=== PATIENT | male | born 1955 | race Caucasian/White ===

== ENCOUNTER 2021-12-12 07:37 | Outpatient (CLI) | payer MEDICAID, SELFPAY ==
--- NOTE | 2021-12-12 08:00 | CRLHL7_ITS ---
For Patients: As a result of the Century Cures Act, medical imaging exams and procedure reports are released immediately into your electronic medical record. You may view this report before your referring provider. If you have questions, please contact your health care provider. Indication: COUGH. FOLLOW UP DIAPHRAGM INFECTION Technique: Noncontrast CT chest Please note that all CT scans at this facility use dose modulation, iterative reconstruction, and/or weight-based dosing when appropriate to reduce radiation dose to as low as reasonably achievable. Comparison: 03/17/2019 CT. 11/18/2021 chest x-ray Findings: Stable 9 millimeter pleural-based nodule anterior right lung. Smaller nodules are similar within the medial right upper lobe and superior segment right lower lobe. Volume loss left lung base including round atelectasis and subsegmental atelectasis in the lingula and left lower lobe. No pleural effusion. Vascular calcifications. Mild chronic prominence of the mediastinal and hilar lymph nodes, unchanged. No fracture. Postop changes of aortic valve repair. Stable benign hypodensity within the left hepatic lobe. Impression: Linear subsegmental and round atelectasis left lung base. Mild prominence of the mediastinal and hilar lymph nodes, unchanged. No suspicious pulmonary nodule. Please note that all CT scans at this facility use dose modulation, iterative reconstruction, and/or weight-based dosing when appropriate to reduce radiation dose to as low as reasonably achievable. Dictated by Manny Melchor MD @ 12/12/2021 9:44:19 AM (Electronically Signed)
== END 2021-12-12 07:38 | disposition home or self-care (01) ==
LOC: CT 07:38
PROVIDERS: PCP Family Medicine; Visit Provider Family Medicine
DX: R05.3 Chronic cough (principal); J98.11 Atelectasis
CPT/HCPCS: 71250

== ENCOUNTER 2022-03-04 10:53 | Outpatient (CLI) | payer MEDICAID, SELFPAY ==
[2022-03-04 21:43] LABS: Chloride* 100 mmol/L (96-114); Sodium* 134 mmol/L (135-149)
[2022-03-04 21:44] LABS: Potassium* 4.9 mmol/L (3.6-5.1)
[2022-03-04 21:46] LABS: Creatinine* 0.8 mg/dL (0.5-1.5); Estimated Glomerular Filt Rate 97 ml/min
[2022-03-04 21:47] LABS: Blood Urea Nitrogen* 17 mg/dL (7-30); Calcium* 9.4 mg/dL (8.4-10.6); Carbon Dioxide* 26 mmol/L (20-32); Glucose* 211 mg/dL (60-115)
[2022-03-04 23:17] LABS: SARS PCR* Negative SARS-CoV-2 (Negative)
== END 2022-03-04 10:54 | disposition home or self-care (01) ==
PROVIDERS: PCP Family Medicine; Visit Provider Family Medicine
DX: Z01.818 Encounter for other preprocedural examination (principal); Z20.822 Contact with and (suspected) exposure to COVID-19
CPT/HCPCS: 80048; 87635

== ENCOUNTER 2022-03-06 09:42 | Outpatient (CLI) | payer MEDICAID, SELFPAY | END 2022-03-06 09:43 | disposition home or self-care (01) | LOC: RAD 09:43 | PROVIDERS: PCP Family Medicine; Visit Provider Internal Medicine Cardiovascular Disease | DX: I35.0 Nonrheumatic aortic (valve) stenosis (principal); I34.0 Nonrheumatic mitral (valve) insufficiency | CPT/HCPCS: 93306 ==

== ENCOUNTER 2022-03-09 07:02 | Outpatient (CLI) | payer MEDICAID, SELFPAY ==
--- OUTSIDE RECORDS SUMMARY | 2022-03-09 07:05 | XMS_ITS | Encounter Summary ---
:1955 Author Organization [facility] Address [address] [place] [address] Care Team Providers Name Role Phone Mj Schaeffer MD Primary Care Provider Reason for Visit Reason Comments UPDATE Encounter Details Date Type Department Care Team Description 11/25/2021 Telephone [facility] [address] [facility] UPDATE Endocrinology [address] [place] [address] [place], [place] [address] [phone] Social History Tobacco Use Types Packs/Day Years Used Date Smoking Tobacco: Every Day Smokeless Tobacco: Never Sex Assigned at Date Recorded Not on file documented as of this encounter Nursing Notes Elizabeth Ferreira RN - 11/25/2021 4:01 PM CDT Received message from [employer] Rep[employer]er, stating: The [employer] rep met with David and his yesterday and got him started on his Dexcom G6. They weregiven incorrect information from [employer] that the Omnipod 5 controller would also be a shoe repairer apprentice for the Dexcom. They are using the shoe repairer apprentice as David does not have a phone. I discussed that the Dexcom shoe repairer apprentice can not be used with the Omnipod 5. During our conversation they also mentioned that with the Omnipod 5 they just need to fill it with insulin and put it on and the system will do everything for them. I am thinking they misunderstood what was mentioned at their last clinic appointment. I explained how the Omnipod 5 works and that they would still need to bolus for carbs but that the automated system would be working in between meals to get the glucose to the set target. They were overwhelmed byall the information and Lashawn (David???s ) said they are going to continue to use his DASH and the Dexcom G6 for now and discuss further with you at his next appointment in December. They also have my contact information. I just wanted to give you a heads up on this one as it appears there were a lot of miscommunications. Patient has appt with you scheduled for 01/14. FYI documented in this encounter Plan of Treatment Upcoming Encounters Date Type Specialty Care Team Description 05/12/2022 Appointment Endocrinology Jeanne Shay [facility] [address] [facility] [place] [address] documented as of this encounter Visit Diagnoses Not on filedocumented in this encounter Care Teams Bessemer Bottom Maker Relationship Specialty Start Date End Date Mj Schaeffer MD PCP - General Family Practice 07/22/21 [facility] [address] [place] [address] documented as of this encounter
--- OUTSIDE RECORDS SUMMARY | 2022-03-09 07:05 | XMS_ITS | Encounter Summary ---
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 Social History Tobacco Use Types Packs/Day Years Used Date Smoking Tobacco: Every Day Smokeless Tobacco: Never Sex Assigned at Date Recorded Not on file documented as of this encounter Plan of Treatment Upcoming Encounters Date Type Specialty Care Team Description 05/12/2022 Appointment Endocrinology Jeanne Shay MBBS [address] [facility] [address] [address] documented as of this encounter Procedures Procedure Name Priority Date/Time Associated Diagnosis Comme nts ALBUMIN/CREAT Routine 01/14/2022 9:55 AM Uncontrolled type 1 R esults for this RATIO CDT diabetes mellitus with proce dure are in hyperglycemia (H RC) the results Essential hypert ension section. 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 documented in this encounter Results (ABNORMAL) Albumin/Creatinine Ratio,Random Urine (01/14/2022 9:55 AM CDT) P athologist Signature Albumin/Creati 31 (H) <30 mg/g 01/14/2022 [facility] nine Ratio, 11:30 AM CDT LABORATORY Urine, Random Albumin, 29.6 mg/L 01/14/2022 [facility] Urine, Random 11:30 AM CDT LABORATORY Creatinine, 97 >20 mg/dL 01/14/2022 [facility] Urine, Random mg/dL 11:30 AM CDT LABORATORY Specimen Anatomical Collection Method Collection Time Receive d Time (Source) Location / / Volume Laterality Urine Non-blood 01/14/2022 9:55 AM 9:55 Collection / CDT AM CDT Unknown Jeanne [facility]_1 Performing Organization Address City/State/ZIP Code Phon e Number [facility] [address] [place] [address] (ABNORMAL) Lipid Panel and Direct LDL (if needed) (01/14/2022 9:36 AM CDT) Patholo gist Method Time Signature Cholesterol 104 0 - 199 01/14/2022 [facility] mg/dL 11:15 AM CDT LABORATORY Triglyceride 102 <=149 01/14/2022 [facility] mg/dL 11:15 AM CDT LABORATORY HDL Cholesterol 38 (L) >=40 mg/dL 01/14/2022 [facility] 11:15 AM CDT LABORATORY LDL, Calculated 46 <130 mg/dL 01/14/2022 [facility] 11:15 AM CDT LABORATORY Non HDL Chol, 66 <=159 01/14/2022 [facility] Calculated mg/dL 11:15 AM CDT LABORATORY Cholesterol/HDL 2.7 01/14/2022 [facility] Ratio 11:15 AM CDT LABORATORY Hours Fasting 2 01/14/2022 [facility] 11:15 AM CDT LAB[facility]ORY Specimen Anatomical Collection Method / Collection Time Recei romario Time (Source) Location / Volume Laterality Blood Venipuncture / 01/14/2022 9:36 01/14/2022 9:36 Unknown AM CDT AM CDT Jeanne Shay MARNIE [facility]_1 Performing Organization Address City/State/ZIP Code Phon e Number [facility] [address] [place] [address] TSH (01/14/2022 9:36 AM CDT) P athologist Signature TSH, Sensitive 1.36 0.30 - 01/14/2022 [facility] 4.50 4:11 PM CDT LABORATORY uIU/mL Specimen Anatomical Collection Method / Collection Time Recei romario Time (Source) Location / Volume Laterality Blood Venipuncture / 01/14/2022 9:36 01/14/2022 9:36 Unknown AM CDT AM CDT Jeanne Cisse Jaspal [facility]1 Performing Organization Address City/State/ZIP Code Phon e Number [facility] [address] [place] [address] (ABNORMAL) BMP (01/14/2022 9:36 AM CDT) Analysis Performed At Patho logist Time Signature Sodium 137 136 - 145 01/14/2022 [facility] mmol/L 11:15 AM CDT LABORATORY Potassium 5.0 3.5 - 5.1 01/14/2022 [facility] mmol/L 11:15 AM CDT LABORATORY Chloride 104 98 - 109 01/14/2022 [facility] mmol/L 11:15 AM CDT LABORATORY CO2 25 20 - 29 01/14/2022 [facility] mmol/L 11:15 AM CDT LABORATORY Anion Gap 8 7 - 16 01/14/2022 [facility] mmol/L 11:15 AM CDT LABORATORY Calcium 9.3 8.4 - 10.4 01/14/2022 [facility] mg/dL 11:15 AM CDT LABORATORY BUN 14 7 - 26 01/14/2022 [facility] mg/dL 11:15 AM CDT LABORATORY Creatinine 0.80 0.73 - 01/14/2022 [facility] 1.18 mg/dL 11:15 AM CDT LABORATORY GFR, Estimated >60 >60 01/14/2022 [facility] mL/min/1.7 11:15 AM CDT LABORATORY 3m2 Glucose 240 (H) 70 - 100 01/14/2022 [facility] mg/dL 11:15 AM CDT LABORATORY Comment: The given reference range is fo r the fasting state. Non-fasting reference range for glucose is 70 - 180 mg/dL. Hours Fasting 2 01/14/2022 11:[address] [facility] Specimen Anatomical Collection Method / Collection Time Recei romario Time (Source) Location / Volume Laterality Blood Venipuncture / 01/14/2022 9:36 01/14/2022 9:36 Unknown AM CDT AM CDT Jeanne Shay [facility]_1 Performing Organization Address City/State/ZIP Code Phon e Number [facility] [address] [place] [address] documented in this encounter Visit Diagnoses Diagnosis Uncontrolled type 1 diabetes mellitus wi th hyperglycemia (HRC) Essential hypertension (HRC) Unspecified essential hypertension Dyslipidemia (high LDL; low HDL) (HRC) Other and unspecified hyperlipidemia Coronary artery disease involving tanner ry bypass graft of andreafski heart without angina pectoris (HRC) documented in this encounter Care Teams Targeting Acquisition Officer Relationship Specialty Start Date End Date Mj Schaeffer MD PCP - General Family Practice 07/22/21 [facility] [address] [place] [address] documented as of this encounter
--- OUTSIDE RECORDS SUMMARY | 2022-03-09 07:05 | XMS_ITS | Encounter Summary ---
:1955 Author Organization [employer] Address [address] [address] Care Team Providers Name Role Phone Mj Schaeffer MD Primary Care Provider Reason for Visit Reason Onset Date Comments Refill 10/23/2021 gabapentin (NEURONTI N) 300 MG capsule Encounter Details Date Type Department Care Team Description 10/23/2021 Refill [place] Jeanne Shay, Refill ( gabapentin Endocrinology MBBS (NEURONTIN) [address] capsule) [place] [address] [facility] [phone] [place], [place] [id number] Social History Tobacco Use Types Packs/Day Years Used Date Smoking Tobacco: Every Day Smokeless Tobacco: Never Sex Assigned at Date Recorded Not on file documented as of this encounter Nursing Notes Interface, Out Surescripts Prov Query - 10/23/2021 9:20 AM CDT gabapentin (NEURONTIN) 300 MG capsule Neurology: Anticonvulsants - Gabapentin -> The requested medication was previously set to Historical. -> Unable to determine if sig has changed, review required. -> Medication cannot be delegated. Last qualifying visit: 10/21/2021 (in [facility]) Next scheduled visit: 01/14/2022 (in [facility]) Last ordered by UNKNOWN, PHYSICIAN: 10/23/2020 (365 days ago as Historical on 12/11/2020 by THOMAS KIMBALL), Sig: take 1 capsule by mouth every morning and 2 every evening (changed) [employer] Embedded Refills, Reference: [id number], 10/23/2021 9:20:06 AM CDT, [place]: [facility] 1 ([id number]) documented in this encounter Plan of Treatment Upcoming Encounters Date Type Specialty Care Team Description 05/12/2022 Appointment Endocrinology Jeanne Shay, MARNIE[facility] [address] [facility] [address] [address] documented as of this encounter Visit Diagnoses Not on filedocumented in this encounter Care Teams Vessel Traffic Officer Relationship Specialty Start Date End Date Mj Schaeffer MD PCP - General Family Practice 07/22/21 [facility] [address] [place] [address] documented as of this encounter
--- OUTSIDE RECORDS SUMMARY | 2022-03-09 07:05 | XMS_ITS | Clinical Summary ---
:1955 Author Organization [facility] [place] [address] Care Team Providers Name Role Phone Jhoan Schaeffer MD Primary Care Provider Allergies No known active allergies Medications Medication Sig Dispensed Refills Start Date End Date Status gabapentin Take 100 mg by mouth 0 Active (NEURONTIN) 100 mg once daily. capsule nitroglycerin Place 0.4 mg under 0 08/19/2017 Active (NITROSTAT) 0.4 mg the tongue every 5 sublingual tablet minutes if needed for Chest Pain. aspirin chewable 81 Take 81 mg by mouth 0 Active mg chewable tablet once daily with a meal. acetaminophen Take 1-2 tablets by 0 09/20/2017 Active (TYLENOL) 325 mg mouth every 4 hours tabletIndications: if needed. Max S/P AVR (aortic acetaminophen dose: valve replacement), 4000mg in 24 hrs. S/P CABG x 3 insulin aspart U-100 Inject 5 units with 15 mL 0 8 Active (NOVOLOG) 100 meals. Follow unit/mL solution for sliding scale. Blood injectionIndications glucose less than : Type 1 diabetes 150, no insulin; mellitus with 151-199 give 2 complication (HC) units; 200-249=4 units; 250-299=6 units; 300-349=8 units; greater than 350=10 units insulin detemir Inject 25 Units 15 mL 0 09/21/2017 Active U-100 (LEVEMIR) 100 subcutaneous once unit/mL (3 mL) daily in the penIndications: Type evening. 1 diabetes mellitus with complication (HC) metFORMIN Take 2 tablets by 0 09/20/2017 A ctive (GLUCOPHAGE) 500 mg mouth once daily tabletIndications: with a meal. Hold Type 1 diabetes until speaking to Dr carrasco with [facility]- we will complication (HC) not resume this until she review your sugars cefdinir (OMNICEF) TK 2 CS PO D 0 12/05/2018 Active 300 mg capsule metoprolol tartrate Take 50 mg by mouth 11 11/29/2018 Active (LOPRESSOR) 50 mg 2 times daily. 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 Hameed S/P CABG x 3 09/15/2017 Overview: Coronary bypass x3 with left internal ma mmary artery to LAD, saphenous vein sequential graft to obtuse marginal and posterior descending branch of right--09/15/17 Dr. Hameed CAD in wiyot artery 09/14/2017 TIA (transient ischemic attack) 09/08/2017 Overview: In 2004, presented with slurred speech a nd weakness of right arm and severe fatigue. Chest pain 09/02/2017 Hypertension 09/02/2017 Hyperlipidemia 09/02/2017 Smoker 09/02/2017 PAD (peripheral artery disease) 09/02/2017 Diabetes type I 09/02/2017 Aortic stenosis 09/02/2017 Encounters Date Type Specialty Care Team Description 03/06/2022 Orders Only 2 scans: (2-Ord ) ECHO COMPLETE WO CONTRAST (ONBAS [id number]) 01/12/2022 Telephone Aakash Mcneil MD Referral 01/09/2022 Office Visit Aakash Mcneil MD 01/09/2022 Orders Only Aakash Mcneil MD <No scans attached> from Last 3 Months Immunizations Name Administration Dates Next Due Influenza, IIV4 02/24/2017, 04/01/2016 Family History Medical History Relation Name Comments Heart Disease Father [place] at age 65, di ed at age 79 Leukemia Mother Relation Name Status Comments Father Mother Social History Tobacco Use Types Packs/Day Years Used Date Current Every Day Smoker 1 50 Smokeless Tobacco: Never Used Alcohol Use Standard Drinks/Week Comments Yes 2 (1 standard drink = 0.6 oz pure alcoho l) social Alcohol Habits Answer Date Recorded How often do you have a drink containing alcohol? Not asked How many drinks containing alcohol do you have on a typical Not asked day when you are drinking? How often do you have six or more drinks on one occasion? No t asked Comment: social 09/08/2017 Sex Assigned at Date Recorded Not on file Obstetrics History Last Filed Vital Signs Vital Sign Reading Time Taken Comments Blood Pressure 120/74 12/14/2018 2:39 PM CDT Pulse 81 12/14/2018 2:39 PM CDT Temperature 36.7 ??C (98 ??F) 09/20/2017 12:52 PM CDT Respiratory Rate 18 09/20/2017 12:52 PM CDT Oxygen Saturation 99% 12/14/2018 2:39 PM On 3L of O2 CDT Inhaled Oxygen Concentration - - Weight 77.4 kg (170 lb 11.2 12/14/2018 2:39 PM oz) CDT Height 172.7 cm (5' 8) 09/15/2017 6:21 AM CDT Body Mass Index 25.95 09/15/2017 6:21 AM CDT Plan of Treatment Upcoming Encounters Date Type Specialty Care Team Description 03/09/2022 Office Visit Faisal Gutierrez MD [address] [id number] (Wo rk) Health Maintenance Due Date Last Done Comments Pneumococcal series for age 65+ (1 1960 - PCV) Tdap 1965 Depression screening for age 12+ 1966 BMI (ht and wt on same day) for 1972 age 18+ Hepatitis C screening for age 0611/11/1972 18-79 Tetanus booster 1974 Colonoscopy through age 75 11/12/1999 Zoster (shingles) series for age 0611/11/2004 50+ (1 of 2) COVID-19 vaccine series (5 - 11/14/2021 09/19/2021, 021, Booster for Moderna series) 08/31/2020, Addition al history exists Influenza for age 65+ 02/05/2022 02/24/2017, 04/01/2016 Lipids for age 45-75 09/02/2022 09/02/2017 Medical Devices Implanted Type Area Sliver Lap Machine Tender Device Shelf Model / Identifier Expiration Serial / Date Lot Valorie Hh [id number] N/A: Carey 06/09/2021 [id number] / Implanted: Qty: 1 on 09/15/2017 by Gurpreet Butler MD at [facility] Aortic Lif[employer]iences [id number] / Explanted: at [facility] (Quantity not on file) Valve Devon Procedures Procedure Name Priority Date/Time Associated Diagnosis Comme nts ECHO COMPLETE WO Routine 03/06/2022 10:51 Nonrheumatic aortic Results for this CONTRAST AM CDT (valve) stenosis procedure a re in the results section. from Last 3 Months Results ECHO COMPLETE WO CONTRAST (03/06/2022 10:51 AM CDT) P athologist Signature AORTIC VALVE 14 mmHg MEAN PG EJECTION 64 % FRACTION LVEDD 3.2 cm EJECTION 70 - 75% FRACTION Anatomical Region Laterality Modality HEART Ultrasound Specimen (Source) Anatomical Collection Method Collection Time Re ceived Time Location / / Volume Laterality 03/06/2022 10:11 AM CDT Narrative 03/06/2022 11:08 AM CDT ECHOCARDIOGRAM JUNIOR Cecilia PETTY ?Accessio n#: ?? [id number] : ?1955 66 years Study Date: ?? 03/06/2022 10:11:45 AM Gender: M ? BP: ? 129/80 mmHg Height: 170.00 cm ? BSA: ?1.91 m? ?? Weight: 79.00 kg ?Tech: ? MJS ?[place] bain MD: AAKASH MCNEIL [facility] Reading Location: MOBILE OP Procedure: 2D, Color Doppler and Spectra l Doppler. Indication for study: 23 MM MAGNA EASE B IOPROSTHESIS AVR Cardiac Rhythm: Normal sinus.Study quali ty: Fair. Final Impressions: 1. Normal LV size, mildly increased wal l thickness, normal global systolic function with an estimated EF of 70 - 75%. 2. Right ventricular cavity size is nor mal, global systolic RV function is normal. 3. The aortic valve is functioning 23 m m Magna Ease, no stenosis and no regurgitation. The aortic valve peak velocity is 2.7 m/s, the peak gradient is 28 mmHg, and the mean gradient is 14 mmHg. The aor tic valve area is 1.71 cm? ?? with a dimensionless index of 0.53. The stroke volume index is 52.1 ml/m? ??. 4. The mitral valve is sclerotic, trace mitral regurgitation. Chamber Sizes and Function Normal left ventricular size, mildly inc reased wall thickness, normal global systolic function with an estimated EF of 70 - 75%. Left atrial size is normal. Right ventricular cavity size is normal, glob al systolic RV function is normal. The r ight atrium is normal. Right atrial volume index is 13 ml/m? ??. Right atrial area is 10 cm? ??. The pulmonary artery is of normal size and origin. The sinus of V alsalva is normal sized. The ascending a maira is normal sized. Valves, RV Pressures and Diastolic Funct ion The aortic valve is functioning 23 mm Ma gna Ease, no stenosis and no regurgitation. The mitral valve is sclerotic, trace mitral regurgitation. Indeterminate pattern of LV diastolic filling. The tricuspi d valve is normal in structure. Tricuspi d regurgitation is trace regurgitation. The pulmonic valve is normal. No pulmonary regurgitation. TTE images do not appear adequate for transcather intervention with patient supine. Masses, Effusion, Shunts There is no pericardial effusion. The in ferior vena cava is normal sized, respiratory size variation greater than 50%. No left to right shunting was detected by limited color flow Doppler interrogation of the interatrial septum. MEASUREMENTS AND CALCULATIONS 2-D Measurements and LV Function: LVID (d) 3.2 cm LVOT diameter 2.0 cm IVS (d) ??1.3 cm HR ?61 bpm LVPW (d) 1.4 cm LA Vol index ??25 ml/m2 Ao Sinus 2.7 cm RA Vol index ??13 ml/m2 Asc Ao ?? 3.4 cm RA area ? 10 cm? ?? LA ? 4.0 cm RV Max 4C (d) 3.4 cm Diastology: Mitral ?Tissue Doppler E Peak 1.2 m/s ??e', Septum ? 0.08 m /s A Peak 0.7 m/s ??e', Lateral ?0.12 m /s E/A ?1.7 ?E/e' Average ?? 11. 39 DT ? 144 msec Aortic Valve: Vmax ? 2.7 m/s ??HARSHAD (V) ?? 1.56 cm? ?? VTI ?0.58 m ?? HARSHAD (I) ?? 1.71 cm? ?? LVOT V max 1.3 m/s ??Max PG ?28 mmHg LVOT VTI ?? 0.31 m ?? Mean PG ?? 14 mmHg SV ? 99 ml ?Dim Index 0.53 SV index ?? 52 ml/m? ?? CO ?6.1 l/min ?CI ?3.2 l/min/m? ?? Mitral Valve: MVA ?5.3 cm? ?? MV P 1/2 42 msec Tricuspid Valve and estimated PA pressur es: TAPSE 2.1 cm . [facility] CC: [facility]. ??Final ?? Procedure Note Justin Reynoso MD - 03/06/2022Format ting of this note might be different from the original. ECHOCARDIOGRAM JUNIOR FIGUEROA : 1955 66 years Study Date: 2021 10:11:45 AM Gender: M BP: 129/80 mmHg Height: 170.00 cm BSA: 1.91 m? ?? Weight: 79.00 kg Tech: BOBBI Referring MD: AAKASH MCNEIL Site: [facility] Reading Location: MOBILE OP Procedure: 2D, Color Doppler and Spectra l Doppler. Indication for study: 23 MM MAGNA EASE B IOPROSTHESIS AVR Cardiac Rhythm: Normal sinus.Study quali ty: Fair. Final Impressions: 1. Normal LV size, mildly increased wal l thickness, normal global systolic function with an estimated EF of 70 - 75%. 2. Right ventricular cavity size is nor mal, global systolic RV function is normal. 3. The aortic valve is functioning 23 m m Magna Ease, no stenosis and no regurgitation. The aortic valve peak velocity is 2.7 m/s, the peak gradient is 28 mmHg, and the mean gradient is 14 mmHg. The aortic valve area is 1.71 cm? ?? with a dimensionless index of 0.53. The stroke volume index is 52.1 ml/m? ??. 4. The mitral valve is sclerotic, trace mitral regurgitation. Chamber Sizes and Function Normal left ventricular size, mildly inc reased wall thickness, normal global systolic function with an estimated EF of 70 - 75%. Left atrial size is normal. Right ventricular cavity size is normal, global systolic RV function is normal. The right atrium is normal. Right atrial volume index is 13 ml/m? ??. Right atrial area is 10 cm? ??. The pulmonary artery is of normal size and origin. The sinus of Valsalva is normal sized. The ascending aorta is normal sized. Valves, RV Pressures and Diastolic Funct ion The aortic valve is functioning 23 mm Ma gna Ease, no stenosis and no regurgitation. The mitral valve is sclerotic, trace mitral regurgitation. Indeterminate pattern of LV diastolic filling. The tricuspid valve is normal in structure. Tricuspid regurgita tion is trace regurgitation. The pulmonic valve is normal. No pulmonary regurgitation. TTE images do not appear adequate for transcather intervention with patient supine. Masses, Effusion, Shunts There is no pericardial effusion. The in ferior vena cava is normal sized, respiratory size variation greater than 50%. No left to right shunting was detected by limited color flow Doppler interrogation of the interatrial septum. MEASUREMENTS AND CALCULATIONS 2-D Measurements and LV Function: LVID (d) 3.2 cm LVOT diameter 2.0 cm IVS (d) 1.3 cm HR 61 bpm LVPW (d) 1.4 cm LA Vol index 25 ml/m2 Ao Sinus 2.7 cm RA Vol index 13 ml/m2 Asc Ao 3.4 cm RA area 10 cm? ?? LA 4.0 cm RV Max 4C (d) 3.4 cm Diastology: Mitral Tissue Doppler E Peak 1.2 m/s e', Septum 0.08 m/s A Peak 0.7 m/s e', Lateral 0.12 m/s E/A 1.7 E/e' Average 11.39 DT 144 msec Aortic Valve: Vmax 2.7 m/s HARSHAD (V) 1.56 cm? ?? VTI 0.58 m HARSHAD (I) 1.71 cm? ?? LVOT V max 1.3 m/s Max PG 28 mmHg LVOT VTI 0.31 m Mean PG 14 mmHg SV 99 ml Dim Index 0.53 SV index 52 ml/m? ?? CO 6.1 l/min CI 3.2 l/min/m? ?? Mitral Valve: MVA 5.3 cm? ?? MV P 1/2 42 msec Tricuspid Valve and estimated PA pressur es: TAPSE 2.1 cm . [facility]. CC: [facility]. Final Aakash Mcneil MD ECHO ORD from Last 3 Months Insurance Payer Benefit Plan / Subscriber ID Effective Dates Phone Addre ss Type Group [facility] [id number] 2021-Present [address] [place] [address] [id number] (Home) [address] [phone] (Work) Advance Directives Latest Code Status on File Code Status Date Activated Date Inactivated Comments Full Code 09/15/2017 5:58 AM 09/20/2017 3:57 PM Full Code 09/02/2017 8:23 AM 09/02/2017 5:50 PM Care Teams Switchman Relationship Specialty Start Date End Date Jhoan Schaeffer MD PCP - General Family Practice 08/19/17
--- OUTSIDE RECORDS SUMMARY | 2022-03-09 07:05 | XMS_ITS | Encounter Summary ---
:1955 Author Organization [email or web address] Address [address], [place] [address] Care Team Providers Name Role Phone Mj Schaeffer MD Primary Care Provider Reason for Referral Medication Prior Authorization - Authorized Specialty Diagnoses / Procedures Referred By Contact Refer red To Contact Diagnoses Uncontrolled type 1 diabetes mellitus with hyperglycemia (HRC) Jeanne Shay MBBS [address] [place], [place] [address] Referral ID Status Reason Start Date Expiration Date Visits V isits Requested Authorized [id number] Authorized 09/23/2021 10/23/2022 1 1 Reason for Visit Reason Comments Diabetes Encounter Details Date Type Department Care Team Description 10/21/2021 Office Visit Jeanne Aguilar d type 1 diabetes mellitus with hyperglycemia (HRC) (Primary Dx); MERE Velasco Essential hypertension; [address] Dyslipidemia (high LDL; low HDL); [place] [address] [address]VD Coronary artery disease involving tanner ry bypass graft of creek heart without angina pectoris [phone] [place] [address] Social History Tobacco Use Types Packs/Day Years Used Date Smoking Tobacco: Every Day Smokeless Tobacco: Never Sex Assigned at Date Recorded Not on file documented as of this encounter Last Filed Vital Signs Vital Sign Reading Time Taken Comments Blood Pressure 132/67 10/21/2021 10:04 AM CDT Pulse 67 10/21/2021 10:04 AM CDT Temperature - - Respiratory Rate - - Oxygen Saturation - - Inhaled Oxygen Concentration - - Weight 79.6 kg (175 lb 8 oz) 10/21/2021 10:04 AM CDT Height 170.2 cm (5' 7) 10/21/2021 10:04 AM CDT Body Mass Index 27.49 10/21/2021 10:04 AM CDT documented in this encounter Progress Notes Jeanne Shay MBBS - 10/21/2021 10:00 AM CDT [facility] Department of Endocrinology, Diabetes and Metabolism Clinic Note Name: David Figueroa Cc: Follow up for T1DM. He came with his who is my patient as well. HPI: David Figueroa is a 65 y.o. male #1 T1DM: Diagnosed in 2014, had positive antibodies per his report. This is complicated by neuropathy and CAD. He is currently using Omnipod with Nemesio CGM. Pump settings are: basal midnight 2.05, 3 am 1.45, 2 PM 1.8, 9 PM 2.05 (total40.85 units), bolus midnight 1 per10 (except from 11:30-2PM he does 1 per 15). SF 40, target 100 during the day and 110 overnight, insulin time 4 hrs. He is back on metformin XR 2 gm daily. He uses CGM with Nemesio, CGM data for 2 weeks were reviewed, average glucose was 240, GMI 9.1. 44% >250, 22%181-250, 34% in range (70-180), 0%<70 and 0%<54. Glucose tracing indicates a trend of hyperglycemia post meals and hypoglycemia around noon. A1C today was 9.9 He has peripheral neuropathy symptoms, controlled with gabapentin 300 mg in the AM and 600 mg at night. Eye exam from this year was reported with no retinopathy. He had CABG in 2018, he takes atorvastatin 80 mg daily, lisinopril 2.5 mg daily, and metoprolol 50 mg BID. He has RUDI not using CPAP. Physical Examination: Vitals: BP 132/67 (BP Location: Left Arm, BP Cuff Size: Large) Pulse 67 Ht 5' 7 (1.702 m) Wt 175 lb 8 oz (79.6 kg) BMI 27.49 kg/m?? General: The patient is alert and oriented, no acute distress. Labs/imaging: Reviewed and summarized in the HPI. Assessment and Plan: David Figueroa is a 65 y.o. male: #1 T1DM: uncontrolled, complicated by neuropathy and CAD. A1C 9.9%. Counseled him about the importance of DM control. Counseled him about diet and exercise. Continue metformin XR, 2 gm daily. Change max bolus to 30, and change basal from 8AM-2PM to 1.25. Change Dash to Omipod With dexcom. counseled him about medicine use and side effects. Continue CGM use. RTC 3 months. #2 HTN: controlled. #3 Dyslipidemia on a statin. #4 CAD s/p CABG. #5 RUDI advised him on using CPAP. [facility] [employer] Technical Director Jaime Holley - 10/21/2021 10:00 AM CDT Images from the original note were not included. documented in this encounter Plan of Treatment Upcoming Encounters Date Type Specialty Care Team Description 05/12/2022 Appointment Endocrinology Jeanne Shay MBBS [address] [facility] [address] [id number] documented as of this encounter Procedures Procedure Name Priority Date/Time Associated Diagnosis Comme nts POCT GLYCOSYLATED Routine 10/21/2021 10:16 Uncontrolled type 1 Results for this HEMOGLOBIN (HGB A1C) AM CDT diabetes mellitus pr ocedure are in with hyperglycemia the resul ts (HRC) section. documented in this encounter Results (ABNORMAL) POCT glycosylated hemoglobin (Hb A1C) (10/21/2021 10:16 AM CDT) P athologist Signature Hemoglobin A1C 9.9 (A) 5.6 % POCT Cartridge Lot# [id number] POCT Specimen (Source) Anatomical Collection Method Collection Time Re ceived Time Location / / Volume Laterality Blood 10/21/2021 10:16 AM CDT Jeanne SEVERINO ET POINT OF CARE TEST ENTER/ EDIT ORDERABLES Performing Organization Address City/State/ZIP Code Phon e Number POCT documented in this encounter Visit Diagnoses Diagnosis Uncontrolled type 1 diabetes mellitus wi th hyperglycemia (HRC) - Primary Essential hypertension (HRC) Unspecified essential hypertension Dyslipidemia (high LDL; low HDL) (HRC) Other and unspecified hyperlipidemia Coronary artery disease involving tanner ry bypass graft of creek heart without angina pectoris (HRC) documented in this encounter Care Teams French Lecturer Relationship Specialty Start Date End Date Mj Schaeffer MD PCP - General Family Practice 07/22/21 [facility] [address] [place] [address] documented as of this encounter
--- OUTSIDE RECORDS SUMMARY | 2022-03-09 07:05 | XMS_ITS | Clinical Summary ---
:1955 Author Organization [facility] Address [address] [place] [address] Care Team Providers Name Role Phone Mj Schaeffer MD Primary Care Provider Source Comments You are receiving this document as you are listed as the primary care provider,follow-up provider, or the patient has been referred to you for consultation.This is in compliance with the Medicare and Medicaid EHR Incentive Program,which states Providers who transition their patient to another setting of careor provider of care or refers their patient to another provider of care shouldprovide summarycare record for each transition of care or referral. [facility] Allergies No known active allergies Medications Medication Sig Dispensed Refills Start Date End Date Status atorvastatin TAKE ONE TABLET 0 10/28/2020 Active (LIPITOR) 80 MG BY MOUTH AT tablet BEDTIME (DUE FOR FASTING LABS) lisinopril (ZESTRIL) Take 2.5 mg by 0 10/16/2020 Active 2.5 MG tablet mouth daily. metoprolol tartrate Take 50 mg by 0 12/06/2020 Active (LOPRESSOR) 50 MG mouth two times tablet a day. aspirin EC 81 MG Take 81 mg by 0 Active enteric coated tablet mouth daily. nitroglycerin Place 0.4 mg 0 Act ananya (NITROSTAT) 0.4 MG under tongue sublingual tablet every 5 minutes as needed for Chest Pain. If no relief after 5 min call 911;continue 1 tab every 5 min max 3 tab metFORMIN XR Take 4 Tablets 360 Tablet 3 07/22/2021 07/22/2022 Active (GLUCOPHAGE XR) 500 (2,000 mg) by MG 24 hour release mouth every tablet evening with a meal. Insulin Disposable Use 1 pod every 6 Each 11 08/05/2021 Active Pump (OMNIPOD DASH 5 1-2 days. 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 Continuous Blood Gluc Change every 14 6 Each 3 09/19/2021 Active Sensor (FREESTYLE days CRISTOBAL 2 SENSOR) MISCIndications: Essential hypertension (HRC) Insulin Disposable Use as directed 1 Kit 0 10/21/2021 Active Pump (OMNIPOD 5 G6 INTRO, GEN 5,) KITIndications: Uncontrolled type 1 diabetes mellitus with hyperglycemia (HRC) Insulin Disposable Use 1 pod every 15 Each 3 10/21/2021 Active Pump (OMNIPOD 5 G6 2-3 days POD, GEN 5,) MISCIndications: Uncontrolled type 1 diabetes mellitus with hyperglycemia (HRC) gabapentin Use 1 cap in 270 Capsule 3 10/28/2021 Act ananya (NEURONTIN) 300 MG the AM and 2 in capsule the PM. 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 12/11/2020 Essential hypertension 12/11/2020 Dyslipidemia (high LDL; low HDL) 12/11/2020 Coronary artery disease involving coronary bypass angela t of [place] heart 12/11/2020 without angina pectoris Encounters Date Type Specialty Care Team Description 01/14/2022 Lab Visit Laboratory Uncontrolled ty pe 1 diabetes mellitus with hyperglycemia (HRC); Essential hyper tension; Dyslipidemia (h igh LDL; low HDL); Coronary artery disease involving coronary bypass graft of [place] heart without angina pectoris 01/14/2022 Office Visit Endocrinology Jeanne Shay, Uncontr olled type 1 diabetes mellitus with hyperglycemia (HRC) (Primary Dx); MBBS Essential hyper tension; Dyslipidemia (h igh LDL; low HDL); Coronary artery disease involving coronary bypass graft of [place] heart without angina pectoris 01/14/2022 Telephone Endocrinology Jeanne Shay, LAB RES ULTS MBBS from Last 3 Months Social History Tobacco Use Types Packs/Day Years Used Date Smoking Tobacco: Every Day Smokeless Tobacco: Never Sex Assigned at Date Recorded Not on file Last Filed Vital Signs Vital Sign Reading Time Taken Comments Blood Pressure 122/66 01/14/2022 9:06 AM CDT Pulse 63 01/14/2022 9:06 AM CDT Temperature - - Respiratory Rate - - Oxygen Saturation - - Inhaled Oxygen Concentration - - Weight 78.5 kg (173 lb 1.6 oz) 01/14/2022 9:06 AM CDT Height 170.2 cm (5' 7) 01/14/2022 9:06 AM CDT Body Mass Index 27.11 01/14/2022 9:06 AM CDT Plan of Treatment Upcoming Encounters Date Type Specialty Care Team Description 05/12/2022 Appointment Endocrinology Jeanne Shay MBBS [address] [place] [address] Health Maintenance Due Date Last Done Comments Colon Cancer Screening Plan 1955 Due Diabetes: Eye Exam 1955 Diabetes: Foot Exam 1955 Hep C Screening (Preventive 1955 Services) PSA Screening Discussion 1955 COVID-19 Vaccine (#1) 05/13/1956 Adult Preventive Visit 1972 HepB (1) 1973 Abdominal Aortic Aneurysm 11/12/2019 (AAA) Screening Pneumococcal 65+ Yrs (2 - 11/29/2020 11/30/2019 PCV) Diabetes: HGBA1C 01/21/2022 10/21/2021, 07/22/2021, 04/01/2021 Influenza (#1) 2022 03/26/2021, 04/03/2020, 05/05/2019, Additional history exists Diabetes: Creatinine 01/14/2023 01/14/2022, 12/11/2020 Diabetes: Urine 01/14/2023 01/14/2022 Microalbumin Diabetes: Lipid Panel 01/14/2027 01/14/2022, 12/11/2020 DTaP/Tdap/Td (2 - Tdap) 10/24/2030 10/24/2020, 07/22/2013 Zoster/Shingles Completed 06/26/2020, 04/03/2020 HepA Aged Out No longer eligib le based on patient 's age to complete this topic Hib Aged Out No longer eligib le based on patient 's age to complete this topic IPV (Polio) Aged Out No longer eligib le based on patient 's age to complete this topic MCV4 Aged Out No longer eligib julita based on patient 's age to complete this topic Procedures Procedure Name Priority Date/Time Associated Diagnosis Comme nts ALBUMIN/CREAT RATIO Routine 01/14/2022 9:55 AM Uncontrolled ty pe 1 Results for this CDT diabetes mellitus with proce dure are in hyperglycemia (H RC) the results Essential hypert ension section. Dyslipidemia (high LDL; low HDL) Coronary artery disease involving coronary bypass graft of [place] heart without angina pectoris LIPID PANEL AND Routine 01/14/2022 9:36 AM Uncontrolled type 1 Results for this DIRECT LDL(IF CDT diabetes mellitus with proc edure are in NEEDED) hyperglycemia (H RC) the results Essential hypert ension section. Dyslipidemia (high LDL; low HDL) Coronary artery disease involving coronary bypass graft of [place] heart without angina pectoris TSH, SENSITIVE Routine 01/14/2022 9:36 AM Uncontrolled type 1 Results for this CDT diabetes mellitus with proce dure are in hyperglycemia (H RC) the results Essential hypert ension section. Dyslipidemia (high LDL; low HDL) Coronary artery disease involving coronary bypass graft of [place] heart without angina pectoris BASIC METABOLIC Routine 01/14/2022 9:36 AM Uncontrolled type 1 Results for this PANEL CDT diabetes mellitus with proce dure are in hyperglycemia (H RC) the results Essential hypert ension section. Dyslipidemia (high LDL; low HDL) Coronary artery disease involving coronary bypass graft of [place] heart without angina pectoris HEMOGLOBIN A1C Routine 01/14/2022 8:53 AM Uncontrolled type 1 Results for this RAPID (LAB REFLEX CDT diabetes mellitus with procedure are in ORDER) hyperglycemia (HRC) the resu lts section. from Last 3 Months Results (ABNORMAL) Albumin/Creatinine Ratio,Random Urine (01/14/2022 9:55 AM CDT) P athologist Signature Albumin/Creati 31 (H) <30 mg/g 01/14/2022 [place] nine Ratio, 11:30 AM CDT LABORATORY Urine, Random Albumin, 29.6 mg/L 01/14/2022 [place] Urine, Random 11:30 AM CDT LABORATORY Creatinine, 97 >20 mg/dL 01/14/2022 [place] Urine, Random mg/dL 11:30 AM CDT LABORATORY Specimen Anatomical Collection Method Collection Time Receive d Time (Source) Location / / Volume Laterality Urine Non-blood 01/14/2022 9:55 AM 9:55 Collection / CDT AM CDT Unknown Jeanne Shay MARNIE LAB_1 Performing Organization Address City/[facility]/ZIP Code [facility] [address] [place], [place] [phone] (ABNORMAL) Lipid Panel and Direct LDL (if needed) (01/14/2022 9:36 AM CDT) Patholo gist Method Time Signature Cholesterol 104 0 - 199 01/14/2022 [place] mg/dL 11:15 AM CDT LABORATORY Triglyceride 102 <=149 01/14/2022 [place] mg/dL 11:15 AM CDT LABORATORY HDL Cholesterol 38 (L) >=40 mg/dL 01/14/2022 [place] 11:15 AM CDT LABORATORY LDL, Calculated 46 <130 mg/dL 01/14/2022 [place] 11:15 AM CDT LABORATORY Non HDL Chol, 66 <=159 01/14/2022 [place] Calculated mg/dL 11:15 AM CDT LABORATORY Cholesterol/HDL 2.7 01/14/2022 [place] Ratio 11:15 AM CDT LABORATORY Hours Fasting 2 01/14/2022 [place] 11:15 AM CDT LABORATORY Specimen Anatomical Collection Method / Collection Time Recei romario Time (Source) Location / Volume Laterality Blood Venipuncture / 01/14/2022 9:36 01/14/2022 9:36 Unknown AM CDT AM CDT Jeanne Shay MARNIE LAB_1 Performing Organization Address City/State/ZIP Code [facility] Number [facility] [address] [place], [place] [phone] TSH (01/14/2022 9:36 AM CDT) P athologist Signature TSH, Sensitive 1.36 0.30 - 01/14/2022 [facility] 4.50 4:11 PM CDT LABORATORY uIU/mL Specimen Anatomical Collection Method / Collection Time Recei romario Time (Source) Location / Volume Laterality Blood Venipuncture / 01/14/2022 9:36 01/14/2022 9:36 Unknown AM CDT AM CDT Jeanne Shay [facility] LAB_1 Performing Organization Address City/State/ZIP Code Phon e Number [facility] [address] [place] [address] (ABNORMAL) BMP (01/14/2022 9:36 AM CDT) Analysis Performed At Patho logist Time Signature Sodium 137 136 - 145 01/14/2022 [place] mmol/L 11:15 AM CDT LABORATORY Potassium 5.0 3.5 - 5.1 01/14/2022 [place] mmol/L 11:15 AM CDT LABORATORY Chloride 104 98 - 109 01/14/2022 [place] mmol/L 11:15 AM CDT LABORATORY CO2 25 20 - 29 01/14/2022 [place] mmol/L 11:15 AM CDT LABORATORY Anion Gap 8 7 - 16 01/14/2022 [place] [place] mmol/L 11:15 AM CDT LABORATORY Calcium 9.3 8.4 - 10.4 01/14/2022 [place] mg/dL 11:15 AM CDT LABORATORY BUN 14 7 - 26 01/14/2022 [place] mg/dL 11:15 AM CDT LABORATORY Creatinine 0.80 0.73 - 01/14/2022 [place] 1.18 mg/dL 11:15 AM CDT LABORATORY GFR, Estimated >60 >60 01/14/2022 [place] [place] mL/min/1.7 11:15 AM CDT LABORATORY 3m2 Glucose 240 (H) 70 - 100 01/14/2022 [place] mg/dL 11:15 AM CDT LABORATORY Comment: The given reference range is fo r the fasting state. Non-fasting reference range for glucose is 70 - 180 mg/dL. Hours Fasting 2 01/14/2022 11:15 AM CDT [facility] Specimen Anatomical Collection Method / Collection Time Recei romario Time (Source) Location / Volume Laterality Blood Venipuncture / 01/14/2022 9:36 01/14/2022 9:36 Unknown AM CDT AM CDT Jeanne Christensenalberto DYE LAB_1 Performing Organization Address City/State/ZIP Code Phon e Number [facility] [address] [place] [phone] (ABNORMAL) HEMOGLOBIN A1C RAPID (LAB REFLEX ORDER) (01/14/2022 8:53 AM CDT) Patholo gist Method Time Signature Hemoglobin A1C 8.2 (H) <=5.6 % 01/14/2022 [place] [place] 9:07 AM CDT LABORATORY Performing Endo A BU 01/14/2022 [place] Location 9:07 AM CDT LABORATORY Specimen Anatomical Collection Method Collection Time Receive d Time (Source) Location / / Volume Laterality Blood 01/14/2022 8:53 AM 8:53 CDT AM CDT Narrative [facility] - 01/14/2022 9:07 AM CDT For patients not previously diagnosed with diabetes: 5.7-6.4%: Increased risk for diabetes 6.5% and greater: Diagnostic for diabete s For patients diagnosed with diabetes: <8.0%: Goal of therapy for ages 18-75 Clinicians may recommend a higher or low er goal for specific individuals. Jeanne SEVERINO LAB_1 Performing Organization Address City/State/ZIP Code Phon e Number [facility] [address] [place] [phone] from Last 3 Months Insurance Payer Benefit Plan / Subscriber ID Effective Dates Phone Addre ss Type Group [facility] [id number] 2021-Present [phone] CLAI MS Medicaid [address] [place] [address] Clerk Relationship Specialty Start Date End Date Mj Schaeffer MD PCP - General Family Practice 07/22/21 [facility] [address] [place] [address]
--- OUTSIDE RECORDS SUMMARY | 2022-03-09 07:05 | XMS_ITS | Encounter Summary ---
:1955 Author [email or web address] Address [address] [place] [address] Care Team Providers Name Role Phone Mj Schaeffer MD Primary Care Provider Reason for Visit Reason Comments LAB RESULTS Encounter Details Date Type Department Care Team Description 01/14/2022 Telephone [facility] [address] MBBS LAB RESULTS Endocrinology [address] [place] [address] [place], [place] [id number] [phone] Social History Tobacco Use Types Packs/Day Years Used Date Smoking Tobacco: Every Day Smokeless Tobacco: Never Sex Assigned at Date Recorded Not on file documented as of this encounter Nursing Notes Acacia Purcell RN - 01/15/2022 2:58 PM CDT Called pt; gave him the results and recommendations below. Mary Camacho RN - 01/14/2022 4:41 PM CDT Left VM for patient to return call. Please relay information below. Mary Camacho RN - 01/14/2022 4:41 PM CDT ----- Message from MERE Ruelas sent at 01/14/2022 4:38 PM CDT ----- All labs are stable, we will continue to monitor that yearly. documented in this encounter Plan of Treatment Upcoming Encounters Date Type Specialty Care Team Description 05/12/2022 Appointment Endocrinology Jeanne Shay, MARNIEBS [address] [facility] [place] [address] [address] documented as of this encounter Visit Diagnoses Not on filedocumented in this encounter Care Teams Retail Office Manager Relationship Specialty Start Date End Date Mj Schaeffer MD PCP - General Family Practice 07/22/21 [facility] [address] [place] [address] documented as of this encounter
--- OUTSIDE RECORDS SUMMARY | 2022-03-09 07:05 | XMS_ITS | Encounter Summary ---
:1955 Author Organization [facility] Address [address] [place] [address] Care Team Providers Name Role Phone Mj Schaeffer MD Primary Care Provider Encounter Details Date Type Department Care Team Description 09/04/2021 Notes/Orders [facility] [address] An Castanon RN , Endocrinology [facility] [address] [place] [address] Social History Tobacco Use Types Packs/Day Years Used Date Smoking Tobacco: Every Day Smokeless Tobacco: Never Sex Assigned at Date Recorded Not on file documented as of this encounter Progress Notes An Castanon RN, [facility] - 09/04/2021 5:40 PM CDT Accessed patient's chart in attempt to establish connection from patient's [employer] account to transfer continuous glucose monitoring data directly into [facility]. Was unable to send request to connect at this time as patient does not have an Email address on file. documented in this encounter Plan of Treatment Upcoming Encounters Date Type Specialty Care Team Description 05/12/2022 Appointment Endocrinology Jeanne Shay MBBS [address] [facility] [address] [address] documented as of this encounter Visit Diagnoses Not on filedocumented in this encounter Care Teams Assessment Counselor Relationship Specialty Start Date End Date Mj Schaeffer MD PCP - General Family Practice 07/22/21 [facility] [address] [place] [address] documented as of this encounter
--- OUTSIDE RECORDS SUMMARY | 2022-03-09 07:06 | XMS_ITS | Encounter Summary ---
:1955 Author [facility] Address [address], [place] [address] Care Team Providers Name Role Phone Unavailable Primary Care Provider Unavailable Reason for Visit Reason Comments Diabetes Encounter Details Date Type Department Care Team Description 04/01/2021 Office Visit Jeanne Aguilar type I diabetes mellitus with neuropathy (HRC) (Primary Dx); Endocrinology MERE Cisse Essential hypertension; [address] [employer] [address] [facility] Dyslipidemia (high LDL; low HDL); [place] [address] BLVD Coronary artery disease involving tanner ry bypass graft of [place] heart without angina pectoris [phone] [place], [place] [address] Social History Tobacco Use Types Packs/Day Years Used Date Smoking Tobacco: Every Day Smokeless Tobacco: Never Sex Assigned at Date Recorded Not on file documented as of this encounter Last Filed Vital Signs Vital Sign Reading Time Taken Comments Blood Pressure 113/61 04/01/2021 1:45 PM CDT Pulse 78 04/01/2021 1:45 PM CDT Temperature - - Respiratory Rate - - Oxygen Saturation - - Inhaled Oxygen Concentration - - Weight 81.7 kg (180 lb 1.6 oz) 04/01/2021 1:45 PM CDT Height 170.2 cm (5' 7) 04/01/2021 1:45 PM CDT Body Mass Index 28.21 04/01/2021 1:45 PM CDT documented in this encounter Progress Notes Jaime Holley - 04/01/2021 2:15 PM CDT Images from the original note were not included. Jeanne Shay MBBS - 04/01/2021 2:[address] [facility] Department of Endocrinology, Diabetes and Metabolism Clinic [...] Nemesio CGM. Pump settings are: basal midnight 1.95, 3 am 1.4, 2 PM 1.8, 9 PM 1.95 (total 39.7 units), bolus midnight 1 per10. SF 40, target 100 during the day and 110 overnight, insulin time 4 hrs. He is having issues with his sensor reader, a new reader will be provided today. A1C today was 8.6. he has hyperglycemia post lunch due to not bolusing in fear of hypoglycemia. He continues to take metfromin 1500 mg daily, he wishes to stop that. He has peripheral neuropathy symptoms, controlled with gabapentin 300 mg in the AM and 600 mg at night. Eye exam from this year was reported with no retinopathy. He had CABG in 2018, he takes atorvastatin 80 mg daily, lisinopril 2.5 mg daily, and metoprolol 50 mg BID. He has RUDI not using CPAP, he feels tired all the time. Physical Examination: Vitals: BP 113/61 (BP Location: Right Arm, BP Cuff Size: Large) Pulse 78 Ht 5' 7 (1.702 m) Wt180 lb 1.6 oz (81.7 kg) BMI 28.21 kg/m?? General: The patient is alert and oriented, no acute distress. Labs/imaging: Reviewed and summarized in the HPI. Assessment and Plan: David Figueroa is a 65 y.o. male: #1 T1DM: Better controlled, complicated by neuropathy and CAD. A1C 8.6. Counseled him about the importance of DM control. Counseled him about diet and exercise. Stop metformin for 4 weeks and report response. Activate temp basal to use 50% when at work. Change bolus for lunch to 1 per 15, To reduce hypoglycemia. Continue CGM use. RTC 3 months. When he comes [place] from the [place]. #2 HTN: controlled. #3 Dyslipidemia on a statin. #4 CAD s/p CABG. #5 RUDI advised him on using CPAP. MERE Ruelas Hot Box Operator documented in this encounter Plan of Treatment Upcoming Encounters Date Type Specialty Care Team Description 05/12/2022 Appointment Endocrinology Jeanne Shay MBBS [address] [facility] [place] [address] documented as of this encounter Procedures Procedure Name Priority Date/Time Associated Diagnosis Comme nts POCT GLYCOSYLATED Routine 04/01/2021 2:41 PM Uncontrolled type I Results for this HEMOGLOBIN (HGB A1C) CDT diabetes mellitus pr ocedure are in with neuropathy the results (HRC) section. documented in this encounter Results (ABNORMAL) POCT glycosylated hemoglobin (Hb A1C) (04/01/2021 2:41 PM CDT) P athologist Signature Hemoglobin A1C 8.6 (A) 5.6 % POCT Cartridge Lot# [id number] POCT Specimen (Source) Anatomical Collection Method Collection Time Re ceived Time Location / / Volume Laterality Blood 04/01/2021 2:41 PM CDT Jeanne SEVERINO ET POINT OF CARE TEST ENTER/ EDIT ORDERABLES Performing Organization Address City/State/ZIP Code Phon e Number POCT documented in this encounter Visit Diagnoses Diagnosis Uncontrolled type I diabetes mellitus wi th neuropathy - Primary Type I (juvenile type) diabetes mellitus with neurological manifestations, uncontrolled Essential hypertension (HRC) Unspecified essential hypertension Dyslipidemia (high LDL; low HDL) (HRC) Other and unspecified hyperlipidemia Coronary artery disease involving tanner ry bypass graft of [place] heart without angina pectoris (HRC) documented in this encounter
--- OUTSIDE RECORDS SUMMARY | 2022-03-09 07:06 | XMS_ITS | Encounter Summary ---
:1955 Author Organization [facility] Address [address] [place] [address] Care Team Providers Name Role Phone Unavailable Primary Care Provider Unavailable Reason for Visit Reason Onset Date Comments Patient Request 09/25/2013 CT at [facility] Imaging Encounter Details Date Type Department Care Team Description 09/25/2013 Telephone [facility] Aristides Rendon atient Request (CT Clinic Amalia Neo Vogel MD at Sub Imaging) [id number] [place] [phone] [address] [phone] [place], [place] [address] (Wo rk) Social History Tobacco Use Types Packs/Day Years Used Date Current Every Day Smoker 1 40 Smokeless Tobacco: Never Used Alcohol Use Standard Drinks/Week Comments Yes 0 (1 standard drink = 0.6 oz pure alcoho l) occ/ Alcohol Habits Answer Date Recorded How often do you have a drink containing alcohol? Not asked How many drinks containing alcohol do you have on a typical Not asked day when you are drinking? How often do you have six or more drinks on one occasion? No t asked Comment: occ/ 09/25/2013 Sex Assigned at Date Recorded Not on file documented as of this encounter Miscellaneous Notes Telephone Encounter - Mary Meyers - 09/25/2013 2:01 PM CDT I faxed the orders and informed son. (Mary in referrals) Telephone Encounter - Enedina Reyes RN - 09/25/2013 11:24 AM CDT Mary-can you help them with this. Thanks, Enedina Reyes, RN Telephone Encounter - Aristides Rendon MD - 09/25/2013 11:19 AM CDT OK, Please take care of this for the patient Aristides Rendon MD [facility] Telephone Encounter - Ramlia Condon RN - 09/25/2013 10:54 AM CDT Son calls back, pt not available but calls on pt behalf, has no travel insurance, wants CT scan order faxed to [facility] imaging in , fax [phone], informs less expensive at this facility, inform son above when faxed to he can schedule appointment, routed to Ramila Condon RN, BSN Message handled by Nurse Triage. documented in this encounter Plan of Treatment Not on filedocumented as of this encounter Visit Diagnoses Not on filedocumented in this encounter
--- OUTSIDE RECORDS SUMMARY | 2022-03-09 07:06 | XMS_ITS | Encounter Summary ---
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); Endocrinology M, MBBS Essential hypertension; [address] [facility] Dyslipidemia (high LDL; low HDL); [place] [address] BLVD Coronary artery disease involving tanner ry bypass graft of [place] heart without angina pectoris [phone] [place] [address] Social History Tobacco Use Types Packs/Day Years Used Date Smoking Tobacco: Every Day Smokeless Tobacco: Never Sex Assigned at Date Recorded Not on file documented as of this encounter Last Filed Vital Signs Vital Sign Reading Time Taken Comments Blood Pressure 119/59 07/22/2021 9:20 AM NEUROBIOLOGIST Pulse 60 07/22/2021 9:20 AM NEUROBIOLOGIST Temperature - - Respiratory Rate - - Oxygen Saturation - - Inhaled Oxygen Concentration - - Weight 81.6 kg (180 lb) 07/22/2021 9:20 AM NEUROBIOLOGIST Height 170.2 cm (5' 7) 07/22/2021 9:20 AM NEUROBIOLOGIST Body Mass Index 28.19 07/22/2021 9:20 AM NEUROBIOLOGIST documented in this encounter Progress Notes Jaime Holley - 07/22/2021 9:30 AM CST Images from the original note were not included. OBIOLOGIST Jeanne Shay MBBS - 07/22/2021 9:30 AM CST [facility] Department of Endocrinology, Diabetes and Metabolism [...] 110 overnight, insulin time 4 hrs. He stopped the metformin but did not follow up with me to let me know his numbers were higher. He uses CGM with [employer], CGM data for 2 weeks were reviewed, average glucose was 238, GMI 9. 40% >250, 24%181-250, 35% in range (70-180), 1 %<70 and 0%<54. Glucose tracing indicates a trend of hyperglycemia overnight and during the day. A1C today was 11. He has peripheral neuropathy symptoms, controlled with gabapentin 300 mg in the AM and 600 mg at night. Eye exam from this year was reported with no retinopathy. He had CABG in 2018, he takes atorvastatin 80 mg daily, lisinopril 2.5 mg daily, and metoprolol 50 mg BID. He has RUDI not using CPAP. Physical Examination: Vitals: BP 119/59 (BP Location: Left Arm, BP Cuff Size: Large) Pulse 60 Ht 5' 7 (1.702 m) Wt 180 lb (81.6 kg) BMI 28.19 kg/m?? General: The patient is alert and oriented, no acute distress. Labs/imaging: Reviewed and summarized in the HPI. Assessment and Plan: David Figueroa is a 65 y.o. male: #1 T1DM: uncontrolled, complicated by neuropathy and CAD. A1C 11%. Counseled him about the importance of DM control. Counseled him about diet and exercise. Restart metformin XR, using 500 mg 1 tab daily and titrate that back to 2000 mg at dinner time in 4 weeks. counseled him about medicine use and side effects. Continue CGM use. RTC 3 months. We will look into Omnipod 5 next visit (it will be released soon). #2 HTN: controlled. #3 Dyslipidemia on a statin. #4 CAD s/p CABG. #5 RUDI advised him on using CPAP. MERE Ruelas Pharmacy Technology Instructor OBIOLOGIST documented in this encounter Plan of Treatment Upcoming Encounters Date Type Specialty Care Team Description 05/12/2022 Appointment Endocrinology Jeanne Shay MBBS [address] [facility] [place] N [address] documented as of this encounter Procedures Procedure Name Priority Date/Time Associated Diagnosis Comme nts POCT GLYCOSYLATED Routine 07/22/2021 10:41 Uncontrolled type I Results for this HEMOGLOBIN (HGB A1C) AM NEUROBIOLOGIST diabetes mellitus pr ocedure are in with neuropathy the results (HRC) section. documented in this encounter Results (ABNORMAL) POCT glycosylated hemoglobin (Hb A1C) (07/22/2021 10:41 AM NEUROBIOLOGIST) Analysis Performed At Patho logist Time Signature Hemoglobin A1C 11.0 (A) 5.6 % POCT Cartridge Lot# [id number] POCT Specimen (Source) Anatomical Collection Method Collection Time Re ceived Time Location / / Volume Laterality Blood 07/22/2021 10:41 AM NEUROBIOLOGIST Jeanne SEVERINO ET POINT OF CARE TEST [...] disease involving tanner ry bypass graft of [place] heart without angina pectoris (HRC) documented in this encounter Care Teams Photographic Double Relationship Specialty Start Date End Date Mj Schaeffer MD PCP - General Family Practice 07/22/21 [facility] [address] [place] [address] documented as of this encounter
--- OUTSIDE RECORDS SUMMARY | 2022-03-09 07:06 | XMS_ITS | Encounter Summary ---
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); MERE Velasco Essential hypertension; [address] Dyslipidemia (high LDL; low HDL); [place] [address] BLVD Coronary artery disease involving tanner ry bypass graft of [place] heart without angina pectoris [phone] [place], [place] [address] Social History Tobacco Use Types Packs/Day Years Used Date Smoking Tobacco: Every Day Smokeless Tobacco: Never Sex Assigned at Date Recorded Not on file documented as of this encounter Last Filed Vital Signs Vital Sign Reading Time Taken Comments Blood Pressure 106/51 12/24/2020 1:31 PM CDT Pulse 74 12/24/2020 1:31 PM CDT Temperature - - Respiratory Rate - - Oxygen Saturation - - Inhaled Oxygen Concentration - - Weight 79.4 kg (175 lb) 12/24/2020 1:31 PM CDT Height 170.2 cm (5' 7) 12/24/2020 1:31 PM CDT Body Mass Index 27.41 12/24/2020 1:31 PM CDT documented in this encounter Progress Notes Jeanne Shay MBBS - 12/24/2020 1:30 PM CDT [facility] B[facility] Department of Endocrinology, Diabetes and Metabolism [...] [employer] CGM. Pump settings are: basal midnight 1.8, 8 AM 1.4 noon 1.6 and 2 PM 1.8 (total 41.2 units), bolus midnight 1 per 8.5 and 3 PM 1 per 7.5. SF 40, target 100 during the day and 110 overnight, insulin time 4hrs. CGM data for 2 weeks were reviewed, average glucose was 183, GMI 7.7. 18% >250, 30%181-250, 51% in range (70-180), 1%<70 and 0%<54. Glucose tracing indicates a trend of hyperglycemia overnight. He takes metformin 1 gm BID. He has peripheral neuropathy symptoms, controlled with [...] all the time. Physical Examination: Vitals: BP 106/51 (BP Location: Right Arm, BP Cuff Size: Regular) Pulse 74 Ht 5' 7 (1.702 m) Wt 175 lb (79.4 kg) BMI 27.41 kg/m?? General: The patient is alert and oriented, no acute distress. Labs/imaging: Reviewed and summarized in the HPI. Assessment and Plan: David Figueroa is a 65 y.o. male: #1 T1DM: Better controlled, complicated by neuropathy and CAD. Counseled him about the importance of DM control. Counseled him about diet and exercise. Change basal from 9 PM-3 AM to 1.95. and from noon-2 to 1.4. Reduce carbs to <60 gm per meal. Activate temp basal to use 50% when at work. Continue CGM use. RTC 3 months. #2 HTN: controlled. #3 Dyslipidemia on a statin. #4 CAD s/p CABG. #5 RUDI advised him on using CPAP. MERE Ruelas Agent Contract Clerk Acacia Purcell, RN - 12/24/2020 1:30 PM CDT Images from the original note were not included. documented in this encounter Plan of Treatment Upcoming Encounters Date Type Specialty Care Team Description 05/12/2022 Appointment Endocrinology Jeanne Shay MBBS [address] [facility] [address] [address] documented as of this encounter Visit Diagnoses Diagnosis Uncontrolled type I diabetes mellitus wi th neuropathy - Primary Type I (juvenile type) diabetes mellitus with neurological manifestations, uncontrolled Essential hypertension (HRC) Unspecified essential hypertension Dyslipidemia (high LDL; low HDL) (HRC) Other and unspecified hyperlipidemia Coronary artery disease involving tanner ry bypass graft of [place] heart without angina pectoris (HRC) documented in this encounter
--- OUTSIDE RECORDS SUMMARY | 2022-03-09 07:06 | XMS_ITS | Encounter Summary ---
:1955 Author Organization [employer] [facility] Address [address], [place] [address] Care Team Providers Name Role Phone Mj Schaeffer MD Primary Care Provider Reason for Visit Reason Onset Date Comments Refill 08/13/2021 insulin aspart (ZAHNE LOG) 100 UNIT/ML injection (vial) Encounter Details Date Type Department Care Team Description 08/13/2021 Refill [facility] [address] Jeanne Shay, Re fill (insulin aspart Endocrinology MBBS (NOVOLOG) 100 UNIT/ML [address] inj ection (vial)) [place] [address] [phone] Social History Tobacco Use Types Packs/Day Years Used Date Smoking Tobacco: Every Day Smokeless Tobacco: Never Sex Assigned at Date Recorded Not on file documented as of this encounter Nursing Notes Haley Dickey - 08/26/2021 11:29 AM CDT REQUEST FAXED TO [facility] AT [phone] Jami Broussard RN - 08/14/2021 3:31 PM CST Further assistance needed to complete refill request Reason: Medication listed on active med list as historical. New signed order needed. Next Steps: Review pended order for accuracy. Sign. Close encounter. TDD estimated based on recent omnipod reports, reflecting TDD of roughly 76 units- added extra for priming, etc. LV: 07/22/21 FV: 10/21/21 Requested Prescriptions Pending Prescriptions Disp Refills ??? insulin aspart (NOVOLOG) 100 UNIT/ML injection (vial) 90 mL 3 Sig: Use 80-90 units daily via insulin pump EN DOOR MAKER Interface, Out Surescripts Prov Query - 08/13/2021 1:23 PM CST insulin aspart (NOVOLOG) 100 UNIT/ML injection (vial) Endocrinology: Diabetes - Insulins -> The requested medication was previously set to Historical. -> Unable to determine if sig has changed, review required. -> HBA1C is abnormal (11 % is greater than 8.0 %) -> Refill x 3 months (until due for a(n) HBA1C check) Last qualifying visit: 08/05/2021 (in [facility]) Next scheduled visit: 10/21/2021 (in [facility]) Last ordered by UNKNOWN, PHYSICIAN: 11/07/2020 (279 days ago as Historical on 12/11/2020 by THOMAS KIMBALL), Sig: inject up to 150 units daily via insulin pump (changed) HBA1C: 11 % on 07/22/2021 Powered by [employer] by [employer], Reference: [id number], 08/13/2021 1:23:32 PM Delroy PEREZ:CUONG PN NURSING TEAM 1 ([id number]) Yumiko Briseno - 08/13/2021 1:22 PM CST Pharmacy states patient says 1 vial lasts about 3 days due to lost insulin in Omnipods. Please send new Rx reflecting current directions. EN DOOR MAKER documented in this encounter Plan of Treatment Upcoming Encounters Date Type Specialty Care Team Description 05/12/2022 Appointment Endocrinology Jeanne Shay, MARNIEBS [address] [facility] [place] N [address] documented as of this encounter Visit Diagnoses Diagnosis Uncontrolled type I diabetes mellitus wi th neuropathy - Primary Type I (juvenile type) diabetes mellitus with neurological manifestations, uncontrolled documented in this encounter Care Teams Whistle Punk Relationship Specialty Start Date End Date Mj Schaeffer MD PCP - General Family Practice 07/22/21 [facility] [address] [place] [address] documented as of this encounter
--- OUTSIDE RECORDS SUMMARY | 2022-03-09 07:06 | XMS_ITS | Encounter Summary ---
:1955 Author Organization [place] Address [address] [place] [address] Care Team Providers Name Role Phone Mj Schaeffer MD Primary Care Provider Reason for Visit Diagnostic Imaging Ultrasound (Routine) - Closed Specialty Diagnoses / Procedures Referred By Contact Refer red To Contact Central Scheduling Diagnoses Pneumonia Lucia Acosta MD [facility] Cntrl Procedures US Chest Pleural Effusion Imaging US Thoracentesis [facility] Sched [address] [place] [address] Drive [address] [address] [place] [address] Phone: Referral ID Status Reason Start Date Expiration Date Visits Requ ested Visits Authorized [id number] Closed 12/15/2018 12/15/2019 1 1 Encounter Details Date Type Department Care Team Description 12/19/2018 Hospital Encounter [facility] Lucia kothari MD Pneumonia Imaging [facility] [address] [address] (Wo rk) Social History Tobacco Use Types [...] on one occasion? No t asked Comment: occ09/25/2013 Sex Assigned at Date Recorded Not on file documented as of this encounter Progress Notes Marii Walker RN - 12/19/2018 10:03 AM CDT Patient here for right thoracentesis per Dr. Acosta's order, there is no fluid per ultrasound. Patient discharged to home ambulatory with spouse in stable condition, office notified that procedure was not done. documented in this encounter Plan of Treatment Not on filedocumented as of this encounter Procedures Procedure Name Priority Date/Time Associated Diagnosis Comme nts US CHEST/PLEURAL Routine 12/19/2018 10:02 AM Pneumonia Resu lts for this EFFUSION IMAGING CDT procedure a re in the results section. documented in this encounter Results US Chest Pleural Effusion Imaging (12/19/2018 10:02 AM CDT) Anatomical Region Laterality Modality Chest Ultrasound Specimen (Source) Anatomical Location Collection Method / Collectio n Time Received Time / Laterality Volume Impressions 12/19/2018 4:52 PM CDT IMPRESSION: No right or left pleural effusion. Thoracentesis was not performed. HARSHIL ORDOÑEZ DO Narrative 12/19/2018 4:52 PM CDT ULTRASOUND CHEST/PLEURAL EFFUSION IMAGING ?? 12/19/2018 10:02 AM HISTORY: Pneumonia. COMPARISON: None. FINDINGS: Limited ultrasound of the righ t and left chest was performed. Images show no pleural effusi on. Procedure Note Harshil Ordoñez DO - 2018 ULTRASOUND CHEST/PLEURAL EFFUSION IMAGIN G 12/19/2018 10:02 AM HISTORY: Pneumonia. COMPARISON: None. FINDINGS: Limited ultrasound of the righ t and left chest was performed. Images show no pleural effusi on. IMPRESSION: No right or left pleural eff usion. Thoracentesis was not performed. HARSHIL ORDOÑEZ DO Lucia Acosta MD IMG US ORDERABLES documented in this encounter Visit Diagnoses Diagnosis Pneumonia Pneumonia, organism unspecified documented in this encounter Care Teams Fitter'S Assistant Relationship Specialty Start Date End Date Mj Schaeffer MD PCP - General Family Practice 12/16/18 [facility] [address] [place] [address] documented as of this encounter
--- OUTSIDE RECORDS SUMMARY | 2022-03-09 07:06 | XMS_ITS | Encounter Summary ---
:1955 Author Organization [facility] Address [address] [place] [address] Care Team Providers Name Role Phone Unavailable Primary Care Provider Unavailable Reason for Visit Reason Comments LAB RESULTS Encounter Details Date Type Department Care Team Description 12/12/2020 Telephone [facility] [address] [place] Shay MBBS LAB RESULTS Endocrinology [address] [place] [address] [place], [place] [address] [phone] Social History Tobacco Use Types Packs/Day Years Used Date Smoking Tobacco: Every Day Smokeless Tobacco: Never Sex Assigned at Date Recorded Not on file documented as of this encounter Nursing Notes Opal Costa, NORM - 12/12/2020 5:01 PM CDT Pt and spouse calling in for message below. They verbalize understanding and have no further questions. Dinora Marquez RN - 12/12/2020 10:42 AM CDT Left voicemail for Pt. To call back for message below. Dinora Marquez, NORM - 12/12/2020 10:42 AM CDT ----- Message from MERE Ruelas sent at 12/12/2020 10:24 AM CDT ----- Kidney function, urine test and thyroid labs are normal. documented in this encounter Plan of Treatment Upcoming Encounters Date Type Specialty Care Team Description 05/12/2022 Appointment Endocrinology Jeanne Shay MBBS [address] [facility] Tanna MEDINA N [address] documented as of this encounter Visit Diagnoses Not on filedocumented in this encounter
--- OUTSIDE RECORDS SUMMARY | 2022-03-09 07:06 | XMS_ITS | Encounter Summary ---
:1955 Author Organization [place] Address [address] [place] [address] Care Team Providers Name Role Phone Unavailable Primary Care Provider Unavailable Reason for Visit Reason Comments Neck Problem lump on neck Encounter Details Date Type Department Care Team Description 09/25/2013 Office Visit [facility] Aristides Concepcion [facility] [place] Neo Vogel MD (Primary Dx) [address] [facility] [address] [address] [phone] [place], [place] [address] (Wo rk) Social History Tobacco Use Types Packs/Day Years Used Date Current Every Day Smoker 1 40 Smokeless Tobacco: Never Used Tobacco Cessation: Ready to Quit: No Alcohol Use Standard Drinks/Week Comments Yes 0 [...] Sign Reading Time Taken Comments Blood Pressure 126/78 09/25/2013 7:45 AM CDT Pulse 78 09/25/2013 7:45 AM CDT Temperature 36.5 ??C (97.7 ??F) 09/25/2013 7:45 AM CDT Respiratory Rate 16 09/25/2013 7:45 AM CDT Oxygen Saturation - - Inhaled Oxygen Concentration - - Weight 75.5 kg (166 lb 6.4 oz) 09/25/2013 7:45 AM CDT Height 168.9 cm (5' 6.5) 09/25/2013 7:45 AM CDT Body Mass Index 26.46 09/25/2013 7:45 AM CDT documented in this encounter Progress Notes Aristides Rendon MD - 09/25/2013 7:38 AM CDT SUBJECTIVE: David Sharp is a 57 year old male who presents to clinic today for the following health issues: Lump on left side of neck ?? Duration: x1 month ?? Description (location/character/radiation): left side of neck ?? Intensity: mild ?? Accompanying signs and symptoms: grew double in size ?? History (similar episodes/previous evaluation): None ?? Precipitating or alleviating factors: None ?? Therapies tried and outcome: None Problem list and histories reviewed & adjusted, as indicated. Additional history: as documented No current outpatient prescriptions on file. BP Readings from Last 3 Encounters: 09/25/13 126/78 Wt Readings from Last 3 Encounters: 09/25/13 166 lb 6.4 oz (75.479 kg) History Social History ??? Marital Status: Spouse Name: N/A Number of Children: N/A ??? Years of Education: N/A Occupational History ??? Not on file. Social History Main Topics ??? Smoking status: Current Every Day Smoker -- 1.00 packs/day for 40 years ??? Smokeless tobacco: Never Used ??? Alcohol Use: Yes Comment: occ/ ??? Drug Use: No ??? Sexually Active: Yes -- Female partner(s) Other Topics Concern ??? Not on file Social History Narrative ROS: Constitutional, HEENT, cardiovascular, pulmonary, gi and gu systems are negative, except as otherwise noted. OBJECTIVE: BP 126/78 Pulse 78 Temp(Src) 97.7 ??F (36.5 ??C) (Oral) Resp 16 Ht 5' 6.5 (1.689 m) Wt 166 lb 6.4 oz (75.479 kg) BMI 26.46 kg/m2 Body mass index is 26.46 kg/(m^2). GENERAL APPEARANCE: healthy, alert, no distress and cooperative HENT: ear canals and TM's normal and nose and mouth without ulcers or lesions NECK: no adenopathy, no asymmetry, masses, or scars, thyroid normal to palpation and mass 2-3 cm indurated tender along left jaw angle RESP: lungs clear to auscultation - no rales, rhonchi or wheezes CV: regular rates and rhythm, normal S1 S2, no S3 or S4 and no murmur, click or rub ASSESSMENT/PLAN: (784.2) Mass of neck (primary encounter diagnosis) Comment: possible cyst versus adenopathy versus tumor Plan: CT Soft Tissue Neck w Contrast, CBC with platelets, Basic metabolic panel, ESR: Erythrocyte sedimentation rate Advised to quit smoking Aristides Rendon MD, MD [facility] documented in this encounter Nursing Notes Tessa Gates CMA - 09/25/2013 7:48 AM CDT Chief Complaint Patient presents with ??? Neck Problem lump on neck Initial BP 126/78 Pulse 78 Temp(Src) 97.7 ??F (36.5 ??C) (Oral) Resp 16 Ht 5' 6.5 (1.689 m) Wt 166 lb 6.4 oz (75.479 kg) BMI 26.46 kg/m2 Estimated body mass index is 26.46 kg/(m^2) as calculated from the following: Height as of this encounter: 5' 6.5 (1.689 m). Weight as of this encounter: 166 lb 6.4 oz (75.479 kg).. BP completed using cuff size large - RAAbilio Gates, Chiropractor Sole Practitioner documented in this encounter Plan of Treatment Not on filedocumented as of this encounter Procedures Procedure Name Priority Date/Time Associated Comments Diagnosis ERYTHROCYTE Routine 09/25/2013 8:04 AM Mass of neck Results f or this SEDIMENTATION RATE CDT procedure are in AUTO the results section. BASIC METABOLIC PANEL Routine 09/25/2013 8:04 AM Mass of neck Results for this CDT procedure are i n the results section. CBC WITH PLATELETS Routine 09/25/2013 8:04 AM Mass of neck Res ults for this CDT procedure are i n the results section. documented in this encounter Results ESR: Erythrocyte sedimentation rate (09/25/2013 8:04 AM CDT) athologist Signature Sed Rate 8 0 - 20 mm/h [facility] Specimen Anatomical Collection Method Collection Time Receive d Time (Source) Location / / Volume Laterality Blood specimen 09/25/2013 8:04 AM 014 8:05 (specimen) CDT AM CDT Aristides Rendon MD LAB - BLOOD ORDERA BLES Performing Organization Address City/State/ZIP Code Phon e Number [facility] [address] [place], [place] [phone] (ABNORMAL) Basic metabolic panel (09/25/2013 8:04 AM CDT) athologist Signature Sodium 141 133 - 144 [facility] mmol/L [facility] Potassium 4.6 3.4 - 5.3 [facility] mmol/L [facility] Chloride 102 94 - 109 [facility] mmol/L [facility] Carbon Dioxide 26 20 - 32 [facility] mmol/L [facility] Anion Gap 13 6 - 17 [facility] mmol/L [facility] Glucose 127 (H) 60 - 99 [facility] mg/dL [facility] Urea Nitrogen 16 7 - 30 [facility] mg/dL [facility] Creatinine 0.77 0.66 - [facility] 1.25 mg/dL [facility] GFR Estimate >90 >60 [facility] mL/min/1.7 [facility] m2 GFR Estimate If >90 >60 [facility] Black mL/min/1.7 [facility] m2 Calcium 9.1 8.5 - 10.4 [facility] mg/dL [facility] Specimen Anatomical Collection Method Collection Time Receive d Time (Source) Location / / Volume Laterality Blood specimen 09/25/2013 8:04 AM 014 8:05 (specimen) CDT AM CDT Aristides Rendon MD LAB - BLOOD ORDERA BLES Performing Organization Address City/[facility]/ZIP Code Phon e Number [facility] [address] [place] [address] CBC with platelets (09/25/2013 8:04 AM CDT) P athologist Signature WBC 9.0 4.0 - 11.0 [place] 10e9/L [facility] RBC Count 4.80 4.4 - 5.9 [place] 10e12/L [facility] Hemoglobin 15.4 13.3 - [place] 17.7 g/dL [facility] Hematocrit 45.0 40.0 - [place] 53.0 % [facility] MCV 94 78 - 100 [place] fl [facility] MCH 32.1 26.5 - [place] 33.0 pg [facility] MCHC 34.2 31.5 - [place] 36.5 g/dL [facility] RDW 13.6 10.0 - [place] 15.0 % [facility] Platelet Count 266 150 - 450 [place] 10e9/L [facility] Specimen Anatomical Collection Method Collection Time Receive d Time (Source) Location / / Volume Laterality Blood specimen 09/25/2013 8:04 AM 014 8:05 (specimen) CDT AM CDT Aristides Rendon MD LAB - BLOOD ORDERA BLES Performing Organization Address City/[facility]/ZIP Code Phon e Number [facility] [address] [place] [address] documented in this encounter Visit Diagnoses Diagnosis Mass of neck - Primary Swelling, mass, or lump in head and neck documented in this encounter
--- OUTSIDE RECORDS SUMMARY | 2022-03-09 07:06 | XMS_ITS | Encounter Summary ---
:1955 Author Organization [facility] Address [address], [place] [address] Care Team Providers Name Role Phone Unavailable Primary Care Provider Unavailable Encounter Details Date Type Department Care Team Description 12/11/2020 Lab Visit [facility] Labor[facility] richard Uncontrolled type I diabetes [address] [facility] [place] [address] ([facility]) [phone] Social History Tobacco Use Types Packs/Day Years Used Date Smoking Tobacco: Every Day Smokeless Tobacco: Never Sex Assigned at Date Recorded Not on file documented as of this encounter Progress Notes Jeanne Shay MBBS - 12/11/2020 4:20 PM CDT Kidney function, urine test and thyroid labs are normal. documented in this encounter Plan of Treatment Upcoming Encounters Date Type Specialty Care Team Description 05/12/2022 Appointment Endocrinology Jeanne Shay MBBS [address] [facility] [address] [address] documented as of this encounter Procedures Procedure Name Priority Date/Time Associated Diagnosis Comme nts LIPID PANEL AND Routine 12/11/2020 4:40 PM Uncontrolled type I Results for this DIRECT LDL(IF CDT diabetes mellitus procedure are in NEEDED) with neuropathy (HRC) the re sults section. TSH, SENSITIVE Routine 12/11/2020 4:40 PM Uncontrolled type I Results for this CDT diabetes mellitus procedure are in with neuropathy (HRC) the re sults section. BASIC METABOLIC Routine 12/11/2020 4:40 PM Uncontrolled type I Results for this PANEL CDT diabetes mellitus procedure are in with neuropathy (HRC) the re sults section. documented in this encounter Results Lipid Panel - LDLD If Trig High (12/11/2020 4:40 PM CDT) Analysis Performed At Patho logist Time Signature Cholesterol 101 0 - 199 12/11/2020 [facility] mg/dL 5:05 PM CDT LABORATORY Triglyceride 107 <=149 12/11/2020 [facility] mg/dL 5:05 PM CDT LABORATORY HDL Cholesterol 40 >=40 mg/dL 12/11/2020 [facility] 5:05 PM CDT LABORATORY LDL, Calculated 40 <130 mg/dL 12/11/2020 [facility] 5:05 PM CDT LAB[facility]ATORY Non HDL Chol, 61 <=159 12/11/2020 [facility] Calculated mg/dL 5:05 PM CDT LABORATORY Cholesterol/HDL 2.5 12/11/2020 [facility] Ratio 5:05 PM CDT LABORATORY Hours Fasting 4 12/11/2020 [facility] 5:05 PM CDT [facility]ORY Specimen Anatomical Collection Method / Collection Time Recei romario Time (Source) Location / Volume Laterality Blood Venipuncture / 12/11/2020 4:40 12/11/2020 4:40 Unknown PM CDT PM CDT [facility] Tanna Jaspal [facility]_1 Performing Organization Address City/State/ZIP Code Phon e Number [facility] [address] [place], [place] [address] TSH (12/11/2020 4:40 PM CDT) P athologist Signature TSH, Sensitive 1.95 0.30 - 12/11/2020 [facility] 4.50 10:21 PM CDT LABORATORY uIU/mL Specimen Anatomical Collection Method / Collection Time Recei romario Time (Source) Location / Volume Laterality Blood Venipuncture / 12/11/2020 4:40 12/11/2020 4:40 Unknown PM CDT PM CDT [facility]erv[place] Tanna Jaspal [facility]_1 Performing Organization Address City/State/ZIP Code Phon e Number [facility] [address] [place] [address] (ABNORMAL) BMP - Basic Metabolic Panel (12/11/2020 4:40 PM CDT) P athologist Signature Sodium 141 136 - 145 12/11/2020 [facility] mmol/L 5:05 PM CDT LABORATORY Potassium 3.9 3.5 - 5.1 12/11/2020 [facility] mmol/L 5:05 PM CDT LABORATORY Chloride 106 98 - 109 12/11/2020 [facility] mmol/L 5:05 PM CDT LABORATORY CO2 25 20 - 29 12/11/2020 [facility] mmol/L 5:05 PM CDT LABORATORY Anion Gap 10 7 - 16 12/11/2020 [facility] mmol/L 5:05 PM CDT LABORATORY Calcium 9.6 8.4 - 10.4 12/11/2020 [facility] mg/dL 5:05 PM CDT LABORATORY BUN 17 7 - 26 12/11/2020 [facility] mg/dL 5:05 PM CDT LABORATORY Creatinine 0.80 0.73 - 12/11/2020 [facility] 1.18 mg/dL 5:05 PM CDT LABORATORY GFR, Estimated >60 >60 12/11/2020 [facility] mL/min/1.7 5:05 PM CDT LABORATORY 3m2 Glucose 60 (L) 70 - 100 12/11/2020 [facility] mg/dL 5:05 PM CDT LABORATORY Comment: The given reference range is fo r the fasting state. Non-fasting reference range for glucose is 70 - 180 mg/dL. 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
--- OUTSIDE RECORDS SUMMARY | 2022-03-09 07:06 | XMS_ITS | Encounter Summary ---
:1955 Author Organization [facility] Address [address] [place] [address]. [place] [address] Care Team Providers Name Role Phone Mj Schaeffer MD Primary Care Provider Encounter Details Date Type Department Care Team Description 12/19/2018 Travel Social History Tobacco Use Types Packs/Day Years [...] as of this encounter Plan of Treatment Not on filedocumented as of this encounter Visit Diagnoses Not on filedocumented in this encounter Care Teams Analytical Scientist Relationship Specialty Start Date End Date Mj Schaeffer MD PCP - General Family Practice 12/16/18 [facility] [address] [place] [address] documented as of this encounter
--- OUTSIDE RECORDS SUMMARY | 2022-03-09 07:06 | XMS_ITS | Encounter Summary ---
:1955 Author [facility] Address [address], [place] [address] Care Team Providers Name Role Phone Unavailable Primary Care Provider Unavailable Reason for Visit Reason Comments Diabetes Encounter Details Date Type Department Care Team Description 12/11/2020 Office Visit Jeanne Aguilar type I diabetes mellitus with neuropathy (HRC) (Primary Dx); Endocrinology [facility] Cisse Essential hypertension; [address] [employer] [address] [employer] Dyslipidemia (high LDL; low HDL); [place] [address] [address] Coronary artery disease involving tanner ry bypass graft of [place] heart without angina pectoris [phone] [place], [place] [id number] Social History Tobacco Use Types Packs/Day Years Used Date Smoking Tobacco: Every Day Smokeless Tobacco: Never Sex Assigned at Date Recorded Not on file documented as of this encounter Last Filed Vital Signs Vital Sign Reading Time Taken Comments Blood Pressure 108/56 12/11/2020 3:36 PM CDT Pulse 73 12/11/2020 3:36 PM CDT Temperature - - Respiratory Rate - - Oxygen Saturation - - Inhaled Oxygen Concentration - - Weight 80.3 kg (177 lb 1.6 oz) 12/11/2020 3:36 PM CDT Height 170.2 cm (5' 7) 12/11/2020 3:36 PM CDT Body Mass Index 27.74 12/11/2020 3:36 PM CDT documented in this encounter Progress Notes Jaime Holley - 12/11/2020 3:30 PM CDT Images from the original note were not included. Jeanne Sahy MBBS - 12/11/2020 3:30 PM CDT [facility] Department of Endocrinology, Diabetes and Metabolism Clinic Note Name: David Figueroa Cc: Establish care for T1DM. He used to see Dr Cortés in [place]. He came with his who is my [...] 2 weeks were reviewed, average glucose was 205, SD 41, GMI 8.2. 31% >250, 27%181-250, 40% in range (70-180), 2 %<70 and 0%<54. Glucose tracing indicates a trend of hyperglycemia post meals, and hypoglycemia when he takes insulin with meals, he eats 140 gm of carbs with every meal. He takes metformin 1 gm BID. He works in [employer] and feels that he is getting low the moment he starts working and he needs to keep eating to prevent it from dropping. A1C in 11/2020 was 9.2. He has peripheral neuropathy symptoms, controlled with gabapentin 300 mg in the AM and 600 mg at night. Eye exam from this year was reported with no retinopathy. He had CABG in 2018, he takes atorvastatin 80 mg daily, lisinopril 2.5 mg daily, and metoprolol 50 mg BID. Physical Examination: Vitals: BP 108/56 (BP Location: Left Arm, BP Cuff Size: Large) Pulse 73 Ht 5' 7 (1.702 m) Wt 177 lb 1.6 oz (80.3 kg) BMI 27.74 kg/m?? General: The patient is alert and oriented, no acute distress. Labs/imaging: Reviewed and summarized in the HPI. Assessment and Plan: David Figueroa is a 65 y.o. male: #1 T1DM: Uncontrolled, complicated by neuropathy and CAD, A1C 9.2. Counseled him about the importance of DM control. Counseled him about diet and exercise. Change bolus to 1 per 10 for all meals. Reduce carbs to <60 gm per meal. Activate temp basal to use 50% when at work. Continue CGM use. RTC in 2 weeks, we can consider stopping metformin then. #2 HTN: controlled. #3 Dyslipidemia on a statin. #4 CAD s/p CABG. [facility] [employer] documented in this encounter Plan of Treatment Upcoming Encounters Date Type Specialty Care Team Description 05/12/2022 Appointment Endocrinology Jeanne Shay MBBS [address] [facility] [address] [address] documented as of this encounter Results Lipid Panel - LDLD If Trig High (12/11/2020 4:40 PM CDT) [facility] Signature Cholesterol 101 0 - 199 12/11/2020 [facility] mg/dL 5:05 PM CDT LABORATORY Triglyceride 107 <=149 12/11/2020 [facility] mg/dL 5:05 PM CDT LABORATORY HDL Cholesterol 40 >=40 mg/dL 12/11/2020 [facility] 5:05 PM CDT LABORATORY LDL, Calculated 40 <130 mg/dL 12/11/2020 [facility] 5:05 PM CDT LABORATORY Non HDL Chol, 61 <=159 12/11/2020 [facility] Calculated mg/dL 5:05 PM CDT LABORATORY Cholesterol/HDL 2.5 12/11/2020 [facility] Ratio 5:05 PM CDT LABORATORY Hours Fasting 4 12/11/2020 [facility] 5:05 PM CDT LAB[facility]ATORY Specimen Anatomical Collection Method / Collection Time Recei romario Time (Source) Location / Volume Laterality Blood Venipuncture / 12/11/2020 4:40 12/11/2020 4:40 Unknown PM CDT PM CDT Jeanne Shay [facility] Performing Organization Address City/State/ZIP Code Phon e Number [facility] [address] [place] [address] TSH (12/11/2020 4:40 PM CDT) athologist Signature TSH, Sensitive 1.95 0.30 - 12/11/2020 [facility] 4.50 10:21 PM CDT LABORATORY uIU/mL Specimen Anatomical Collection Method / Collection Time Recei romario Time (Source) Location / Volume Laterality Blood Venipuncture / 12/11/2020 4:40 12/11/2020 4:40 Unknown PM CDT PM CDT Jeanne Shay [facility] Performing Organization Address City/[facility]/ZIP Code Phon e Number [facility] [address] [place] [address] (ABNORMAL) BMP - Basic Metabolic Panel (12/11/2020 4:40 PM CDT) athologist Signature Sodium 141 136 - 145 12/11/2020 [facility] mmol/L 5:05 PM CDT LABORATORY Potassium 3.9 3.5 - 5.1 12/11/2020 [facility] mmol/L 5:05 PM CDT LABORATORY Chloride 106 98 - 109 12/11/2020 [facility] mmol/L 5:05 PM CDT LABORATORY CO2 25 20 - 29 12/11/2020 [facility] mmol/L 5:05 PM CDT LABORATORY Anion Gap 10 7 - 16 12/11/2020 [facility] mmol/L 5:05 PM CDT LABORATORY Calcium 9.6 8.4 - 10.4 12/11/2020 [facility] mg/dL 5:05 PM CDT LABORATORY BUN 17 7 - 26 12/11/2020 [facility] mg/dL 5:05 PM CDT LABORATORY Creatinine 0.80 0.73 - 12/11/2020 [facility] 1.18 mg/dL 5:05 PM CDT LABORATORY GFR, Estimated >60 >60 12/11/2020 [facility] mL/min/1.7 5:05 PM CDT LABORATORY 3m2 Glucose 60 (L) 70 - 100 12/11/2020 [facility] mg/dL 5:05 PM CDT LABORATORY Comment: The given reference range is fo r the fasting state. Non-fasting reference range for glucose is 70 - 180 mg/dL. 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
--- OUTSIDE RECORDS SUMMARY | 2022-03-09 07:06 | XMS_ITS | Encounter Summary ---
:1955 Author Organization [email or web address] Address [address] [place] [address] Care Team Providers Name Role Phone Mj Schaeffer MD Primary Care Provider Reason for Visit Reason Comments Other Encounter Details Date Type Department Care Team Description 08/04/2021 Telephone [facility] [address] Shay MBBS Other Endocrinology [address] [place] [address] [place], [place] [id number] [phone] Social History Tobacco Use Types Packs/Day Years Used Date Smoking Tobacco: Every Day Smokeless Tobacco: Never Sex Assigned at Date Recorded Not on file documented as of this encounter Nursing Notes Jeanne Shay MBBS - 08/04/2021 5:06 PM CST I got him scheduled for tomorrow at 4:30, talked to the patient and scheduled him. ER BEARING INSPECTOR Mallory Mcdowell, RN - 08/04/2021 3:59 PM CST Patients calls stating she needs an urgent appt with Dr. Shay or [facility] to assist patient insetting up his Omnipod settings as his current reader has broke. They did reach out to the Omnipod rep and they were not able to help patient. 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
--- NOTE | 2022-03-09 10:26 | W.ANESCHARGE ---
Anesthesia Charges Start Date/Time Anesthesia Start Date: 03/09/22 Anesthesia Start Time: 08:04 Stop Date/Time Anesthesia Stop Date: 03/09/22 Anesthesia Stop Time: 09:03 Summary Emergency: No
--- NOTE | 2022-03-09 10:44 | W.ANESCHARGE ---
Anesthesia Charges Start Date/Time Anesthesia Start Date: 03/09/22 Anesthesia Start Time: 08:04 Stop Date/Time Anesthesia Stop Date: 03/09/22 Anesthesia Stop Time: 09:03 Summary Emergency: No
== END 2022-03-09 07:03 | disposition home or self-care (01) ==
LOC: OP CLINIC 07:03
PROVIDERS: PCP Family Medicine; Visit Provider Surgery
DX: Z12.11 Encounter for screening for malignant neoplasm of colon (principal); K63.5 Polyp of colon; K62.1 Rectal polyp; Z86.010 Personal history of colon polyps
CPT/HCPCS: 00811; 45385; 88305

== ENCOUNTER 2022-09-14 10:19 | Outpatient (CLI) | payer MEDICAID, SELFPAY ==
--- NOTE | 2022-09-14 10:45 | CRLHL7_ITS ---
For Patients: As a result of the Century Cures Act, medical imaging exams and procedure reports are released immediately into your electronic medical record. You may view this report before your referring provider. If you have questions, please contact your health care provider. Indication: MASS OF RIGHT NECK Technique: Grayscale and color Doppler ultrasound of the right side of the neck performed. Comparison: None Findings: Sonogram of the right neck in the area of concern demonstrates an incidental benign lymph node within the right parotid gland measuring 7 x 4 x 5 millimeters. No suspicious findings or abnormal vascularity. Impression: Normal intra parotid lymph node. Dictated by Manny Melchor MD @ 09/14/2022 11:25:59 AM (Electronically Signed)
== END 2022-09-14 10:20 | disposition home or self-care (01) ==
LOC: US 10:21
PROVIDERS: PCP Family Medicine; Visit Provider Family Medicine
DX: R22.1 Localized swelling, mass and lump, neck (principal)
CPT/HCPCS: 76536

== ENCOUNTER 2022-10-04 22:02 | Emergency (ER) | payer MEDICAID, SELFPAY ==
[2022-10-04 22:13] VITALS: BP 159/78; PULSE 80; RESP 18; TEMP 35.9; O2SAT 97; BMI 28.7
--- NOTE | 2022-10-04 23:01 | ED.GENADULT ---
HPI - General Adult General Chief complaint: Diabetic Related Problem Stated complaint: High blood sugar over 400 Time Seen by Provider: 10/04/22 22:42 History of Present Illness HPI narrative: Patient reports feeling ill for a few days. Has had abdominal pain/ firmness. He has had high readings on his meter over the past two days and tonight, last he checked it on imbedded meter it read high'. Uses insulin pump to deliver insulin. Endorses numbness in feet and hands, frequent peeing that is sometimes painful, nausea and no appetite. 66-year-old man presenting to the emergency department with elevated blood sugars and abdominal discomfort. He has noted some firmness as well. Does not feel he is constipated. Actually had a looser stool he thinks this morning. No fever. Lack of appetite yesterday denies constipation. Yesterday dysuria and frequency. Sense of bloating in his abdomen. Does have diabetes and continuous monitoring. The concerning readings prompting him to go to ER. Does have underlying diabetic neuropathy. Treated as type 1 diabetic after diagnosis he says at the age of 59. No cough or cold symptoms. No noted rash. 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 History of osteoarthritis. Yesterday changed out insulin delivery palm/cartridge. Placed at left upper arm. Related Data Home Medications Medication Instructions Recorded Confirmed aspirin 81 mg tablet,delayed 81 mg PO QDAY 12/03/21 10/05/22 release gabapentin 100 mg capsule 100 mg PO TID 12/03/21 10/05/22 insulin aspart U-100 100 unit/mL 76 unit subcut QDAY 12/03/21 10/05/22 (3 mL) subcutaneous pen (Novolog FlexPen U-100 Insulin aspart) ipratropium bromide 42 mcg (0.06 2 spray intranasal TID 12/03/21 10/05/22 %) nasal spray metformin 500 mg tablet 1,000 mg PO BIDWMEAL 12/03/21 10/05/22 nitroglycerin 0.4 mg sublingual 0.4 mg sublingual Q5M PRN 12/03/21 10/05/22 tablet tamsulosin 0.4 mg capsule 0.4 mg PO QDAY 12/03/21 10/05/22 Previous Rx's Medication Instructions Recorded hydrocodone 5 mg-acetaminophen 325 See Rx Instructions PO Q6H PRN 01/05/22 mg tablet pain #42 tabs montelukast 10 mg tablet 10 mg PO QPM #90 tabs 02/25/22 metoprolol tartrate 50 mg tablet 50 mg PO BID #180 tabs 03/18/22 lisinopril 2.5 mg tablet 2.5 mg PO QDAY #90 tabs 08/28/22 insulin aspart U-100 100 unit/mL 10 unit (0.1 mL) subcut TID #3 mL 10/05/22 (3 mL) subcutaneous pen Allergies Allergy/AdvReac Type Severity Reaction Status Date / Time No Known Allergies Allergy Unknown Verified 10/05/22 14:47 Review of Systems Status of ROS: Reports: 6 or more systems reviewed and unremarkable except as noted in History and below [facility] Medical History Chronic pain ?G89.29 - Other chronic pain (ICD-10) Diabetes ?E11.9 - Type 2 diabetes mellitus without complications (ICD-10) Mass of right side of neck ?R22.1 - Localized swelling, mass and lump, neck (ICD-10) Surgical History Status post aortic valve replacement with tissue ?Z95.3 - Presence of xenogenic heart valve (ICD-10) Status post coronary artery bypass graft ?Z95.1 - Presence of aortocoronary bypass graft (ICD-10) Status post neck dissection ?Z98.890 - Other specified postprocedural states (ICD-10) Status post peripheral artery angioplasty ?Z98.62 - Peripheral vascular angioplasty status (ICD-10) Social History Smoking Status: Current every day smoker Do you use any of these nicotine containing products: None Second hand tobacco smoke exposure: No Exam Narrative: Exam Narrative: Pleasant. Energetic. NAD. Cranial nerves 2-12 intact. Breathing easily. Lungs are clear. Heart with regular rate and rhythm with large 2/6 systolic murmur noted to be chronic. Is see history of aortic stenosis. Abdomen is overweight soft and not particular tender. Generalized mildly uncomfortable. Bowel sounds are present. Extremities are without edema. No specific joint swelling or erythema appreciated. No rash. Const: Vital Signs, click to edit/add: Vital Signs - 24 hr 10/04/22 22:13 10/04/22 23:24 10/04/22 23:30 Temperature 96.6 F L Pulse Rate 77 76 Pulse Rate [Pulse Oximeter] 80 Respiratory Rate 18 Blood Pressure Blood Pressure [Le ft Upper Arm] 159/78 H Pulse Oximetry 97 97 96 Oxygen Delivery Me thod Room Air 10/04/22 23:32 10/04/22 23:45 10/05/22 00:00 Temperature Pulse Rate 77 77 80 Pulse Rate [Pulse Oximeter] Respiratory Rate Blood Pressure 133/73 Blood Pressure [Le ft Upper Arm] Pulse Oximetry 96 96 96 Oxygen Delivery Me thod 10/05/22 00:02 10/05/22 00:02 10/05/22 00:02 Temperature Pulse Rate 79 79 79 Pulse Rate [Pulse Oximeter] Respiratory Rate Blood Pressure 134/72 134/72 134/72 Blood Pressure [Le ft Upper Arm] Pulse Oximetry 96 96 96 Oxygen Delivery Me thod 10/05/22 00:02 10/05/22 00:15 10/05/22 00:30 Temperature Pulse Rate 79 78 80 Pulse Rate [Pulse Oximeter] Respiratory Rate Blood Pressure 134/72 Blood Pressure [Le ft Upper Arm] Pulse Oximetry 96 96 96 Oxygen Delivery Me thod 10/05/22 00:32 10/05/22 00:45 Temperature Pulse Rate 78 79 Pulse Rate [Pulse Oximeter] Respiratory Rate Blood Pressure 146/73 H Blood Pressure [Le ft Upper Arm] Pulse Oximetry 96 96 Oxygen Delivery Me thod Documenting provider has reviewed patient's vital signs: yes Course Vital Signs Vital signs: Initial Vital Signs Temperature 96.6 F L 10/04/22 22:13 Temperature Source Temporal Artery Scan 10/04/22 22:13 Pulse Rate 80 10/04/22 22:13 Respiratory Rate 18 10/04/22 22:13 Blood Pressure 159/78 H 10/04/22 22:13 Blood Pressure Mean 105 10/04/22 22:13 Pulse Oximetry 97 10/04/22 22:13 Oxygen Delivery Method Room Air 10/04/22 22:13 Vital Signs Temperature 96.6 F L 10/04/22 22:13 Pulse Rate 80 10/04/22 22:13 Respiratory Rate 18 10/04/22 22:13 Blood Pressure 159/78 H 10/04/22 22:13 Pulse Oximetry 97 10/04/22 22:13 Oxygen Delivery Method Room Air 10/04/22 22:13 Temperature 96.6 F L 10/04/22 22:13 Pulse Rate 79 10/05/22 00:45 Respiratory Rate 18 10/04/22 22:13 Blood Pressure 146/73 H 10/05/22 00:32 Pulse Oximetry 96 10/05/22 00:45 Oxygen Delivery Method Room Air 10/04/22 22:13 Medical Decision Making MDM Narrative Medical decision making narrative: To elevated blood sugars of un clear etiology at this point. Will check labs looking for other concerning signs symptoms. Evaluate urine. Abdominal x-ray as well. Does not appear to be obstructed actually would suspect constipation still. Might just be glucosuria contributing to frequency and some dysuria. No respiratory symptoms. Elevated blood sugars. Four hundred fifty-five measured and basic metabolic panel. White count is not elevated but CRP mildly so at 2. Urinalysis without evidence of infection but does have glucosuria. 1+ ketones. Abdominal x-ray reviewed by me shows diffuse colonic stool. I would say excessive. I think might be the source of his abdominal discomfort as well. Given 10 units of insulin recheck to little over 30 minutes later. Minimal change in blood sugar. I think he does have careful monitoring. I wonder if his newly placed delivery system is not actually functional. He would prefer to leave noting is availability of close follow-up with Endocrine. I think changing out his pump/cartridge entirely being sure needles functioning would be a good idea. Close monitoring I think can be safely managed outpatient. See patient discharge plan. Lab Data Lab results reviewed: Yes I reviewed the patient's lab results Labs: Lab Results 10/04/22 10/04/22 Range/Units 23:05 23:20 WBC 10.14 (4.50-11.00) K/uL RBC 4.58 (4.30-5.90) m/uL Hgb 13.4 L (13.5-17.5) gm/dL Hct 41.0 (37.0-53.0) % MCV 90 (80-100) fL MCH 29 (26-34) pg MCHC 33 (32-36) gm/dL RDW Coeff of Jose 13.6 (11.5-15.5) % Plt Count 303 (140-440) K/uL Neut % (Auto) 68.4 (42.0-72.0) % Lymph % (Auto) 20.4 (20-44) % Blount % (Auto) 8.3 (0.0-11.0) % Eos % (Auto) 2.4 (0.0-7.0) % Baso % (Auto) 0.3 (0.0-3.0) % Neut # (Auto) 6.94 (1.7-7.0) K/uL Lymph # (Auto) 2.07 (0.90-2.90) K/uL Blount # (Auto) 0.80 (0.00-0.90) K/UL Eos # (Auto) 0.24 (0.00-0.50) K/uL Baso # (Auto) 0.03 (0.00-0.30) K/uL Sodium 131 L (135-149) mmol/L Potassium 5.3 H (3.6-5.1) mmol/L Chloride 98 (96-114) mmol/L Carbon Dioxide 24 (20-32) mmol/L BUN 21 (7-30) mg/dL Creatinine 1.0 (0.5-1.5) mg/dL Estimated Creat Clear 67.02 Estimated GFR 82 ml/min Glucose 455 H* (60-115) mg/dL Calcium 8.9 (8.4-10.6) mg/dL Total Bilirubin 0.7 (0.1-1.5) mg/dL Direct Bilirubin 0.3 (0.0-0.5) mg/dL AST 24 (12-35) U/L ALT 28 (4-50) U/L Alkaline Phosphatase 148 (40-150) U/L C-Reactive Protein 2.0 H (0.5-1.0) mg/dL Total Protein 8.2 (6.0-8.3) g/dL Albumin 4.5 (3.3-5.0) g/dL Urine Color Yellow (Yellow) Urine Appearance Clear (Clear) Urine pH 6.5 (5.0-8.5) Ur Specific Tucker 1.015 (1.000-1.030) Urine Protein Negative (Negative) Urine Glucose (UA) 2+ A (Negative) Urine Ketones 1+ A (Negative) Urine Blood Trace-intact A (Negative) Urine Nitrite Negative (Negative) Urine Bilirubin Negative (Negative) Urine Urobilinogen 0.2 (0.2-1.0) Ur Leukocyte Esterase Negative (Negative) Urine RBC 2-5 A (0-2) Urine WBC 0-2 (0-5) Ur Squamous Epith Cells Few (None-Few) Urine Bacteria None (None) Discharge Plan Discharge Clinical Impression: Hyperglycemia, Constipation Patient Disposition: Home, Self-Care Condition: Improved Additional Instructions: It sounds like you are able to get close follow-up related to your diabetes. Try to be seen on Wednesday or Wednesday. I am wondering if your delivery system is malfunctioning as there does not appear to be a clear reason for your blood sugars to be high. However we may not have seen full evolution of an infectious process Change out the reservoir when you get home. Monitor blood sugars closely. Stay well hydrated with water. For constipation, if you are having hard stool, consider placement of an enema and repeating in an hour if no good result. Otherwise bowel cleanout can be accomplished by drinking a bottle of magnesium citrate and repeating next day if no good result. You might also take at least twice daily dosings of MiraLax equivalent and adjusting to stool consistency over the next 2 weeks. Prescriptions: No Action gabapentin 100 mg capsule 100 mg PO TID ipratropium bromide 42 mcg (0.06 %) spray,non-aerosol 2 spray intranasal TID Rx Instructions: administer into each nostril nitroglycerin 0.4 mg tablet, sublingual 0.4 mg sublingual Q5M PRN Rx Instructions: do not exceed 3 doses per episode tamsulosin 0.4 mg capsule 0.4 mg PO QDAY aspirin 81 mg tablet,delayed release (DR/EC) 81 mg PO QDAY insulin aspart U-100 [Novolog FlexPen U-100 Insulin] 100 unit/mL (3 mL) insulin pen 76 unit subcut QDAY metformin 500 mg tablet 1,000 mg PO BIDWMEAL hydrocodone-acetaminophen 5-325 mg tablet See Rx Instructions PO Q6H PRN (Reason: pain) Qty: 42 0RF Rx Instructions: 1-2 tabs orally every 6 hours PRN; montelukast 10 mg tablet 10 mg PO QPM Qty: 90 3RF insulin aspart U-100 100 unit/mL (3 mL) insulin pen 10 unit subcut TID Qty: 3 1RF metoprolol tartrate 50 mg tablet 50 mg PO BID Qty: 180 3RF lisinopril 2.5 mg tablet 2.5 mg PO QDAY Qty: 90 0RF Follow Up/Referrals: Jhoan Schaeffer MD [Primary Care Provider] - Stand Alone Forms: [employer] Info Instructions
--- NOTE | 2022-10-04 23:02 | CRLHL7_ITS ---
For Patients: As a result of the Century Cures Act, medical imaging exams and procedure reports are released immediately into your electronic medical record. You may view this report before your referring provider. If you have questions, please contact your health care provider. Indication: Abdominal bloating, right lower quadrant pain Technique: Single frontal view abdomen Comparison: None Findings/Impression: : Large amount of stool throughout the colon. No evidence for free air or pneumatosis. No acute osseous abnormality. Dictated by Carolina Reyes MD @ 10/05/2022 12:23:08 AM (Electronically Signed)
[2022-10-04] MEDS: 0.9 % SODIUM CHLORIDE 1000 ml 1,000 ML IV (23:23)
[2022-10-04 23:24] VITALS: PULSE 77; O2SAT 97
[2022-10-04 23:27] LABS: Appearance Urine Clear (Clear); Bilirubin Urine Negative (Negative); Blood Urine Trace-intact (Negative); Color Urine Yellow (Yellow); Glucose Urine 2+ (Negative); Ketones Urine 1+ (Negative); Leukocyte Esterase Urine Negative (Negative); Nitrite Urine Negative (Negative); Protein Urine Negative (Negative); Specific Gravity Urine 1.015 (1.000-1.030); Urobilinogen Urine 0.2 (0.2-1.0); pH Urine 6.5 (5.0-8.5)
[2022-10-04 23:30] VITALS: PULSE 76; O2SAT 96
[2022-10-04 23:30] LABS: Basophils Absolute Auto 0.03 K/uL (0.00-0.30); Basophils Percent Auto 0.3 % (0.0-3.0); Eosinophils Absolute Auto 0.24 K/uL (0.00-0.50); Eosinophils Percent Auto 2.4 % (0.0-7.0); Hemoglobin* 13.4 gm/dL (13.5-17.5); Immature Granulocytes Abs Auto 0.02 K/uL (0.00-0.30); Immature Granulocytes Pct Auto 0.2 %; Lymphocytes Absolute Auto 2.07 K/uL (0.90-2.90); Lymphocytes Percent Auto 20.4 % (20-44); Mean Corpuscular HGB Conc 33 gm/dL (32-36); Mean Corpuscular Hemoglobin 29 pg (26-34); Mean Corpuscular Volume 90 fL (80-100); Monocytes Percent Auto 8.3 % (0.0-11.0); Neutrophils Absolute Auto 6.94 K/uL (1.7-7.0); Neutrophils Percent Auto 68.4 % (42.0-72.0); Platelet Count* 303 K/uL (140-440); RDW Coefficient of Variation % 13.6 % (11.5-15.5); Red Blood Count 4.58 m/uL (4.30-5.90); White Blood Count* 10.14 K/uL (4.50-11.00)
[2022-10-04 23:31] LABS: Slide Review Reflex No
[2022-10-04 23:32] VITALS: BP 133/73; PULSE 77; O2SAT 96
[2022-10-04 23:40] LABS: Albumin* 4.5 g/dL (3.3-5.0); Chloride* 98 mmol/L (96-114); Sodium* 131 mmol/L (135-149)
[2022-10-04 23:43] LABS: Bilirubin Direct* 0.3 mg/dL (0.0-0.5); Bilirubin Total* 0.7 mg/dL (0.1-1.5); Carbon Dioxide* 24 mmol/L (20-32); Est. Creatinine Clearance* 67.02; Estimated Glomerular Filt Rate 82 ml/min
[2022-10-04 23:44] LABS: Alanine Aminotransferase* 28 U/L (4-50); Alkaline Phosphatase* 148 U/L (40-150); Aspartate Amino Transferase* 24 U/L (12-35); Blood Urea Nitrogen* 21 mg/dL (7-30); Calcium* 8.9 mg/dL (8.4-10.6); Potassium* 5.3 mmol/L (3.6-5.1); Total Protein* 8.2 g/dL (6.0-8.3)
[2022-10-04 23:45] VITALS: PULSE 77; O2SAT 96
[2022-10-04 23:55] LABS: Glucose* 455 mg/dL (60-115)
[2022-10-05] VITALS: PULSE 80; O2SAT 96
[2022-10-05 00:02] VITALS: BP 134/72; PULSE 79; O2SAT 96
[2022-10-05 00:15] VITALS: PULSE 78; O2SAT 96
[2022-10-05 00:19] LABS: Squamous Epithelial Cell Urine Few (None-Few); WBC Urine 0-2 (0-5)
[2022-10-05 00:30] VITALS: PULSE 80; O2SAT 96
[2022-10-05 00:32] VITALS: BP 146/73; PULSE 78; O2SAT 96
[2022-10-05 00:45] VITALS: PULSE 79; O2SAT 96
== END 2022-10-05 01:39 | disposition home or self-care (01) ==
PROVIDERS: Emergency Provider Family Medicine; PCP Family Medicine
DX: E11.65 Type 2 diabetes mellitus with hyperglycemia (principal); K59.00 Constipation, unspecified
CPT/HCPCS: 36415; 74018; 80048; 80076; 81001; 82962; 85025; 86140; 99284; J7030

== ENCOUNTER 2023-01-06 14:42 | Outpatient (CLI) | payer MEDICAID, SELFPAY | END 2023-01-06 14:43 | disposition home or self-care (01) | LOC: RAD 14:43 | PROVIDERS: PCP Family Medicine; Visit Provider Internal Medicine Cardiovascular Disease | DX: I25.10 Atherosclerotic heart disease of native coronary artery without angina pectoris (principal); I34.0 Nonrheumatic mitral (valve) insufficiency | CPT/HCPCS: 93306 ==

== ENCOUNTER 2023-04-13 10:43 | Outpatient (CLI) | payer MEDICAID, SELFPAY | END 2023-04-13 10:44 | disposition home or self-care (01) | PROVIDERS: PCP Family Medicine; Visit Provider Internal Medicine | DX: Z00.00 Encounter for general adult medical examination without abnormal findings (principal); I10 Essential (primary) hypertension; E78.5 Hyperlipidemia, unspecified | CPT/HCPCS: 80053; 80061 ==

== ENCOUNTER 2023-04-21 07:52 | Outpatient (CLI) | payer MEDICAID, SELFPAY ==
--- NOTE | 2023-04-21 08:00 | CRLHL7_ITS ---
For Patients: As a result of the Century Cures Act, medical imaging exams and procedure reports are released immediately into your electronic medical record. You may view this report before your referring provider. If you have questions, please contact your health care provider. INDICATION: Lung cancer screening. History of smoking. High risk patient with greater than 20 pack-year smoking history. TECHNIQUE: Low-dose lung cancer screening non-contrast CT chest. Dose reduction techniques were used. COMPARISON: 12/12/2021 FINDINGS: NODULES: Stable 9 millimeters subpleural nodule anterior right lung. Smaller subpleural nodules also present on the right, unchanged. No new nodule. LUNGS AND PLEURA: Chronic linear subsegmental scarring in the lingula and left lower lobe with chronic rounded atelectasis. MEDIASTINUM: Stable sub centimeter mediastinal lymph nodes. Postop changes of aortic valve replacement. Atherosclerotic changes. CORONARY ARTERY CALCIFICATION: Postop changes CABG. LIMITED UPPER ABDOMEN: Atherosclerotic changes. Incidental calcification within the periportal region, unchanged. MUSCULOSKELETAL: Stable bone island in the right humeral head. IMPRESSION: Negative for lung cancer screening purposes. LUNG-RADS CATEGORY: 2: Benign. RADIOLOGIST RECOMMENDATION: Continue annual screening with low-dose CT chest in 12 months. Please note that all CT scans at this facility use dose modulation, iterative reconstruction, and/or weight-based dosing when appropriate to reduce radiation dose to as low as reasonably achievable. Dictated by Manny Melchor MD @ 04/21/2023 10:11:52 AM (Electronically Signed)
== END 2023-04-21 07:53 | disposition home or self-care (01) ==
PROVIDERS: PCP Internal Medicine; Visit Provider Internal Medicine
DX: Z12.2 Encounter for screening for malignant neoplasm of respiratory organs (principal); Z87.891 Personal history of nicotine dependence
CPT/HCPCS: 71271

== ENCOUNTER 2023-05-28 14:12 | Outpatient (CLI) | payer MEDICAID, SELFPAY ==
--- NOTE | 2023-05-28 14:30 | MR_ITS ---
[address] [address] Phone:?[phone] Fax:?[phone] Referring Physician Information: Juan C Archer M.D. [address] [facility] [address] Phone:?[phone] Fax:?[phone] Patient:Vega Figueroa D.O.B:?1955 Sex:?Male Phone:?[phone] [facility] MRN:?[id number] Exam Date:?05/28/2023 EXAM: MRI of the LEFT SHOULDER, without contrast CLINICAL INFORMATION: Male, 67 years old, with left shoulder pain. INDICATION: Evaluate for rotator cuff tear. PRIOR SURGERY: None reported. PLAIN FILMS: None available. COMPARISONS: No prior MRIs available. TECHNICAL INFORMATION: Using a 1.5T MR scanner and a localizing surface coil: coronal obliques: PD, T2, STIR sagittal obliques: PD, T2 axials: PD, T2 SEDATION: None CONTRAST: None FINDINGS: Bones: Proximal humerus: No fracture or marrow edema/pathology. No humeral Hill-Sachs or reverse Hill-Sachs lesion/impaction or contusion. Glenoid: No fracture or marrow edema/pathology. No osseous Bankart lesion. Rotator cuff and muscles/tendons: Supraspinatus: Mild-moderate supraspinatus tendinopathy without tendon tear or muscle atrophy. Infraspinatus: Mild-moderate infraspinatus tendinopathy, without tendon tear or muscle atrophy. Teres minor: No tendinopathy, tear or atrophy. Subscapularis: Mild tendinopathy of the superior distal subscapularis, without tendon tear or muscle atrophy. Deltoid: No strain or atrophy. Coracoacromial arch: Acromion morphology: The acromion has type II morphology. No discrete subacromial osseous spur or os acromiale. Acromiohumeral space: The acromiohumeral space measures 5.8 mm at its narrowest point (osseous distance). Coracohumeral space: The coracohumeral space is within normal limits. Acromioclavicular joint: Joint: Mild AC joint arthropathy, without significant inferior osteophytosis or evidence of supraspinatus impingement. Ligaments: Coracoclavicular ligaments are intact. Bursae: Subacromial-subdeltoid: Mild subacromial-subdeltoid bursal thickening/edema. Subcoracoid: No convincing subcoracoid bursal thickening/bursitis. Biceps tendon: The long head of the biceps tendon is present within the bicipital groove. Mild tendinopathy of the intra-articular biceps long head tendon, without split/tear. Glenohumeral joint: Effusion/cyst: Moderate glenohumeral joint effusion. Articular cartilage: Humeral head: Moderate-marked thinning of the humeral head articular cartilage, with mild-moderate inferomedial marginal osteophytosis and mild reactive osseous changes. Glenoid: Moderate-marked thinning of the glenoid articular cartilage, with mild/moderate posterior and mild anterior marginal osteophytosis (axial T2 series 3 image 47). Loose bodies: No discrete intra-articular body within the joint. Labrum:?Circumferential degeneration and fraying of the labrum, which is of doubtful clinical significance. Inferior glenohumeral ligament/axillary pouch:?Intact. The axillary pouch is normal in thickness and signal. No evidence of adhesive capsulitis or capsular injury. IMPRESSION: 1. Moderate-advanced osteoarthritis of the glenohumeral joint with a moderate joint effusion. 2. Mild-moderate supraspinatus & infraspinatus and mild subscapularis tendinopathy. No rotator cuff tendon tear. 3. Mild tendinopathy of the intra-articular biceps long head tendon, without split/tear. 4. Mild narrowing of the acromiohumeral space with mild subacromial-subdeltoid bursal inflammation. While there is mild AC joint arthropathy, there is no evidence of impingement at the AC joint. 5. Circumferential degeneration and fraying of the labrum, which is of doubtful clinical significance. BC Electronically signed on 05/29/2023 8:41:00 AM by Albino Swift M.D.
--- NOTE | 2023-05-28 15:15 | MR_ITS ---
[address] [address] Phone:?[phone] Fax:?[phone] Referring Physician Information: Juan C Archer M.D. [address] [facility] [address] Phone:?[phone] Fax:?[phone] Patient:Vega Figueroa D.O.B:?1955 Sex:?Male Phone:?[phone] [facility] MRN:?[id number] Exam Date:?05/28/2023 EXAM: MR LUMBAR SPINE WITHOUT CONTRAST 1.5T CLINICAL INFORMATION: Lumbar radiculopathy. TECHNICAL INFORMATION: T1, T2 and STIR sagittal sections through the lumbar spine with T1 and T2 FSE stacked axial sections and T2 FSE angled axial sections through L5-S1. COMPARISON IMAGES: No comparisons. INTERPRETATION:?Segmentation and Alignment: Lordotic alignment of five lumbar- type vertebrae. Sacrum and Sacroiliac joints:?Upper sacrum and sacroiliac joints unremarkable with a rudimentary nonmobile S1-2 disc. L5-S1: Advanced disc degeneration. Moderate bilateral foraminal stenosis with mild facet hypertrophy and no neural impingement. L4-5: Moderate disc degeneration with mild facet hypertrophy and mild foraminal stenosis on the left. L3-4: Mild disc degeneration with normal facet joints and no stenosis or impingement. L2-3: Moderate disc degeneration with a 4-5 mm broad-based right far lateral disc protrusion/osteophyte encroaching on the right L2 nerve root lateral to the foramen seen best on axial image 17 and sagittal images 4 & 5. Facet joints normal. L1-2: Advanced disc degeneration with dorsal bulging/retrolisthesis, normal facet joints and no stenosis or impingement. T12-L1: Moderate disc degeneration with a 4 mm broad-based right posterolateral disc protrusion, normal facet joints and no stenosis or impingement. T11-12: Mild disc degeneration with normal facet joints and no stenosis or impingement. Conus: Normal signal intensity within the conus medullaris. No intradural mass or arachnoidal adhesions. Osseous structures: Signal intensity within the vertebral marrow spaces is unremarkable with a moderate-sized benign intraosseous hemangioma on the right at L1, a small intraosseous hemangioma on the right at L3 and fatty replacement of marrow on the right at L5-S1. No fracture or avulsion. No osteolytic or destructive bone lesion. Paraspinous soft tissues:?No paraspinous soft tissue mass or fluid collection. CONCLUSION: 1. Diffuse lumbar disc degeneration. 2. Moderate bilateral foraminal stenosis at L5-S1. 3. 4-5 mm broad-based right far lateral disc protrusion/osteophyte at L2-3 encroaching on the right L2 nerve lateral to the foramen. 4. 4 mm broad-based right posterolateral disc protrusion at T12-L1 without neural impingement. 5. Comparison with 07/24/2021 shows no significant change. Electronically signed on 05/30/2023 8:02:00 AM by Gurpreet Larios M.D.
== END 2023-05-28 14:13 | disposition home or self-care (01) ==
LOC: MRI 14:13
PROVIDERS: PCP Internal Medicine; Visit Provider Orthopaedic Surgery Sports Medicine
DX: M54.16 Radiculopathy, lumbar region (principal); M51.36 Other intervertebral disc degeneration, lumbar region; M48.07 Spinal stenosis, lumbosacral region; M51.26 Other intervertebral disc displacement, lumbar region; M51.25 Other intervertebral disc displacement, thoracolumbar region; M25.512 Pain in left shoulder; M19.012 Primary osteoarthritis, left shoulder; M25.412 Effusion, left shoulder
CPT/HCPCS: 72148; 73221

== ENCOUNTER 2023-11-23 16:14 | Outpatient (CLI) | payer MEDICAID, SELFPAY ==
--- OUTSIDE RECORDS SUMMARY | 2023-11-23 16:20 | XMS_ITS | Clinical Summary ---
Author Organization [employer] [facility] Address [place], [place] [address] Care Team Providers Care Air Hole Driller Name Role Phone Jhoan Schaeffer MD Primary Care Provider [phone] Allergies No known active allergies Medications Medication Sig Dispensed Refills Start Date End Date Status gabapentin (NEURONTIN) 100 mg capsule Take 100 mg by mouth once daily. Active nitroglycerin (NITROSTAT) 0.[address] 0.4 mg under the tongue every 5 minutes if needed for Chest Pain. 08/19/2017 Active aspirin chewable 81 mg chewable tablet Take 81 mg by mouth once daily with a meal. Active acetaminophen (TYLENOL) 325 mg tabletIndications:S/ P AVR (aortic valve replacement),S/P CABG x 3 Take 1-2 tablets by mouth every 4 hours if needed. Max acetaminophen dose: 4000mg in 24 hrs. 0 09/20/2017 Active insulin aspart U-100 (NOVOLOG) 100 unit/mL solution for injectionIndications :Type 1 diabetes mellitus with complication (HC) Inject 5 units with meals. Follow sliding scale. Blood glucose less than 150, no insulin; 151-199 give 2 units; 200-249=4 units; 250-299=6 units; 300-349=8 units; greater than 350=10 units 15 mL 09/20/2017 Active insulin detemir U-100 (LEVEMIR) 100 unit/mL (3 mL) penIndications:Type 1 diabetes mellitus with complication (HC) Inject 25 Units subcutaneous once daily in the evening. 15 mL 09/21/2017 Active metFORMIN (GLUCOPHAGE) 500 mg tabletIndications:Ty pe 1 diabetes mellitus with complication (HC) Take 2 tablets by mouth once daily with a meal. Hold until speaking to Dr Cortés- we will not resume this until she review your sugars 0 09/20/2017 Active cefdinir (OMNICEF) 300 mg capsule TK 2 CS PO D 0 12/05/2018 Active metoprolol tartrate (LOPRESSOR) 50 mg tablet Take 50 mg by mouth 2 times daily. 11 11/29/2018 Active V-GO 40 yovana U UTD 3 11/29/2018 Active atorvastatin (LIPITOR) 80 mg tablet TK 1 T PO HS 11 11/29/2018 Active Active Problems Problem Noted Date Diagnosed Date RUDI (obstructive sleep apnea) 12/27/2020 Type 1 diabetes mellitus with unspecified compli cations 12/22/2019 Coronary artery disease of b ypass graft of [place] heart with stable angina pectoris 12/22/2019 Snoring 11/18/2018 Hx of CABG 09/15/2017 S/P AVR (aortic valve replacement) 09/15/2017 Overview: Aortic valve replacement with 23 mm Carey Magna Ease pericardial valve--09/15/17 Dr. Hameed S/P CABG x 3 09/15/2017 Overview: Coronary bypass x3 with left internal mammary artery to LAD, saphenous vein sequential graft to obtuse marginal and posterior descending branch of right--09/15/17 Dr. Hameed CAD in [place] artery 09/14/2017 TIA (transient ischemic attack) 09/08/2017 Overview: In 2004, presented with slurred speech and weakness of right arm and severe fatigue. Chest pain 09/02/2017 Hypertension 09/02/2017 Hyperlipidemia 09/02/2017 Smoker 09/02/2017 PAD (peripheral artery disease) 09/02/2017 Diabetes type I 09/02/2017 Aortic stenosis 09/02/2017 Immunizations Name Administration Dates Next Due Influenza, IIV4 02/24/2017,04/01/2016 Family History Medical History Relation Name Comments Heart Disease Father [place] at age 65, at age 79 Leukemia Mother Relation Name Status Comments Father Mother Social History Tobacco Use Types Packs/Day Years Used Date Smoking Tobacco: Every Day Cigarettes 1 50 Smokeless Tobacco: Never Alcohol Use Standard Drinks/Week Comments Yes 2 (1 standard drink = 0.6 oz pur e alcohol) social Social Connections Answer Date Recorded Frequency of Communication with Friends and Fami ly Not on file 06/07/2021 Financial Resource Strain Answer Date R ecorded Difficulty of Paying Living Expenses Not on file 06/07/2021 Difficulty of Paying Living Expenses Not on file 06/07/2021 Sex and Gender Information Value Date Recorded Sex Assigned at Not on file Gender Identity Not on file Sexual Orientation Not on file Obstetrics History Last Filed Vital Signs Vital Sign Reading Time Taken Comments Blood Pressure 120/74 12/14/2018 2:39 PM CDT Pulse 81 12/14/2018 2:39 PM CDT Temperature 36.7 ??C (98 ??F) 09/20/2017 12: 52 PM CDT Respiratory Rate 18 09/20/2017 12:5 2 PM CDT Oxygen Saturation 99% 12/14/2018 2:3 9 PM CDT On 3L of O2 Inhaled Oxygen Concentration - - Weight 77.4 kg (170 lb 11.2 oz) 12/14/2018 2:39 PM CDT Height 172.7 cm (5' 8) 09/15/2017 6:21 AM CDT Body Mass Index 25.95 09/15/2017 6:21 AM CDT Plan of Treatment Health Maintenance Due Date Last Done Comments Pneumococcal series for age 65+ (1 of 2 - PCV) 1960 Tdap 1965 Depression screening for age 12+ 1966 BMI (ht and wt on same day) for age 18+ 1972 Hepatitis C screening for ag e 18-79 1972 Tetanus booster 1974 Colonoscopy through age 75 11/12/1999 Zoster (shingles) series for age 50+ (1 of 2) 2004 Lipids for age 45-75 09/02/2022 09/02/2017 COVID-19 vaccine series ( season) 2023 03/06/2022, 09/19/2021, 04/11/2021, Additional history exists Influenza for age 65+ 02/06/2024 02/24/2017, 016 Medical Devices Implanted Type Area Wire Basket Maker Device Identifier Shelf Expiration Date Model / Serial / Lot Anw Hh [id number] Implanted:Qty: 1 on 09/15/2017 by Gurpreet Hameed MD at [facility] Explanted:at [facility] (Quantity not on file) N/A: Aortic Valve [employer] [place] 06/09/2021 [id number] M# / [id number] / Procedures Procedure Name Priority Date/Time Associated Diagnosis Comments LIPID PANEL Add On 09/02/2017 8:41 AM CDT from Last 3 Months or Most Recently Relevant to Health Maintenance Results * Lipid Panel (09/02/2017 8:41 AM CDT) CHOLESTEROL,TOTAL 155 100 - 199 mg/dL 09/02/2017 9:23 AM CDT [facility] TRIGLYCERIDES 82 <150 mg/dL 09/02/2017 9:23 AM CDT [facility] sharing[employer]it [facility] HDL CHOLESTEROL 49 >40 mg/dL 8 9:23 AM CDT [facility] sharing[facility]it [facility] NON-HDL CHOLESTEROL 106 <145 mg/dl 09/02/2017 9:23 AM CDT [facility] sharing[facility]it [facility] CHOL/HDL RATIO 3.16 <4.50 09/02/2017 9:23 AM CDT [facility] sharing[employer]it [facility] LDL CHOLESTEROL 90 <=130 mg/dL 09/02/2017 9:23 AM CDT [facility] sharing[employer]it [facility] PROVIDER ORDERED STATUS RANDOM 09/02/2017 9:23 AM CDT [facility] sharing[facility]it [facility] Blood BLOOD SPECIMEN / Unknown Venipuncture / Unknown 09/02/2017 8:41 AM CDT 09/02/2017 8:49 AM CDT Tessa Del Rosario MAIL LIST LIBRARIAN CHEMISTRY [facility] [address] [place] [address], [place] from Last 3 Months or Most Recently Relevant to Health Maintenance Advance Directives * Full Code (Latest Code Status on File) Date Activated Date Inactivated Comments 09/15/2017 5:58 AM 09/20/2017 3:57 PM * Full Code Date Activated Date Inactivated Comments 09/02/2017 8:23 AM 09/02/2017 5:50 PM Care Teams Air Hole Driller Relationship Specialty Start Date End Date Jhoan Schaeffer MD PCP - General Family Practice 08/19/17
--- OUTSIDE RECORDS SUMMARY | 2023-11-23 16:20 | XMS_ITS | Clinical Summary ---
Author Organization [employer] Address [address] [address] Care Team Providers Care C Iron Worker Name Role Phone Mj Schaeffer MD Primary Care Provider [phone] Source Comments You are receiving this document as you are listed as the primary care provider,follow-up provider, or the patient has been referred to you for consultation.This is in compliance with the Medicare and[facility] EHR Incentive Program,which states Providers who transition their patient to another setting of careor provider of care or refers their patient to another provider of care shouldprovide summary care record for each transition of care or referral. [facility] Allergies No known active allergies Medications Medication Sig Dispensed Refills Start Date End Date Status atorvastatin (LIPITOR) 80 MG tablet TAKE ONE TABLET BY MOUTH AT BEDTIME (DUE FOR FASTING LABS) 1 Active lisinopril (ZESTRIL) 2.5 MG tablet Take 1 Tablet (2.5 mg) by mouth daily. 1 Active metoprolol tartrate (LOPRESSOR) 50 MG tablet Take 1 Tablet (50 mg) by mouth two times a day. 1 Active aspirin EC 81 MG enteric coated tablet Take 1 Tablet (81 mg) by mouth daily. Active nitroglycerin (NITROSTAT) 0.[address] 1 Tablet (0.4 mg) under tongue every 5 minutes as needed for Chest Pain. If no relief after 5 min call 911;continue 1 tab every 5 min max 3 tab Active Insulin Disposable Pump (OMNIPOD 5 G6 INTRO, GEN 5,) KITIndications:Un controlled type 1 diabetes mellitus with hyperglycemia (HRC) Use as directed 1 Kit 2 Active Additional Information Patient not taking.Reported on 04/15/2022 Insulin Disposable Pump (OMNIPOD 5 G6 POD, GEN 5,) MISCIndications:U ncontrolled type 1 diabetes mellitus with hyperglycemia (HRC) Use 1 pod every 2-3 days 15 Each 3 2 Active Additional Information Patient not taking.Reported on 04/15/2022 metFORMIN XR (GLUCOPHAGE XR) 500 MG 24 hour release tablet Take 4 Tablets (2,000 mg) by mouth every evening with a meal. 360 Tablet 3 3 024 Active Cranberry 50 MG CHEW Active Glucagon (GVOKE HYPOPEN 2-PACK) 1 MG/0.2ML SOAJ Inject 0.2 mL (1 mg) subcutaneously as needed (hypoglycemia). 2 Each 4 3 Active Continuous Blood Gluc Sensor (DEXCOM G6 SENSOR)Indication s:Uncontrolled type 1 diabetes mellitus with hyperglycemia (HRC) Use once every 10 days 3 Each 11 3 Active Continuous Blood Gluc Transmit (DEXCOM G6 TRANSMITTER)Indic ations:Uncontroll ed type 1 diabetes mellitus with hyperglycemia (HRC) Change once every 90 days 1 Each 3 3 Active Continuous Blood Gluc Automobile Rental Agent (DEXCOM G6 RETAIL COMMISS[employer] SALES ASSOCIATE)Indicati ons:Uncontrolled type 1 diabetes mellitus with hyperglycemia (HRC) Use once 1 Each 3 Active insulin aspart (NOVOLOG) 100 UNIT/ML injection (vial) Inject 80-90 Units subcutaneously daily. 90 mL 3 4 Active gabapentin (NEURONTIN) 300 MG capsule Use 1 cap in the AM and 2 in the PM. 270 Capsule 3 4 Active Insulin Disposable Pump (OMNIPOD DASH PODS, GEN 4,) MISCIndications:U ncontrolled type 1 diabetes mellitus with hyperglycemia (HRC) USE 1 POD EVERY 1-2 DAYS. 30 Each 3 4 Active Continuous Blood Gluc Automobile Rental Agent (FREESTYLE CRISTOBAL 2 READER) DEVIIndications:U ncontrolled type 1 diabetes mellitus with hyperglycemia (HRC) Use as directed. 1 Each 2 024 Discontinued Continuous Blood Gluc Sensor (FREESTYLE CRISTOBAL 2 SENSOR)Indication s:Essential hypertension (HRC),Uncontrolle d type 1 diabetes mellitus with hyperglycemia (HRC),Dyslipidemi a (high LDL; low HDL) (HRC),Coronary artery disease involving coronary bypass graft of [place] heart without angina pectoris (HRC) Change every 14 days 6 Each 3 3 024 Discontinued Continuous Blood Gluc Sensor (FREESTYLE CRISTOBAL 2 SENSOR)Indication s:Essential hypertension (HRC) Change every 14 days 6 Each 3 3 024 Discontinued Insulin Disposable Pump (OMNIPOD DASH PODS, GEN 4,) MISCIndications:U ncontrolled type 1 diabetes mellitus with hyperglycemia (HRC) Use 1 pod every 1-2 days. 30 Each 2 4 024 Discontinued Active Problems Problem Noted Date Diagnosed Date Uncontrolled type 1 diabetes mellitus with hyper glycemia 09/15/2022 Uncontrolled type I diabetes mellitus with neuro ashley 12/11/2020 Essential hypertension 12/11/2020 Dyslipidemia (high LDL; low HDL) 12/11/2020 Coronary artery disease invo lving coronary bypass graft of [place] heart without angina pectoris 12/11/2020 Encounters Date Type Department Care Team Description 2023 Refill [place] [address] [place] [address]. [place] [address] Jeanne Shay MBBS Refill (Insulin Disposable Pump (OMNIPOD DASH PODS, GEN 4,) MISC [Pharmacy Med Name: OMNIPOD DASH PODS (GEN 4) MISCELLANEOUS]) 10/26/2023 3:45 PM CDT Office Visit [facility] [address] [place] [address] Jeanne Shay MBBS Uncontrolled type 1 diabetes mellitus with hyperglycemia (HRC) (Primary Dx); Essential hypertension (HRC); Dyslipidemia (high LDL; low HDL) (HRC); Coronary artery disease involving coronary bypass graft of [place] heart without angina pectoris (HRC) from Last 3 Months Social History Tobacco Use Types Packs/Day Years Used Date Smoking Tobacco: Every Day Smokeless Tobacco: Never Sex and Gender Information Value Date Recorded Sex Assigned at Not on file Gender Identity Not on file Sexual Orientation Not on file Last Filed Vital Signs Vital Sign Reading Time Taken Comments Blood Pressure 104/48 10/26/2023 3:57 PM CDT Pulse 76 10/26/2023 3:57 PM CDT Temperature - - Respiratory Rate - - Oxygen Saturation - - Inhaled Oxygen Concentration - - Weight 77.9 kg (171 lb 11.2 oz) 10/26/2023 3:57 PM CDT Height 170.2 cm (5' 7) 10/26/2023 3:57 PM CDT Body Mass Index 26.89 10/26/2023 3:57 PM CDT Plan of Treatment Upcoming Encounters Date Type Department Care Team (Late st Contact Info) Description 02/22/2024 3:45 PM CDT Appointment [facility] [address] [place] [address] Jeanne Shay MBBS [address] [place] [address] Health Maintenance Due Date Last Done Comments Colon Cancer Screening Plan Due 1954 Diabetes: Eye Exam 1954 Diabetes: Foot Exam 1955 Hep C Screening (Preventive Services) 1955 Adult Preventive Visit 1972 Abdominal Aortic Aneurysm (AAA) Screening 11/12/2019 COVID-19 Vaccine ( season) 2023 03/06/2022, 09/19/2021, 04/11/2021, Additional history exists Diabetes: Creatinine 09/16/2023 09/15/2022, 01/14/2022, 12/11/2020 Diabetes: Urine Microalbumin 09/16/2023 09/15/2022, 01/14/2022 Diabetes: HGBA1C 01/26/2024 10/26/2023, , 03/17/2023, Additional history exists Diabetes: Lipid Panel 09/16/2027 09/15/2022 , 01/14/2022, 12/11/2020 DTaP/Tdap/Td (2 - Tdap) 10/24/2030 10/24/2020, 07/22 Zoster/Shingles Completed 06/26/2020, 04/03/2020 Cholesterol Discontinued 09/15/2022, 08, 12/11/2020 Influenza Completed 04/13/2023, 09/3 , 03/26/2021, Additional history exists Pneumococcal 65+ Yrs Completed 04/13/2023, 11/30/19 HepA Aged Out No longer eligi ble based on patient's age to complete this topic HepB Aged Out No longer eligi ble based on patient's age to complete this topic Hib Aged Out No longer eligi ble based on patient's age to complete this topic IPV (Polio) Aged Out No longer eligi ble based on patient's age to complete this topic MCV4 Aged Out No longer eligi ble based on patient's age to complete this topic Procedures Procedure Name Priority Date/Time Associated Diagnosis Comments HGB A1C Routine 10/26/2023 3:47 PM CDT Uncontrolled type 1 diabetes mellitus with hyperglycemia (HRC) ALBUMIN/CREAT RATIO Routine 09/15/2022 11:08 AM CDT Essential hypertension (HRC) Uncontrolled type 1 diabetes mellitus with hyperglycemia (HRC) Dyslipidemia (high LDL; low HDL) (HRC) Coronary artery disease involving coronary bypass graft of [place] heart without angina pectoris (HRC) BASIC METABOLIC PANEL Routine 09/15/2022 10:52 AM CDT Essential hypertension (HRC) Uncontrolled type 1 diabetes mellitus with hyperglycemia (HRC) Dyslipidemia (high LDL; low HDL) (HRC) Coronary artery disease involving coronary bypass graft of [place] heart without angina pectoris (HRC) LIPID PANEL & DIRECT LDL (IF NEEDED) Routine 09/15/2022 10:52 AM CDT Essential hypertension (HRC) Uncontrolled type 1 diabetes mellitus with hyperglycemia (HRC) Dyslipidemia (high LDL; low HDL) (HRC) Coronary artery disease involving coronary bypass graft of [place] heart without angina pectoris (HRC) from Last 3 Months or Most Recently Relevant to Health Maintenance Results * (ABNORMAL) HgbA1c - Collect in Clinic (10/26/2023 3:47 PM CDT) Hemoglobin A1C (Rapid) 8.9(H) <=5.6 % 10/26/2023 3:58 PM CDT [facility] Performing Location Endo [facility] 10/26/2023 3:58 PM CDT [facility] Estimated Average Glucose (Calc) 209 < 117 mg/dL 10/26/2023 3:58 PM CDT [facility] Comment:Estimated average gl ucose (eAG) converts A1c into glucose units (mg/dL) and estimates average glucose over the past approximately 3 months. The eAG reference interval (<117 mg/dL) corresponds to an A1c of <5.7%. Blood Capillary / Unknown 10/26/2023 3:47 PM CDT 10/26/2023 3:48 PM CDT Narrative [facility] - 10/26/2023 3:58 PM CDT For patients not previously diagnosed with diabetes: 5.7-6.4%: Increased risk for diabetes 6.5% and greater: Diagnostic for diabetes For patients diagnosed with diabetes: <8.0%: Goal of therapy for ages 18-75 Clinicians may recommend a higher or lower goal for specific individuals. The test method used for this Hemoglobin A1c result can experience interference from elevated hemoglobin and other hemoglobin variants. In patients with results that do not correlate clinically, contact the lab for further direction. Jeanne [facility] [address] [place] [address] * (ABNORMAL) Albumin/Creatinine Ratio,Random Urine (09/15/2022 11:08 AM CDT) Albumin/Creati nine Ratio, Urine, Random 30(H) <30 mg/g 09/15/2022 2:00 PM CDT [facility] Albumin, Urine, Random 24.6 mg/L 09/15/2022 2:00 PM CDT [facility] Creatinine, Urine, Random 82 >20 mg/dL mg/dL 09/15/2022 2:00 PM T [facility] Urine Non-blood Collection / Unknown 09/15/2022 11:08 AM CDT 09/15/2022 11:08 AM CDT Jeanne Shay [facility] Performing Organization Address [facility]/ZIP Co de Phone Number [facility] [address] [place] [address], [facility] [phone] * Lipid Panel and Direct LDL (if needed) (09/15/2022 10:52 AM CDT) Cholesterol 195 0 - 199 mg/dL 09/15/2022 12:06 PM [facility] Triglyceride 141 <=149 mg/dL 09/15/2022 12:06 PM [facility] HDL Cholesterol 46 >=40 mg/dL 09/15/2022 12:06 PM [facility] LDL, Calculated 121 <130 mg/dL 09/15/2022 12:06 PM [facility] Non HDL Chol, Calculated 149 <=159 mg/dL 09/15/2022 12:06 PM [facility] Cholesterol/HDL Ratio 4.2 09/15/2022 12:06 PM [facility] Hours Fasting Unknown 09/15/2022 12:06 PM [facility] Blood Venipuncture / Unknown 09/15/2022 10:52 AM CDT 09/15/2022 10:52 AM CDT Jeanne Shay [facility] Performing Organization Address [facility]/ZIP Co de Phone Number [facility] [address] [place] [address], [facility] [phone] * (ABNORMAL) BMP (09/15/2022 10:52 AM CDT) Sodium 138 136 - 145 mmol/L 09/15/2022 12:06 PM [facility] Potassium 4.7 3.5 - 5.1 mmol/L 09/15/2022 12:06 PM [facility] Chloride 105 98 - 109 mmol/L 09/15/2022 12:06 PM [facility] CO2 23 20 - 29 mmol/L 09/15/2022 12:06 PM [facility] Anion Gap 10 7 - 16 mmol/L 09/15/2022 12:06 PM [facility] Calcium 9.3 8.4 - 10.4 mg/dL 09/15/2022 12:06 PM [facility] BUN 17 7 - 26 mg/dL 09/15/2022 12:06 PM [facility] Creatinine 0.80 0.73 - 1.18 mg/dL 09/15/2022 12:06 PM [facility] Glucose 171(H) 70 - 100 mg/dL 09/15/2022 12:06 PM [facility] Comment:The given reference range is for the fasting state. Non-fasting reference range for glucose is 70 - 180 mg/dL. Hours Fasting Unknown 09/15/2022 12:06 PM [facility] GFR, Estimated >60 >60 mL/min/1.7 3m2 09/15/2022 12:06 PM [facility] Blood Venipuncture / Unknown 09/15/2022 10:52 AM CDT 09/15/2022 10:52 AM T Jeanne Shay [facility] [address] [place] [address], [facility] [phone] from Last 3 Months or Most Recently Relevant to Health Maintenance Care Teams C Iron Worker Relationship Specialty Start Date End Date Mj Schaeffer MD [facility] [address] [place] [address] PCP - General Family Practice 07/22/21
--- OUTSIDE RECORDS SUMMARY | 2023-11-23 16:20 | XMS_ITS | Clinical Summary ---
Author Organization [facility] Address [address] [place] [address] Care Team Providers Care Die Hardener Name Role Phone Mj Schaeffer MD Primary Care Provider Allergies Active Allergy Reactions Criticality Noted Date Comments Aspirin 09/25/2013 Medications No known medications Social History Tobacco Use Types Packs/Day Years Used Date Smoking Tobacco: Every Day Cigarettes 1 40 Smokeless Tobacco: Never Tobacco Cessation:Ready to Q uit: No Alcohol Use Standard Drinks/Week Comments Yes 0 (1 standard drink = 0.6 oz pur e alcohol) occ/ Adolescent Education Answer Date Record ed Getting School Help Needed Not on file 02/26 Sex and Gender Information Value Date Recorded Sex Assigned at Not on file Gender Identity Not on file Sexual Orientation Not on file Last Filed Vital Signs Vital Sign Reading Time Taken Comments Blood Pressure 126/78 09/25/2013 7:45 AM CDT Pulse 78 09/25/2013 7:45 AM CDT Temperature 36.5 ??C (97.7 ??F) 09/25/2013 7:45 AM CD T Respiratory Rate 16 09/25/2013 7:45 AM CDT Oxygen Saturation - - Inhaled Oxygen Concentration - - Weight 75.5 kg (166 lb 6.4 oz) 09/25/2013 7:45 A M CDT Height 168.9 cm (5' 6.5) 09/25/2013 7:45 AM CDT Body Mass Index 26.46 09/25/2013 7:45 AM CDT Plan of Treatment Health Maintenance Due Date Last Done Comments ADVANCE CARE PLANNING 1954 ANNUAL REVIEW OF HM ORDERS 1954 CT COLONOGRAPHY 1954 FIT 1954 FLEX SIG 1954 sDNA (Cologuard) 1954 Pneumococcal Vaccine: 65+ Years (1 of 2 - PCV) 1960 COLONOSCOPY 1964 COLORECTAL CANCER SCREENING 1964 HEPATITIS C SCREENING 1972 DTAP/TDAP/TD IMMUNIZATION (1 - Tdap) 11/12/1979 LIPID 1994 LUNG CANCER SCREENING 2004 ZOSTER IMMUNIZATION (1 of 2) 2004 RSV VACCINE ( & 60+ ) (1 - 1-dose 60+ series) 2014 GLUCOSE 09/25/2016 09/25/2013 FALL RISK ASSESSMENT 11/12/2019 MEDICARE ANNUAL WELLNESS VISIT 11/12/2019 COVID-19 Vaccine (1 - 2022-2 4 season) 2023 PHQ-2 (once per calendar year) 2023 INFLUENZA VACCINE (Season Ended) 2024 04/12/2018, 02/24/2017, 04/01/2016 HPV IMMUNIZATION Aged Out No longer e ligible based on patient's age to complete this topic IPV IMMUNIZATION Aged Out No longer e ligible based on patient's age to complete this topic MENINGITIS IMMUNIZATION Aged Out No l onger eligible based on patient's age to complete this topic RSV MONOCLONAL ANTIBODY Aged Out No l onger eligible based on patient's age to complete this topic Procedures Procedure Name Priority Date/Time Associated Diagnosis Comments BASIC METABOLIC PANEL Routine 09/25/2013 8:04 AM CDT Mass of neck from Last 3 Months or Most Recently Relevant to Health Maintenance Results * (ABNORMAL) Basic metabolic panel (09/25/2013 8:04 AM CDT) Sodium 141 133 - 144 mmol/L [facility] Potassium 4.6 3.4 - 5.3 mmol/L [facility] Chloride 102 94 - 109 mmol/L [facility] Carbon Dioxide 26 20 - 32 mmol/L [facility] Anion Gap 13 6 - 17 mmol/L [facility] Glucose 127(H) 60 - 99 mg/dL [facility] Urea Nitrogen 16 7 - 30 mg/dL [facility] Creatinine 0.77 0.66 - 1.25 mg/dL [facility] GFR Estimate >90 >60 mL/min/1.7 m2 [facility] GFR Estimate If Black >90 >60 mL/min/1.7 m2 [facility] Calcium 9.1 8.5 - 10.4 mg/dL [facility] Blood specimen (specimen) 09/25/2013 8:04 AM CDT 09/25/2013 8:05 AM CDT Aristides Rendon MD LAB - BLOOD ORDERABLES [facility] [address] [place] [address] from Last 3 Months or Most Recently Relevant to Health Maintenance Care Teams Die Hardener Relationship Specialty Start Date End Date Mj Schaeffer MD PCP - General Family Practice 12/16/18
--- OUTSIDE RECORDS SUMMARY | 2023-11-23 16:20 | XMS_ITS | Continuity of Care Document ---
Author Organization [facility] Address [address] [place] [address] Phone Care Team Providers Care Treating Plant Supervisor Name Role Phone Preeti Benito MD Unavailable Unavailable Allergies, Adverse Reactions, Alerts Substance Reaction Status Criticality No Known Allergies Active No Inform ation Medications Medication Instructions Dosage Effective Dates (start - stop) Status Comments METOPROLOL SUCCINATE (unknown strength) Not Available - Active ASPIRIN (unknown strength) Not Available - Active LISINOPRIL (unknown strength) Not Available - Active GABAPENTIN (unknown strength) Not Available - Active METFORMIN HCL (unknown strength) Not Available - Active Procedures Procedure Date Office/Outpatient Visit,[facility] [place] Advance Directives Directive Yes / No Effective Date File Name No Information Encounters Encounter Description Practice Location Reason(s) For Visit Diagnoses Date Provider Providers Copied on Encounter Office/Outpat ient Visit,[facility] Emily/EMEKA C, [address], [place], [place], [address], [place] tel:[phone] [facility] Spinal stenosis, lumbar region with neurogenic claudication Thong Smith [facility], [address], [place], [place], [id number] , [place]. tel:[phone] Referring Provider: Mj Brooks, [facility] [address] , [place], [address]. tel:[phone] Family History Family Member Type Diagnosis Age At Onset Father Problem (finding) Cardiovascular disease Mother Problem (finding) Cancer, unknown type Payers Payer name Insurance type Covered alliance party ID Dixie ayala(s) Zach Diaz 2021 CI [id number] Social History Type Description Quantity Date Captured Comments Alcohol Use Details No Caffeine Use Details Unknown Tobacco Use Status Smoking Status Current every day smoker Smoking Tobacco Use Details Cigarette: No Details Available Cigarette: No Details Available Non-Smoking Tobacco Use Details : No Details Available : No Details Available Sex Male Vital Signs Date / Time: Height Weight BMI Pulse Rate Blood Pressure Temperature Respiratory Rate Body Surface Area Head Circumference Head Circ. Percentile Wt./Devendra. Percentile BMI percentile Pulse Ox Inhaled Ox 1:59 PM 67.00 in 78.925 kg (174.00 lbs) 27.2 5 kg/m eter (2) Chief Complaint And Reason For Visit No Information Reason For Referral Reason For Referral No Information History Of Present Illness Encounter Date Complaint History Of Prese nt Illness No Information Functional Status Date Functional Assessmen t No Information Instructions Date Instruction Additional Infor mation No Information Assessments Type Assessment Date No Information Patient Care Teams Name Effective Dates (start - stop) Status Members No Information
--- OUTSIDE RECORDS SUMMARY | 2023-11-23 16:20 | XMS_ITS | Encounter Summary ---
Author Organization [facility] Address [address] [place] [address] Care Team Providers Care Brush Trimming Machine Setter Name Role Phone Mj Schaeffer MD Primary Care Provider [phone] Reason for Visit * Reason Comments Diabetes Encounter Details Date Type Department Care Team (Late st Contact Info) Description 10/26/2023 3:45 PM CDT Office Visit [facility] [address] [place] [address] Jeanne Shay MBBS [address] [place], [place] [phone] Uncontrolled type 1 diabetes mellitus with hyperglycemia (HRC) (Primary Dx); Essential hypertension (HRC); Dyslipidemia (high LDL; low HDL) (HRC); 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 He came with his who is my patient as well. HPI: David Figueroa is a 67 y.o. male #1 T1DM: Diagnosed in 2014, had positive antibodies per his report. This is complicated by neuropathy and CAD. He is currently using Omnipod with Nemesio CGM. Pump settings are: basal midnight 1.8, 3 am 1.1, 8AM 1, 2 PM 1.6, 9 PM 1.8 , bolus midnight 1 per 13, 11:30 15, and 10 after 2 pm. SF 40, target 100 during the day and 110 overnight, insulin time 4 hrs. He is using metformin XR 2 gm daily. He uses CGM with dexcom, CGM data for 2 weeks were reviewed, average glucose was 179, GMI 7.6. 12% >250, 35%181-250, 51% in range (70-180), 1%<70 and 1%<54. He has hyperglycemia post dinner. Hypoglycemia around 3 AM. A1C 8.9. He has peripheral neuropathy symptoms, controlled with gabapentin 300 mg in the AM and 600 mg at night. Eye exam from this year was reported with no retinopathy. Creatinine from 09/2022 was 0.8, had mild microabuminuria, He had CABG in 2018, he takes atorvastatin 80 mg daily, lisinopril 2.5 mg daily, and metoprolol 50 mg BID. He has RUDI not using CPAP. Physical Examination: Vitals: BP 104/48 (BP Location: Left Arm, BP Cuff Size: Large) Pulse 76 Ht 5' 7 (1.702 m) Wt171 lb 11.2 oz (77.9 kg) BMI 26.89 kg/m?? General: The patient is alert and oriented, no acute distress. Labs/imaging: Reviewed and summarized in the HPI. Assessment and Plan: David Figueroa is a 67 y.o. male: #1 T1DM: fairly controlled, complicated by neuropathy and CAD. Repeat A1C today. Counseled him about the importance of DM control. Counseled him about diet and exercise. Continue metformin XR, 2 gm daily. Change basal to 1.7 from midnight to 3 AM, change bolus for dinner 1 per 9. Use 1/2 bolus for breakfast when planning to be active. Use temp basal when active. Continue CGM use. Use dexcom if possible. Use glucagon if not able to help himself. RTC 3 months. #2 HTN: controlled. #3 Dyslipidemia on a statin. #4 CAD s/p CABG. #5 RUDI advised him on using CPAP. MERE Ruelas Sterilizer Operator * Jaime Holley - 10/26/2023 3:45 PM CDT Images from the original note were not included. documented in this encounter Plan of Treatment Upcoming Encounters Date Type Department Care Team (Late st Contact Info) Description 02/22/2024 3:45 PM CDT Appointment [facility] [address] [place] [address] Jeanne Shay MBBS [address] [place] [address] Scheduled Orders Name Type Priority Associated Diagnoses Orde r Schedule Basic Metabolic Panel Lab Routine Uncontrolled type 1 diabetes mellitus with hyperglycemia (HRC) Expected: 12/26/2023, Expires: 01/24/2024 Lipid Panel and Direct LDL(If Needed) Lab Routine Uncontrolled type 1 diabetes mellitus with hyperglycemia (HRC) Expected: 12/26/2023, Expires: 01/24/2024 TSH Lab Routine Uncontrolled type 1 diabetes mellitus with hyperglycemia (HRC) Expected: 12/26/2023, Expires: 01/24/2024 Albumin/Creatinine Ratio,Random Urine Lab Routine Uncontrolled type 1 diabetes mellitus with hyperglycemia (HRC) Expected: 12/26/2023, Expires: 01/24/2024 Hgb A1C Lab Routine Uncontrolled type 1 diabetes mellitus with hyperglycemia (HRC) Expected: 12/26/2023, Expires: 01/24/2024 documented as of this encounter Procedures Procedure Name Priority Date/Time Associated Diagnosis Comments HGB A1C Routine 10/26/2023 3:47 PM CDT Uncontrolled type 1 diabetes mellitus with hyperglycemia (HRC) documented in this encounter Results * (ABNORMAL) HgbA1c - Collect in Clinic (10/26/2023 3:47 PM CDT) Hemoglobin A1C (Rapid) 8.9(H) <=5.6 % 10/26/2023 3:58 PM CDT [facility] Performing Location Endo [facility] 10/26/2023 3:58 PM CDT [facility] Estimated Average Glucose (Calc) 209 < 117 mg/dL 10/26/2023 3:58 PM CDT [facility] Comment:Estimated average gl ucose (eAG) converts A1c into glucose units (mg/dL) and estimates average glucose over the past approximately 3 months. The eAG reference interval (<117 mg/dL) corresponds to an A1c of <5.7%. Blood Capillary / Unknown 10/26/2023 3:47 PM CDT 10/26/2023 3:48 PM CDT Narrative [facility] - 10/26/2023 3:58 PM CDT For [...] lab for further direction. Jeanne SEVERINO LAB_1 [facility] [address] [place] [address], [facility] documented in this encounter Visit Diagnoses Diagnosis Uncontrolled type 1 diabetes mellitus with hyperglycemia (HRC)- Primary Essential hypertension (HRC) Unspecified essential hypertension Dyslipidemia (high LDL; low HDL) (HRC) Other and unspecified hyperlipidemia Coronary artery disease involving coronary bypass graft of rincon heart without angina pectoris (HRC) documented in this encounter Care Teams Brush Trimming Machine Setter Relationship Specialty Start Date End Date Mj Schaeffer MD [facility] [address] [place] [address] PCP - General Family Practice 07/22/21 documented as of this encounter
--- OUTSIDE RECORDS SUMMARY | 2023-11-23 16:20 | XMS_ITS ---
Author Organization Unknown Patient Care team information Name Category Status Period Participants - - Proposed period not known -
--- OUTSIDE RECORDS SUMMARY | 2023-11-23 16:20 | XMS_ITS | Encounter Summary ---
Author Organization [facility] Address [address], [place] [address] Care Team Providers Care Parts Product Analyst Name Role Phone Mj Schaeffer MD Primary Care Provider [phone] Reason for Visit * Reason Comments Refill Insulin Disposable P ump (OMNIPOD DASH PODS, GEN 4,) MISC [Pharmacy Med Name: OMNIPOD DASH PODS (GEN 4) MISCELLANEOUS] Encounter Details Date Type Department Care Team (Late st Contact Info) Description 2023 Refill [facility] [address] [facility] [place], [place] [address] Joe Shay MBBS [address] [place], [place] [address] Refill (Insulin Disposable Pump (OMNIPOD DASH PODS, GEN 4,) MISC [Pharmacy Med Name: OMNIPOD DASH PODS (GEN 4) MISCELLANEOUS]) Social History Tobacco Use Types Packs/Day Years Used Date Smoking Tobacco: Every Day Smokeless Tobacco: Never Sex and Gender Information Value Date Recorded Sex Assigned at Not on file Gender Identity Not on file Sexual Orientation Not on file documented as of this encounter Nursing Notes * Anthony Robison RN - 2023 3:17 PM CDT Renewed medication per medication refill standing order. Requested Prescriptions Signed Prescriptions Disp Refills Insulin Disposable Pump (OMNIPOD DASH PODS, GEN 4,) MISC 30 Each 3 Sig: USE 1 POD EVERY 1-2 DAYS. Authorizing Provider: JOE SHAY Ordering User: ANTHONY ROBISON * Gisel Nair - 2023 2:19 PM CDT Insulin Disposable Pump (OMNIPOD DASH PODS, GEN 4,) MISC [Pharmacy Med Name: OMNIPOD DASH PODS (GEN4) MISCELLANEOUS] Diabetes Supplies -> Unable to determine if patient is due for a renewal, please review. -> Provider co-signature is required for DME on patients 65+ years old. -> Age is abnormal (69 is greater than 64.0) -> Refill x 12 months (until due for an office visit) Last qualifying visit: 10/26/2023 (in ENDOCRINOLOGY) Next scheduled visit: 02/22/2024 (in ENDOCRINOLOGY) Last ordered by JOE SHAY M: 06/10/2023 (154 days ago) QTY: 30, Refills: 2, Sig: use 1 pod every 1-2 days. (unchanged) Age: 68 [employer] Embedded Refills, Reference: [id number], 2023 2:19:22 PM CDT, Pool: CUONG PNREFILL ([id number]) documented in this encounter Plan of Treatment Upcoming Encounters Date Type Department Care Team (Late st Contact Info) Description 02/22/2024 3:45 PM CDT Appointment [facility] [address] [place] [address] Joe Shay MBBS [address] [place] [address] documented as of this encounter Visit Diagnoses Diagnosis Uncontrolled type 1 diabetes mellitus with hyperglycemia (HRC) documented in this encounter Care Teams Parts Product Analyst Relationship Specialty Start Date End Date Mj Schaeffer MD [facility] [address] [place] [address] PCP - General Family Practice 07/22/21 documented as of this encounter
--- OUTSIDE RECORDS SUMMARY | 2023-11-23 16:20 | XMS_ITS | Referral Summary ---
Author Organization [facility] Address [address] [place] [address] Care Team Providers Care Patient Care Name Role Phone Mj Schaeffer MD Primary Care Provider [phone] Allergies Active Allergy Reactions Criticality Noted Date [...] 09/25/2013 7:45 AM CDT Plan of Treatment Not on file Procedures Procedure Name Priority Date/Time Associated Diagnosis Comments BASIC METABOLIC PANEL Routine 09/25/2013 8:04 AM CDT Mass of neck from Last 3 Months or Most Recently Relevant to Health Maintenance Results * (ABNORMAL) Basic metabolic panel (09/25/2013 8:04 AM CDT) Sodium 141 133 - 144 mmol/L [facility] Potassium 4.6 3.4 - 5.3 mmol/L [facility] Chloride 102 94 - 109 mmol/L [facility] Carbon Dioxide 26 20 - 32 mmol/L [facility] Anion Gap 13 6 - 17 mmol/L [facility] Glucose 127(H) 60 - 99 mg/dL [facility] Urea Nitrogen 16 7 - 30 mg/dL [facility] Creatinine 0.77 0.66 - 1.25 mg/dL [facility] GFR Estimate >90 >60 mL/min/1.7 m2 [facility] GFR Estimate If Black >90 >60 mL/min/1.7 m2 [facility] Calcium 9.1 8.5 - 10.4 mg/dL [facility] Blood specimen (specimen) 09/25/2013 8:04 AM CDT 09/25/2013 8:05 AM CDT Aristides Rendon MD LAB - BLOOD ORDERABLES [facility] [address] [place], [place] [id number] from Last 3 Months or Most Recently Relevant to Health Maintenance Care Teams Patient Care Relationship Specialty Start Date End Date Mj Schaeffer MD PCP - General Family Practice 12/16/18
== END 2023-11-23 16:15 | disposition home or self-care (01) ==
PROVIDERS: PCP Internal Medicine; Visit Provider Internal Medicine
DX: E78.5 Hyperlipidemia, unspecified (principal); I10 Essential (primary) hypertension; R68.81 Early satiety; Z12.5 Encounter for screening for malignant neoplasm of prostate; Z13.29 Encounter for screening for other suspected endocrine disorder
CPT/HCPCS: 80053; 80061; 82607; 83690; 84165; 84443; 86334; G0103

== ENCOUNTER 2023-11-26 08:19 | Outpatient (CLI) | payer MEDICAID, SELFPAY ==
--- OUTSIDE RECORDS SUMMARY | 2023-11-26 08:21 | XMS_ITS | Encounter Summary ---
Author [facility] Address [address] [address] Care Team Providers Care Mud Trucker Name Role Phone Mj Schaeffer MD Primary Care Provider [phone] Reason for Visit * Reason Comments Refill Insulin Disposable P ump (OMNIPOD DASH PODS, GEN 4,) MISC [Pharmacy Med Name: OMNIPOD DASH PODS (GEN 4) MISCELLANEOUS] Encounter Details Date Type Department Care Team (Late st Contact Info) Description 2023 Refill [facility] [address] Endocr[address] [facility] [place], [place] [phone] Joe Shay MBBS [address] [place], [place] [address] Refill (Insulin Disposable Pump (OMNIPOD DASH PODS, [...] Age: 68 [employer] Emb[employer] Refills, Reference: [id number], 2023 2:19:22 PM CDT, Pool: CUONG PNREFILL ([id number]) documented in this encounter Plan of Treatment Upcoming Encounters Date Type Department Care Team (Late st Contact Info) Description 02/22/2024 3:45 PM CDT Appointment [facility] [address] [place] [address] Joe Shay MBBS [address] [place] [address] documented as of this encounter Visit Diagnoses Diagnosis Uncontrolled type 1 diabetes mellitus with hyperglycemia (HRC) documented in this encounter Care Teams Mud Trucker Relationship Specialty Start Date End Date Mj Schaeffer MD [facility] [address] [place] [address] PCP - General Family Practice 07/22/21 documented as of this encounter
--- OUTSIDE RECORDS SUMMARY | 2023-11-26 08:21 | XMS_ITS | Continuity of Care Document ---
Author Organization [facility] Address [address] [place] [address] Phone Care Team Providers Care Conveyor Technician Name Role Phone Preeti Benito MD Unavailable Unavailable Allergies, Adverse Reactions, Alerts Substance Reaction Status Criticality No Known Allergies Active No Inform ation Medications Medication Instructions Dosage Effective Dates (start - stop) Status Comments METFORMIN HCL (unknown strength) Not Available - Active GABAPENTIN (unknown strength) Not Available - Active LISINOPRIL (unknown strength) Not Available - Active ASPIRIN (unknown strength) Not Available - Active METOPROLOL SUCCINATE (unknown strength) Not Available - Active Procedures Procedure Date Office/Outpatient Visit,[facility] [place] Advance Directives Directive Yes / No Effective Date File Name No Information Encounters Encounter Description Practice Location Reason(s) For Visit Diagnoses Date Provider Providers Copied on Encounter Office/Outpat ient Visit,[place], [facility] Emily/EMEKA C, [address], [place], [place], [address], [place] tel:[phone] [facility] - [facility] Spinal stenosis, lumbar region with neurogenic claudication 4 Thong Smith [facility], [address], [place], [place], [id number] , [place]. tel:[phone] Referring Provider: Mj Brooks, [facility] [address] [place] [address], [address]. tel:[phone] Family History Family Member Type Diagnosis Age At Onset Father Problem (finding) Cardiovascular disease Mother Problem (finding) Cancer, unknown type Payers Payer name Insurance type Covered alliance party ID Dixie ayala(s) Zach Diaz 2021 CI [id number] Social History Type Description Quantity Date Captured [...]
--- OUTSIDE RECORDS SUMMARY | 2023-11-26 08:21 | XMS_ITS | Clinical Summary ---
Author Organization [employer] [facility] [employer] [facility] Address [place], [place] [address] Care Team Providers Care Peer Tutor Name Role Phone Jhoan Schaeffer MD Primary Care Provider [phone] Allergies No known active allergies Medications Medication [...] artery disease of b ypass graft of [place] heart with stable angina pectoris 12/22/2019 Snoring [...] branch of right--09/15/17 Dr. Hameed CAD in [place] artery 09/14/2017 TIA (transient ischemic attack) 09/08/2017 Overview: In 2004, presented with slurred speech and weakness of right arm and severe fatigue. Chest pain 09/02/2017 Hypertension 09/02/2017 Hyperlipidemia 09/02/2017 Smoker 09/02/2017 PAD (peripheral artery disease) 09/02/2017 Diabetes type I 09/02/2017 Aortic stenosis 09/02/2017 Immunizations Name Administration Dates Next Due Influenza, IIV4 02/24/2017,04/01/2016 Family History Medical History Relation Name Comments Heart Disease Father [place] at age 65, at age 79 Leukemia [...] 02/24/2017, 016 Medical Devices Implanted Type Area Quill Winder Device Identifier Shelf Expiration Date Model / Serial / Lot Anw Hh [id number] Implanted:Qty: 1 on 09/15/2017 by Gurpreet Hameed MD at [facility] Explanted:at [facility] (Quantity not on file) N/A: Aortic Valve [employer] [place] 06/09/2021 [id number]# / [id number] / Procedures Procedure Name Priority Date/Time Associated Diagnosis Comments LIPID PANEL Add On 09/02/2017 8:41 AM CDT from Last 3 Months or Most Recently Relevant to Health Maintenance Results * Lipid Panel (09/02/2017 8:41 AM CDT) CHOLESTEROL,TOTAL 155 100 - 199 mg/dL 09/02/2017 9:23 AM CDT [facility] TRAL LABORATORY TRIGLYCERIDES 82 <150 mg/dL 09/02/2017 9:23 AM CDT [facility] TRAL LABORATORY HDL CHOLESTEROL 49 >40 mg/dL 8 9:23 AM CDT [facility] TRAL LABORATORY NON-HDL CHOLESTEROL 106 <145 mg/dl 09/02/2017 9:23 AM CDT [facility] TRAL LABORATORY CHOL/HDL RATIO 3.16 <4.50 09/02/2017 9:23 AM CDT [facility] TRAL LABORATORY LDL CHOLESTEROL 90 <=130 mg/dL 09/02/2017 9:23 AM CDT [facility] TRAL LABORATORY PROVIDER ORDERED STATUS RANDOM 09/02/2017 9:23 AM CDT [facility] TRAL LABORATORY Blood BLOOD SPECIMEN / Unknown Venipuncture / Unknown 09/02/2017 8:41 AM CDT 09/02/2017 8:49 AM CDT Tessa Del Rosario BURN TABLE OPERATOR CHEMISTRY [facility] [address] [place] [address], [place] from Last 3 Months or Most Recently Relevant to Health Maintenance Advance Directives * Full Code (Latest Code Status on File) Date Activated Date Inactivated Comments 09/15/2017 5:58 AM 09/20/2017 3:57 PM * Full Code Date Activated Date Inactivated Comments 09/02/2017 8:23 AM 09/02/2017 5:50 PM Care Teams Peer Tutor Relationship Specialty Start Date End Date Jhoan Schaeffer MD PCP - General Family Practice 08/19/17
--- OUTSIDE RECORDS SUMMARY | 2023-11-26 08:21 | XMS_ITS | Clinical Summary ---
Author Organization [employer] Address [address], [place] [address] Care Team Providers Care Digital Photo Printer Name Role Phone Mj Schaeffer MD Primary Care Provider [phone] Source Comments You are receiving this document as you are listed as the primary care provider,follow-up provider, or the patient has been referred to you for consultation.This is in compliance with the Medicare and[facility] EHR Incentive Program,which states Providers who transition their patient to another setting of careor provider of care or refers their patient to another provider of care shouldprovide summary care record for each transition of care or referral. [employer] Allergies No known active allergies Medications Medication [...] Each 3 3 Active Continuous Blood Gluc Research Test Engine Evaluator (DEXCOM G6 CASTER INVESTMENT CASTING)Indicati ons:Uncontrolled type 1 diabetes mellitus with hyperglycemia [...] 1-2 DAYS. 30 Each 3 4 Active Insulin Disposable Pump (OMNIPOD [...] disease invo lving 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 pectoris 12/11/2020 Encounters Date Type Department Care Team Description 2023 Refill [place] [address] [place] [address]. [place] [address] Jeanne Shay MBBS Refill (Insulin Disposable Pump (OMNIPOD DASH PODS, GEN 4,) MISC [Pharmacy Med Name: OMNIPOD DASH PODS (GEN 4) MISCELLANEOUS]) 10/26/2023 3:45 PM CDT Office Visit [facility] [address] [place] [phone] Jeanne Shay MBBS Uncontrolled type 1 diabetes mellitus with hyperglycemia (HRC) (Primary Dx); Essential hypertension (HRC); Dyslipidemia (high LDL; low HDL) (HRC); Coronary artery disease involving 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 pectoris (HRC) from Last [...] Info) Description 02/22/2024 3:45 PM CDT Appointment [facility] [address] [place] [address] Jeanne Shay MBBS [address] [place] [address] Health Maintenance Due Date Last Done Comments [...] Zoster/Shingles Completed 06/26/2020, 04/03/2020 Cholesterol Discontinued 09/15/2022, 01/05, 12/11/2020 Influenza Completed 04/13/2023, 02/07, 03/26/2021, Additional history exists Pneumococcal 65+ Yrs [...] artery disease involving 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 pectoris (HRC) BASIC METABOLIC PANEL Routine 09/15/2022 10:52 AM CDT Essential hypertension (HRC) Uncontrolled type 1 diabetes mellitus with hyperglycemia (HRC) Dyslipidemia (high LDL; low HDL) (HRC) Coronary artery disease involving 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 pectoris (HRC) LIPID PANEL & DIRECT LDL (IF NEEDED) Routine 09/15/2022 10:52 AM CDT Essential hypertension (HRC) Uncontrolled type 1 diabetes mellitus with hyperglycemia (HRC) Dyslipidemia (high LDL; low HDL) (HRC) Coronary artery disease involving 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 The eAG reference interval (<117 mg/dL) corresponds to an A1c of <5.7%. Blood Capillary / Unknown 10/26/2023 3:47 PM CDT 10/26/2023 3:48 PM CDT [facility]ATORY - 10/26/2023 3:58 PM CDT For [...] contact the lab for further direction. Jeanne Shay [facility]_1 Performing Organization Address [facility] de Phone Number [facility] [address] [place] [phone] * (ABNORMAL) Albumin/Creatinine Ratio,Random Urine (09/15/2022 11:08 AM CDT) Albumin/Creati nine Ratio, Urine, Random 30(H) <30 mg/g 09/15/2022 2:00 PM [facility] Albumin, Urine, Random 24.6 mg/L 09/15/2022 2:00 PM [facility] Creatinine, Urine, Random 82 >20 mg/dL mg/dL 09/15/2022 2:00 PM [facility] Urine Non-blood Collection / Unknown 09/15/2022 11:08 AM CDT 09/15/2022 11:08 AM CDT Jeanne Shay [facility] LAB_1 Performing Organization Address [facility] de Phone Number [facility] [address] [place] [phone] [phone] * Lipid Panel and Direct LDL (if needed) (09/15/2022 10:52 AM CDT) Cholesterol 195 0 - 199 mg/dL 09/15/2022 12:06 PM [facility] Triglyceride 141 <=149 mg/dL 09/15/2022 12:06 PM [facility] HDL Cholesterol 46 >=40 mg/dL 09/15/2022 12:06 PM [facility] LDL, Calculated 121 <130 mg/dL 09/15/2022 12:06 PM [facility] Non HDL Chol, Calculated 149 <=159 mg/dL 09/15/2022 12:06 PM [facility] Cholesterol/HDL Ratio 4.2 09/15/2022 12:06 PM [facility] Hours Fasting Unknown 09/15/2022 12:06 PM [facility] Blood Venipuncture / Unknown 09/15/2022 10:52 AM CDT 09/15/2022 10:52 AM CDT Jeanne Cisse Jaspal [facility]_1 [facility] [address] [place] [address], [facility] [phone] * (ABNORMAL) BMP (09/15/2022 10:52 AM CDT) Sodium 138 136 - 145 mmol/L 09/15/2022 12:06 PM [facility] Potassium 4.7 3.5 - 5.1 mmol/L 09/15/2022 12:06 PM [facility] Chloride 105 98 - 109 mmol/L 09/15/2022 12:06 PM [facility] CO2 23 20 - 29 mmol/L 09/15/2022 12:06 PM [facility] Anion Gap 10 7 - 16 mmol/L 09/15/2022 12:06 PM [facility] Calcium 9.3 8.4 - 10.4 mg/dL 09/15/2022 12:06 PM [facility] BUN 17 7 - 26 mg/dL 09/15/2022 12:06 PM [facility] Creatinine 0.80 0.73 - 1.18 mg/dL 09/15/2022 12:06 PM [facility] Glucose 171(H) 70 - 100 mg/dL 09/15/2022 12:06 PM [facility] Comment:The given reference range is for the fasting state. Non-fasting reference range for glucose is 70 - 180 mg/dL. Hours Fasting Unknown 09/15/2022 12:06 PM [facility] GFR, Estimated >60 >60 mL/min/1.7 3m2 09/15/2022 12:06 PM CDT [facility] Blood Venipuncture / Unknown 09/15/2022 10:52 AM CDT 09/15/2022 10:52 AM CDT Jeanne Cisse Jaspal [facility] [address] [place] [address], [facility] [phone] from Last 3 Months or Most Recently Relevant to Health Maintenance Care Teams Digital Photo Printer Relationship Specialty Start Date End Date Mj Schaeffer MD [facility] [address] [place] [address] PCP - General Family Practice 07/22/21
--- OUTSIDE RECORDS SUMMARY | 2023-11-26 08:22 | XMS_ITS | Clinical Summary ---
Author Organization [facility] Address [address] [place] [address] Care Team Providers Care Field Marketing Associate Name Role Phone Mj Schaeffer MD Primary Care Provider [phone] Allergies Active Allergy Reactions Criticality Noted Date [...] CDT) Sodium 141 133 - 144 mmol/L [facility] Potassium 4.6 3.4 - 5.3 mmol/L [facility] Chloride 102 94 - 109 mmol/L [facility] Carbon Dioxide 26 20 - 32 mmol/L [facility] Anion Gap 13 6 - 17 mmol/L [facility] Glucose 127(H) 60 - 99 mg/dL [facility] Urea Nitrogen 16 7 - 30 mg/dL [facility] Creatinine 0.77 0.66 - 1.25 mg/dL [facility] GFR Estimate >90 >60 mL/min/1.7 m2 [facility] GFR Estimate If Black >90 >60 mL/min/1.7 m2 [facility] Calcium 9.1 8.5 - 10.4 mg/dL [facility] Blood specimen (specimen) 09/25/2013 8:04 AM CDT 09/25/2013 8:05 AM CDT Aristides Rendon MD LAB - BLOOD ORDERABLES [facility] [address] [place] [address] from Last 3 Months or Most Recently Relevant to Health Maintenance Care Teams Field Marketing Associate Relationship Specialty Start Date End Date Mj Schaeffer MD PCP - General Family Practice 12/16/18
--- OUTSIDE RECORDS SUMMARY | 2023-11-26 08:22 | XMS_ITS | Referral Summary ---
Author Organization [facility] Address [address] [place] [address] Care Team Providers Care Profile Saw Operator Name Role Phone Mj Schaeffer MD Primary Care Provider [phone] Allergies Active Allergy Reactions Criticality Noted Date [...] CDT) Sodium 141 133 - 144 mmol/L [facility] Potassium 4.6 3.4 - 5.3 mmol/L [facility] Chloride 102 94 - 109 mmol/L [facility] Carbon Dioxide 26 20 - 32 mmol/L [facility] Anion Gap 13 6 - 17 mmol/L [facility] Glucose 127(H) 60 - 99 mg/dL [facility] Urea Nitrogen 16 7 - 30 mg/dL [facility] Creatinine 0.77 0.66 - 1.25 mg/dL [facility] GFR Estimate >90 >60 mL/min/1.7 m2 [facility] GFR Estimate If Black >90 >60 mL/min/1.7 m2 [facility] Calcium 9.1 8.5 - 10.4 mg/dL [facility] Blood specimen (specimen) 09/25/2013 8:04 AM CDT 09/25/2013 8:05 AM CDT Aristides Rendon MD LAB - BLOOD ORDERABLES [facility] [address] [place], [place] [id number] from Last 3 Months or Most Recently Relevant to Health Maintenance Care Teams Profile Saw Operator Relationship Specialty Start Date End Date Mj Schaeffer MD PCP - General Family Practice 12/16/18
--- OUTSIDE RECORDS SUMMARY | 2023-11-26 08:22 | XMS_ITS | Encounter Summary ---
Author Organization [facility] Address [address] [place] [address] Care Team Providers Care Ocean Freight Agent Name Role Phone Mj Schaeffer MD Primary Care Provider [phone] Reason for Visit * Reason Comments Diabetes Encounter Details Date Type Department Care Team (Late st Contact Info) Description 10/26/2023 3:45 PM CDT Office Visit [facility] [address] [place] [address] Jeanne Shay MBBS [address] [place], [place] [address] Uncontrolled type 1 diabetes mellitus with hyperglycemia (HRC) (Primary Dx); Essential hypertension (HRC); Dyslipidemia (high LDL; low HDL) (HRC); Coronary artery disease involving 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 MERE Ruelas Scenic Artist * Jaime Holley - 10/26/2023 3:45 PM CDT Images from the original note were not included. documented in this encounter Plan of Treatment Upcoming Encounters Date Type Department Care Team (Late st Contact Info) Description 02/22/2024 3:45 PM CDT Appointment [facility] [address] [place] [address] Jeanne Shay MBBS [address] [place] [address] Scheduled Orders Name Type Priority Associated Diagnoses [...] 8.9(H) <=5.6 % 10/26/2023 3:58 PM CDT [facility] Performing Location Endo A [facility] 10/26/2023 3:58 PM CDT [facility] Estimated Average Glucose (Calc) 209 < 117 mg/dL 10/26/2023 3:58 PM CDT [facility] Comment:Estimated average gl ucose (eAG) converts A1c into glucose units (mg/dL) and estimates average glucose over the past approximately 3 months. The eAG reference interval (<117 mg/dL) corresponds to an A1c of <5.7%. Blood Capillary / Unknown 10/26/2023 3:47 PM CDT 10/26/2023 3:48 PM CDT Narrative [facility] - 10/26/2023 3:58 PM CDT For [...] lab for further direction. Jeanne SEVER[facility]_1 [facility] [address] [place] [address], 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
--- NOTE | 2023-11-26 09:00 | CRLHL7_ITS ---
For Patients: As a result of the Century Cures Act, medical imaging exams and procedure reports are released immediately into your electronic medical record. You may view this report before your referring provider. If you have questions, please contact your health care provider. Indication: EARLY SATIETY Technique: CT Abdomen/Pelvis W/ ISOVUE 370 Please note that all CT scans at this facility use dose modulation, iterative reconstruction, and/or weight-based dosing when appropriate to reduce radiation dose to as low as reasonably achievable. Comparison: 12/06/2018 Findings: Peripheral airspace densities left lung base. Mild scarring in the right lung base. Trace left pleural effusion noted with thickening of the pleura. Benign cyst within the left hepatic lobe. Focal fat deposition is present adjacent to the falciform ligament. Hepatic steatosis. Spleen is not enlarged. Similar appearance of the adrenal glands. The kidneys are within normal limits. Gallbladder incompletely distended. The pancreas is normal. No hiatal hernia. Atherosclerotic changes. Prostate calcifications are present. Stool is present throughout the colon. No bowel obstruction or free air. No free fluid. No adenopathy. Bladder normal. Stable benign sclerosis adjacent to the left sacroiliac joint. No fracture. Degenerative disc disease lumbar spine. Incidental calcified lymph node in the upper retroperitoneum. Impression: No bowel obstruction or inflammation. No pancreatic mass. Hepatic steatosis. Please note that all CT scans at this facility use dose modulation, iterative reconstruction, and/or weight-based dosing when appropriate to reduce radiation dose to as low as reasonably achievable. Dictated by Manny Melchor MD @ 11/26/2023 1:00:16 PM (Electronically Signed)
== END 2023-11-26 08:20 | disposition home or self-care (01) ==
LOC: CT 08:20
PROVIDERS: PCP Internal Medicine; Visit Provider Internal Medicine
DX: R68.81 Early satiety (principal); K76.0 Fatty (change of) liver, not elsewhere classified
CPT/HCPCS: 74177; Q9967

== ENCOUNTER 2024-01-20 07:48 | Outpatient (CLI) | payer MEDICAID, SELFPAY ==
--- OUTSIDE RECORDS SUMMARY | 2024-01-20 07:51 | XMS_ITS | Clinical Summary ---
Author Organization [facility] [employer] [facility] Address [address], [place] [address] Care Team Providers Care Hatch Boss Name Role Phone Mj Schaeffer MD Primary Care Provider [phone] Source Comments You are receiving this document as you are listed as the primary care provider,follow-up provider, or the patient has been referred to you for consultation.This is in compliance with the Medicare and[facility] EHR Incentive Program,which states Providers who transition their patient to another setting of careor provider of care or refers their patient to another provider of care shouldprovide summary care record for each transition of care or referral. [employer] Allergies No known active allergies Medications Medication Sig Dispensed Refills Start Date End Date Status atorvastatin (LIPITOR) 80 MG tablet TAKE ONE TABLET BY MOUTH AT BEDTIME (DUE FOR FASTING LABS) 10/28/2020 Active lisinopril (ZESTRIL) 2.5 MG tablet Take 1 Tablet (2.5 mg) by mouth daily. 10/16/2020 Active metoprolol tartrate (LOPRESSOR) 50 MG tablet Take 1 Tablet (50 mg) by mouth two times a day. 12/06/2020 Active aspirin EC 81 MG enteric coated [...] Pump (OMNIPOD 5 G6 INTRO, GEN 5,) KITIndications:Unc ontrolled type 1 diabetes mellitus with hyperglycemia (HRC) Use as directed 1 Kit 10/21/2021 Active Additional Information Patient not taking.Reported on 04/15/2022 Insulin Disposable Pump (OMNIPOD 5 G6 POD, GEN 5,) MISCIndications:Un controlled type 1 diabetes mellitus with hyperglycemia (HRC) Use 1 pod every 2-3 days 15 Each 3 10/21/2021 Active Additional Information Patient not taking.Reported on 04/15/2022 metFORMIN XR (GLUCOPHAGE XR) 500 MG 24 hour release tablet Take 4 Tablets (2,000 mg) by mouth every evening with a meal. 360 Tablet 3 03/17/2023 4 Active Cranberry 50 MG CHEW Active Glucagon (GVOKE HYPOPEN 2-PACK) 1 MG/0.2ML SOAJ Inject 0.2 mL (1 mg) subcutaneously as needed (hypoglycemia). 2 Each 4 03/17/2023 Active Continuous Blood Gluc Sensor (DEXCOM G6 SENSOR)Indications :Uncontrolled type 1 diabetes mellitus with hyperglycemia (HRC) Use once every 10 days 3 Each 11 03/17/2023 Active Continuous Blood Gluc Transmit (DEXCOM G6 TRANSMITTER)Indica tions:Uncontrolled type 1 diabetes mellitus with hyperglycemia (HRC) Change once every 90 days 1 Each 3 03/17/2023 Active Continuous Blood Gluc Application Packaging Consultant (DEXCOM G6 POLICE INSPECTOR)Indicatio ns:Uncontrolled type 1 diabetes mellitus with hyperglycemia (HRC) Use once 1 Each 03/17/2023 Active insulin aspart (NOVOLOG) 100 UNIT/ML injection (vial) Inject 80-90 Units subcutaneously daily. 90 mL 3 10/26/2023 Active gabapentin (NEURONTIN) 300 MG capsule Use 1 cap in the AM and 2 in the PM. 270 Capsule 3 10/26/2023 Active Insulin Disposable Pump (OMNIPOD DASH PODS, GEN 4,) MISCIndications:Un controlled type 1 diabetes mellitus with hyperglycemia (HRC) USE 1 POD EVERY 1-2 DAYS. 30 Each 3 2023 Active Active Problems Problem Noted Date Diagnosed Date Uncontrolled type 1 diabetes mellitus with hyper glycemia 09/15/2022 Uncontrolled type I diabetes mellitus with neuro ashley 12/11/2020 Essential hypertension 12/11/2020 Dyslipidemia (high LDL; low HDL) 12/11/2020 Coronary artery disease invo lving coronary bypass graft of [place] heart without angina pectoris 12/11/2020 Encounters Date Type Department Care Team Description 2023 Refill [facility] [address] Endocrinology [address] 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[place] heart without angina pectoris (HRC) from Last [...] Team (Late st Contact Info) Description 02/22/2024 8:00 AM CDT Appointment [facility] [address] [place] [address] Jeanne Shay MBBS [address] [place] [address] Health Maintenance Due Date Last Done Comments [...] 01/26/2024 10/26/2023, , 03/17/2023, Additional history exists Influenza (#1) 2024 04/13/2023, 02/07, 03/26/2021, Additional history exists Diabetes: Lipid Panel 09/16/2027 09/15/2022 , 01/14/2022, 12/11/2020 DTaP/Tdap/Td (2 - Tdap) 10/24/2030 10/24/2020, 07/22 Zoster/Shingles Completed 06/26/2020, 04/03/2020 Cholesterol Discontinued 09/15/2022, 01/05, 12/11/2020 Pneumococcal 65+ Yrs Completed 04/13/2023, 11/30/19 HepA [...] artery disease involving coronary bypass graft of [place] heart without angina pectoris (HRC) BASIC METABOLIC PANEL Routine 09/15/2022 10:52 AM CDT Essential hypertension (HRC) Uncontrolled type 1 diabetes mellitus with hyperglycemia (HRC) Dyslipidemia (high LDL; low HDL) (HRC) Coronary artery disease involving coronary bypass graft of [place] heart without angina pectoris (HRC) LIPID PANEL & DIRECT LDL (IF NEEDED) Routine 09/15/2022 10:52 AM CDT Essential hypertension (HRC) Uncontrolled type 1 diabetes mellitus with hyperglycemia (HRC) Dyslipidemia (high LDL; low HDL) (HRC) Coronary artery disease involving coronary bypass graft of [place] heart without angina pectoris (HRC) from Last 3 Months or Most Recently Relevant to Health Maintenance Results * (ABNORMAL) HgbA1c - Collect in Clinic (10/26/2023 3:47 PM CDT) [facility] Hemoglobin A1C (Rapid) 8.9(H) <=5.6 % 10/26/2023 3:58 PM [facility] Performing Location Endo A BU 10/26/2023 3:58 PM [facility] Estimated Average Glucose (Calc) 209 < 117 mg/dL 10/26/2023 3:58 PM [facility] Comment:Estimated average gl ucose (eAG) converts A1c into glucose units (mg/dL) and estimates average glucose over the past approximately 3 months. The eAG reference interval (<117 mg/dL) corresponds to an A1c of <5.7%. Blood Capillary / Unknown 10/26/2023 3:47 PM CDT 10/26/2023 3:48 PM [facility] - 10/26/2023 3:58 PM CDT For [...] contact the lab for further direction. Jeanne Guerrarichardalberto [facility] Performing Organization Address [facility] Co de Phone Number [facility] [address] [place] [address] * (ABNORMAL) Albumin/Creatinine Ratio,Random Urine (09/15/2022 11:08 AM CDT) Pathologist [facility] Albumin/Creati nine Ratio, Urine, Random 30(H) <30 mg/g 09/15/2022 2:00 PM [facility] Albumin, Urine, Random 24.6 mg/L 09/15/2022 2:00 PM [facility] Creatinine, Urine, Random 82 >20 mg/dL mg/dL 09/15/2022 2:00 PM [facility] Urine Non-blood Collection / Unknown 09/15/2022 11:08 AM CDT 09/15/2022 11:08 AM CDT Jeanne Christensenjaycekofi [facility] Performing Organization Address [facility] de Phone Number [facility] [address] [place] [address], [facility] [phone] * Lipid Panel and Direct LDL (if needed) (09/15/2022 10:52 AM CDT) Pathologist [facility] Cholesterol 195 0 - 199 mg/dL 09/15/2022 12:06 PM [facility] Triglyceride 141 <=149 mg/dL 09/15/2022 12:06 PM [facility] HDL Cholesterol 46 >=40 mg/dL 09/15/2022 12:06 PM [facility] LDL, Calculated 121 <130 mg/dL 09/15/2022 12:06 PM [facility] Non HDL Chol, Calculated 149 <=159 mg/dL 09/15/2022 12:06 PM [facility] Cholesterol/HDL Ratio 4.2 09/15/2022 12:06 PM [facility] Hours Fasting Unknown 09/15/2022 12:06 PM [facility] Blood Venipuncture / Unknown 09/15/2022 10:52 AM CDT 09/15/2022 10:52 AM CDT Jeanne Shay [facility] [address] [place] [address], [facility] [phone] * (ABNORMAL) BMP (09/15/2022 10:52 AM CDT) Sodium 138 136 - 145 mmol/L 09/15/2022 12:06 PM [facility] Potassium 4.7 3.5 - 5.1 mmol/L 09/15/2022 12:06 PM [facility] Chloride 105 98 - 109 mmol/L 09/15/2022 12:06 PM [facility] CO2 23 20 - 29 mmol/L 09/15/2022 12:06 PM [facility] Anion Gap 10 7 - 16 mmol/L 09/15/2022 12:06 PM [facility] Calcium 9.3 8.4 - 10.4 mg/dL 09/15/2022 12:06 PM [facility] BUN 17 7 - 26 mg/dL 09/15/2022 12:06 PM [facility] Creatinine 0.80 0.73 - 1.18 mg/dL 09/15/2022 12:06 PM [facility] Glucose 171(H) 70 - 100 mg/dL 09/15/2022 12:06 PM [facility] Comment:The given reference range is for the fasting state. Non-fasting reference range for glucose is 70 - 180 mg/dL. Hours Fasting Unknown 09/15/2022 12:06 PM [facility] GFR, Estimated >60 >60 mL/min/1.7 3m2 09/15/2022 12:06 PM [facility] Blood Venipuncture / Unknown 09/15/2022 10:52 AM CDT 09/15/2022 10:52 AM CDT Jeanne SEVERINO [facility]1 [facility] [address] [place] [address], [facility] [phone] from Last 3 Months or Most Recently Relevant to Health Maintenance Care Teams Hatch Boss Relationship Specialty Start Date End Date Mj Schaeffer MD [facility] [address] [place] [address] PCP - General Family Practice 07/22/21
--- OUTSIDE RECORDS SUMMARY | 2024-01-20 07:51 | XMS_ITS | Encounter Summary ---
Author Organization [facility] Address [address] [place] [address] Care Team Providers Care Application Lead Name Role Phone Mj Schaeffer MD Primary Care Provider [phone] Reason for Visit * Reason Comments Diabetes Encounter Details Date Type Department Care Team (Late st Contact Info) Description 10/26/2023 3:45 PM CDT Office Visit [facility] [address] [place] [address] Jeanne Shay MBBS [address] [place], [place] [address] Uncontrolled type 1 diabetes mellitus with hyperglycemia (HRC) (Primary Dx); Essential hypertension (HRC); Dyslipidemia (high LDL; low HDL) (HRC); 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 [facility] [employer] * Jaime Holley - 10/26/2023 3:45 PM CDT Images from the original note were not included. documented in this encounter Plan of Treatment Upcoming Encounters Date Type Department Care Team (Late st Contact Info) Description 02/22/2024 8:00 AM CDT Appointment [facility] [address] [place] [address] Jeanne Shay MBBS [address] [place] [address] Scheduled Orders Name Type Priority Associated Diagnoses [...] 8.9(H) <=5.6 % 10/26/2023 3:58 PM CDT [facility] Performing Location Endo A BU 10/26/2023 3:58 PM CDT [facility] Estimated Average Glucose (Calc) 209 < 117 mg/dL 10/26/2023 3:58 PM CDT [facility] Comment:Estimated average gl ucose (eAG) converts A1c into glucose units (mg/dL) and estimates average glucose over the past approximately 3 months. The eAG reference interval (<117 mg/dL) corresponds to an A1c of <5.7%. Blood Capillary / Unknown 10/26/2023 3:47 PM CDT 10/26/2023 3:48 PM CDT Narrative [facility] - 10/26/2023 3:58 PM CDT For [...] lab for further direction. 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
--- OUTSIDE RECORDS SUMMARY | 2024-01-20 07:51 | XMS_ITS | Clinical Summary ---
Author Organization [facility] Address [address] [place] [address] Care Team Providers Care Tire Design Engineer Name Role Phone Mj Schaeffer MD Primary Care Provider [phone] Allergies Active Allergy Reactions Criticality Noted Date [...] CDT Plan of Treatment Not on file Care Teams Tire Design Engineer Relationship Specialty Start Date End Date Mj Schaeffer MD PCP - General Family Practice 12/16/18
--- OUTSIDE RECORDS SUMMARY | 2024-01-20 07:51 | XMS_ITS | Continuity of Care Document ---
Author Organization [facility] Address [address] [place] [address] Phone Care Team Providers Care Air Crew Officer Name Role Phone Preeti Benito MD Unavailable [...] Available - Active Procedures Procedure Date Office/Outpatient Visit,[facility] 2023 Advance Directives Directive Yes / No Effective Date File Name No Information Encounters Encounter Description Practice Location Reason(s) For Visit Diagnoses Date Provider Providers Copied on Encounter Office/Outpat ient Visit,[place], [facility], [address], [place], [place], [id number], [place] tel:[phone] [facility] Spinal stenosis, lumbar region with neurogenic claudication 4 [facility], [address], [place], [place], [id number] , [place]. tel:[phone] Referring Provider: Mj Brooks, [facility] [address] [place] [address], [address]. tel:[phone] Family History Family Member Type Diagnosis Age At Onset Father Problem (finding) Cardiovascular disease Mother Problem (finding) Cancer, unknown type Payers Payer name Insurance type Covered democrat ID Dixie ayala(s) Zach Diaz 2021 CI [id number] Social History Type Description Quantity Date Captured [...]
--- OUTSIDE RECORDS SUMMARY | 2024-01-20 07:51 | XMS_ITS | Encounter Summary ---
Author Organization [facility] Address [address], [place] [address] Care Team Providers Care Hydraulic Operator Name Role Phone Mj Schaeffer MD Primary Care Provider [phone] Reason for Visit * Reason Comments Refill Insulin Disposable P ump (OMNIPOD DASH PODS, GEN 4,) MISC [Pharmacy Med Name: OMNIPOD DASH PODS (GEN 4) MISCELLANEOUS] Encounter Details Date Type Department Care Team (Late st Contact Info) Description 2023 Refill [facility] [address] Endocrinology [address] [facility] [place], [place] [address] Joe Shay MBBS [address] [place], [place] [phone] Refill (Insulin Disposable Pump (OMNIPOD DASH PODS, [...] POD EVERY 1-2 DAYS. Authorizing Provider: JOE SHYA Ordering User: ANTHONY ROBISON * Gisel Nair [...] Age: 68 [employer] Embedded Refills, Reference: [id number], 2023 2:19:22 PM CDT, Pool: CUONG PNREFILL ([id number]) documented in this encounter Plan of Treatment Upcoming Encounters Date Type Department Care Team (Late st Contact Info) Description 02/22/2024 8:00 AM CDT Appointment [facility] [address] [place] [address] Joe Shay MBBS [address] [place] [address] documented as of this encounter Visit Diagnoses Diagnosis Uncontrolled type 1 diabetes mellitus with hyperglycemia (HRC) documented in this encounter Care Teams Hydraulic Operator Relationship Specialty Start Date End Date Mj Schaeffer MD [facility] [address] [place] [address] PCP - General Family Practice 07/22/21 documented as of this encounter
--- OUTSIDE RECORDS SUMMARY | 2024-01-20 07:51 | XMS_ITS | Referral Summary ---
Author Organization [facility] Address [address] [place] [address] Care Team Providers Care Reel Worker Name Role Phone Mj Schaeffer MD Primary Care Provider [phone] Allergies Active Allergy Reactions Criticality Noted Date [...] of Treatment Not on file Care Teams Reel Worker Relationship Specialty Start Date End Date jM Schaeffer MD PCP - General Family Practice 12/16/18
--- OUTSIDE RECORDS SUMMARY | 2024-01-20 07:51 | XMS_ITS | Clinical Summary ---
Author Organization [facility] Address [place], [place] [address] Care Team Providers Care Automotive Engineer Name Role Phone Jhoan Schaeffer MD Primary Care Provider [phone] Allergies No known active allergies Medications Medication [...] artery disease of b ypass graft of [place] heart with stable angina pectoris 12/22/2019 Snoring [...] branch of right--09/15/17 Dr. Hameed CAD in [place] artery 09/14/2017 TIA (transient ischemic attack) 09/08/2017 Overview: In 2004, presented with slurred speech and weakness of right arm and severe fatigue. Chest pain 09/02/2017 Hypertension 09/02/2017 Hyperlipidemia 09/02/2017 Smoker 09/02/2017 PAD (peripheral artery disease) 09/02/2017 Diabetes type I 09/02/2017 Aortic stenosis 09/02/2017 Immunizations Name Administration Dates Next Due Influenza, IIV4 02/24/2017,04/01/2016 Family History Medical History Relation Name Comments Heart Disease Father [place] at age 65, at age 79 Leukemia [...] 02/24/2017, 016 Medical Devices Implanted Type Area Tripoler Device Identifier Shelf Expiration Date Model / Serial / Lot Anw Hh [id number] Implanted:Qty: 1 on 09/15/2017 by Gurpreet Hameed MD at [facility] Explanted:at [facility] (Quantity not on file) N/A: Aortic Valve [employer] 06/09/2021 [id number] M# / [id number] / Procedures Procedure Name Priority Date/Time Associated Diagnosis Comments LIPID PANEL Add On 09/02/2017 8:41 AM CDT from Last 3 Months or Most Recently Relevant to Health Maintenance Results * Lipid Panel (09/02/2017 8:41 AM CDT) CHOLESTEROL,TOTAL 155 100 - 199 mg/dL 09/02/2017 9:23 AM CDT [facility] TRIGLYCERIDES 82 <150 mg/dL 09/02/2017 9:23 AM CDT [facility] [employer] [facility] HDL CHOLESTEROL 49 >40 mg/dL 8 9:23 AM CDT [facility] [employer] [facility] NON-HDL CHOLESTEROL 106 <145 mg/dl 09/02/2017 9:23 AM CDT [facility] [employer] [facility] CHOL/HDL RATIO 3.16 <4.50 09/02/2017 9:23 AM CDT [facility] [employer] [facility] TRAL LAB[facility] LDL CHOLESTEROL 90 <=130 mg/dL 09/02/2017 9:23 AM CDT [facility] [employer] [facility] TRAL LAB[facility]ATORY PROVIDER ORDERED STATUS RANDOM 09/02/2017 9:23 AM CDT [facility] [employer] [facility] Blood BLOOD SPECIMEN / Unknown Venipuncture / Unknown 09/02/2017 8:41 AM CDT 09/02/2017 8:49 AM CDT Tessa Del Rosario ASSOCIATE PROFESSOR OF SOCIOLOGY CHEMISTRY [facility] [address] [place] [address], [place] from Last 3 Months or Most Recently Relevant to Health Maintenance Advance Directives * Full Code (Latest Code Status on File) Date Activated Date Inactivated Comments 09/15/2017 5:58 AM 09/20/2017 3:57 PM * Full Code Date Activated Date Inactivated Comments 09/02/2017 8:23 AM 09/02/2017 5:50 PM Care Teams Automotive Engineer Relationship Specialty Start Date End Date Jhoan Schaeffer MD PCP - General Family Practice 08/19/17
--- NOTE | 2024-01-20 08:15 | CRLHL7_ITS ---
For Patients: As a result of the Century Cures Act, medical imaging exams and procedure reports are released immediately into your electronic medical record. You may view this report before your referring provider. If you have questions, please contact your health care provider. Technique: Single contrast small-bowel follow-through study performed after administration of 1 cup of thin barium. Spot compression images acquired. Fluoroscopy time 27 seconds. Indication: Early satiety Comparison: CT abdomen/pelvis 11/26/2023 Findings: Insulin device noted in the right lower quadrant soft tissues. No gastric outlet obstruction. Normal mucosal fold pattern of the jejunum. Normal position of the ligament of Treitz. No malrotation. Normal mucosal pattern of the ileum. Small-bowel transit time 3 hours 15 minutes. No evidence of acute inflammation. No fistula. Impression: Delayed small bowel transit. No evidence of inflammation or obstruction. Dictated by Manny Melchor MD @ 01/21/2024 10:13:08 AM (Electronically Signed)
== END 2024-01-20 07:49 | disposition home or self-care (01) ==
LOC: RAD 07:49
PROVIDERS: PCP Internal Medicine; Visit Provider Internal Medicine
DX: R68.81 Early satiety (principal)
CPT/HCPCS: 74250

== ENCOUNTER 2024-01-27 08:05 | Outpatient (CLI) | payer MEDICAID, SELFPAY ==
--- OUTSIDE RECORDS SUMMARY | 2024-01-27 08:08 | XMS_ITS | Referral Summary ---
Author Organization [facility] Address [address] [place] [address] Care Team Providers Care Customs Director Name Role Phone Mj Schaeffer MD Primary Care Provider [phone] Allergies Active Allergy Reactions Criticality Noted Date [...] of Treatment Not on file Care Teams Customs Director Relationship Specialty Start Date End Date Mj Schaeffer MD PCP - General Family Practice 12/16/18
--- OUTSIDE RECORDS SUMMARY | 2024-01-27 08:08 | XMS_ITS | Clinical Summary ---
Author Organization [employer] Address [address], [place] [address] Care Team Providers Care Industrial Engineering Technician Name Role Phone Mj Schaeffer MD Primary Care Provider [phone] Source Comments You are receiving this document as you are listed as the primary care provider,follow-up provider, or the patient has been referred to you for consultation.This is in compliance with the Medicare and[facility] EHR Incentive Program,which states Providers who transition their patient to another setting of careor provider of care or refers their patient to another provider of care shouldprovide summary care record for each transition of care or referral. [employer] Allergies No known active allergies Medications Medication [...] Each 3 03/17/2023 Active Continuous Blood Gluc Blasting Worker (DEXCOM G6 DIGITIZER OPERATOR)Indicatio ns:Uncontrolled type 1 diabetes mellitus with hyperglycemia [...] Type Department Care Team Description 2023 Refill [facility] [address] Endocrinology [address] [facility] [place] [address] Jeanne Shay MBBS Refill (Insulin Disposable Pump (OMNIPOD DASH PODS, GEN 4,) MISC [Pharmacy Med Name: OMNIPOD DASH PODS (GEN 4) MISCELLANEOUS]) from Last 3 Months Social History Tobacco [...] Care Team (Late st Contact Info) Description 02/23/2024 10:15 AM CDT Telemedicine [place] [address] Endocr[address]ology [address] [facility] [place] [address] Jeanne Shay MBBS [address] [place] [address] Health Maintenance Due Date Last Done Comments Colon Cancer Screening Plan Due 1954 Diabetes: Eye Exam 1954 Diabetes: Foot Exam 1954 Hep C Screening (Preventive Services) 1954 MTM Covered 1954 Adult Preventive Visit 1972 Abdominal Aortic [...] 8.9(H) <=5.6 % 10/26/2023 3:58 PM CDT [facility] Performing Location Endo A BU 10/26/2023 3:58 PM CDT [facility] Estimated Average Glucose (Calc) 209 < 117 mg/dL 10/26/2023 3:58 PM T [facility] Comment:Estimated average gl ucose (eAG) converts A1c into glucose units (mg/dL) and estimates average glucose over the past approximately 3 months. The eAG reference interval (<117 mg/dL) corresponds to an A1c of <5.7%. Blood Capillary / Unknown 10/26/2023 3:47 PM CDT 10/26/2023 3:48 PM CDT Narrative [facility] - 10/26/2023 3:58 PM CDT For [...] lab for further direction. Jeanne SEVERINO [facility]_1 [facility] [address] [place] [address], [facility] * (ABNORMAL) Albumin/Creatinine Ratio,Random Urine (09/15/2022 11:08 AM CDT) Albumin/Creati nine Ratio, Urine, Random 30(H) <30 mg/g 09/15/2022 2:00 PM T [facility] Albumin, Urine, Random 24.6 mg/L 09/15/2022 2:00 PM [facility] Creatinine, Urine, Random 82 >20 mg/dL mg/dL 09/15/2022 2:00 PM [facility] Urine Non-blood Collection / Unknown 09/15/2022 11:08 AM CDT 09/15/2022 11:08 AM CDT Jeanne DYE [facility]_1 Performing Organization Address [facility] Co de Phone Number [facility] [address] [place] [address], [facility] [phone] * Lipid Panel and Direct LDL (if needed) (09/15/2022 10:52 AM CDT) [facility] Cholesterol 195 0 - 199 mg/dL 09/15/2022 12:06 PM [facility] Triglyceride 141 <=149 mg/dL 09/15/2022 12:06 PM [facility] HDL Cholesterol 46 >=40 mg/dL 09/15/2022 12:06 PM [facility] LDL, Calculated 121 <130 mg/dL 09/15/2022 12:06 PM [facility] Non HDL Chol, Calculated 149 <=159 mg/dL 09/15/2022 12:06 PM [facility] Cholesterol/HDL Ratio 4.2 09/15/2022 12:06 PM [facility] Hours Fasting Unknown 09/15/2022 12:06 PM [facility] Blood Venipuncture / Unknown 09/15/2022 10:52 AM CDT 09/15/2022 10:52 AM CDT Jeanne DYE [facility]_1 Performing Organization Address City/[facility]/ZIP Co de Phone Number [facility] [address] [place] [address], [facility] [phone] * (ABNORMAL) BMP (09/15/2022 10:52 AM CDT) Sodium 138 136 - 145 mmol/L 09/15/2022 12:06 PM [facility] Potassium 4.7 3.5 - 5.1 mmol/L 09/15/2022 12:06 PM [facility] Chloride 105 98 - 109 mmol/L 09/15/2022 12:06 PM [facility] CO2 23 20 - 29 mmol/L 09/15/2022 12:06 PM [facility] Anion Gap 10 7 - 16 mmol/L 09/15/2022 12:06 PM [facility] Calcium 9.3 8.4 - 10.4 mg/dL 09/15/2022 12:06 PM [facility] BUN 17 7 - 26 mg/dL 09/15/2022 12:06 PM [facility] Creatinine 0.80 0.73 - 1.18 mg/dL 09/15/2022 12:06 PM [facility] Glucose 171(H) 70 - 100 mg/dL 09/15/2022 12:06 PM [facility] Comment:The given reference range is for the fasting state. Non-fasting reference range for glucose is 70 - 180 mg/dL. Hours Fasting Unknown 09/15/2022 12:06 PM [facility] GFR, Estimated >60 >60 mL/min/1.7 3m2 09/15/2022 12:06 PM [facility] Blood Venipuncture / Unknown 09/15/2022 10:52 AM CDT 09/15/2022 10:52 AM T Jeanne SEVERINO [facility]_1 [facility] [address] [place] [address], [facility] [phone] from Last 3 Months or Most Recently Relevant to Health Maintenance Care Teams Industrial Engineering Technician Relationship Specialty Start Date End Date Mj Schaeffer MD [facility] [address] [place] [address] PCP - General Family Practice 07/22/21
--- OUTSIDE RECORDS SUMMARY | 2024-01-27 08:08 | XMS_ITS | Encounter Summary ---
Author Organization [facility] Address [address] [place] [address] Care Team Providers Care Supervisor Beater Room Name Role Phone Mj Schaeffer MD Primary Care Provider [phone] Reason for Visit * Reason Comments Diabetes Encounter Details Date Type Department Care Team (Late st Contact Info) Description 10/26/2023 3:45 PM CDT Office Visit [facility] [address] [place] [address] Jeanne Shay MBBS [address] [place], [place] [phone] Uncontrolled type 1 diabetes mellitus with hyperglycemia (HRC) (Primary Dx); Essential hypertension (HRC); Dyslipidemia (high LDL; low HDL) (HRC); Coronary artery disease involving coronary bypass graft of jena heart without angina pectoris (HRC) Social History [...] Shay MBBS - 10/26/2023 3:45 PM CDT [facility] Department of Endocrinology, Diabetes and Metabolism Clinic Note Name: David Figueroa Cc: Follow up for T1DM. He came with his who is my patient as well. HPI: David Figueroa is a 67 y.o. male #1 T1DM: Diagnosed in 2014, had positive antibodies per his report. This is complicated by neuropathy and CAD. He is currently using Omnipod with Nemesoi CGM. Pump settings are: basal midnight 1.8, [...] advised him on using CPAP. MERE Ruelas Electrical Technician * Jaime Holley - 10/26/2023 3:45 PM CDT Images from the original note were not included. documented in this encounter Plan of Treatment Upcoming Encounters Date Type Department Care Team (Late st Contact Info) Description 02/23/2024 10:15 AM CDT Telemedicine [place] [address] [place] [address]. [place] [address] Jeanne Shay MBBS [address] [place] [address] Scheduled Orders Name Type Priority Associated Diagnoses [...] Uncontrolled type 1 diabetes mellitus with hyperglycemia ([facility]) Expected: 12/26/2023, Expires: 01/24/2024 documented as of this encounter Procedures Procedure Name Priority Date/Time Associated Diagnosis Comments HGB A1C Routine 10/26/2023 3:47 PM CDT Uncontrolled type 1 diabetes mellitus with hyperglycemia (HRC) documented in this encounter Results * (ABNORMAL) HgbA1c - Collect in Clinic (10/26/2023 3:47 PM CDT) Hemoglobin A1C (Rapid) 8.9(H) <=5.6 % 10/26/2023 3:58 PM CDT [facility] Performing Location Endo A BU 10/26/2023 3:58 PM CDT [facility] Estimated Average Glucose (Calc) 209 < 117 mg/dL 10/26/2023 3:58 PM CDT [facility] Comment:Estimated average gl ucose (eAG) converts A1c into glucose units (mg/dL) and estimates average glucose over the past approximately 3 months. The eAG reference interval (<117 mg/dL) corresponds to an A1c of <5.7%. Blood Capillary / Unknown 10/26/2023 3:47 PM CDT 10/26/2023 3:48 PM CDT Narrative [facility] - 10/26/2023 3:58 PM CDT For [...] lab for further direction. Jeanne SEVERINO LAB_1 [facility] [address] [place] [address], [facility] documented in this encounter Visit Diagnoses Diagnosis Uncontrolled type 1 diabetes mellitus with hyperglycemia (HRC)- Primary Essential hypertension (HRC) Unspecified essential hypertension Dyslipidemia (high LDL; low HDL) (HRC) Other and unspecified hyperlipidemia Coronary artery disease involving coronary bypass graft of jena heart without angina pectoris (HRC) documented in this encounter Care Teams Supervisor Beater Room Relationship Specialty Start Date End Date Mj Schaeffer MD [facility] [address] [place] [address] PCP - General Family Practice 07/22/21 documented as of this encounter
--- OUTSIDE RECORDS SUMMARY | 2024-01-27 08:08 | XMS_ITS | Clinical Summary ---
Author Organization [employer] Address [address] [place] [address] Care Team Providers Care Annual Giving Manager Name Role Phone Mj Schaeffer MD Primary [...] of Treatment Not on file Care Teams Annual Giving Manager Relationship Specialty Start Date End Date Mj Schaeffer MD PCP - General Family Practice 12/16/18
--- OUTSIDE RECORDS SUMMARY | 2024-01-27 08:08 | XMS_ITS | Encounter Summary ---
Author Organization Replaced by [facility] Address [address], [place] [address] Care Team Providers Care Toy Assembly Supervisor Name Role Phone Mj Schaeffer MD Primary Care Provider [phone] Reason for Visit * Reason Comments Refill Insulin Disposable P ump (OMNIPOD DASH PODS, GEN 4,) MISC [Pharmacy Med Name: OMNIPOD DASH PODS (GEN 4) MISCELLANEOUS] Encounter Details Date Type Department Care Team (Late st Contact Info) Description 2023 Refill [facility] [address] [facility] [place], [place] [phone] Joe Shay MBBS [address] [place], [place] [phone] Refill (Insulin Disposable Pump (OMNIPOD DASH PODS, [...] Age: 68 [employer] Embedded Refills, Reference: [id number], 2023 2:19:22 PM CDT, Pool: CUONG PNREFILL ([id number]) documented in this encounter Plan of Treatment Upcoming Encounters Date Type Department Care Team (Late st Contact Info) Description 02/23/2024 10:15 AM CDT Telemedicine [facility] [address] [facility] [place], [place] [address] Joe Shay MBBS [address] [place] [address] documented as of this encounter Visit Diagnoses Diagnosis Uncontrolled type 1 diabetes mellitus with hyperglycemia (HRC) documented in this encounter Care Teams Toy Assembly Supervisor Relationship Specialty Start Date End Date Mj Schaeffer MD [facility] [address] [place] [address] PCP - General Family Practice 07/22/21 documented as of this encounter
--- OUTSIDE RECORDS SUMMARY | 2024-01-27 08:08 | XMS_ITS | Continuity of Care Document ---
Author Organization [facility] Address [address] [place] [address] Phone Care Team Providers Care Control Operator Name Role Phone Preeti Benito MD Unavailable [...] Available - Active Procedures Procedure Date Office/Outpatient Visit,[facility] 2023 Advance Directives Directive Yes / No Effective Date File Name No Information Encounters Encounter Description Practice Location Reason(s) For Visit Diagnoses Date Provider Providers Copied on Encounter Office/Outpat ient Visit,New, [facility] Emily/EMEKA C, [address], [place], [place], [id number], [place] tel:[phone] [facility] Spinal stenosis, lumbar region with neurogenic claudication 4 Thong Smith [facility], [address], [place], [place], [id number] , [place]. tel:[phone] Referring Provider: Mj Brooks, [facility] [address] [place] [address], [address]. tel:[phone] Family History Family Member Type Diagnosis Age At Onset Father Problem (finding) Cardiovascular disease Mother Problem (finding) Cancer, unknown type Payers Payer name Insurance type Covered libertarian ID Dixie ayala(s) Zach Diaz 2021 CI [id number] Social History Type Description Quantity Date Captured [...]
--- OUTSIDE RECORDS SUMMARY | 2024-01-27 08:08 | XMS_ITS | Clinical Summary ---
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 Hameed CAD in navajo artery 09/14/2017 TIA (transient ischemic attack) 09/08/2017 Overview: In 2004, presented with slurred speech and weakness of right arm and severe fatigue. Chest pain 09/02/2017 Hypertension 09/02/2017 Hyperlipidemia 09/02/2017 Smoker 09/02/2017 PAD (peripheral artery disease) 09/02/2017 Diabetes type I 09/02/2017 Aortic stenosis 09/02/2017 Immunizations Name Administration Dates Next Due Influenza, IIV4 02/24/2017,04/01/2016 Family History Medical History Relation Name Comments Heart Disease Father [place] at age 65, at age 79 Leukemia [...] 02/24/2017, 016 Medical Devices Implanted Type Area Visitor Service Assistant Device Identifier Shelf Expiration Date Model / Serial / Lot Anw Hh [id number] Implanted:Qty: 1 on 09/15/2017 by Gurpreet Hameed MD at [facility] Explanted:at [facility] (Quantity not on file) N/A: Aortic Valve [employer] 06/09/2021 [id number]# / [id number] / Procedures Procedure Name Priority Date/Time Associated Diagnosis Comments LIPID PANEL Add On 09/02/2017 8:41 AM CDT from Last 3 Months or Most Recently Relevant to Health Maintenance Results * Lipid Panel (09/02/2017 8:41 AM CDT) CHOLESTEROL,TOTAL 155 100 - 199 mg/dL 09/02/2017 9:23 AM CDT [facility]AL LABORATORY TRIGLYCERIDES 82 <150 mg/dL 09/02/2017 9:23 AM CDT [facility] [employer] [facility] LAB[facility] HDL CHOLESTEROL 49 >40 mg/dL 8 9:23 AM CDT [facility] [employer] [facility]AL LABORATORY NON-HDL CHOLESTEROL 106 <145 mg/dl 09/02/2017 9:23 AM CDT [facility] [employer] [facility] TRAL LABORATORY CHOL/HDL RATIO 3.16 <4.50 09/02/2017 9:23 AM CDT [facility] [employer] [facility] TRAL LABORATORY LDL CHOLESTEROL 90 <=130 mg/dL 09/02/2017 9:23 AM CDT [facility] [employer] [facility] TRAL LABORATORY PROVIDER ORDERED STATUS RANDOM 09/02/2017 9:23 AM CDT [facility] [employer] [facility] TRAL LABORATORY Blood BLOOD SPECIMEN / Unknown Venipuncture / Unknown 09/02/2017 8:41 AM CDT 09/02/2017 8:49 AM CDT [employer] CHEMISTRY [facility] [address] [place] [address], [place] from Last 3 Months or Most Recently Relevant to Health Maintenance Advance Directives * Full Code (Latest Code Status on File) Date Activated Date Inactivated Comments 09/15/2017 5:58 AM 09/20/2017 3:57 PM * Full Code Date Activated Date Inactivated Comments 09/02/2017 8:23 AM 09/02/2017 5:50 PM Care Teams Stock Preparer Relationship Specialty Start Date End Date Jhoan Schaeffer MD PCP - General Family Practice 08/19/17
--- NOTE | 2024-01-27 08:30 | CRLHL7_ITS ---
For Patients: As a result of the 21st Century Cures Act, medical imaging exams and procedure reports are released immediately into your electronic medical record. You may view this report before your referring provider. If you have questions, please contact your health care provider. INDICATION: Type I diabetes. Early satiety. Evaluate for gastroparesis. TECHNIQUE: 1.01 mCi Tc-99m labeled filtered Sulfur Colloid mixed in with a predetermined solid meal (standard egg meal). Imaging performed up to 240 minutes. FINDINGS: Scintigraphic evidence for delayed gastric emptying. No calculations for retained activity were performed at 0 minutes, 30 minutes, or at 60 minutes. The reason for this is uncertain. This may be a technical issue. 90 minutes: 69 percent of activity remains. 120 minutes: 50 percent of activity remains. 240 minutes: 2 percent of activity remains. IMPRESSION: Scintigraphic evidence for delayed gastric emptying. Dictated by David Hernandez MD @ 01/27/2024 1:23:28 PM (Electronically Signed)
== END 2024-01-27 08:06 | disposition home or self-care (01) ==
PROVIDERS: PCP Internal Medicine; Visit Provider Internal Medicine
DX: R68.81 Early satiety (principal); E10.9 Type 1 diabetes mellitus without complications
CPT/HCPCS: 78264; A9541

== ENCOUNTER 2024-04-14 15:31 | Outpatient (CLI) | payer MEDICAID, SELFPAY ==
--- OUTSIDE RECORDS SUMMARY | 2024-04-20 12:04 | XMS_ITS | Clinical Summary ---
Author Organization [facility] Address [address] [place] [address] Care Team Providers Care Adjunct Philosophy Faculty Name Role Phone Elsewhere, Pcp Primary Care Provider Unavailabl e Source Comments Patient records contain information from all sites at [facility]. For routine questions regarding patient records, call [phone] during business hours, M-F 8:00 AM - 5:00 PM Central Time. Record requests for emergency care only can be directed to [phone] at any time.[facility] Allergies No known active allergies Medications clopidogrel [...] Dr. 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 Obstructive Sleep Apnea Adult Discharge Disposition: Home or Self Care 03/10/2024 10:00 AM CDT Comprehensive Visit [facility] [place], [place] [address] [place] [address] Diego Dykes M.D. Apnea Sleep Obstructive (Primary Dx); Obstructive Sleep Apnea Adult 03/03/2024 3:00 PM CDT Clinical Communication Virtual Review in [place], [place] [address] [place] [address] Pre-visit Intake 02/02/2024 [facility] [address] [place] [address] Marcus Ybarra M.D. Obstructive Sleep Apnea Adult [...] st Contact Info) Description 05/16/2024 7:00 PM BRAKE TESTER Appointment [facility] [place], [place] [address] [place] [phone] Diego Dykes M.D. [address] [place] [phone] Discharge Disposition: Home or Self Care 05/17/2024 9:30 AM BRAKE TESTER Office Visit [facility] [place], [place] [address] [place] [phone] Diego Dykes M.D. [address] [place] [address] Health Maintenance Due Date Last Done Comments [...] this topic Medical Devices Implanted Type Area Surgical Elastic Knitter Device Identifier Shelf Expiration Date Model / Serial / Lot Cardiac Valve Prosthesis-09/05 Implanted:04/0 06/2017 (Quantity not on file) Cardiac Valve Prosthesis Heart Insurance ARE Care Teams Adjunct Philosophy Faculty Relationship Specialty Start Date End Date Elsewhere, Pcp PCP - General Internal Medicine 03/03/24
--- OUTSIDE RECORDS SUMMARY | 2024-04-20 12:04 | XMS_ITS | Referral Summary ---
Author Organization [facility] Address [address] [place] [address] Care Team Providers Care Application Support Administrator Name Role Phone Elsewhere, Pcp Primary Care Provider Unavailabl e Source Comments Patient records contain information from all sites at [facility]. For routine questions regarding patient records, call [phone] during business hours, M-F 8:00 AM - 5:00 PM Central Time. Record requests for emergency care only can be directed to [phone] at any time.[facility] Encounters Date Type Department Care Team Description 03/10/2024 11:29 AM CDT - 03/13/2024 11:59 PM CDT Hospital Encounter [facility] [place], [place] [address] [place] [phone] Diego Dykes M.D. Obstructive Sleep Apnea Adult Discharge Disposition: Home or Self Care 03/10/2024 10:00 AM CDT Comprehensive Visit [facility] [place], [place] [address] [place] [phone] Diego Dykes M.D. Apnea Sleep Obstructive (Primary Dx); Obstructive Sleep Apnea Adult 03/03/2024 3:00 PM CDT Clinical Communication Virtual Review in [place], [place] 200 [place] [address] Pre-visit Intake 02/02/2024 [facility] [address] [place] [address] Marcus Ybarra M.D. Obstructive Sleep Apnea Adult [...] (OMNIPOD 5 G6 INTRO KIT, GEN 5, [place]) See Admin Instructions . 10/21/2021 Active blood-glucose [...] Dr. 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 [address] [place] [phone] Discharge Disposition: Home or Self Care 05/17/2024 9:30 AM DIVISION CHAIR Office Visit [facility] [place], [place] [address] [place] [address] Diego Dykes M.D. [address] [place] [address] Medical Devices Implanted Type Area Wardrobe Assistant Device Identifier Shelf Expiration Date Model / Serial / Lot Cardiac Valve Prosthesis-09/05 Implanted:04/0 06/2017 (Quantity not on file) Cardiac Valve Prosthesis Heart Insurance [employer] Care Teams Application Support Administrator Relationship Specialty Start Date End Date Elsewhere, Pcp PCP - General Internal Medicine 03/03/24
--- OUTSIDE RECORDS SUMMARY | 2024-04-20 12:05 | XMS_ITS | Encounter Summary ---
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) Social History [...] (Late Contact Info) Description 05/09/2024 7:45 AM SECURITY PROFESSIONAL Appointment [facility] [address] [place] [address] Jeanne Shay MBBS [address] [place] [address] documented as of this encounter Procedures Procedure Name Priority Date/Time Associated Diagnosis Comments TISSUE TRANSGLUTAMINASE AB IGA Routine 02/24/2024 7:35 AM CDT Uncontrolled type 1 diabetes mellitus with hyperglycemia (HRC) Essential hypertension (HRC) Dyslipidemia (high LDL; low HDL) (HRC) 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) LIPID PANEL & DIRECT LDL (IF NEEDED) Routine 02/24/2024 7:35 AM CDT Uncontrolled type 1 diabetes mellitus with hyperglycemia (HRC) COMPREHENSIVE METABOLIC PANEL Routine 02/24/2024 7:35 AM CDT Uncontrolled type 1 diabetes mellitus with hyperglycemia (HRC) Essential hypertension (HRC) Dyslipidemia (high LDL; low HDL) (HRC) 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) TSH, SENSITIVE Routine 02/24/2024 7:35 AM CDT Uncontrolled type 1 diabetes mellitus with hyperglycemia (HRC) Essential hypertension (HRC) Dyslipidemia (high LDL; low HDL) (HRC) 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) COMPLETE BLOOD COUNT-NO DIFF Routine 02/24/2024 7:35 AM CDT Uncontrolled type 1 diabetes mellitus with hyperglycemia (HRC) FREE T4 Routine 02/24/2024 7:35 AM CDT Uncontrolled type 1 diabetes mellitus with hyperglycemia (HRC) Essential hypertension (HRC) Dyslipidemia (high LDL; low HDL) (HRC) 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) ALBUMIN/CREAT RATIO Routine 02/24/2024 7 :35 AM CDT Uncontrolled type 1 diabetes mellitus with hyperglycemia (HRC) Essential hypertension (HRC) Dyslipidemia (high LDL; low HDL) (HRC) 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) HGB A1C Routine 02/24/2024 7:35 AM CDT Uncontrolled type 1 diabetes mellitus with hyperglycemia (HRC) Essential hypertension (HRC) Dyslipidemia (high LDL; low HDL) (HRC) 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) documented in this encounter Results * (ABNORMAL) Complete Blood Count-No Diff (02/24/2024 7:35 AM CDT) Pathologist [facility] WBC 10.8(H) 3.5 - 10.5 x10(9)/L 02/24/2024 7:39 AM CDT [facility] RBC 4.52 4.32 - 5.72 x10(12)/L 02/24/2024 7:39 AM T [facility] Hemoglobin 13.6 13.5 - 17.5 g/dL 02/24/2024 7:39 AM T [facility] HCT 42.5 38.8 - 50.0 % 02/24/2024 7:39 AM T [facility] MCV 94.0 80.0 - 100.0 fL 02/24/2024 7:39 AM T [facility] MCH 30.1 27.6 - 33.3 pg 02/24/2024 7:39 AM T [facility] MCHC 32.0 31.5 - 35.2 g/dL 02/24/2024 7:39 AM T [facility] RDW 13.4 11.9 - 15.5 % 02/24/2024 7:39 AM T [facility] Platelets 272 150 - 450 x10(9)/L 02/24/2024 7:39 AM [facility] Blood Venipuncture / Unknown 02/24/2024 7:35 AM CDT 02/24/2024 7:35 AM CDT Jeanne Tanna Jaspal [facility] Performing Organization Address City/State/[facility] Co de Phone Number [facility] [address] [place] [address] * Lipid Panel and Direct LDL (if needed) (02/24/2024 7:35 AM CDT) Pathologist [facility] Cholesterol 134 0 - 199 mg/dL 02/24/2024 4:46 PM T [facility] Triglyceride 126 <=149 mg/dL 02/24/2024 4:46 PM T [facility] HDL Cholesterol 48 >=40 mg/dL 4 4:46 PM [facility] LDL, Calculated 61 <130 mg/dL 4 4:46 PM [facility] Non HDL Chol, Calculated 86 <=159 mg/dL 02/24/2024 4:46 PM [facility] Cholesterol/HDL Ratio 2.8 <=5.0 02/24/2024 4:46 PM [facility] Hours Fasting 0.0 8 - 12 Hours 02/24/2024 4:46 PM [facility] Blood Venipuncture / Unknown 02/24/2024 7:35 AM CDT 02/24/2024 7:35 AM CDT Jeanne Shay [facility] [address] [place] [address] * Tissue Transglutaminase Ab IgA (02/24/2024 7:35 AM CDT) Tissue Transglutaminase Antibody, IgA 0.7 0.0 - 6.9 U/mL 02/25/2024 12:51 PM T [facility] Tissue Transglutaminase Antibody, IgA Interpretation Negative Negative 02/25/2024 12:51 PM [facility] Blood Venipuncture / Unknown 02/24/2024 7:35 AM CDT 02/24/2024 7:35 AM CDT Jeanne Guerrakeila [facility] Performing Organization Address City/[facility]/ZIP Co de Phone Number [facility] [address] * Albumin/Creatinine Ratio,Random Urine (02/24/2024 7:35 AM CDT) Albumin/Creati nine Ratio, Urine, Random 23 <30 mg/g 02/24/2024 12:54 PM T [facility] Albumin, Urine, Random 16.2 mg/L 02/24/2024 12:54 PM [facility] Creatinine, Urine, Random 72 >20 mg/dL mg/dL 02/24/2024 12:54 PM [facility] Urine Non-blood Collection / Unknown 02/24/2024 7:35 AM CDT 02/24/2024 7:35 AM CDT Jeanne Shay [facility] Performing Organization Address [facility]/ZIP Co de Phone Number [facility] [address] [place] [address] * Free T4 (02/24/2024 7:35 AM CDT) T4, Free 1.1 0.7 - 1.5 ng/dL 02/24/2024 12:24 PM CDT [facility] Blood Venipuncture / Unknown 02/24/2024 7:35 AM CDT 02/24/2024 7:35 AM CDT Jeanne Shay [facility] Performing Organization Address [facility] de Phone Number [facility] [address] * TSH (02/24/2024 7:35 AM CDT) Pathologist [facility] TSH, Sensitive 2.13 0.30 - 4.50 uIU/mL 02/24/2024 12:23 PM CDT [facility] Blood Venipuncture / Unknown 02/24/2024 7:35 AM CDT 02/24/2024 7:35 AM CDT Jeanne Shay [facility] Performing Organization Address [facility] de Phone Number [facility] [address] * (ABNORMAL) Comp Metabolic Panel (02/24/2024 7:35 AM CDT) Pathologist [facility] Sodium 140 136 - 145 mmol/L 02/24/2024 4:46 PM CDT [facility] Potassium 5.0 3.5 - 5.1 mmol/L 02/24/2024 4:46 PM CDT [facility] Chloride 107 98 - 109 mmol/L 02/24/2024 4:46 PM [facility] CO2 23 20 - 29 mmol/L 02/24/2024 4:46 PM [facility] Anion Gap 10 6 - 16 mmol/L 02/24/2024 4:46 PM [facility] Calcium 9.7 8.4 - 10.4 mg/dL 02/24/2024 4:46 PM [facility] BUN 16 7 - 26 mg/dL 02/24/2024 4:46 PM [facility] Creatinine 0.69(L) 0.73 - 1.18 mg/dL 02/24/2024 4:46 PM [facility] Alkaline Phosphatase 102 40 - 150 U/L 02/24/2024 4:46 PM [facility] AST (SGOT) 15 10 - 40 U/L 02/24/2024 4:46 PM [facility] ALT (SGPT) 14 <=55 U/L 02/24/2024 4:46 PM [facility] Bilirubin, Total 0.4 0.2 - 1.2 mg/dL 02/24/2024 4:46 PM [facility] Protein, Total 8.0 6.4 - 8.3 g/dL 02/24/2024 4:46 PM [facility] Albumin 4.0 3.5 - 5.0 g/dL 02/24/2024 4:46 PM [facility] Glucose 157(H) 70 - 100 mg/dL 02/24/2024 4:46 PM [facility] Comment:The given reference range is for the fasting state. Non-fasting reference range for glucose is 70 - 180 mg/dL. GFR, Estimated >60 >60 mL/min/1.7 3m2 02/24/2024 4:46 PM [facility] Hours Fasting 0.0 8 - 12 Hours 02/24/2024 4:46 PM [facility] Blood Venipuncture / Unknown 02/24/2024 7:35 AM CDT 02/24/2024 7:35 AM T Jeanne Shay [facility] [address] [place] [address] * (ABNORMAL) Hgb A1C (02/24/2024 7:35 AM CDT) Hemoglobin A1C 8.8(H) <=5.6 % 02/24/2024 1:51 PM CDT [facility] Estimated Average Glucose (Calc) 206 < 117 mg/dL 02/24/2024 1:51 PM CDT [facility] Comment:Estimated average gl ucose (eAG) converts A1c into glucose units (mg/dL) and estimates average glucose over the past approximately 3 months. The eAG reference interval (<117 mg/dL) corresponds to an A1c of <5.7%. Blood Venipuncture / Unknown 02/24/2024 7:35 AM CDT 02/24/2024 7:35 AM CDT Narrative [facility] - 02/24/2024 1:51 PM CDT For patients not previously diagnosed with diabetes: 5.7-6.4%: Increased risk for diabetes 6.5% and greater: Diagnostic for diabetes For patients diagnosed with diabetes: <8.0%: Goal of therapy for ages 18-75 Clinicians may recommend a higher or lower goal for specific individuals. 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
--- OUTSIDE RECORDS SUMMARY | 2024-04-20 12:05 | XMS_ITS | Referral Summary ---
Author Organization [facility] Address [address] [place] [address] Care Team Providers Care Civil Draftsman Name Role Phone Mj Schaeffer MD Primary Care Provider [phone] Allergies Active Allergy Reactions Criticality Noted Date [...] of Treatment Not on file Care Teams Civil Draftsman Relationship Specialty Start Date End Date Mj Schaeffer MD PCP - General Family Practice 12/16/18
--- OUTSIDE RECORDS SUMMARY | 2024-04-20 12:05 | XMS_ITS | Clinical Summary ---
Author Organization [facility] Address [address] [place] [address] Care Team Providers Care Odd Job Worker Name Role Phone Mj Schaeffer MD Primary Care Provider [phone] Allergies Active Allergy Reactions Criticality Noted Date [...] of Treatment Not on file Care Teams Odd Job Worker Relationship Specialty Start Date End Date Mj Schaeffer MD PCP - General Family Practice 12/16/18
--- OUTSIDE RECORDS SUMMARY | 2024-04-20 12:05 | XMS_ITS | Clinical Summary ---
Author Organization [facility] Address [address] [address] Care Team Providers Care Coil Builder Name Role Phone Jhoan Schaeffer MD Primary Care Provider [phone] Allergies No known active allergies Medications Medication [...] artery disease of b ypass graft of [place] heart with stable angina pectoris 12/22/2019 Snoring [...] branch of right--09/15/17 Dr. Hameed CAD in [place] artery 09/14/2017 TIA (transient ischemic attack) 09/08/2017 Overview (09/08/2017): In 2004, presented with slurred speech and weakness of right arm and severe fatigue. Chest pain 09/02/2017 Hypertension 09/02/2017 Hyperlipidemia 09/02/2017 Smoker 09/02/2017 PAD (peripheral artery disease) 09/02/2017 Diabetes type I 09/02/2017 Aortic stenosis 09/02/2017 Immunizations Name Administration Dates Next Due Influenza, IIV4 02/24/2017,04/01/2016 Family History Medical History Relation Name Comments Heart Disease Father [place] at age 65, at age 79 Leukemia [...] 02/24/2017, 016 Medical Devices Implanted Type Area Visiting Nurse Device Identifier Shelf Expiration Date Model / Serial / Lot Anw Hh [id number] Implanted:Qty: 1 on 09/15/2017 by Gurpreet Hameed MD at [employer] Explanted:at [employer] (Quantity not on file) N/A: Aortic Valve [employer] [place] 06/09/2021 [id number]# / [id number] / Procedures Procedure Name Priority Date/Time Associated Diagnosis Comments LIPID PANEL Add On 09/02/2017 8:41 AM CDT from Last 3 Months or Most Recently Relevant to Health Maintenance Results * Lipid Panel (09/02/2017 8:41 AM CDT) CHOLESTEROL,TOTAL 155 100 - 199 mg/dL 09/02/2017 9:23 AM CDT [facility] TRIGLYCERIDES 82 <150 mg/dL 09/02/2017 9:23 AM CDT [facility] HDL CHOLESTEROL 49 >40 mg/dL 8 9:23 AM CDT [facility] NON-HDL CHOLESTEROL 106 <145 mg/dl 09/02/2017 9:23 AM CDT [facility] CHOL/HDL RATIO 3.16 <4.50 09/02/2017 9:23 AM CDT [facility] LDL CHOLESTEROL 90 <=130 mg/dL 09/02/2017 9:23 AM CDT [facility] PROVIDER ORDERED STATUS RANDOM 09/02/2017 9:23 AM CDT [facility] Blood BLOOD SPECIMEN / Unknown Venipuncture / Unknown 09/02/2017 8:41 AM CDT 09/02/2017 8:49 AM CDT Tessa Del Rosario CLUTCH INSPECTOR CHEMISTRY [facility] [address] [place] [address], [place] from Last 3 Months or Most Recently Relevant to Health Maintenance Advance Directives * Full Code (Latest Code Status on File) Date Activated Date Inactivated Comments 09/15/2017 5:58 AM 09/20/2017 3:57 PM * Full Code Date Activated Date Inactivated Comments 09/02/2017 8:23 AM 09/02/2017 5:50 PM Care Teams Coil Builder Relationship Specialty Start Date End Date Jhoan Schaeffer MD PCP - General Family Practice 08/19/17
--- OUTSIDE RECORDS SUMMARY | 2024-04-20 12:05 | XMS_ITS | Encounter Summary ---
Author Organization [facility] Address [address] [address] Care Team Providers Care Cranberry Grower Name Role Phone Mj Schaeffer MD Primary Care Provider Reason for Visit * Reason Comments Refill Continuous Glucose S ensor (DEXCOM G6 SENSOR) [Pharmacy Med Name: DEXCOM G6 SENSOR MISCELLANEOUS] Encounter Details Date Type Department Care Team (Late st Contact Info) Description 04/11/2024 Refill [facility] [address] Endocrinology [address] [facility] [place] [address] Joe Shay, MERE [address] [place], [place] [address] Refill (Continuous Glucose Sensor (DEXCOM G6 SENSOR) [...] User: DINORA JUAREZ Filled per RN protocol. LANCE MODEL * Korey, Gisel Xrwcomm - 04/11/2024 2:21 [...] once every 10 days (unchanged) Age: 68 [facility] Embedded Refills, Reference: [id number], 04/11/2024 2:21:10 PM FREE LANCE MODEL, Pool: CUONG PNREFILL ([id number]) LANCE MODEL documented in this encounter Plan of Treatment Upcoming Encounters Date Type Department Care Team (Late st Contact Info) Description 05/09/2024 7:45 AM FREE LANCE MODEL Appointment [facility] [address] [place] [address] Joe Shay MBBS [address] [place] [address] documented as of this encounter Visit Diagnoses Diagnosis Uncontrolled type 1 diabetes mellitus with hyperglycemia (HRC) documented in this encounter Care Teams Cranberry Grower Relationship Specialty Start Date End Date Mj Schaeffer MD [facility] [address] [place] [address] PCP - General Family Practice 07/22/21 documented as of this encounter
--- OUTSIDE RECORDS SUMMARY | 2024-04-20 12:05 | XMS_ITS | Encounter Summary ---
Author Organization [facility] Address [address] [place] [address] Care Team Providers Care Government Minister Name Role Phone Elsewhere, Pcp Primary Care Provider Unavailabl e Reason for Referral * Specialty Diagnoses / Procedures Referred By Moe mera Referred To Contact Diagnoses Obstructive Sleep Apnea Adult Diego Dykes M.D. [address] [place] [phone] Phone: tel: fax: [facility] Referral ID Status Reason Start Date Expiration Date Visits Re quested Visits Authorized Encounter Details Date Type Department Care Team (Latest Contact Info) Description 03/10/2024 11:29 AM CDT - 03/13/2024 11:59 PM CDT Hospital [facility] [place], [place] [address] [place] [address] Diego Dykes M.D. [address] [place] [phone] Obstructive Sleep Apnea Adult Discharge Disposition: Home [...] (OMNIPOD 5 G6 INTRO KIT, GEN 5, [place]) See Admin Instructions. 10/21/2021 lisinopriL 2.5 mg [...] st Contact Info) Description 05/16/2024 7:00 PM GEOTHERMAL TECHNICIAN Appointment [facility] [place], [place] [address] [place] [address] Diego Dykes M.D. [address] [place] [phone] Discharge Disposition: Home or Self Care 05/17/2024 9:30 AM GEOTHERMAL TECHNICIAN Office Visit [facility] [place], [place] [address] [place] [address] Diego Dykes M.D. [address] [place] [phone] Scheduled Referrals Name Type Priority Associated Diagnoses [...] documented as of this encounter Care Teams Government Minister Relationship Specialty Start Date End Date Elsewhere, Pcp PCP - General Internal Medicine 03/03/24 documented as of this encounter
--- OUTSIDE RECORDS SUMMARY | 2024-04-20 12:05 | XMS_ITS | Encounter Summary ---
Author Organization [facility] Address [address], [place] [address] Care Team Providers Care Sales Representative Malt Liquors Name Role Phone Mj Scheaffer MD Primary Care Provider [phone] Reason for Visit * Reason Comments Follow-up Encounter Details Date Type Department Care Team (Late st Contact Info) Description 02/23/2024 10:15 AM CDT Telemedicine [place] [address] [place] [address]. 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) Social History [...] st Contact Info) Description 05/09/2024 7:45 AM LITHOGRAPHIC PHOTOGRAPHER Appointment [facility] [address] [place] [address] Joe Shay, MARNIE [address] [place] [address] documented as of this encounter Results * (ABNORMAL) Complete Blood Count-No Diff (02/24/2024 7:35 AM CDT) WBC 10.8(H) 3.5 - 10.5 x10(9)/L 02/24/2024 7:39 AM CDT [facility] RBC 4.52 4.32 - 5.72 x10(12)/L 02/24/2024 7:39 AM CDT [facility] Hemoglobin 13.6 13.5 - 17.5 g/dL 02/24/2024 7:39 AM CDT [facility] HCT 42.5 38.8 - 50.0 % 02/24/2024 7:39 AM CDT [facility] MCV 94.0 80.0 - 100.0 fL 02/24/2024 7:39 AM CDT [facility] MCH 30.1 27.6 - 33.3 pg 02/24/2024 7:39 AM CDT [facility] MCHC 32.0 31.5 - 35.2 g/dL 02/24/2024 7:39 AM CDT [facility] RDW 13.4 11.9 - 15.5 % 02/24/2024 7:39 AM CDT [facility] Platelets 272 150 - 450 x10(9)/L 02/24/2024 7:39 AM CDT [facility] Blood Venipuncture / Unknown 02/24/2024 7:35 AM CDT 02/24/2024 7:35 AM CDT [facility]_1 Performing Organization Address [facility]/ZIP Co de Phone Number [facility] [address] [place] [address] * Lipid Panel and Direct LDL (if needed) (02/24/2024 7:35 AM CDT) [facility] Signature Cholesterol 134 0 - 199 [...] CDT Joe SEVERINO [facility]_1 Performing Organization Address City/[facility]/ZIP Co de Phone Number [facility] [address] [place] [address] * Tissue Transglutaminase Ab IgA (02/24/2024 7:35 AM CDT) Pathologist [facility] Tissue Transglutaminase Antibody, IgA 0.7 0.0 - 6.9 U/mL 02/25/2024 12:51 PM CDT [facility] Tissue Transglutaminase Antibody, IgA Interpretation Negative Negative 02/25/2024 12:51 PM CDT [facility] Blood Venipuncture / Unknown 02/24/2024 7:35 AM CDT 02/24/2024 7:35 AM CDT Joe Cisse Jaspal [facility]_1 Performing Organization Address City/[facility]/ZIP Co de Phone Number [facility] [address] * Albumin/Creatinine Ratio,Random Urine (02/24/2024 7:35 AM CDT) [facility] Albumin/Creati nine Ratio, Urine, Random 23 <30 mg/g 02/24/2024 12:54 PM CDT [facility] Albumin, Urine, Random 16.2 mg/L 02/24/2024 12:54 PM CDT [facility] Creatinine, Urine, Random 72 >20 mg/dL mg/dL 02/24/2024 12:54 PM CDT [facility] Urine Non-blood Collection / Unknown 02/24/2024 7:35 AM CDT 02/24/2024 7:35 AM CDT Joe Cisse Jaspal [facility]1 [facility] [address] [place] [address] * Free T4 (02/24/2024 7:35 AM CDT) Pathologist [facility] T4, Free 1.1 0.7 - 1.5 ng/dL 02/24/2024 12:24 PM CDT [facility] Blood Venipuncture / Unknown 02/24/2024 7:35 AM CDT 02/24/2024 7:35 AM CDT Joe Shay [facility] Performing Organization Address [facility] Co de Phone Number [facility] [address] * TSH (02/24/2024 7:35 AM CDT) TSH, Sensitive 2.13 0.30 - 4.50 uIU/mL 02/24/2024 12:23 PM CDT [facility] Blood Venipuncture / Unknown 02/24/2024 7:35 AM CDT 02/24/2024 7:35 AM CDT Joe Shay [facility]1 Performing Organization Address [facility] Phone Number [facility] [address] * (ABNORMAL) Comp Metabolic Panel (02/24/2024 [...] AM CDT Joe Cisse Jaspal [facility] [address] [place] [address] * (ABNORMAL) Hgb A1C (02/24/2024 7:35 AM CDT) Hemoglobin A1C 8.8(H) <=5.6 % 02/24/2024 1:51 PM [facility] Estimated Average Glucose (Calc) 206 < 117 mg/dL 02/24/2024 1:51 PM [facility] Comment:Estimated average gl ucose (eAG) converts A1c into glucose units (mg/dL) and estimates average glucose over the past approximately 3 months. The eAG reference interval (<117 mg/dL) corresponds to an A1c of <5.7%. Blood Venipuncture / Unknown 02/24/2024 7:35 AM CDT 02/24/2024 7:35 AM CDT [facility]ative [facility] - 02/24/2024 1:51 PM CDT For patients not previously diagnosed with diabetes: 5.7-6.4%: Increased risk for diabetes 6.5% and greater: Diagnostic for diabetes For patients diagnosed with diabetes: <8.0%: Goal of therapy for ages 18-75 Clinicians may recommend a higher or lower goal for specific individuals. 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
--- OUTSIDE RECORDS SUMMARY | 2024-04-20 12:05 | XMS_ITS | Encounter Summary ---
Author Organization [facility] Address [address] [place] [address] Care Team Providers Care Supervisor Phosphatic Fertilizer Name Role Phone Elsewhere, Pcp Primary Care Provider Unavailabl e Reason for Visit * Reason Onset Date Comments Pre-visit Intake 03/03/2024 Encounter Details Date Type Department Care Team (Latest Contact Info) Description 03/03/2024 3:00 PM CDT Clinical Communication Virtual Review in [place], [place] 200 [place] [address] Pre-visit Intake Social History Tobacco Use Types [...] st Contact Info) Description 05/16/2024 7:00 PM SENIOR SHAREPOINT DEVELOPER [facility]ointment [facility] [place], [place] [address] [place] [phone] Diego Dykes M.D. [address] [place] [phone] Discharge Disposition: Home or Self Care 05/17/2024 9:30 AM SENIOR SHAREPOINT DEVELOPER Office Visit [facility] [place], [place] [address] [place] [address] Diego Dykes M.D. [address] [place] [address] documented as of this encounter Visit Diagnoses Not on filedocumented in this encounter Additional Health Concerns Assessment Noted Time PHQ-9 Depression Total Score: 1 01/08/20 18 3:28 PM CDT documented as of this encounter Care Teams Supervisor Phosphatic Fertilizer Relationship Specialty Start Date End Date Elsewhere, Pcp PCP - General Internal Medicine 03/03/24 documented as of this encounter
--- OUTSIDE RECORDS SUMMARY | 2024-04-20 12:05 | XMS_ITS | Encounter Summary ---
Author Organization [facility] Address [address] [place] [address] Care Team Providers Care Pattern Finisher Name Role Phone Mj Schaeffer MD Primary Care Provider [phone] Reason for Visit * Reason Comments Diabetes Encounter Details Date Type Department Care Team (Late st Contact Info) Description 02/29/2024 10:45 AM CDT Office Visit [facility] [address] [place] [address] Jeanne Shay MBBS [address] [place], [place] [address] Uncontrolled type 1 diabetes mellitus with hyperglycemia (HRC) (Primary Dx); Essential hypertension (HRC); Dyslipidemia (high LDL; low HDL) (HRC); 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 MERE Ruelas Pricing Strategist * Jaime Holley - 02/29/2024 10:45 AM CDT Images from the original note were not included. documented in this encounter Plan of Treatment Upcoming Encounters Date Type Department Care Team (Late st Contact Info) Description 05/09/2024 7:45 AM WASHERETTE MACHINE OPERATOR Appointment [facility] [address] [place] [address] Jeanne Shay MBBS [facility] [place] [address] documented as of this encounter Visit Diagnoses Diagnosis Uncontrolled type 1 diabetes mellitus with hyperglycemia (HRC)- Primary Essential hypertension (HRC) Unspecified essential hypertension Dyslipidemia (high LDL; low HDL) (HRC) Other and unspecified hyperlipidemia Coronary artery disease involving coronary bypass graft of [place] heart without angina pectoris (HRC) documented in this encounter Care Teams Pattern Finisher Relationship Specialty Start Date End Date Mj Schaeffer MD [facility] [address] [place] [address] PCP - General Family Practice 07/22/21 documented as of this encounter
--- OUTSIDE RECORDS SUMMARY | 2024-04-20 12:05 | XMS_ITS | Encounter Summary ---
Author Organization [facility] Address [address] [place] [address] Care Team Providers Care Model Maker Plaster Name Role Phone Mj Schaeffer MD Primary Care Provider [phone] Reason for Visit * Reason Comments Forms Chart notes - [place] Encounter Details Date Type Department Care Team (Late Contact Info) Description 03/23/[address] [place] [facility]. [place], [place] [phone] Jeanne Shay MBBS [address] [place] [phone] Forms (Chart notes - [facility] ) Social History Tobacco Use Types Packs/Day Years Used Date Smoking Tobacco: Every Day Smokeless Tobacco: Never Sex and Gender Information Value Date Recorded Sex Assigned at Not on file Gender Identity Not on file Sexual Orientation Not on file documented as of this encounter Nursing Notes * Carolina Prasad - 03/23/2024 9:56 AM CDT Faxed chart notes to [facility] [phone] from 02/29/24 appt documented in this encounter Plan of Treatment Upcoming Encounters Date Type Department Care Team (Late Contact Info) Description 05/09/2024 7:45 AM FIBER PRODUCT CUTTING MACHINE OPERATOR Appointment [facility] [address] [place] [phone] Jeanne Shay MBBS [address] [place] [place], [place] [phone] documented as of this encounter Visit Diagnoses Not on filedocumented in this encounter Care Teams Model Maker Plaster Relationship Specialty Start Date End Date Mj Schaeffer MD [facility] [address] [place] [address] PCP - General Family Practice 07/22/21 documented as of this encounter
--- OUTSIDE RECORDS SUMMARY | 2024-04-20 12:05 | XMS_ITS | Encounter Summary ---
Author Organization [facility] Address [address] [place] [address] Care Team Providers Care Fire Extinguisher Sprinkler Inspector Name Role Phone Elsewhere, Pcp Primary Care Provider Unavailabl e Reason for Referral * Outpatient (Routine) - Authorized Specialty Diagnoses / Procedures Referred By Moe mera Referred To Contact Diagnoses Obstructive Sleep Apnea Adult Procedures Polysomnography (PSG): Split Night; Early PAP Initiation, Non-Positional RUDI, Positional RUDI; CPAP, ASV; if sleep apnea criteri met, try CPAP. If CSA not controlled by CPAP-->ASV titration. Digeo Dykes M.D. [address] [place] [address] Phone: tel: fax: [facility] Referral ID Status Reason Start Date Expiration Date V isits Requested Visits Authorized [id number] Authorized 03/10/2024 03/10/2025 1 1 * Specialty Diagnoses / Procedures Referred By Moe mera Referred To Contact Diagnoses Obstructive Sleep Apnea Adult Diego Dykes M.D. [address] [place] [phone] Phone: tel: fax: [facility] Referral ID Status Reason Start Date Expiration Date Visits Re quested Visits Authorized * Outpatient (Routine) - Authorized Specialty Diagnoses / Procedures Referred By Moe mera Referred To Contact Sleep Medicine Diego Dykes M.D. [address] [place] [address] Phone: tel: fax: [facility] Referral ID Status Reason Start Date Expiration Date V isits Requested Visits Authorized [id number] Authorized 03/10/2024 09/09/2025 1 1 Scheduling Instructions Post-study return visit Reason for Visit * Outpatient (Routine) - Closed Specialty Diagnoses / Procedures Referred By Moe t Referred To Contact Sleep Medicine Diagnoses Obstructive Sleep Apnea Adult Marcus Ybarra M.D. [address] [place] [address] Phone: tel: fax: [facility] Referral ID Status Reason Start Date Expiration Date Visits Re quested Visits Authorized [id number] Closed 02/02/2024 08/03/2025 1 1 Encounter Details Date Type Department Care Team (Latest Contact Info) Description 03/10/2024 10:00 AM CDT Comprehensive Visit [facility] in [place], [place] [address] [place] [address] Diego Dykes M.D. [address] [place] [address] Apnea Sleep Obstructive (Primary Dx); Obstructive Sleep [...] treatment options at the recommendation of his fingerprint clerk. 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 Standardized Instruments Byars Score (Scores of less than 10 are [...] st Contact Info) Description 05/16/2024 7:00 PM ELEVATOR INSTALLER Appointment [facility] [place], [place] [address] [place] [address] Diego Dykes M.D. [address] [place] [address] Discharge Disposition: Home or Self Care 05/17/2024 9:30 AM ELEVATOR INSTALLER Office Visit [facility] [place], [place] [address] [place] [address] Diego Dykes M.D. [address] [place] [address] Scheduled Orders Name Type Priority Associated Diagnoses [...] documented as of this encounter Care Teams Fire Extinguisher Sprinkler Inspector Relationship Specialty Start Date End Date Elsewhere, Pcp PCP - General Internal Medicine 03/03/24 documented as of this encounter
--- OUTSIDE RECORDS SUMMARY | 2024-04-20 12:05 | XMS_ITS | Encounter Summary ---
Author Organization [facility] Address [address] [place] [address] Care Team Providers Care Air Tool Operator Name Role Phone Mj Schaeffer MD Primary Care Provider [phone] Reason for Visit * Reason Onset Date Comments Refill 04/18/2024 Encounter Details Date Type Department Care Team (Late st Contact Info) Description 04/18/2024 Refill [facility] [place] [address] Endocrinology [address] [facility]. [place], [place] [phone] Joe Shay, MARNIEBS [address] [place] [address] Refill Social History Tobacco Use Types Packs/Day Years Used Date Smoking Tobacco: Every Day Smokeless Tobacco: Never Sex and Gender Information Value Date Recorded Sex Assigned at Not on file Gender Identity Not on file Sexual Orientation Not on file documented as of this encounter Nursing Notes * Tamara Stahl RN - 04/18/2024 9:49 AM CST Renewed medication per medication refill standing order. Requested Prescriptions Signed Prescriptions Disp Refills acetone urine (KETOSTIX) test strip 50 Each 11 Sig: Use 1 Each to test as needed. Authorizing Provider: JOE SHAY Ordering User: TAMARA STAHL ER MACHINE OPERATOR documented in this encounter Plan of Treatment Upcoming Encounters Date Type Department Care Team (Late Contact Info) Description 05/09/2024 7:45 AM FLOWER MACHINE OPERATOR Appointment [facility] [address] [place] [address] Joe Shay, MERE [address] [place] [address] documented as of this encounter Visit Diagnoses Diagnosis Uncontrolled type 1 diabetes mellitus with hyperglycemia (HRC)- Primary documented in this encounter Care Teams Air Tool Operator Relationship Specialty Start Date End Date Mj Schaeffer MD [facility] [address] [place] [address] PCP - General Family Practice 07/22/21 documented as of this encounter
--- OUTSIDE RECORDS SUMMARY | 2024-04-20 12:05 | XMS_ITS | Encounter Summary ---
Author Organization [facility] Address [address], [place] [address] Care Team Providers Care Fabrication Operator Name Role Phone Mj Schaeffer MD Primary Care Provider [phone] Reason for Visit * Reason Comments Forms Encounter Details Date Type Department Care Team (Late st Contact Info) Description 02/29/2024 Telephone [facility] [address] [facility] [address] [facility] [place] [address] Jeanne Shay MBBS [address] [place] [address] Forms Social History Tobacco Use Types Packs/Day Years Used Date Smoking Tobacco: Every Day Smokeless Tobacco: Never Sex and Gender Information Value Date Recorded Sex Assigned at Not on file Gender Identity Not on file Sexual Orientation Not on file documented as of this encounter Nursing Notes * Carolina Prasad - 03/06/2024 10:02 AM CDT Completed [employer] faxed to #[phone] , hard copy filed in *Jaspal done [...] st Contact Info) Description 05/09/2024 7:45 AM WATER TRUCK DRIVER Appointment [facility] [address] [place] [address] Jeanne Shay MBBS [address] [place] [address] documented as of this encounter Visit Diagnoses Not on filedocumented in this encounter Care Teams Fabrication Operator Relationship Specialty Start Date End Date Mj Schaeffer MD [facility] [address] [place] [address] PCP - General Family Practice 07/22/21 documented as of this encounter
--- OUTSIDE RECORDS SUMMARY | 2024-04-20 12:05 | XMS_ITS | Clinical Summary ---
Author Organization [facility] Address [address] [address] Care Team Providers Care Gasoline Truck Crane Operator Name Role Phone Mj Schaeffer MD Primary Care Provider [phone] Source Comments You are receiving this document as you are listed as the primary care provider,follow-up provider, or the patient has been referred to you for consultation.This is in compliance with the Medicare and[facility] EHR Incentive Program,which states Providers who transition their patient to another setting of careor provider of care or refers their patient to another provider of care shouldprovide summary care record for each transition of care or referral. Decoholic Allergies No known active allergies Medications Medication [...] Each 4 3 Active Continuous Blood Gluc Director Franchise Sales (DEXCOM G6 DIGITAL DEVELOPER)Indicati ons:Uncontrolled type 1 diabetes mellitus with hyperglycemia [...] 10 DAYS 9 Each 3 4 Active acetone urine (KETOSTIX) test stripIndications: Uncontrolled type 1 diabetes mellitus with hyperglycemia (HRC) Use 1 Each to test as needed. 50 Each 11 4 025 Active Continuous Glucose Sensor (DEXCOM [...] disease invo lving coronary bypass graft of venetie heart without angina pectoris 12/11/2020 Encounters Date Type Department Care Team Description 04/18/[address] [place] [address] Jeanne Shay MBBS Refill 04/11/[address] [place] [address] Jeanne Shay MBBS Refill (Continuous Glucose Sensor (DEXCOM G6 SENSOR) [Pharmacy Med Name: DEXCOM G6 SENSOR MISCELLANEOUS]) 04/03/[address] [place] [address] Jeanne Shay MBBS Refill (metFORMIN XR (GLUCOPHAGE XR) 500 MG 24 hour release tablet [Pharmacy Med Name: METFORMIN HYDROCHLORIDE ER 500MG TABLET EXTENDED RELEASE 24 HOUR]) 03/23/[address] 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 [address] Jeanne Shay MBBS Refill (Continuous Glucose Sensor [...] st Contact Info) Description 05/09/2024 7:45 AM DESIGN ENGINEERING INTERN Appointment [facility] [address] [place] [address] Jeanne Shay MBBS [address] [place] [address] Health Maintenance Due Date Last Done Comments [...] on patient's age to complete this topic Infant RSV Aged Out No longer eligi ble [...] artery disease involving coronary bypass graft of venetie heart without angina pectoris (HRC) ALBUMIN/CREAT RATIO Routine 02/24/2024 7 :35 AM CDT Uncontrolled type 1 diabetes mellitus with hyperglycemia (HRC) Essential hypertension (HRC) Dyslipidemia (high LDL; low HDL) (HRC) 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) FREE T4 Routine 02/24/2024 7:35 AM CDT Uncontrolled type 1 diabetes mellitus with hyperglycemia (HRC) Essential hypertension (HRC) Dyslipidemia (high LDL; low HDL) (HRC) 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) TSH, SENSITIVE Routine 02/24/2024 7:35 AM CDT Uncontrolled type 1 diabetes mellitus with hyperglycemia (HRC) Essential hypertension (HRC) Dyslipidemia (high LDL; low HDL) (HRC) 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) COMPREHENSIVE METABOLIC PANEL Routine 02/24/2024 7:35 AM CDT Uncontrolled type 1 diabetes mellitus with hyperglycemia (HRC) Essential hypertension (HRC) Dyslipidemia (high LDL; low HDL) (HRC) 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) HGB A1C Routine 02/24/2024 7:35 AM CDT Uncontrolled type 1 diabetes mellitus with hyperglycemia (HRC) Essential hypertension (HRC) Dyslipidemia (high LDL; low HDL) (HRC) 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) from Last 3 Months Results * Tissue Transglutaminase Ab IgA (02/24/2024 7:35 AM CDT) Tissue Transglutaminase Antibody, IgA 0.7 0.0 - 6.9 U/mL 02/25/2024 12:51 PM CDT [facility] Tissue Transglutaminase Antibody, IgA Interpretation Negative Negative 02/25/2024 12:51 PM T [facility] Blood Venipuncture / Unknown 02/24/2024 7:35 AM CDT 02/24/2024 7:35 AM CDT Jeanne [facility]_1 Performing Organization Address City/State/[facility] Co de Phone Number [facility] [address] * Lipid Panel and Direct LDL (if needed) (02/24/2024 7:35 AM CDT) Cholesterol 134 0 - 199 mg/dL 02/24/2024 4:46 PM T [facility] Triglyceride 126 <=149 mg/dL 02/24/2024 4:46 PM T [facility] HDL Cholesterol 48 >=40 mg/dL 4:46 PM [facility] LDL, Calculated 61 <130 mg/dL 4:46 PM [facility] Non HDL Chol, Calculated 86 <=159 mg/dL 02/24/2024 4:46 PM [facility] Cholesterol/HDL Ratio 2.8 <=5.0 02/24/2024 4:46 PM [facility] Hours Fasting 0.0 8 - 12 Hours 02/24/2024 4:46 PM [facility] Blood Venipuncture / Unknown 02/24/2024 7:35 AM CDT 02/24/2024 7:[address] [facility] [address] [place] [address] * (ABNORMAL) Comp Metabolic Panel (02/24/2024 7:35 AM CDT) Sodium 140 136 - 145 mmol/L 02/24/2024 4:46 PM [facility] Potassium 5.0 3.5 - 5.1 mmol/L 02/24/2024 4:46 PM [facility] Chloride 107 98 - 109 mmol/L 02/24/2024 4:46 PM [facility] CO2 23 20 - 29 mmol/L 02/24/2024 4:46 PM [facility] Anion Gap 10 6 - 16 mmol/L 02/24/2024 4:46 PM [facility] Calcium 9.7 8.4 - 10.4 mg/dL 02/24/2024 4:46 PM [facility] BUN 16 7 - 26 mg/dL 02/24/2024 4:46 PM [facility] Creatinine 0.69(L) 0.73 - 1.18 mg/dL 02/24/2024 4:46 PM [facility] Alkaline Phosphatase 102 40 - 150 U/L 02/24/2024 4:46 PM [facility] AST (SGOT) 15 10 - 40 U/L 02/24/2024 4:46 PM [facility] ALT (SGPT) 14 <=55 U/L 02/24/2024 4:46 PM [facility] Bilirubin, Total 0.4 0.2 - 1.2 mg/dL 02/24/2024 4:46 PM [facility] Protein, Total 8.0 6.4 - 8.3 g/dL 02/24/2024 4:46 PM [facility] Albumin 4.0 3.5 - 5.0 g/dL 02/24/2024 4:46 PM T [facility] Glucose 157(H) 70 - 100 mg/dL 02/24/2024 4:46 PM T [facility] Comment:The given reference range is for the fasting state. Non-fasting reference range for glucose is 70 - 180 mg/dL. GFR, Estimated >60 >60 mL/min/1.7 3m2 02/24/2024 4:46 PM CDT [facility] Hours Fasting 0.0 8 - 12 Hours 02/24/2024 4:46 PM CDT [facility] Blood Venipuncture / Unknown 02/24/2024 7:35 AM CDT 02/24/2024 7:35 AM CDT Jeanne Cisse Jaspal [facility]_1 Performing Organization Address City/[facility]/ZIP Co de Phone Number [facility] [address] [place] [address] * TSH (02/24/2024 7:35 AM CDT) Pathologist [facility] TSH, Sensitive 2.13 0.30 - 4.50 uIU/mL 02/24/2024 12:23 PM CDT [facility] Blood Venipuncture / Unknown 02/24/2024 7:35 AM CDT 02/24/2024 7:35 AM CDT Jeanne Cisse Jaspal [facility]1 [facility] [address] [place], [place] [id number] [place] [address] * (ABNORMAL) Complete Blood Count-No Diff (02/24/2024 7:35 AM CDT) Pathologist [facility] WBC 10.8(H) 3.5 - 10.5 x10(9)/L 02/24/2024 7:39 AM CDT [facility] RBC 4.52 4.32 - 5.72 x10(12)/L 02/24/2024 7:39 AM CDT [facility] Hemoglobin 13.6 13.5 - 17.5 g/dL 02/24/2024 7:39 AM T [facility] HCT 42.5 38.8 - 50.0 % 02/24/2024 7:39 AM T [facility] MCV 94.0 80.0 - 100.0 fL 02/24/2024 7:39 AM T [facility] MCH 30.1 27.6 - 33.3 pg 02/24/2024 7:39 AM T [facility] MCHC 32.0 31.5 - 35.2 g/dL 02/24/2024 7:39 AM T [facility] RDW 13.4 11.9 - 15.5 % 02/24/2024 7:39 AM T [facility] Platelets 272 150 - 450 x10(9)/L 02/24/2024 7:39 AM T [facility] Blood Venipuncture / Unknown 02/24/2024 7:35 AM CDT 02/24/2024 7:35 [address] [facility]1 [facility] [address] [place] [address] * Free T4 (02/24/2024 7:35 AM CDT) T4, Free 1.1 0.7 - 1.5 ng/dL 02/24/2024 12:24 PM CDT [facility] Blood Venipuncture / Unknown 02/24/2024 7:35 AM CDT 02/24/2024 7:[address] [facility]1 [facility] [address] [place], [place] [address] * Albumin/Creatinine Ratio,Random Urine (02/24/2024 7:35 AM CDT) Albumin/Creati nine Ratio, Urine, Random 23 <30 mg/g 02/24/2024 12:54 PM CDT [facility] Albumin, Urine, Random 16.2 mg/L 02/24/2024 12:54 PM CDT [facility] Creatinine, Urine, Random 72 >20 mg/dL mg/dL 02/24/2024 12:54 PM CDT [facility] Urine Non-blood Collection / Unknown 02/24/2024 7:35 AM CDT 02/24/2024 7:35 AM CDT Jeanne [facility]_1 Performing Organization Address [facility]/ZIP Co de Phone Number [facility] [address] [place] [address], [facility] * (ABNORMAL) Hgb A1C (02/24/2024 7:35 AM CDT) Hemoglobin A1C 8.8(H) <=5.6 % 02/24/2024 1:51 PM CDT [facility] Estimated Average Glucose (Calc) 206 < 117 mg/dL 02/24/2024 1:51 PM T [facility] Comment:Estimated average gl ucose (eAG) converts A1c into glucose units (mg/dL) and estimates average glucose over the past approximately 3 months. The eAG reference interval (<117 mg/dL) corresponds to an A1c of <5.7%. Blood Venipuncture / Unknown 02/24/2024 7:35 AM CDT 02/24/2024 7:35 AM CDT Narrative [facility] - 02/24/2024 1:51 PM CDT For patients not previously diagnosed with diabetes: 5.7-6.4%: Increased risk for diabetes 6.5% and greater: Diagnostic for diabetes For patients diagnosed with diabetes: <8.0%: Goal of therapy for ages 18-75 Clinicians may recommend a higher or lower goal for specific individuals. Jeanne [facility]_1 Performing Organization Address City/[facility]/ZIP Co de Phone Number [facility] [address] [address], [facility] from Last 3 Months Care Teams Gasoline Truck Crane Operator Relationship Specialty Start Date End Date Mj Schaeffer MD [facility] [address] [place] [address] PCP - General Family Practice 07/22/21
--- OUTSIDE RECORDS SUMMARY | 2024-04-20 12:05 | XMS_ITS | Encounter Summary ---
[facility] Organization [facility] Address [address], [place] [address] Care Team Providers Care Hydroelectric Machinery Mechanic Name Role Phone Mj Schaeffer MD Primary Care Provider [phone] Reason for Visit * Reason Comments Refill Continuous Glucose S ensor (DEXCOM G6 SENSOR) [Pharmacy Med Name: DEXCOM G6 SENSOR MISCELLANEOUS]; Continuous Glucose Transmitter (DEXCOM G6 TRANSMITTER) [Pharmacy Med Name: DEXCOM G6 TRANSMITTER MISCELLANEOUS] Encounter Details Date Type Department Care Team (Late st Contact Info) Description 02/12/2024 Refill [facility] [address] [place] [address]. [place], [place] [phone] Joe Shay MBBS [address] [place] [address] Refill (Continuous Glucose Sensor (DEXCOM G6 SENSOR) [...] Age: 68 [employer] Embedded Refills, Reference: [id number], 02/12/2024 9:16:53 AM CDT, Pool: CUONG PNREFILL ([id number]) Continuous Glucose Transmitter (DEXCOM G6 TRANSMITTER) [Pharmacy Med Name: DEXCOM G6 TRANSMITTER MISCELLANEOUS] Diabetes Supplies -> Provider co-signature is required for DME on patients 65+ years old. -> Age is abnormal (69 is greater than 64.0) -> Refill x 9 months (until due for an office visit) Last qualifying visit: 10/26/2023 (in ENDOCRINOLOGY) Next scheduled visit: 02/23/2024 (in [facility] ENDOCRINOLOGY) Last ordered by JOE SHAY: 03/17/2023 (332 days ago) QTY: 1, Refills: 3, Sig: change once every 90 days (unchanged) Age: 68 [employer] Embedded Refills, Reference: [id number], 02/12/2024 9:16:53 AM CDT, Pool: CUONG PNREFILL ([id number]) documented in this encounter Plan of Treatment Upcoming Encounters Date Type Department Care Team (Late st Contact Info) Description 05/09/2024 7:45 AM GLUE MAKER BONE Appointment [facility] [address] [place] [address] Joe Shay MBBS [address] [place] [address] documented as of this encounter Visit Diagnoses Diagnosis Uncontrolled type 1 diabetes mellitus with hyperglycemia (HRC) documented in this encounter Care Teams Hydroelectric Machinery Mechanic Relationship Specialty Start Date End Date Mj Schaeffer MD [facility] [address] [place] [address] PCP - General Family Practice 07/22/21 documented as of this encounter
--- OUTSIDE RECORDS SUMMARY | 2024-04-20 12:05 | XMS_ITS | Encounter Summary ---
Author Organization [facility] Address [address] [place] [address] Care Team Providers Care Cooking Appliance Repair Technician Name Role Phone Unavailable Primary Care Provider Unavailabl e Reason for Referral * Outpatient (Routine) - Closed Specialty Diagnoses / Procedures Referred By Moe mera Referred To Contact Sleep Medicine Diagnoses Obstructive Sleep Apnea Adult Marcus Ybarra M.D. [address] [place] [address] Phone: tel: fax: [facility] Referral ID Status Reason Start Date Expiration Date Visits Re quested Visits Authorized [id number] Closed 02/02/2024 08/03/2025 1 1 Encounter Details Date Type Department Care Team (Late st Contact Info) Description 02/02/2024 [facility] [address] [place] [address] Marcus Ybarra M.D. [address] [place] [phone] Obstructive Sleep Apnea Adult (Primary Dx) Social [...] st Contact Info) Description 05/16/2024 7:00 PM PASTORAL ASSISTANT [facility]ointment [facility] [place], [place] [address] [place] [phone] Diego Dykes M.D. [address] [place] [phone] Discharge Disposition: Home or Self Care 05/17/2024 9:30 AM PASTORAL ASSISTANT Office Visit [facility] [place], [place] [address] [place] [phone] Diego Dykes M.D. [address] [place] [phone] Scheduled Referrals Name Type Priority Associated Diagnoses [...]
--- OUTSIDE RECORDS SUMMARY | 2024-04-20 12:05 | XMS_ITS ---
Author Organization [facility] Address [address] [place] [address] Care Team Providers Care Hand Tool Lapper Name Role Phone Unavailable Unavailable Unavailable Surgery Details Not on file Complications Check Surgery Details section. Procedure Estimated Blood Loss Check Surgery Details section. Procedure Findings Check Surgery Details section. Procedure Specimens Taken Check Surgery Details section.
== END 2024-04-14 15:32 | disposition home or self-care (01) ==
LOC: AMB 04-20 12:03
PROVIDERS: PCP Internal Medicine; Visit Provider Family Medicine
DX: T38.3X1A Poisoning by insulin and oral hypoglycemic [antidiabetic] drugs, accidental (unintentional), initial encounter (principal); T85.694A Other mechanical complication of insulin pump, initial encounter
CPT/HCPCS: A0998

== ENCOUNTER 2024-04-14 16:28 | Emergency (ER) | payer MEDICAID, SELFPAY ==
[2024-04-14 16:36] VITALS: BP 123/70; PULSE 77; RESP 18; TEMP 36.7; O2SAT 97; BMI 25.1
--- OUTSIDE RECORDS SUMMARY | 2024-04-14 17:01 | XMS_ITS | Encounter Summary ---
Author Organization [facility] Address [address] [place] [address] Care Team Providers Care Forming Process Line Worker Name Role Phone Elsewhere, Pcp Primary Care Provider Unavailabl e Reason for Referral * Specialty Diagnoses / Procedures Referred By Moe mera Referred To Contact Diagnoses Obstructive Sleep Apnea Adult Diego Dykes M.D. [address] [place] [phone] Phone: tel: fax: [facility] Referral ID Status Reason Start Date Expiration Date Visits Re quested Visits Authorized Encounter Details Date Type Department Care Team (Latest Contact Info) Description 03/10/2024 11:29 AM CDT - 03/13/2024 11:59 PM CDT Hospital [facility] [place], [place] [address] [place] [address] Diego Dykes M.D. [address] [place] [phone] Obstructive Sleep Apnea Adult Discharge Disposition: Home or Self Care Social History Tobacco Use Types Packs/Day Years Used Date Smoking Tobacco: Every Day Cigarettes Smokeless Tobacco: Never PHQ-2 Answer Date Recorded PHQ-2 Score 0 11/13/2018 Nutrition Answer Date Recorded Nutrition: EVOO Fat Source 13 01/01 Nutrition: Servings of Fruits/Vegetables per Day Not on file 01/02/2020 Dental Answer Date Recorded Dental: Regular Dentist Unknown 07/27/19 21 Sex and Gender Information Value Date Recorded Sex Assigned at Not on file Legal Sex Male 10:29 AM CDT Gender Identity Not on file Sexual Orientation Not on file documented as of this encounter Medications at Time of Discharge acetaminophen (TYLENOL) 325 mg tablet Take 650 mg by mouth every 6 (six) hours. aspirin 81 mg chewable tablet Chew 81 mg daily. atorvastatin (LIPITOR) 40 mg tablet Take 40 mg by mouth daily. blood-glucose meter,continuous Use once 03/17/2023 blood-glucose sensor (Dexcom G6 Sensor) device USE ONCE EVERY 10 DAYS 02/14/2024 clopidogrel (PLAVIX) 75 mg tablet Take 75 mg by mouth daily. gabapentin (Neurontin) 300 mg capsule Take 900 mg by mouth daily. 1 in AM and 2 in PM insulin asp prt-insulin aspart (NovoLOG MIX 70/30 FlexPen) 100 unit/mL (70-30) injection Inject under the skin 2 (two) times a day with meals. 30 units in am, 35 units in pm insulin pump cart,auto,BT/cntr (OMNIPOD 5 G6 INTRO KIT, GEN 5, TX) See Admin Instructions. 10/21/2021 lisinopriL 2.5 mg tablet Take 1 tablet by mouth daily. 10/16/2020 metFORMIN (GLUCOPHAGE) 500 mg tablet Take 2,000 mg by mouth daily. metoprolol tartrate (Lopressor) 50 mg tablet Take 50 mg by mouth 2 (two) times a day. nicotine (NICODERM CQ) 21 mg/[address] 1 patch on the skin daily. nitroglycerin (NITROSTAT) 0.[address] 0.4 mg under the tongue every 5 (five) minutes as needed for chest pain. omeprazole (PriLOSEC) 20 mg capsule Take 20 mg by mouth every morning before breakfast. oxyCODONE (OXY-IR) 5 mg immediate release capsule Take by mouth every 4 (four) hours as needed for pain. documented as of this encounter Progress Notes * Myah Donald, RPSGT - 03/10/2024 11:30 AM CDT A mask recommendation requested following Sleep Medicine provider return appointment. Medium (M), ResMed, N30 Medium (M), ResMed, P10 Medium (M), ResMed, N30i documented in this encounter Plan of Treatment Upcoming Encounters Date Type Department Care Team (Late st Contact Info) Description 05/16/2024 7:00 PM [employer] HE[employer] T[employer]ER [facility]ointment [facility] [place], [place] [address] [place] [address] Diego Dykes M.D. [address] [place] [phone] Discharge Disposition: Home or Self Care 05/17/2024 9:30 AM [employer] T[employer]ER Office Visit [facility] [place], [place] [address] [place] [address] Diego Dykes M.D. [address] [place] [phone] Scheduled Referrals Name Type Priority Associated Diagnoses Order Schedule Sleep Medicine - Technnologist education visit (clinic) Outpatient Referral Routine Obstructive Sleep Apnea Adult Once for 1 Occurrences starting 03/10/2024 until 03/10/2024 documented as of this encounter Visit Diagnoses Diagnosis Obstructive Sleep Apnea Adult documented in this encounter Additional Health Concerns Assessment Noted Time PHQ-9 Depression Total Score: 1 01/08/20 18 3:28 PM CDT documented as of this encounter Care Teams Forming Process Line Worker Relationship Specialty Start Date End Date Elsewhere, Pcp PCP - General Internal Medicine 03/03/24 documented as of this encounter
--- OUTSIDE RECORDS SUMMARY | 2024-04-14 17:01 | XMS_ITS ---
Author Organization [facility] Address [address] [place] [address] Care Team Providers Care Field Installer Name Role Phone Unavailable Unavailable Unavailable Surgery Details Not on file Complications Check Surgery Details section. Procedure Estimated Blood Loss Check Surgery Details section. Procedure Findings Check Surgery Details section. Procedure Specimens Taken Check Surgery Details section.
--- OUTSIDE RECORDS SUMMARY | 2024-04-14 17:01 | XMS_ITS | Clinical Summary ---
Author Organization [facility] Address [address] [place] [address] Care Team Providers Care Team Physician Name Role Phone Elsewhere, Pcp Primary Care Provider Unavailabl e Source Comments Patient records contain information from all sites at [facility]. For routine questions regarding patient records, call [phone] during business hours, M-F 8:00 AM - 5:00 PM Central Time. Record requests for emergency care only can be directed to [phone] at any time.[facility] Allergies No known active allergies Medications clopidogrel (PLAVIX) 75 mg tablet Take 75 mg by mouth daily. Active oxyCODONE (OXY-IR) 5 mg immediate release capsule Take by mouth every 4 (four) hours as needed for pain. Active nicotine (NICODERM CQ) 21 mg/[address] 1 patch on the skin daily. Active metoprolol tartrate (Lopressor) 50 mg tablet Take 50 mg by mouth 2 (two) times a day. Active acetaminophen (TYLENOL) 325 mg tablet Take 650 mg by mouth every 6 (six) hours. Active aspirin 81 mg chewable tablet Chew 81 mg daily. Active atorvastatin (LIPITOR) 40 mg tablet Take 40 mg by mouth daily. Active gabapentin (Neurontin) 300 mg capsule Take 900 mg by mouth daily. 1 in AM and 2 in PM Active nitroglycerin (NITROSTAT) 0.[address] 0.4 mg under the tongue every 5 (five) minutes as needed for chest pain. Active omeprazole (PriLOSEC) 20 mg capsule Take 20 mg by mouth every morning before breakfast. Active metFORMIN (GLUCOPHAGE) 500 mg tablet Take 2,000 mg by mouth daily. Active insulin asp prt-insulin aspart (NovoLOG MIX 70/30 FlexPen) 100 unit/mL (70-30) injection Inject under the skin 2 (two) times a day with meals. 30 units in am, 35 units in pm Active lisinopriL 2.5 mg tablet Take 1 tablet by mouth daily. 10/16/2020 Active insulin pump cart,auto,BT/cn tr (OMNIPOD 5 G6 INTRO KIT, GEN 5, [place]) See Admin Instructions . 10/21/2021 Active blood-glucose sensor (Dexcom G6 Sensor) device USE ONCE EVERY 10 DAYS 02/14/2024 Active blood-glucose meter,continuou s Use once 03/17/2023 Active Active Problems Problem Noted Date Diagnosed Date Apnea Sleep Obstructive 12/27/2020 Dyslipidemia NOS 12/11/2020 Atherosclerosis Of Coronary Artery Bypass Graft Without Angina Pectoris 12/22/2019 Prosthesis Heart Valve 09/15/2017 Overview (03/10/2024): Aortic valve replacement with 23 mm Carey Magna Ease pericardial valve--09/15/17 Dr. Hameed Atherosclerotic Heart Diseas e Of [place] Coronary Artery Without Angina Pectoris 09/14/2017 Transient Ischemic Attack 09/08/2017 Overview (03/10/2024): In 2004, presented with slurred speech and weakness of right arm and severe fatigue. Diabetes Mellitus Type 1 Peripheral Neuropathy 0 09/02/2017 Hyperlipidemia 09/02/2017 Hypertension Essential Primary 09/02/2017 Nonrheumatic Aortic Valve Stenosis 09/02/2017 Peripheral Vascular Disease 09/02/2017 Encounters Date Type Department Care Team Description 03/10/2024 11:29 AM CDT - 03/13/2024 11:59 PM CDT [facility] [place], [place] [address] [place] [address] Diego Dykes M.D. Obstructive Sleep Apnea Adult Discharge Disposition: Home or Self Care 03/10/2024 10:00 AM CDT Comprehensive Visit [facility] [place], [place] [address] [place] [address] Diego Dykes M.D. Apnea Sleep Obstructive (Primary Dx); Obstructive Sleep Apnea Adult 03/03/2024 3:00 PM CDT Clinical Communication Virtual Review in [place], [place] [address] [place] [address] Pre-visit Intake 02/02/2024 [facility] [address] [place] [address] Marcus Ybarra M.D. Obstructive Sleep Apnea Adult (Primary Dx) from Last 3 Months Social History Tobacco Use Types Packs/Day Years Used Date Smoking Tobacco: Every Day Cigarettes Smokeless Tobacco: Never Tobacco Cessation:Ready to Q uit: Not Asked; Counseling Given: Not Answered PHQ-2 Answer Date Recorded PHQ-2 Score 0 [...] Sign Reading Time Taken Comments Blood Pressure 108/63 03/10/2024 9:56 AM CDT Pulse 60 03/10/2024 9:56 AM CDT Temperature - - Respiratory Rate - - Oxygen Saturation - - Inhaled Oxygen Concentration - - Weight 75.8 kg (167 lb) 03/10/2024 9:56 AM CDT s hoes on Height 170.5 cm (5' 7.13) 03/10/2024 9:56 AM CD T shoes on Body Mass Index 26.06 03/10/2024 9:56 AM CDT Plan of Treatment Upcoming Encounters Date Type Department Care Team (Late st Contact Info) Description 05/16/2024 7:00 PM USED CAR SALESPERSON [facility]ointment [facility] [place], [place] [address] [place] [phone] Diego Dykes M.D. [address] [place] [phone] Discharge Disposition: Home or Self Care 05/17/2024 9:30 AM USED CAR SALESPERSON [facility] [place], [place] [address] [place] [phone] Diego Dykes M.D. [address] [place] [address] Health Maintenance Due Date Last Done Comments Abdominal Aortic Aneurysm (AAA) Screen 1954 CT Colonography 1954 Cologuard 1954 Colonoscopy 1954 Colorectal Cancer Screening 1954 Creatinine Level (Kidney Function Test) 1954 Diabetic Office Visit with Foot Exam 1954 Dilated Eye Exam 1954 FIT 1954 Hemoglobin A1C 1954 Hepatitis C Screening 1954 Lipid (Cholesterol) Screening 1954 Potassium Level 1954 Sodium Level 1954 Urine Albumin 1954 Hepatitis B Vaccines (1 of 3 - Risk 3-dose series) 2014 RSV vaccine - (32-36 weeks) or 60+ years (1 - Risk 60-74 years 1-dose series) 2014 Depression Screening (Annual PHQ-2) 06/07/2023 Fall Risk Screen (Annual) 06/07/2023 COVID-19 Vaccine (2023- season) 2024 03/06/2022, 09/19/2021, 04/11/2021, Additional history exists Influenza Vaccine (#1) 2024 , 03/06/2022, 03/26/2021, Additional history exists Office Visit for Blood Pressure Check / Re-check 03/10/2025 03/10/2024 DTaP,Tdap,and Td Vaccines (2 - Td or Tdap) 10/24/2030 10/24/2020, 07/22/2013 Zoster Vaccines Completed 06/26/2020, 04/03/2020 Pneumococcal vaccine (65+ years) Completed 04/13/2023, 11/30/2019 IPV Vaccines Aged Out No longer eligi ble based on patient's age to complete this topic Medical Devices Implanted Type Area Orthopedic Radiologic Technologist Device Identifier Shelf Expiration Date Model / Serial / Lot Cardiac Valve Prosthesis-09/05 Implanted:04/0 06/2017 (Quantity not on file) Cardiac Valve Prosthesis Heart Insurance ARE Care Teams Team Physician Relationship Specialty Start Date End Date Elsewhere, Pcp PCP - General Internal Medicine 03/03/24
--- OUTSIDE RECORDS SUMMARY | 2024-04-14 17:01 | XMS_ITS | Clinical Summary ---
Author Organization [employer] [facility] [employer] Address [place], [place] [address] Care Team Providers Care Fisher Trawl Line Name Role Phone Jhoan Schaeffer MD Primary Care Provider [phone] Allergies No known active allergies Medications Medication [...] artery disease of b ypass graft of [place] heart with stable angina pectoris 12/22/2019 Snoring 11/18/2018 Hx of CABG 09/15/2017 S/P AVR (aortic valve replacement) 09/15/2017 Overview (09/15/2017): Aortic valve replacement with 23 mm Carey Magna Ease pericardial valve--09/15/17 Dr. Hameed S/P CABG x 3 09/15/2017 Overview (09/15/2017): Coronary bypass x3 with left internal mammary artery to LAD, saphenous vein sequential graft to obtuse marginal and posterior descending branch of right--09/15/17 Dr. Hameed CAD in [place] artery 09/14/2017 TIA (transient ischemic attack) 09/08/2017 Overview (09/08/2017): In 2004, presented with slurred speech and weakness of right arm and severe fatigue. Chest pain 09/02/2017 Hypertension 09/02/2017 Hyperlipidemia 09/02/2017 Smoker 09/02/2017 PAD (peripheral artery disease) 09/02/2017 Diabetes type I 09/02/2017 Aortic stenosis 09/02/2017 Immunizations Name Administration Dates Next Due Influenza, IIV4 02/24/2017,04/01/2016 Family History Medical History Relation Name Comments Heart Disease Father MS at age 65, at age 79 Leukemia [...] age 45-75 09/02/2022 09/02/2017 COVID-19 vaccine series (2023- season) 2024 03/06/2022, 09/19/2021, 04/11/2021, Additional history exists Influenza for age 65+ 02/06/2024 02/24/2017, 016 Medical Devices Implanted Type Area Weather Anchor Device Identifier Shelf Expiration Date Model / Serial / Lot Anw Hh [id number] Implanted:Qty: 1 on 09/15/2017 by Gurpreet Hameed MD at [facility] Explanted:at [facility] (Quantity not on file) N/A: Aortic Valve Carey [employer] [place] 06/09/2021 [id number]# / [id number] / Procedures Procedure Name Priority Date/Time Associated Diagnosis Comments LIPID PANEL Add On 09/02/2017 8:41 AM CDT from Last 3 Months or Most Recently Relevant to Health Maintenance Results * Lipid Panel (09/02/2017 8:41 AM CDT) CHOLESTEROL,TOTAL 155 100 - 199 mg/dL 09/02/2017 9:23 AM CDT [facility] TRIGLYCERIDES 82 <150 mg/dL 09/02/2017 9:23 AM CDT [facility] HDL CHOLESTEROL 49 >40 mg/dL 8 9:23 AM CDT [facility] NON-HDL CHOLESTEROL 106 <145 mg/dl 09/02/2017 9:23 AM CDT [facility] CHOL/HDL RATIO 3.16 <4.50 09/02/2017 9:23 AM CDT [facility] LDL CHOLESTEROL 90 <=130 mg/dL 09/02/2017 9:23 AM CDT [facility] PROVIDER ORDERED STATUS RANDOM 09/02/2017 9:23 AM CDT [facility] Blood BLOOD SPECIMEN / Unknown Venipuncture / Unknown 09/02/2017 8:41 AM CDT 09/02/2017 8:49 AM CDT Tessa Del Rosario DENTAL PATIENT COORDINATOR CHEMISTRY [facility] [address] [place] [address], [place] from Last 3 Months or Most Recently Relevant to Health Maintenance Advance Directives * Full Code (Latest Code Status on File) Date Activated Date Inactivated Comments 09/15/2017 5:58 AM 09/20/2017 3:57 PM * Full Code Date Activated Date Inactivated Comments 09/02/2017 8:23 AM 09/02/2017 5:50 PM Care Teams Fisher Trawl Line Relationship Specialty Start Date End Date Jhoan Schaeffer MD PCP - General Family Practice 08/19/17
--- OUTSIDE RECORDS SUMMARY | 2024-04-14 17:01 | XMS_ITS | Referral Summary ---
Author Organization [facility] Address [address] [place] [address] Care Team Providers Care Grain Drier Name Role Phone Elsewhere, Pcp Primary Care Provider Unavailabl e Source Comments Patient records contain information from all sites at [facility]. For routine questions regarding patient records, call [phone] during business hours, M-F 8:00 AM - 5:00 PM Central Time. Record requests for emergency care only can be directed to [phone] at any time.[facility] Encounters Date Type Department Care Team Description 03/10/2024 11:29 AM CDT - 03/13/2024 11:59 PM CDT [facility] [place], [place] [address] [place] [address] Diego Dykse M.D. Obstructive Sleep Apnea Adult Discharge Disposition: Home or Self Care 03/10/2024 10:00 AM CDT Comprehensive Visit [facility] [place], [place] [address] [place] [phone] Diego Dykes M.D. Apnea Sleep Obstructive (Primary Dx); Obstructive Sleep Apnea Adult 03/03/2024 3:00 PM CDT Clinical Communication Virtual Review in [place], [place] [address] [place] [address] Pre-visit Intake 02/02/[address] [facility] [address] [place] [address] Marcus Ybarra M.D. Obstructive Sleep Apnea Adult (Primary Dx) from Last 3 Months Allergies No known active allergies Medications clopidogrel [...] (OMNIPOD 5 G6 INTRO KIT, GEN 5, [place]) See Admin Instructions . 10/21/2021 Active blood-glucose [...] Dr. Hameed Atherosclerotic Heart Diseas e Of [place] Coronary Artery Without Angina Pectoris 09/14/2017 Transient Ischemic Attack 09/08/2017 Overview (03/10/2024): In 2004, presented with slurred speech and weakness of right arm and severe fatigue. Diabetes Mellitus Type 1 Peripheral Neuropathy 0 09/02/2017 Hyperlipidemia 09/02/2017 Hypertension Essential Primary 09/02/2017 Nonrheumatic Aortic Valve Stenosis 09/02/2017 Peripheral Vascular Disease 09/02/2017 Social History Tobacco Use Types Packs/Day Years [...] st Contact Info) Description 05/16/2024 7:00 PM FLORAL MANAGER [facility]ointment [facility] [place], [place] [address] [place] [phone] Diego Dykes M.D. [address] [place] [phone] Discharge Disposition: Home or Self Care 05/17/2024 9:30 AM FLORAL MANAGER Office Visit [facility] [place], [place] [address] [place] [address] Diego Dykes M.D. [address] [place] [address] Medical Devices Implanted Type Area Shoe Puller Device Identifier Shelf Expiration Date Model / Serial / Lot Cardiac Valve Prosthesis-09/05 Implanted:04/0 06/2017 (Quantity not on file) Cardiac Valve Prosthesis Heart Insurance [employer] Care Teams Grain Drier Relationship Specialty Start Date End Date Elsewhere, Pcp PCP - General Internal Medicine 03/03/24
--- OUTSIDE RECORDS SUMMARY | 2024-04-14 17:01 | XMS_ITS | Clinical Summary ---
Author Organization [facility] Address [address], [place] [address] Care Team Providers Care Destination Sign Repairer Name Role Phone Mj Schaeffer MD Primary Care Provider [phone] Source Comments You are receiving this document as you are listed as the primary care provider,follow-up provider, or the patient has been referred to you for consultation.This is in compliance with the Medicare and[facility] EHR Incentive [facility],which states Providers who transition their patient to another setting of careor provider of care or refers their patient to another provider of care shouldprovide summary care record for each transition of care or referral. [employer] Allergies No known active allergies Medications Medication [...] Additional Information Patient not taking.Reported on 04/15/2022 Cranberry 50 MG CHEW Active Glucagon (GVOKE HYPOPEN 2-PACK) 1 MG/0.2ML SOAJ Inject 0.2 mL (1 mg) subcutaneously as needed (hypoglycemia). 2 Each 4 3 Active Continuous Blood Gluc Die Stamper (DEXCOM G6 INTERNET PROJECT MANAGER)Indicati ons:Uncontrolled type 1 diabetes mellitus with hyperglycemia [...] DAYS. 30 Each 3 4 Active Continuous Glucose Transmitter (DEXCOM G6 TRANSMITTER)Indic ations:Uncontroll ed type 1 diabetes mellitus with hyperglycemia (HRC) CHANGE ONCE EVERY 90 DAYS 1 Each 3 4 Active metFORMIN XR (GLUCOPHAGE XR) 500 MG 24 hour release tablet Take 4 Tablets (2,000 mg) by mouth every evening with a meal. 360 Tablet 3 4 025 Active Continuous Glucose Sensor (DEXCOM G6 SENSOR)Indication s:Uncontrolled type 1 diabetes mellitus with hyperglycemia (HRC) USE ONCE EVERY 10 DAYS 9 Each 3 4 Active Continuous Glucose Sensor (DEXCOM G6 SENSOR)Indication s:Uncontrolled type 1 diabetes mellitus with hyperglycemia (HRC) USE ONCE EVERY 10 DAYS 9 Each 3 4 024 Discontinued Active Problems Problem Noted Date Diagnosed Date Uncontrolled type 1 diabetes mellitus with hyper glycemia 09/15/2022 Uncontrolled type I diabetes mellitus with neuro ashley 12/11/2020 Essential hypertension 12/11/2020 Dyslipidemia (high LDL; low HDL) 12/11/2020 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 [address] Jeanne Shay MBBS Refill (Continuous Glucose Sensor (DEXCOM G6 SENSOR) [Pharmacy Med Name: DEXCOM G6 SENSOR MISCELLANEOUS]) 04/03/[address] [place] [address] Jeanne Shay MBBS Refill (metFORMIN XR (GLUCOPHAGE XR) 500 MG 24 hour release tablet [Pharmacy Med Name: METFORMIN HYDROCHLORIDE ER 500MG TABLET EXTENDED RELEASE 24 HOUR]) 03/23/[address] [place] [address] Jeanne Shay MBBS Forms (Chart notes - [place] ) 02/29/2024 10:45 AM CDT Office Visit [facility] [address] [place] [phone] Jeanne Shay MBBS Uncontrolled type 1 diabetes mellitus with hyperglycemia (HRC) (Primary Dx); Essential hypertension (HRC); Dyslipidemia (high LDL; low HDL) (HRC); Coronary artery disease involving coronary bypass graft of [place] heart without angina pectoris (HRC) 02/29/[address] [place] [address] Jeanne Shay MBBS Forms 02/24/2024 7:00 AM CDT Lab Visit [facility] [address] [place] [phone] Uncontrolled type 1 diabetes mellitus with hyperglycemia (HRC); Essential hypertension (HRC); Dyslipidemia (high LDL; low HDL) (HRC); Coronary artery disease involving coronary bypass graft of [place] heart without angina pectoris (HRC) 02/23/2024 10:15 AM CDT Telemedicine [place] [address] [address]. [place] [address] Jeanne Shay MBBS Uncontrolled type 1 diabetes mellitus with hyperglycemia (HRC) (Primary Dx); Essential hypertension (HRC); Dyslipidemia (high LDL; low HDL) (HRC); Coronary artery disease involving coronary bypass graft of [place] heart without angina pectoris (HRC) 02/12/2024 Refill [place] [address] [place] [address]. [place] [address] Jeanne Shay MBBS Refill (Continuous Glucose Sensor (DEXCOM G6 SENSOR) [Pharmacy Med Name: DEXCOM G6 SENSOR MISCELLANEOUS]; Continuous Glucose Transmitter (DEXCOM G6 TRANSMITTER) [Pharmacy Med Name: DEXCOM G6 TRANSMITTER MISCELLANEOUS]) from Last 3 Months Social History Tobacco Use Types Packs/Day Years Used Date Smoking Tobacco: Every Day Smokeless Tobacco: Never Sex and Gender Information Value Date Recorded Sex Assigned at Not on file Gender Identity Not on file Sexual Orientation Not on file Last Filed Vital Signs Vital Sign Reading Time Taken Comments Blood Pressure 123/61 02/29/2024 10:56 AM CDT Pulse 63 02/29/2024 10:56 AM CDT Temperature - - Respiratory Rate - - Oxygen Saturation - - Inhaled Oxygen Concentration - - Weight 75.8 kg (167 lb 1.6 oz) 02/29/2024 10:56 AM CDT Height 170.2 cm (5' 7) 02/29/2024 10:56 AM CDT Body Mass Index 26.17 02/29/2024 10:56 AM CDT Plan of Treatment Upcoming Encounters Date Type Department Care Team (Late st Contact Info) Description 05/09/2024 7:45 AM ENOLOGIST Appointment [facility] [address] [place] [phone] Jeanne Shay MBBS [address] [place] [id number] Health Maintenance Due Date Last Done Comments Colon Cancer Screening Plan Due 1955 Hep C Screening (Preventive Services) 1955 Adult Preventive Visit 1972 Abdominal Aortic Aneurysm (AAA) Screening 11/12/2019 COVID-19 Vaccine ( season) 2024 03/06/2022, 09/19/2021, 04/11/2021, Additional history exists Influenza (#1) 2024 04/13/2023, 02/07, 03/26/2021, Additional history exists Diabetes: HGBA1C 08/23/2024 02/24/2024, , 06/22/2023, Additional history exists Diabetes: Creatinine 02/23/2025 02/24/2024, 09/15/2022, 01/14/2022, Additional history exists Diabetes: Urine Microalbumin 02/23/2025 02/24/2024, 09/15/2022, 01/14/2022 Diabetes: Lipid Panel 02/23/2029 02/24/2024 , 09/15/2022, 01/14/2022, Additional history exists RSV (1 - 1-dose 75+ series) 2029 DTaP/Tdap/Td (2 - Tdap) 10/24/2030 10/24/2020, 07/22 Zoster/Shingles Completed 06/26/2020, 04/03/2020 Pneumococcal 65+ Yrs Completed 04/13/2023, 11/30/19 20 Cholesterol Discontinued 02/24/2024, 09/05, 01/14/2022, Additional history exists HepA Aged Out No longer eligi ble based on patient's age to complete this topic HepB Aged Out No longer eligi ble based on patient's age to complete this topic Hib Aged Out No longer eligi ble based on patient's age to complete this topic IPV (Polio) Aged Out No longer eligi ble based on patient's age to complete this topic RSV Aged Out No longer eligi ble based on patient's age to complete this topic MCV4 Aged Out No longer eligi ble based on patient's age to complete this topic Procedures Procedure Name Priority Date/Time Associated Diagnosis Comments COMPLETE BLOOD COUNT-NO DIFF Routine 02/24/2024 7:35 AM CDT Uncontrolled type 1 diabetes mellitus with hyperglycemia (HRC) LIPID PANEL & DIRECT LDL (IF NEEDED) Routine 02/24/2024 7:35 AM CDT Uncontrolled type 1 diabetes mellitus with hyperglycemia (HRC) TISSUE TRANSGLUTAMINASE AB IGA Routine 02/24/2024 7:35 AM CDT Uncontrolled type 1 diabetes mellitus with hyperglycemia (HRC) Essential hypertension (HRC) Dyslipidemia (high LDL; low HDL) (HRC) Coronary artery disease involving coronary bypass graft of [place] heart without angina pectoris (HRC) ALBUMIN/CREAT RATIO Routine 02/24/2024 7 :35 AM CDT Uncontrolled type 1 diabetes mellitus with hyperglycemia (HRC) Essential hypertension (HRC) Dyslipidemia (high LDL; low HDL) (HRC) Coronary artery disease involving coronary bypass graft of [place] heart without angina pectoris (HRC) FREE T4 Routine 02/24/2024 7:35 AM CDT Uncontrolled type 1 diabetes mellitus with hyperglycemia (HRC) Essential hypertension (HRC) Dyslipidemia (high LDL; low HDL) (HRC) Coronary artery disease involving coronary bypass graft of [place] heart without angina pectoris (HRC) TSH, SENSITIVE Routine 02/24/2024 7:35 AM CDT Uncontrolled type 1 diabetes mellitus with hyperglycemia (HRC) Essential hypertension (HRC) Dyslipidemia (high LDL; low HDL) (HRC) Coronary artery disease involving coronary bypass graft of [place] heart without angina pectoris (HRC) COMPREHENSIVE METABOLIC PANEL Routine 02/24/2024 7:35 AM CDT Uncontrolled type 1 diabetes mellitus with hyperglycemia (HRC) Essential hypertension (HRC) Dyslipidemia (high LDL; low HDL) (HRC) Coronary artery disease involving coronary bypass graft of [place] heart without angina pectoris (HRC) HGB A1C Routine 02/24/2024 7:35 AM CDT Uncontrolled type 1 diabetes mellitus with hyperglycemia (HRC) Essential hypertension (HRC) Dyslipidemia (high LDL; low HDL) (HRC) Coronary artery disease involving coronary bypass graft of [place] heart without angina pectoris (HRC) from Last 3 Months Results * Tissue Transglutaminase Ab IgA (02/24/2024 7:35 AM CDT) Tissue Transglutaminase Antibody, IgA 0.7 0.0 - 6.9 U/mL 02/25/2024 12:51 PM CDT [facility] Tissue Transglutaminase Antibody, IgA Interpretation Negative Negative 02/25/2024 12:51 PM CDT [facility] Blood Venipuncture / Unknown 02/24/2024 7:35 AM CDT 02/24/2024 7:35 AM CDT Jeanne DYE LAB_1 Performing Organization Address [facility] Co de Phone Number [facility] [address] * Lipid Panel and Direct LDL (if needed) (02/24/2024 7:35 AM CDT) Cholesterol 134 0 - 199 mg/dL 02/24/2024 4:46 PM [facility] Triglyceride 126 <=149 mg/dL 02/24/2024 4:46 PM [facility] HDL Cholesterol 48 >=40 mg/dL 4:46 PM [facility] LDL, Calculated 61 <130 mg/dL 4:46 PM [facility] Non HDL Chol, Calculated 86 <=159 mg/dL 02/24/2024 4:46 PM [facility] Cholesterol/HDL Ratio 2.8 <=5.0 02/24/2024 4:46 PM [facility] Hours Fasting 0.0 8 - 12 Hours 02/24/2024 4:46 PM [facility] Blood Venipuncture / Unknown 02/24/2024 7:35 AM CDT 02/24/2024 7:35 AM CDT Jeanne DYE LAB_1 Performing Organization Address City/[facility]/ZIP Co de Phone Number [facility] [address] [place] [address], [facility] * (ABNORMAL) Comp Metabolic Panel (02/24/2024 7:35 AM CDT) Sodium 140 136 - 145 mmol/L 02/24/2024 4:46 PM [facility] Potassium 5.0 3.5 - 5.1 mmol/L 02/24/2024 4:46 PM [facility] Chloride 107 98 - 109 mmol/L 02/24/2024 4:46 PM [facility] CO2 23 20 - 29 mmol/L 02/24/2024 4:46 PM [facility] Anion Gap 10 6 - 16 mmol/L 02/24/2024 4:46 PM [facility] Calcium 9.7 8.4 - 10.4 mg/dL 02/24/2024 4:46 PM [facility] BUN 16 7 - 26 mg/dL 02/24/2024 4:46 PM [facility] Creatinine 0.69(L) 0.73 - 1.18 mg/dL 02/24/2024 4:46 PM [facility] Alkaline Phosphatase 102 40 - 150 U/L 02/24/2024 4:46 PM [facility] AST (SGOT) 15 10 - 40 U/L 02/24/2024 4:46 PM [facility] ALT (SGPT) 14 <=55 U/L 02/24/2024 4:46 PM [facility] Bilirubin, Total 0.4 0.2 - 1.2 mg/dL 02/24/2024 4:46 PM [facility] Protein, Total 8.0 6.4 - 8.3 g/dL 02/24/2024 4:46 PM [facility] Albumin 4.0 3.5 - 5.0 g/dL 02/24/2024 4:46 PM [facility] Glucose 157(H) 70 - 100 mg/dL 02/24/2024 4:46 PM [facility] Comment:The given reference range is for the fasting state. Non-fasting reference range for glucose is 70 - 180 mg/dL. GFR, Estimated >60 >60 mL/min/1.7 3m2 02/24/2024 4:46 PM CDT [facility] Hours Fasting 0.0 8 - 12 Hours 02/24/2024 4:46 PM CDT [facility] Blood Venipuncture / Unknown 02/24/2024 7:35 AM CDT 02/24/2024 7:35 AM CDT Jeanne Shay [facility]_1 Performing Organization Address City/[facility]/ZIP Co de Phone Number [facility] [address] [place] [address] * TSH (02/24/2024 7:35 AM CDT) Pathologist [facility] TSH, Sensitive 2.13 0.30 - 4.50 uIU/mL 02/24/2024 12:23 PM CDT [facility] Blood Venipuncture / Unknown 02/24/2024 7:35 AM CDT 02/24/2024 7:35 AM CDT Jeanne Edwardskem [facility]_1 Performing Organization Address [facility]/ZIP Co de Phone Number [facility] [address] [place] [address] * (ABNORMAL) Complete Blood Count-No Diff (02/24/2024 7:35 AM CDT) [facility] WBC 10.8(H) 3.5 - 10.5 x10(9)/L 02/24/2024 7:39 AM CDT [facility] RBC 4.52 4.32 - 5.72 x10(12)/L 02/24/2024 7:39 AM T [facility] Hemoglobin 13.6 13.5 - 17.5 g/dL 02/24/2024 7:39 AM CDT [facility] HCT 42.5 38.8 - 50.0 % 02/24/2024 7:39 AM CDT [facility] MCV 94.0 80.0 - 100.0 fL 02/24/2024 7:39 AM T [facility] MCH 30.1 27.6 - 33.3 pg 02/24/2024 7:39 AM CDT [facility] MCHC 32.0 31.5 - 35.2 g/dL 02/24/2024 7:39 AM CDT [facility] RDW 13.4 11.9 - 15.5 % 02/24/2024 7:39 AM CDT [facility] Platelets 272 150 - 450 x10(9)/L 02/24/2024 7:39 AM CDT [facility] Blood Venipuncture / Unknown 02/24/2024 7:35 AM CDT 02/24/2024 7:35 AM CDT Jeanne Shay [facility]_1 [facility] [address] [place] [address] * Free T4 (02/24/2024 7:35 AM CDT) T4, Free 1.1 0.7 - 1.5 ng/dL 02/24/2024 12:24 PM CDT [facility] Blood Venipuncture / Unknown 02/24/2024 7:35 AM CDT 02/24/2024 7:35 AM CDT Jeanne Shay [facility]_1 [facility] [address] [place], [place] [phone] [place] [address] * Albumin/Creatinine Ratio,Random Urine (02/24/2024 7:35 AM CDT) Albumin/Creati nine Ratio, Urine, Random 23 <30 mg/g 02/24/2024 12:54 PM CDT [facility] Albumin, Urine, Random 16.2 mg/L 02/24/2024 12:54 PM CDT [facility] Creatinine, Urine, Random 72 >20 mg/dL mg/dL 02/24/2024 12:54 PM T [facility] Urine Non-blood Collection / Unknown 02/24/2024 7:35 AM CDT 02/24/2024 7:35 AM CDT Jeanne Guerrakeila [facility]_1 Performing Organization Address City/[facility]/ZIP Co de Phone Number [facility] [address] [place] [address] * (ABNORMAL) Hgb A1C (02/24/2024 7:35 AM CDT) Hemoglobin A1C 8.8(H) <=5.6 % 02/24/2024 1:51 PM CDT [place] [facility] Estimated Average Glucose (Calc) 206 < 117 mg/dL 02/24/2024 1:51 PM CDT [facility] Comment:Estimated average gl ucose (eAG) converts A1c into glucose units (mg/dL) and estimates average glucose over the past approximately 3 months. The eAG reference interval (<117 mg/dL) corresponds to an A1c of <5.7%. Blood Venipuncture / Unknown 02/24/2024 7:35 AM CDT 02/24/2024 7:35 AM CDT Narrative [facility] - 02/24/2024 1:51 PM CDT For patients not previously diagnosed with diabetes: 5.7-6.4%: Increased risk for diabetes 6.5% and greater: Diagnostic for diabetes For patients diagnosed with diabetes: <8.0%: Goal of therapy for ages 18-75 Clinicians may recommend a higher or lower goal for specific individuals. Jeanne Edwardskem [facility]_1 Performing Organization Address City/[facility]/ZIP Co de Phone Number [facility] [address] [address], [facility] from Last 3 Months Care Teams Destination Sign Repairer Relationship Specialty Start Date End Date Mj Schaeffer MD [facility] [address] [place], [place] [id number] PCP - General Family Practice 07/22/21
--- OUTSIDE RECORDS SUMMARY | 2024-04-14 17:01 | XMS_ITS | Encounter Summary ---
Author Organization [facility] Address [address] [place] [address] Care Team Providers Care Showcase Maker Name Role Phone Unavailable Primary Care Provider Unavailabl e Reason for Referral * Outpatient (Routine) - Closed Specialty Diagnoses / Procedures Referred By Moe emra Referred To Contact Sleep Medicine Diagnoses Obstructive Sleep Apnea Adult Marcus Ybarra M.D. [address] [place] [address] Phone: tel: fax: [facility] Referral ID Status Reason Start Date Expiration Date Visits Re quested Visits Authorized [id number] Closed 02/02/2024 08/03/2025 1 1 Encounter Details Date Type Department Care Team (Late st Contact Info) Description 02/02/2024 [facility] [address] [place] [address] Marcus Ybarra M.D. [address] [place] [phone] Obstructive Sleep Apnea Adult (Primary Dx) Social History Tobacco Use Types Packs/Day Years Used Date Smoking Tobacco: Never Assessed PHQ-2 Answer Date Recorded PHQ-2 Score 0 [...] st Contact Info) Description 05/16/2024 7:00 PM GAS DISTRIBUTION AND EMERGENCY CLERK [facility]ointment [facility] [place], [place] [address] [place] [phone] Diego Dykes M.D. [address] [place] [phone] Discharge Disposition: Home or Self Care 05/17/2024 9:30 AM GAS DISTRIBUTION AND EMERGENCY CLERK Office Visit [facility] [place], [place] [address] [place] [phone] Diego Dykes M.D. [address] [place] [phone] Scheduled Referrals Name Type Priority Associated Diagnoses Orde r Schedule Sleep Disorders Referral Outpatient Referral Routine Obstructive Sleep Apnea Adult Expected: 02/02/2024 (Approximate), Expires: 05/04/2025 documented as of this encounter Visit Diagnoses Diagnosis Obstructive Sleep Apnea Adult- Primary documented in this encounter Additional Health Concerns Assessment Noted Time PHQ-9 Depression Total Score: 1 01/08/20 18 3:28 PM CDT documented as of this encounter
--- OUTSIDE RECORDS SUMMARY | 2024-04-14 17:01 | XMS_ITS | Encounter Summary ---
Author Organization [facility] Address [address] [place] [address] Care Team Providers Care Bottom Turning Lathe Tender Name Role Phone Elsewhere, Pcp Primary Care Provider Unavailabl e Reason for Referral * Outpatient (Routine) - Authorized Specialty Diagnoses / Procedures Referred By Moe mera Referred To Contact Diagnoses Obstructive Sleep Apnea Adult Procedures Polysomnography (PSG): Split Night; Early PAP Initiation, Non-Positional RUDI, Positional RUDI; CPAP, ASV; if sleep apnea criteri met, try CPAP. If CSA not controlled by CPAP-->ASV titration. Diego Dykes M.D. [address] [place] [address] Phone: tel: fax: [facility] Referral ID Status Reason Start Date Expiration Date V isits Requested Visits Authorized [id number] Authorized 03/10/2024 03/10/2025 1 1 * Specialty Diagnoses / Procedures Referred By Moe mera Referred To Contact Diagnoses Obstructive Sleep Apnea Adult Diego Dykes M.D. [address] [place] [phone] Phone: tel: fax: [facility] Referral ID Status Reason Start Date Expiration Date Visits Re quested Visits Authorized * Outpatient (Routine) - Authorized Specialty Diagnoses / Procedures Referred By Moe mera Referred To Contact Sleep Medicine Diego Dykes M.D. [address] [place] [address] Phone: tel: fax: [facility] Referral ID Status Reason Start Date Expiration Date V isits Requested Visits Authorized [id number] Authorized 03/10/2024 09/09/2025 1 1 Scheduling Instructions Post-study return visit Reason for Visit * Outpatient (Routine) - Closed Specialty Diagnoses / Procedures Referred By Moe t Referred To Contact Sleep Medicine Diagnoses Obstructive Sleep Apnea Adult Marcus Ybarra M.D. [address] [place] [address] Phone: tel: fax: [facility] Referral ID Status Reason Start Date Expiration Date Visits Re quested Visits Authorized [id number] Closed 02/02/2024 08/03/2025 1 1 Encounter Details Date Type Department Care Team (Latest Contact Info) Description 03/10/2024 10:00 AM CDT Comprehensive Visit [facility] in [place], [place] [address] [place] [address] Diego Dykes M.D. [address] [place] [address] Apnea Sleep Obstructive (Primary Dx); Obstructive Sleep Apnea Adult Social History Tobacco Use Types Packs/Day Years [...] Mass Index 26.06 03/10/2024 9:56 AM CDT documented in this encounter Consult Notes * Kirill Johnson D.O., M.S. - 03/10/2024 10:00 AM CDT SUBJECTIVE REASON FOR CONSULT Sleep apnea REFERRING PROVIDER: Marcus Ybarra M.D. HISTORY OF PRESENT ILLNESS Mr. Figueroa is a 68 y.o. male with past medical history of type 1 DM, CAD s/p CABG, aortic stenosis s/p AVR, HTN, HLD, obesity, chronic tobacco use who present to the Sleep Medicine Center for consultation regarding his severe untreated sleep apnea. The following portions of the patient's history were reviewed and updated as appropriate: allergies, current medications, family history, medical history, social history, surgical history, and problem list. Polysomnography from 2019 showed severe obstructive sleep apnea, with an AHI of 57.7 and patient reports home sleep study the same year showed he stopped breathing over 70 times an hour. Patient reports he was prescribed a CPAP but was unable to tolerate the mask, so stopped using it. He presents to clinic today to discuss treatment options at the recommendation of his ballast regulator operator. The patient usually goes to bed at around 10:30 pm and wakes up at around 6:00 am. It takes about 20 minutes to fall asleep. They report waking up at least 2 times, usually for restroom. Takes about 20-30 min to fall back asleep. Sleep is not restorative. Denies dry mouth or sore throat in morning.Admits to morning headaches. Regarding snoring, partner reports loud snoring and witnessed apnea events. Denies snorting, gasping or chocking at night. Usually sleeps on side. Uses 1 pillows. Denies leg movement. Admits to daytime sleepiness. Naps on weekends. Does feel refreshed after a nap. Never experienced hallucinations or sleep paralysis. Other sleep history is negative for: restless legs symptoms, witnessed periodic limb movements of sleep, dream enactment episodes, cataplexy, hypnagogic-hypnopompic h allucinations, sleep paralysis, sleep walking and sleep talking Current smoker, 61 pack years. Denies alcohol use. Drinks tea throughout the day caffeinated beverages. Does not use OTC or prescribed medications for sleep. Denies family history of sleep disorders. REVIEW OF SYSTEMS Pertinent items are noted in HPI; all other review of systems was negative OBJECTIVE There were no vitals filed for this visit. PHYSICAL EXAMINATION General Appearance: Normal. Ears, Nose, Mouth and Throat: Nose normal. Teeth and gums normal. Oropharynx: Wilson: 4. Normal palate arch. Normal bite. No retrognathia noted. Neck: Neck: Neck circumference: 39 cm . Thyroid normal. Jugular veins normal. Respiratory: Chest expansion and symmetry normal. Respiratory effort normal. Auscultation of lungs normal. Cardiovascular: Auscultation of heart normal. Normal S1 and S2. No murmurs, gallops, or rubs. No pedal edema. Radial pulses normal. Gastrointestinal: Abdomen nontender, nondistended, normal bowel sounds. Lymphatic: No cervical or supraclavicular adenopathy Musculoskeletal: Strength and tone normal. Gait normal. Extremities: No clubbing, cyanosis or edema. Skin: No rash or significant lesions noted. Neurological/psychiatric: Oriented to time, place and person. Mood and affect normal. ASSESSMENT / PLAN is a 68 y.o.male who presents to the Sleep Medicine Center for consultation regarding his obstructive sleep apnea. #1 Severe obstructive Sleep Apnea Adult, AHI 57.7 on PSG from 2019 #2 CPAP intolerance #3 CAD s/p CABG #4 Chronic tobacco use PLAN: - Discussed treatment options with patient. He has not had a sleep study or trialed CPAP in 5 years. He is open to try again and is agreeable for repeat in- lab sleep study with CPAP titration. Will follow up in clinic after study to discuss results and further steps. - If patient continues to be intolerant to CPAP therapy, will plan on referral to ENT for endoscopic evaluation to see if he is a candidate. This patient was staffed with Dr. Dykes who agrees with the above assessment and plan. PATIENT EDUCATION Ready to learn, no apparent learning barriers were identified; learning preferences include listening. Explained diagnosis and treatment plan; patient expressed understanding of the content. * Diego Dykes M.D. - 03/10/2024 10:00 AM CDT CHIEF COMPLAINT / REASON FOR CONSULT Question Obstructive Sleep Apnea Syndrome HISTORY OF PRESENT ILLNESS David Figueroa is a 68 y.o. male referred by Fartun Pichardo*. I interviewed and examined thepatient, and reviewed and discussed the documented findings impressions and plans of Dr. Kirill Johnson DO from his note of earlier today, and I agree except as noted below. Patient has a previously established diagnosis of severe obstructive sleep apnea, but a CPAP titration was not performed and he was given empiric therapy without success. The only mask he is ever tried was an oral nasal mask and his efforts were not sustained. He continues to have many symptoms suggestive of obstructive sleep apnea. Per patient's recall he had a home sleep apnea test that showed that he stopped breathing ???more than 70 times per hour?? . I was able to find a copy of a polysomnogram performed on 12/29/2018 which only showed bilevel positive airway pressure titration in the S mode. At all pressures, there were continued apneas and hypopneas. Unfortunately the copy is poor enough that I am not able to detect whether or not these are central, but it looks like at the very last titration he was switched over daria ST device with minimum EPAP and that things were better. It raises the question whether or not he may have central sleep apnea or treatment emergent central sleep apnea. Past Medical History Past Medical History: Diagnosis Date Abuse Tobacco Smoking Apnea Sleep Obstructive 12/27/2020 Atherosclerosis Of Coronary Artery Bypass Graft Without Angina Pectoris 12/22/2019 Atherosclerotic Heart Disease Of [place] Coronary Artery Without Angina Pectoris 09/14/2017 Diabetes Mellitus Type 1 Peripheral Neuropathy (HCC) 09/02/2017 Dyslipidemia NOS 12/11/2020 Hyperlipidemia 09/02/2017 Hypertension Essential Primary 09/02/2017 Nonrheumatic Aortic Valve Stenosis 09/02/2017 Peripheral Vascular Disease (HCC) 09/02/2017 Prosthesis Heart Valve 09/15/2017 Aortic valve replacement with 23 mm Carey Magna Ease pericardial valve--09/15/17 Dr. Hameed Transient Ischemic Attack 09/08/2017 In 2004, presented with slurred speech and weakness of right arm and severe fatigue. I have reviewed the medications, allergies, family history in the health record. Standardized Instruments [place] Score (Scores of less than 10 are considered within the normal range.) MAZIN Score: Promis 10 No data to display Stop Bang Total Score: 6 REVIEW OF SYSTEMS Reviewed and negative or not contributory except as in HPI VITAL SIGNS Blood Pressure: 108/63 (03/10/2024 9:56 AM) Pulse Rate: 60 (03/10/2024 9:56 AM) BMI (Calculated): 26.1 kg/m?? (03/10/2024 9:56 AM) Height: 170.5 cm (shoes on) (03/10/2024 9:56 AM) Weight: 75.8 kg (shoes on) (03/10/2024 9:56 AM) PHYSICAL EXAMINATION General: No acute distress Assessment/Plan #1 Probably Sleep Apnea Syndrome #2 BMI Estimated body mass index is 26.06 kg/m?? as calculated from the following: Height as of this encounter: 170.5 cm. Weight as of this encounter: 75.8 kg. With his normal ejection fraction and history, obstructive sleep apnea certainly seems most likely.However, the polysomnogram above raises the possibility of either central or possibly treatment emergent central sleep apnea. I think it would be best to put him in the laboratory again, do a split night study with the first portion being diagnostic, and then a CPAP trial, and if central sleep apnea develops, switch to adaptive Servo ventilation if needed. We will see him back and review the results and decide on next steps. He is agreeable to a try. Dr. Johnson and I spent 60 minutes in care of the patient today. This includes time spent before thevisit reviewing the chart, time spent with the patient during the visit, time spent ordering medications, tests, or procedures, and time spent after the visit on documentation. documented in this encounter Plan of Treatment Upcoming Encounters Date Type Department Care Team (Late st Contact Info) Description 05/16/2024 7:00 PM INSIGHT DIRECTOR Appointment [facility] in [place], [place] [address] [place] [address] Diego Dykes M.D. [address] [place] [address] Discharge Disposition: Home or Self Care 05/17/2024 9:30 AM INSIGHT DIRECTOR Office Visit [facility] [place], [place] [address] [place] [address] Diego Dykes M.D. [address] [place] [address] Scheduled Orders Name Type Priority Associated Diagnoses Orde r Schedule Polysomnography (PSG): Split Night; Early PAP Initiation, Non-Positional RUDI, Positional RUDI; CPAP, ASV; if sleep apnea criteri met, try CPAP. If CSA not controlled by CPAP-->ASV titration. Sleep Center Routine Obstructive Sleep Apnea Adult Expected: 03/10/2024, Expires: 06/10/2025 Scheduled Referrals Name Type Priority Associated Diagnoses Order Schedule Sleep Medicine office visit (clinic) Outpatient Referral Routine Expected: 03/10/2024 (Approximate), Expires: 06/10/2025 Sleep Medicine - Technnologist education visit (clinic) Outpatient Referral Routine Obstructive Sleep Apnea Adult Expected: 03/10/2024, Expires: 06/10/2025 documented as of this encounter Visit Diagnoses Diagnosis Apnea Sleep Obstructive- Primary Obstructive Sleep Apnea Adult documented in this encounter Additional Health Concerns Assessment Noted Time PHQ-9 Depression Total Score: 1 01/08/20 18 3:28 PM CDT documented as of this encounter Care Teams Bottom Turning Lathe Tender Relationship Specialty Start Date End Date Elsewhere, Pcp PCP - General Internal Medicine 03/03/24 documented as of this encounter
--- OUTSIDE RECORDS SUMMARY | 2024-04-14 17:01 | XMS_ITS | Continuity of Care Document ---
Author Organization [facility] Address [address] [place] [address] Phone Care Team Providers Care Manager Women Name Role Phone Preeti Benito MD Unavailable [...] Available - Active Procedures Procedure Date Office/Outpatient Visit,[facility] 2023 Advance Directives Directive Yes / No Effective Date File Name No Information Encounters Encounter Description Practice Location Reason(s) For Visit Diagnoses Date Provider Providers Copied on Encounter Office/Outpat ient Visit,New, [facility] Emily/EMEKA C, [address], [place], [place], [id number], [place] tel:[phone] [facility] Spinal stenosis, lumbar region with neurogenic claudication 4 [facility], [address], [place], [place], [id number] , [place]. tel:[phone] Referring Provider: Mj Brooks, [facility] [address] [place] [address], [address]. tel:[phone] Family History Family Member Type Diagnosis Age At Onset Father Problem (finding) Cardiovascular disease Mother Problem (finding) Cancer, unknown type Payers Payer name Insurance type Covered republican ID Dixie ayala(s) Zach Diaz 2021 CI [id number] Social History Type Description Quantity Date Captured [...]
--- OUTSIDE RECORDS SUMMARY | 2024-04-14 17:01 | XMS_ITS | Encounter Summary ---
Author Organization [facility] Address [address] [place] [address] Care Team Providers Care Instructional Assistant Name Role Phone Elsewhere, Pcp Primary Care Provider Unavailabl e Reason for Visit * Reason Onset Date Comments Pre-visit Intake 03/03/2024 Encounter Details Date Type Department Care Team (Latest Contact Info) Description 03/03/2024 3:00 PM CDT Clinical Communication Virtual Review in [place], [place] [address] [place] [address] Pre-visit Intake Social History Tobacco Use Types Packs/Day Years [...] st Contact Info) Description 05/16/2024 7:00 PM LITERACY CONSULTANT Appointment [facility] in [place], [place] [address] [place] [address] Diego Dykes M.D. [address] [place] [phone] Discharge Disposition: Home or Self Care 05/17/2024 9:30 AM LITERACY CONSULTANT Office Visit [facility] in [place], [place] [address] [place] [address] Diego Dykes M.D. [address] [place] [address] documented as of this encounter Visit Diagnoses Not on filedocumented in this encounter Additional Health Concerns Assessment Noted Time PHQ-9 Depression Total Score: 1 01/08/20 18 3:28 PM CDT documented as of this encounter Care Teams Instructional Assistant Relationship Specialty Start Date End Date Elsewhere, Pcp PCP - General Internal Medicine 03/03/24 documented as of this encounter
--- OUTSIDE RECORDS SUMMARY | 2024-04-14 17:02 | XMS_ITS | Encounter Summary ---
Author Organization [facility] Address [address] [place] [address] Care Team Providers Care Finishing Supervisor Name Role Phone Mj Schaeffer MD Primary Care Provider [phone] Reason for Visit * Reason Comments Forms Chart notes - Surveyor Encounter Details Date Type Department Care Team (Late Contact Info) Description 03/23/[address] [place] [facility] [place]. [place], [place] [phone] Jeanne Shay MBBS [address] [employer] [phone] Forms (Chart notes - Surveyor ) Social History Tobacco Use Types Packs/Day Years Used Date Smoking Tobacco: Every Day Smokeless Tobacco: Never Sex and Gender Information Value Date Recorded Sex Assigned at Not on file Gender Identity Not on file Sexual Orientation Not on file documented as of this encounter Nursing Notes * Carolina Prasad - 03/23/2024 9:56 AM CDT Faxed chart notes to Surveyor [phone] from 02/29/24 appt documented in this encounter Plan of Treatment Upcoming Encounters Date Type Department Care Team (Late Contact Info) Description 05/09/2024 7:45 AM TUBING MILL OPERATOR Appointment [facility] [address] [place] [phone] Jeanne Shay MBBS [address] [employer], [place] [phone] documented as of this encounter Visit Diagnoses Not on filedocumented in this encounter Care Teams Finishing Supervisor Relationship Specialty Start Date End Date Mj Schaeffer MD [facility] [address] [place] [address] PCP - General Family Practice 07/22/21 documented as of this encounter
--- OUTSIDE RECORDS SUMMARY | 2024-04-14 17:02 | XMS_ITS | Encounter Summary ---
Author Organization [facility] Address [address], [place] [address] Care Team Providers Care Merchandise Coordinator Name Role Phone Mj Schaeffer MD Primary Care Provider [phone] Reason for Visit * Reason Comments Refill Continuous Glucose S ensor (DEXCOM G6 SENSOR) [Pharmacy Med Name: DEXCOM G6 SENSOR MISCELLANEOUS]; Continuous Glucose Transmitter (DEXCOM G6 TRANSMITTER) [Pharmacy Med Name: DEXCOM G6 TRANSMITTER MISCELLANEOUS] Encounter Details Date Type Department Care Team (Late st Contact Info) Description 02/12/2024 Refill [facility] [address] [place] [address]. [place], [place] [phone] Joe Shay MBBS [address] [place] [address] Refill (Continuous Glucose Sensor (DEXCOM G6 SENSOR) [Pharmacy Med Name: DEXCOM G6 SENSOR MISCELLANEOUS]; Continuous Glucose Transmitter (DEXCOM G6 TRANSMITTER) [Pharmacy Med Name: DEXCOM G6 TRANSMITTER MISCELLANEOUS]) Social History Tobacco Use Types Packs/Day Years Used Date Smoking Tobacco: Every Day Smokeless Tobacco: Never Sex and Gender Information Value Date Recorded Sex Assigned at Not on file Gender Identity Not on file Sexual Orientation Not on file documented as of this encounter Nursing Notes * Evangelista Connelly RN - 02/14/2024 1:10 PM CDT Renewed medication per medication refill standing order. Requested Prescriptions Signed Prescriptions Disp Refills Continuous Glucose Sensor (DEXCOM G6 SENSOR) 9 Each 3 Sig: USE ONCE EVERY 10 DAYS Authorizing Provider: JOE SHAY Ordering User: EVANGELISTA CONNELLY Continuous Glucose Transmitter (DEXCOM G6 TRANSMITTER) 1 Each 3 Sig: CHANGE ONCE EVERY 90 DAYS Authorizing Provider: JOE SHAY Ordering User: EVANGELISTA CONNELLY * Gisel Nair Xrwcomm - 02/12/2024 9:16 AM CDT Continuous Glucose Sensor (DEXCOM G6 SENSOR) [Pharmacy Med Name: DEXCOM G6 SENSOR MISCELLANEOUS] Diabetes Supplies -> Provider co-signature is required for DME on patients 65+ years old. -> Age is abnormal (69 is greater than 64.0) -> Refill x 9 months (until due for an office visit) Last qualifying visit: 10/26/2023 (in [facility]) Next scheduled visit: 02/23/2024 (in [facility]) Last ordered by JOE SHAY: 03/17/2023 (332 days ago) QTY: 3, Refills: 11, Sig: use once every 10 days (unchanged) Age: 68 [employer] Emb[employer]ded Refills, Reference: [id number], 02/12/2024 9:16:53 AM CDT, Pool: CUONG PNREFILL ([id number]) Continuous Glucose Transmitter (DEXCOM G6 TRANSMITTER) [Pharmacy Med Name: DEXCOM G6 TRANSMITTER MISCELLANEOUS] Diabetes Supplies -> Provider co-signature is required for DME on patients 65+ years old. -> Age is abnormal (69 is greater than 64.0) -> Refill x 9 months (until due for an office visit) Last qualifying visit: 10/26/2023 (in ENDOCRINOLOGY) Next scheduled visit: 02/23/2024 (in [facility] ENDOCRINOLOG[facility]) Last ordered by JOE SHAY: 03/17/2023 (332 days ago) QTY: 1, Refills: 3, Sig: change once every 90 days (unchanged) Age: 68 [employer] Emb[employer]ded Refills, Reference: [id number], 02/12/2024 9:16:53 AM CDT, Pool: CUONG PNREFILL ([id number]) documented in this encounter Plan of Treatment Upcoming Encounters Date Type Department Care Team (Late st Contact Info) Description 05/09/2024 7:45 AM CHILDCARE PROVIDER Appointment [facility] [address] [place] [address] Joe Shay MBBS [address] [place] [address] documented as of this encounter Visit Diagnoses Diagnosis Uncontrolled type 1 diabetes mellitus with hyperglycemia (HRC) documented in this encounter Care Teams Merchandise Coordinator Relationship Specialty Start Date End Date Mj Schaeffer MD [facility] [address] [place] [address] PCP - General Family Practice 07/22/21 documented as of this encounter
--- OUTSIDE RECORDS SUMMARY | 2024-04-14 17:02 | XMS_ITS | Clinical Summary ---
Author Organization [facility] Address [address] [place] [address] Care Team Providers Care Cigar Head Puncher Name Role Phone Mj Schaeffer MD Primary Care Provider [phone] Allergies Active Allergy Reactions Criticality Noted Date [...] at Not on file Legal Sex Male 5:53 PM CDT Gender Identity Not on file Sexual [...] of Treatment Not on file Care Teams Cigar Head Puncher Relationship Specialty Start Date End Date Mj Schaeffer MD PCP - General Family Practice 12/16/18
--- OUTSIDE RECORDS SUMMARY | 2024-04-14 17:02 | XMS_ITS | Encounter Summary ---
Author Organization [facility] Address [address], [place] [address] Care Team Providers Care Cash Register Operator Name Role Phone Mj Schaeffer MD Primary Care Provider [phone] Reason for Visit * Reason Comments Refill metFORMIN XR (GLUCOP SHUBHAM XR) 500 MG 24 hour release tablet [Pharmacy Med Name: METFORMIN HYDROCHLORIDE ER 500MG TABLET EXTENDED RELEASE 24 HOUR] Encounter Details Date Type Department Care Team (Late st Contact Info) Description 04/03/2024 Refill [facility] [address] [place] [address] Joe Shay MBBS [address] [place], [place] [id number] Refill (metFORMIN XR (GLUCOPHAGE XR) 500 MG 24 hour release tablet [Pharmacy Med Name: METFORMIN HYDROCHLORIDE ER 500MG TABLET EXTENDED RELEASE 24 HOUR]) Social History Tobacco Use Types Packs/Day Years Used Date Smoking Tobacco: Every Day Smokeless Tobacco: Never Sex and Gender Information Value Date Recorded Sex Assigned at Not on file Gender Identity Not on file Sexual Orientation Not on file documented as of this encounter Nursing Notes * Gisel Nair Xrwcomm - 04/03/2024 6:17 AM CDT metFORMIN XR (GLUCOPHAGE XR) 500 MG 24 hour release tablet [Pharmacy Med Name: METFORMIN HYDROCHLORIDE ER 500MG TABLET EXTENDED RELEASE 24 HOUR] Metformin -> The patient is requesting refills too soon, the current prescription is due to run out on 02/23/2025. -> No active medication found with matching release formulation, but a historical partial match is present. -> Cr is abnormal (0.69 mg/dL lies outside 0.73 mg/dL - 1.18 mg/dL) -> HBA1C is abnormal (8.8 % is greater than 7.9 %) -> Refill x 12 months, qty: 360, refills: 3 (until due for a(n) Cr check and HBA1C check) Last qualifying visit: 02/29/2024 (in ENDOCRINOLOGY) Next scheduled visit: 05/09/2024 (in ENDOCRINOLOGY) Last ordered by JOE SHAY M: 02/29/2024 (34 days ago) QTY: 360, Refills: 3, Sig: take 4 tablets (2,000 mg) by mouth every evening with a meal. (unchanged) Cr: 0.69 mg/dL on 02/24/2024 HBA1C: 8.8 % on 02/24/2024 [facility] Embedded Refills, Reference: [id number], 04/03/2024 6:17:06 AM CDT, Delroy: CUONG VEE ([id number]) documented in this encounter Plan of Treatment Upcoming Encounters Date Type Department Care Team (Late st Contact Info) Description 05/09/2024 7:45 AM AUTOMATION QTP TESTER Appointment [facility] [address] [place] [address] Joe Shay MBBS [address] [place] [address] documented as of this encounter Visit Diagnoses Not on filedocumented in this encounter Care Teams Cash Register Operator Relationship Specialty Start Date End Date Mj Schaeffer MD [facility] [address] [place] [address] PCP - General Family Practice 07/22/21 documented as of this encounter
--- OUTSIDE RECORDS SUMMARY | 2024-04-14 17:02 | XMS_ITS | Encounter Summary ---
Author Organization [employer] Address [address] [place] [address] Care Team Providers Care Event Sales Representative Name Role Phone Mj Schaeffer MD Primary Care Provider [phone] Reason for Visit * Reason Comments Diabetes Encounter Details Date Type Department Care Team (Late st Contact Info) Description 02/29/2024 10:45 AM CDT Office Visit [facility] [address] [place] [address] Jeanne Shay MBBS [address] [place], [place] [address] Uncontrolled type 1 diabetes mellitus with hyperglycemia (HRC) (Primary Dx); Essential hypertension (HRC); Dyslipidemia (high LDL; low HDL) (HRC); 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 He came with his who is my patient as well. HPI: David Figueroa is a 68 y.o. male #1 T1DM: Diagnosed in 2014, had positive antibodies per his report. This is complicated by neuropathy and CAD. He is currently using Omnipod with Nemesio CGM. Pump settings are: basal midnight 1.7, 2 am 1.2, 8AM 1, 2 PM 1.6, 9 PM 1.8 , bolus midnight 1 per 13, 11:30 15, and 10 after 2 pm. SF 40, target 100 during the day and 110 overnight, insulin time 4 hrs. He is using metformin XR 2 gm daily. He uses CGM with dexcom, CGM data for 2 weeks were reviewed, average glucose was 171, GMI 7.4. 13% >250, 31%181-250, 54% in range (70-180), 2%<70 and 1%<54. He has Hypoglycemia overnight and after meals. He was diagnosed with gastroparesis, lost 10 lbs, eating less. He has peripheral neuropathy symptoms, controlled with gabapentin 300 mg in the AM and 600 mg at night. Eye exam from this year was reported with no retinopathy. Creatinine from 02/2024 was 0.69, had normal urine microalbumin. He had CABG in 2018, he takes atorvastatin 80 mg daily, lisinopril 2.5 mg daily, and metoprolol 50 mg BID. He has RUDI not using CPAP. Physical Examination: Vitals: BP 123/61 (BP Location: Left Arm, BP Cuff Size: Regular - Long) Pulse 63 Ht 5' 7 (1.702 m) Wt 167 lb 1.6 oz (75.8 kg) BMI 26.17 kg/m?? General: The patient is alert and oriented, no acute distress. Labs/imaging: Reviewed and summarized in the HPI. Assessment and Plan: David Figueroa is a 68 y.o. male: #1 T1DM: fairly controlled, complicated by neuropathy and CAD. Counseled him about the importance of DM control. Counseled him about diet and exercise. Continue metformin XR, 2 gm daily. Change basal to 1.5 from midnight to 2 AM, 1. Units per hr from 2AM-8AM. change bolus to 1 per 15 for breakfast, 18 for lunch and 12 for dinner ok to bolus after eating dueto Gastroparesis. Use 1/2 bolus for breakfast when planning to be active. Use temp basal when active. Continue CGM use. Use dexcom if possible. Use glucagon if not able to help himself. Request Ilet pump for him. RTC 3 months. #2 HTN: controlled. #3 Dyslipidemia on a statin. #4 CAD s/p CABG. #5 RUDI advised him on using CPAP. MERE Ruelas Babysitter * Jaime Holley - 02/29/2024 10:45 AM CDT Images from the original note were not included. documented in this encounter Plan of Treatment Upcoming Encounters Date Type Department Care Team (Late st Contact Info) Description 05/09/2024 7:45 AM TUB WASHER Appointment [facility] [address] [place] [address] Jeanne Shay MBBS [facility] [place] [address] documented as of this encounter Visit Diagnoses Diagnosis Uncontrolled type 1 diabetes mellitus with hyperglycemia (HRC)- Primary Essential hypertension (HRC) Unspecified essential hypertension Dyslipidemia (high LDL; low HDL) (HRC) Other and unspecified hyperlipidemia Coronary artery disease involving coronary bypass graft of nondalton heart without angina pectoris (HRC) documented in this encounter Care Teams Event Sales Representative Relationship Specialty Start Date End Date Mj Schaeffer MD [facility] [address] [place] [address] PCP - General Family Practice 07/22/21 documented as of this encounter
--- OUTSIDE RECORDS SUMMARY | 2024-04-14 17:02 | XMS_ITS | Encounter Summary ---
Author Organization [facility] Address [address], [place] [address] Care Team Providers Care Admissions Evaluator Name Role Phone Mj Schaeffer MD Primary Care Provider [phone] Reason for Visit * Reason Comments Follow-up Encounter Details Date Type Department Care Team (Late st Contact Info) Description 02/23/2024 10:15 AM CDT Telemedicine [place] [address] [place] [address]. [place] [address] Joe Shay MBBS [address] [place] [id number] Uncontrolled type 1 diabetes mellitus with hyperglycemia (HRC) (Primary Dx); Essential hypertension (HRC); Dyslipidemia (high LDL; low HDL) (HRC); Coronary artery disease involving coronary bypass graft of [place] tribe heart without angina pectoris (HRC) Social History Tobacco Use Types Packs/Day Years Used Date Smoking Tobacco: Every Day Smokeless Tobacco: Never Sex and Gender Information Value Date Recorded Sex Assigned at Not on file Gender Identity Not on file Sexual Orientation Not on file documented as of this encounter Progress Notes * Joe Shay MBBS - 02/23/2024 10:15 AM CDTAddended by: JOE SHAY on: 02/23/2024 10:24 AM Modules accepted: Orders * Shara Shirley RN - 02/23/2024 10:15 AM CDT Called pt and LVM asking pt to call back to get BS data. It looks like pt is using the Omnipod Dashbut last upload 10/26/23. * Miracle Hurtado RN - 02/23/2024 10:15 AM CDT 02/21 No upload * Dinora Juarez RN - 02/23/2024 10:15 AM CDT 02/22 Lvm asking him to upload his pump and call us back documented in this encounter Plan of Treatment Upcoming Encounters Date Type Department Care Team (Late st Contact Info) Description 05/09/2024 7:45 AM ELECTRICAL JOURNEYMAN Appointment [facility] [address] [place] [address] Joe Shay, MARNIE [address] [place] [address] documented as of this encounter Results * (ABNORMAL) Complete Blood Count-No Diff (02/24/2024 7:35 AM CDT) WBC 10.8(H) 3.5 - 10.5 x10(9)/L 02/24/2024 7:39 AM CDT [facility] RBC 4.52 4.32 - 5.72 x10(12)/L 02/24/2024 7:39 AM CDT [facility] Hemoglobin 13.6 13.5 - 17.5 g/dL 02/24/2024 7:39 AM CDT [facility] HCT 42.5 38.8 - 50.0 % 02/24/2024 7:39 AM CDT [facility] MCV 94.0 80.0 - 100.0 fL 02/24/2024 7:39 AM CDT [facility] MCH 30.1 27.6 - 33.3 pg 02/24/2024 7:39 AM CDT [facility] MCHC 32.0 31.5 - 35.2 g/dL 02/24/2024 7:39 AM CDT [facility] RDW 13.4 11.9 - 15.5 % 02/24/2024 7:39 AM CDT [facility] Platelets 272 150 - 450 x10(9)/L 02/24/2024 7:39 AM CDT [facility] Blood Venipuncture / Unknown 02/24/2024 7:35 AM CDT 02/24/2024 7:35 AM CDT [facility]_1 Performing Organization Address [facility]/ZIP Co de Phone Number [facility] [address] [place] [address] * Lipid Panel and Direct LDL (if needed) (02/24/2024 7:35 AM CDT) [facility] Signature Cholesterol 134 0 - 199 mg/dL 02/24/2024 4:46 PM [facility] Triglyceride 126 <=149 mg/dL 02/24/2024 4:46 PM [facility] HDL Cholesterol 48 >=40 mg/dL 4:46 PM [facility] LDL, Calculated 61 <130 mg/dL 4:46 PM [facility] Non HDL Chol, Calculated 86 <=159 mg/dL 02/24/2024 4:46 PM [facility] Cholesterol/HDL Ratio 2.8 <=5.0 02/24/2024 4:46 PM [facility] Hours Fasting 0.0 8 - 12 Hours 02/24/2024 4:46 PM [facility] Blood Venipuncture / Unknown 02/24/2024 7:35 AM CDT 02/24/2024 7:35 AM CDT [facility] Performing Organization Address City/[facility]/ZIP Co de Phone Number [facility] [address] [place] [address] * Tissue Transglutaminase Ab IgA (02/24/2024 7:35 AM CDT) Pathologist [facility] Tissue Transglutaminase Antibody, IgA 0.7 0.0 - 6.9 U/mL 02/25/2024 12:51 PM CDT [facility] Tissue Transglutaminase Antibody, IgA Interpretation Negative Negative 02/25/2024 12:51 PM CDT [facility] Blood Venipuncture / Unknown 02/24/2024 7:35 AM CDT 02/24/2024 7:35 AM CDT Joe Cisse Jaspal [facility] Performing Organization Address City/[facility]/ZIP Co de Phone Number [facility] [address] * Albumin/Creatinine Ratio,Random Urine (02/24/2024 7:35 AM CDT) [facility] Albumin/Creati nine Ratio, Urine, Random 23 <30 mg/g 02/24/2024 12:54 PM CDT [facility] Albumin, Urine, Random 16.2 mg/L 02/24/2024 12:54 PM CDT [facility] Creatinine, Urine, Random 72 >20 mg/dL mg/dL 02/24/2024 12:54 PM CDT [facility] Urine Non-blood Collection / Unknown 02/24/2024 7:35 AM CDT 02/24/2024 7:35 AM CDT Joe Cisse Jaspal [facility] [address] [place] [address] * Free T4 (02/24/2024 7:35 AM CDT) Pathologist [facility] T4, Free 1.1 0.7 - 1.5 ng/dL 02/24/2024 12:24 PM CDT [facility] Blood Venipuncture / Unknown 02/24/2024 7:35 AM CDT 02/24/2024 7:35 AM CDT Joe Shay [facility] Performing Organization Address [facility] Co de Phone Number [facility] [address] * TSH (02/24/2024 7:35 AM CDT) TSH, Sensitive 2.13 0.30 - 4.50 uIU/mL 02/24/2024 12:23 PM CDT [facility] Blood Venipuncture / Unknown 02/24/2024 7:35 AM CDT 02/24/2024 7:35 AM CDT Joe Shay [facility] Performing Organization Address [facility] Phone Number [facility] [address] * (ABNORMAL) Comp Metabolic Panel (02/24/2024 7:35 AM CDT) Sodium 140 136 - 145 mmol/L 02/24/2024 4:46 PM [facility] Potassium 5.0 3.5 - 5.1 mmol/L 02/24/2024 4:46 PM [facility] Chloride 107 98 - 109 mmol/L 02/24/2024 4:46 PM [facility] CO2 23 20 - 29 mmol/L 02/24/2024 4:46 PM [facility] Anion Gap 10 6 - 16 mmol/L 02/24/2024 4:46 PM [facility] Calcium 9.7 8.4 - 10.4 mg/dL 02/24/2024 4:46 PM [facility] BUN 16 7 - 26 mg/dL 02/24/2024 4:46 PM [facility] Creatinine 0.69(L) 0.73 - 1.18 mg/dL 02/24/2024 4:46 PM [facility] Alkaline Phosphatase 102 40 - 150 U/L 02/24/2024 4:46 PM [facility] AST (SGOT) 15 10 - 40 U/L 02/24/2024 4:46 PM [facility] ALT (SGPT) 14 <=55 U/L 02/24/2024 4:46 PM [facility] Bilirubin, Total 0.4 0.2 - 1.2 mg/dL 02/24/2024 4:46 PM [facility] Protein, Total 8.0 6.4 - 8.3 g/dL 02/24/2024 4:46 PM [facility] Albumin 4.0 3.5 - 5.0 g/dL 02/24/2024 4:46 PM [facility] Glucose 157(H) 70 - 100 mg/dL 02/24/2024 4:46 PM [facility] Comment:The given reference range is for the fasting state. Non-fasting reference range for glucose is 70 - 180 mg/dL. GFR, Estimated >60 >60 mL/min/1.7 3m2 02/24/2024 4:46 PM [facility] Hours Fasting 0.0 8 - 12 Hours 02/24/2024 4:46 PM [facility] Blood Venipuncture / Unknown 02/24/2024 7:35 AM CDT 02/24/2024 7:35 AM CDT Joe Cisse Jaspal [facility] [address] [place] [address] * (ABNORMAL) Hgb A1C (02/24/2024 7:35 AM CDT) Hemoglobin A1C 8.8(H) <=5.6 % 02/24/2024 1:51 PM [facility] Estimated Average Glucose (Calc) 206 < 117 mg/dL 02/24/2024 1:51 PM [facility] Comment:Estimated average gl ucose (eAG) converts A1c into glucose units (mg/dL) and estimates average glucose over the past approximately 3 months. The eAG reference interval (<117 mg/dL) corresponds to an A1c of <5.7%. Blood Venipuncture / Unknown 02/24/2024 7:35 AM CDT 02/24/2024 7:35 AM CDT [facility]ative [email or web address] - 02/24/2024 1:51 PM CDT For patients not previously diagnosed with diabetes: 5.7-6.4%: Increased risk for diabetes 6.5% and greater: Diagnostic for diabetes For patients diagnosed with diabetes: <8.0%: Goal of therapy for ages 18-75 Clinicians may recommend a higher or lower goal for specific individuals. [facility]VERINO [facility] [address] documented in this encounter Visit Diagnoses Diagnosis Uncontrolled type 1 diabetes mellitus with hyperglycemia (HRC)- Primary Essential hypertension (HRC) Unspecified essential hypertension Dyslipidemia (high LDL; low HDL) (HRC) Other and unspecified hyperlipidemia Coronary artery disease involving coronary bypass graft of [place] tribe heart without angina pectoris (HRC) documented in this encounter Care Teams Admissions Evaluator Relationship Specialty Start Date End Date Mj Schaeffer MD [facility] [address] [place] [address] PCP - General Family Practice 07/22/21 documented as of this encounter
--- OUTSIDE RECORDS SUMMARY | 2024-04-14 17:02 | XMS_ITS | Encounter Summary ---
Author Organization [facility] Address [address], [place] [address] Care Team Providers Care Master Motorcycle Technician Name Role Phone Mj Schaeffer MD Primary Care Provider [phone] Reason for Visit * Reason Comments Refill Continuous Glucose S ensor (DEXCOM G6 SENSOR) [Pharmacy Med Name: DEXCOM G6 SENSOR MISCELLANEOUS] Encounter Details Date Type Department Care Team (Late st Contact Info) Description 04/11/2024 Refill [facility] [address] Endocrinology [address] [facility] [place] [address] Joe Shay, MERE [address] [place], [place] [phone] Refill (Continuous Glucose Sensor (DEXCOM G6 SENSOR) [Pharmacy Med Name: DEXCOM G6 SENSOR MISCELLANEOUS]) Social History Tobacco Use Types Packs/Day Years Used Date Smoking Tobacco: Every Day Smokeless Tobacco: Never Sex and Gender Information Value Date Recorded Sex Assigned at Not on file Gender Identity Not on file Sexual Orientation Not on file documented as of this encounter Nursing Notes * Dinora Juarez, RN - 04/11/2024 3:33 PM CST Requested Prescriptions Signed Prescriptions Disp Refills Continuous Glucose Sensor (DEXCOM G6 SENSOR) 9 Each 3 Sig: USE ONCE EVERY 10 DAYS Authorizing Provider: JOE SHAY Ordering User: DINORA JUAREZ Filled per RN protocol. LAMINATOR * Korey, Gisel Xrwcomm - 04/11/2024 2:21 PM CST Continuous Glucose Sensor (DEXCOM G6 SENSOR) [Pharmacy Med Name: DEXCOM G6 SENSOR MISCELLANEOUS] Diabetes Supplies -> The request contains a note from the pharmacy. -> Unable to determine if patient is due for a renewal, please review. -> Provider co-signature is required for DME on patients 65+ years old. -> Age is abnormal (69 is greater than 64.0) -> Refill x 12 months (until due for an office visit) Last qualifying visit: 02/29/2024 (in ENDOCRINOLOGY) Next scheduled visit: 05/09/2024 (in ENDOCRINOLOGY) Last ordered by JOE SHAY: 02/14/2024 (57 days ago) QTY: 9, Refills: 3, Sig: use once every 10 days (unchanged) Age: 68 [facility] Embedded Refills, Reference: [id number], 04/11/2024 2:21:10 PM HAND LAMINATOR, Pool: CUONG PNREFILL ([id number]) LAMINATOR documented in this encounter Plan of Treatment Upcoming Encounters Date Type Department Care Team (Late st Contact Info) Description 05/09/2024 7:45 AM HAND LAMINATOR Appointment [facility] [address] [place] [address] Joe Shay MBBS [address] [place] [address] documented as of this encounter Visit Diagnoses Diagnosis Uncontrolled type 1 diabetes mellitus with hyperglycemia (HRC) documented in this encounter Care Teams Master Motorcycle Technician Relationship Specialty Start Date End Date Mj Schaeffer MD [facility] [place] [address] [place] [address] PCP - General Family Practice 07/22/21 documented as of this encounter
--- OUTSIDE RECORDS SUMMARY | 2024-04-14 17:02 | XMS_ITS | Encounter Summary ---
Author Organization [facility] Address [address], [place] [address] Care Team Providers Care Customer Technical Services Manager Name Role Phone Mj Schaeffer MD Primary Care Provider [phone] Encounter Details Date Type Department Care Team (Late Contact Info) Description 02/24/2024 7:00 AM CDT Lab Visit [facility] [address] [place] [address] Uncontrolled type 1 diabetes mellitus with hyperglycemia (HRC); Essential hypertension (HRC); Dyslipidemia (high LDL; low HDL) (HRC); Coronary artery disease involving coronary bypass graft of osage heart without angina pectoris (HRC) Social History [...] (Late Contact Info) Description 05/09/2024 7:45 AM [employer] MANAGER Appointment [facility] [address] [place] [address] Jeanne Shay MBBS [address] [place] [address] documented as of this encounter Procedures Procedure Name Priority Date/Time Associated Diagnosis Comments TISSUE TRANSGLUTAMINASE AB IGA Routine 02/24/2024 7:35 AM CDT Uncontrolled type 1 diabetes mellitus with hyperglycemia (HRC) Essential hypertension (HRC) Dyslipidemia (high LDL; low HDL) (HRC) Coronary artery disease involving coronary bypass graft of osage heart without angina pectoris (HRC) LIPID PANEL & DIRECT LDL (IF NEEDED) Routine 02/24/2024 7:35 AM CDT Uncontrolled type 1 diabetes mellitus with hyperglycemia (HRC) COMPREHENSIVE METABOLIC PANEL Routine 02/24/2024 7:35 AM CDT Uncontrolled type 1 diabetes mellitus with hyperglycemia (HRC) Essential hypertension (HRC) Dyslipidemia (high LDL; low HDL) (HRC) Coronary artery disease involving coronary bypass graft of osage heart without angina pectoris (HRC) TSH, SENSITIVE Routine 02/24/2024 7:35 AM CDT Uncontrolled type 1 diabetes mellitus with hyperglycemia (HRC) Essential hypertension (HRC) Dyslipidemia (high LDL; low HDL) (HRC) Coronary artery disease involving coronary bypass graft of osage heart without angina pectoris (HRC) COMPLETE BLOOD COUNT-NO DIFF Routine 02/24/2024 7:35 AM CDT Uncontrolled type 1 diabetes mellitus with hyperglycemia (HRC) FREE T4 Routine 02/24/2024 7:35 AM CDT Uncontrolled type 1 diabetes mellitus with hyperglycemia (HRC) Essential hypertension (HRC) Dyslipidemia (high LDL; low HDL) (HRC) Coronary artery disease involving coronary bypass graft of osage heart without angina pectoris (HRC) ALBUMIN/CREAT RATIO Routine 02/24/2024 7 :35 AM CDT Uncontrolled type 1 diabetes mellitus with hyperglycemia (HRC) Essential hypertension (HRC) Dyslipidemia (high LDL; low HDL) (HRC) Coronary artery disease involving coronary bypass graft of osage heart without angina pectoris (HRC) HGB A1C Routine 02/24/2024 7:35 AM CDT Uncontrolled type 1 diabetes mellitus with hyperglycemia (HRC) Essential hypertension (HRC) Dyslipidemia (high LDL; low HDL) (HRC) Coronary artery disease involving coronary bypass graft of osage heart without angina pectoris (HRC) documented in this encounter Results * (ABNORMAL) Complete Blood Count-No Diff (02/24/2024 7:35 AM CDT) Pathologist [facility] WBC 10.8(H) 3.5 - 10.5 x10(9)/L 02/24/2024 7:39 AM CDT [facility] RBC 4.52 4.32 - 5.72 x10(12)/L 02/24/2024 7:39 AM T [facility] Hemoglobin 13.6 13.5 - 17.5 g/dL 02/24/2024 7:39 AM T [facility] HCT 42.5 38.8 - 50.0 % 02/24/2024 7:39 AM T [facility] MCV 94.0 80.0 - 100.0 fL 02/24/2024 7:39 AM T [facility] MCH 30.1 27.6 - 33.3 pg 02/24/2024 7:39 AM T [facility] MCHC 32.0 31.5 - 35.2 g/dL 02/24/2024 7:39 AM T [facility] RDW 13.4 11.9 - 15.5 % 02/24/2024 7:39 AM T [facility] Platelets 272 150 - 450 x10(9)/L 02/24/2024 7:[address] [facility] Blood Venipuncture / Unknown 02/24/2024 7:35 AM CDT 02/24/2024 7:35 AM CDT Jeanne Tanna Jaspal [facility] Performing Organization Address City/State/[facility] Co de Phone Number [facility] [address] [place] [address] * Lipid Panel and Direct LDL (if needed) (02/24/2024 7:35 AM CDT) Pathologist [facility] Cholesterol 134 0 - 199 mg/dL 02/24/2024 4:46 PM T [facility] Triglyceride 126 <=149 mg/dL 02/24/2024 4:46 PM T [facility] HDL Cholesterol 48 >=40 mg/dL 4 4:46 PM [facility] LDL, Calculated 61 <130 mg/dL 4 4:46 PM T [facility] Non HDL Chol, Calculated 86 <=159 mg/dL 02/24/2024 4:46 PM [facility] Cholesterol/HDL Ratio 2.8 <=5.0 02/24/2024 4:46 PM T [facility] Hours Fasting 0.0 8 - 12 Hours 02/24/2024 4:46 PM T [facility] Blood Venipuncture / Unknown 02/24/2024 7:35 AM CDT 02/24/2024 7:35 AM CDT Jeanne Shay [facility] [address] [place] [address] * Tissue Transglutaminase Ab IgA (02/24/2024 7:35 AM CDT) Tissue Transglutaminase Antibody, IgA 0.7 0.0 - 6.9 U/mL 02/25/2024 12:51 PM T [facility] Tissue Transglutaminase Antibody, IgA Interpretation Negative Negative 02/25/2024 12:51 PM [facility] Blood Venipuncture / Unknown 02/24/2024 7:35 AM CDT 02/24/2024 7:35 AM CDT Jeanne Guerrakeila [facility] Performing Organization Address City/[facility]/ZIP Co de Phone Number [facility] [address] * Albumin/Creatinine Ratio,Random Urine (02/24/2024 7:35 AM CDT) Albumin/Creati nine Ratio, Urine, Random 23 <30 mg/g 02/24/2024 12:54 PM T [facility] Albumin, Urine, Random 16.2 mg/L 02/24/2024 12:54 PM T [facility] Creatinine, Urine, Random 72 >20 mg/dL mg/dL 02/24/2024 12:54 PM T [facility] Urine Non-blood Collection / Unknown 02/24/2024 7:35 AM CDT 02/24/2024 7:35 AM CDT Jeanne Shay [facility] Performing Organization Address [facility]/ZIP Co de Phone Number [facility] [address] [place] [address] * Free T4 (02/24/2024 7:35 AM CDT) T4, Free 1.1 0.7 - 1.5 ng/dL 02/24/2024 12:24 PM CDT [facility] Blood Venipuncture / Unknown 02/24/2024 7:35 AM CDT 02/24/2024 7:35 AM CDT Jeanne Shay [facility] Performing Organization Address [facility] de Phone Number [facility] [address] * TSH (02/24/2024 7:35 AM CDT) Pathologist [facility] TSH, Sensitive 2.13 0.30 - 4.50 uIU/mL 02/24/2024 12:23 PM CDT [facility] Blood Venipuncture / Unknown 02/24/2024 7:35 AM CDT 02/24/2024 7:35 AM CDT Jeanne Shay [facility] Performing Organization Address [facility] de Phone Number [facility] [address] * (ABNORMAL) Comp Metabolic Panel (02/24/2024 7:35 AM CDT) Pathologist [facility] Sodium 140 136 - 145 mmol/L 02/24/2024 4:46 PM CDT [facility] Potassium 5.0 3.5 - 5.1 mmol/L 02/24/2024 4:46 PM CDT [facility] Chloride 107 98 - 109 mmol/L 02/24/2024 4:46 PM [facility] CO2 23 20 - 29 mmol/L 02/24/2024 4:46 PM [facility] Anion Gap 10 6 - 16 mmol/L 02/24/2024 4:46 PM [facility] Calcium 9.7 8.4 - 10.4 mg/dL 02/24/2024 4:46 PM [facility] BUN 16 7 - 26 mg/dL 02/24/2024 4:46 PM [facility] Creatinine 0.69(L) 0.73 - 1.18 mg/dL 02/24/2024 4:46 PM [facility] Alkaline Phosphatase 102 40 - 150 U/L 02/24/2024 4:46 PM [facility] AST (SGOT) 15 10 - 40 U/L 02/24/2024 4:46 PM [facility] ALT (SGPT) 14 <=55 U/L 02/24/2024 4:46 PM [facility] Bilirubin, Total 0.4 0.2 - 1.2 mg/dL 02/24/2024 4:46 PM [facility] Protein, Total 8.0 6.4 - 8.3 g/dL 02/24/2024 4:46 PM [facility] Albumin 4.0 3.5 - 5.0 g/dL 02/24/2024 4:46 PM [facility] Glucose 157(H) 70 - 100 mg/dL 02/24/2024 4:46 PM [facility] Comment:The given reference range is for the fasting state. Non-fasting reference range for glucose is 70 - 180 mg/dL. GFR, Estimated >60 >60 mL/min/1.7 3m2 02/24/2024 4:46 PM [facility] Hours Fasting 0.0 8 - 12 Hours 02/24/2024 4:46 PM [facility] Blood Venipuncture / Unknown 02/24/2024 7:35 AM CDT 02/24/2024 7:35 AM T Jeanne Shay [facility] [address] [place] [address] * (ABNORMAL) Hgb A1C (02/24/2024 7:35 AM CDT) Hemoglobin A1C 8.8(H) <=5.6 % 02/24/2024 1:51 PM CDT [facility] Estimated Average Glucose (Calc) 206 < 117 mg/dL 02/24/2024 1:51 PM CDT [facility] Comment:Estimated average gl ucose (eAG) converts A1c into glucose units (mg/dL) and estimates average glucose over the past approximately 3 months. The eAG reference interval (<117 mg/dL) corresponds to an A1c of <5.7%. Blood Venipuncture / Unknown 02/24/2024 7:35 AM CDT 02/24/2024 7:35 AM CDT Narrative [facility] - 02/24/2024 1:51 PM CDT For patients not previously diagnosed with diabetes: 5.7-6.4%: Increased risk for diabetes 6.5% and greater: Diagnostic for diabetes For patients diagnosed with diabetes: <8.0%: Goal of therapy for ages 18-75 Clinicians may recommend a higher or lower goal for specific individuals. [facility] [address] [address], [facility] documented in this encounter Visit Diagnoses Diagnosis Uncontrolled type 1 diabetes mellitus with hyperglycemia (HRC) Essential hypertension (HRC) Unspecified essential hypertension Dyslipidemia (high LDL; low HDL) (HRC) Other and unspecified hyperlipidemia Coronary artery disease involving coronary bypass graft of osage heart without angina pectoris (HRC) documented in this encounter Care Teams Customer Technical Services Manager Relationship Specialty Start Date End Date Mj Schaeffer MD [facility] [address] [place] [address] PCP - General Family Practice 07/22/21 documented as of this encounter
--- OUTSIDE RECORDS SUMMARY | 2024-04-14 17:02 | XMS_ITS | Referral Summary ---
Author Organization [facility] Address [address] [place] [id number] Care Team Providers Care Billing Collections Specialist Name Role Phone Mj Schaeffer MD Primary Care Provider [phone] Allergies Active Allergy Reactions Criticality Noted Date [...] of Treatment Not on file Care Teams Billing Collections Specialist Relationship Specialty Start Date End Date Mj Schaeffer MD PCP - General Family Practice 12/16/18
--- OUTSIDE RECORDS SUMMARY | 2024-04-14 17:02 | XMS_ITS | Encounter Summary ---
Author Organization [facility] Address [address] [address] Care Team Providers Care Truck Spotter Name Role Phone Mj Schaeffer MD Primary Care Provider [phone] Reason for Visit * Reason Comments Forms Encounter Details Date Type Department Care Team (Late st Contact Info) Description 02/29/2024 Telephone [facility] [address] [facility] [address] [facility] [place] [address] Jeanne Shay MBBS [address] [place] [address] Forms Social History Tobacco Use Types Packs/Day Years Used Date Smoking Tobacco: Every Day Smokeless Tobacco: Never Sex and Gender Information Value Date Recorded Sex Assigned at Not on file Gender Identity Not on file Sexual Orientation Not on file documented as of this encounter Nursing Notes * Carolina Prasad - 03/06/2024 10:02 AM CDT Completed [employer] faxed to #[phone] , hard copy filed in *Jaspal done folder * Miracle Hurtado RN - 02/29/2024 2:32 PM CDT iLet form filled out and placed in MD mailbox. * Miracle Hurtado RN - 02/29/2024 2:32 PM CDT ----- Message from Jeanne Shay sent at 02/29/2024 11:19 AM CDT ----- Please request Ilet pump for patient. documented in this encounter Plan of Treatment Upcoming Encounters Date Type Department Care Team (Late st Contact Info) Description 05/09/2024 7:45 AM PANEL MONITOR Appointment [facility] [address] [place] [address] Jeanne Shay MBBS [address] [place] [address] documented as of this encounter Visit Diagnoses Not on filedocumented in this encounter Care Teams Truck Spotter Relationship Specialty Start Date End Date Mj Schaeffer MD [facility] [address] [place] [address] PCP - General Family Practice 07/22/21 documented as of this encounter
--- NOTE | 2024-04-14 17:07 | ED.GENADULT ---
HPI - General Adult General Date Seen: 04/14/24 Chief complaint: Unspecified Complaint, Adult Stated complaint: insulin overdose Time Seen by Provider: 04/14/24 16:29 Source: patient Mode of arrival: ambulatory Limitations: no limitations History of Present Illness HPI narrative: The patient is a 68-year-old male presenting to emergency department for concerns about overdose on his insulin. He is a type 1 diabetic. He has an insulin pump and was messing with it he states when he is concerning accidentally gave himself 200 units of NovoLog. Is not positive how much she actually gave himself, but that most to was the 200 units. States usually that NovoLog would last him 3 days. This happened about 345 he initially noticed his blood sugar started to drop down into the 60s. At that time he drink some juice and ate food and now his blood sugars up to 90. Is not having any other symptoms at this time other than a mild headache. Denies fevers, chills, weakness, vision changes, lightheadedness, dizziness, abdominal pain, muscle aches, chest pain, shortness of breath. Has not done this in the past. States it was an accident. Related Data Home Medications ?Medication ?Instructions ?Recorded ?Confirmed aspirin 81 mg tablet,delayed 81 mg PO QDAY 12/03/21 02/03/24 release gabapentin 100 mg capsule 100 mg PO TID 12/03/21 02/03/24 insulin aspart U-100 100 unit/mL 76 unit subcut QDAY 12/03/21 02/03/24 (3 mL) subcutaneous pen (Novolog FlexPen U-100 Insulin aspart) metformin 500 mg tablet 1,000 mg PO BIDWMEAL 12/03/21 02/03/24 nitroglycerin 0.4 mg sublingual 0.4 mg sublingual Q5M PRN 12/03/21 02/03/24 tablet blood-glucose meter,continuous #1 ea 04/13/23 02/03/24 (Dexcom G6 Petroleum Engineering Professor) blood-glucose sensor (Dexcom G6 #1 ea 04/13/23 02/03/24 Sensor device) blood-glucose transmitter (Dexcom #1 ea 04/13/23 02/03/24 G6 Transmitter device) flash glucose sensor (FreeStyle #1 ea 04/13/23 02/03/24 Nemesio 2 Sensor kit) gabapentin 300 mg capsule 300 mg PO 3XD 04/13/23 02/03/24 glucagon 1 mg/0.2 mL subcutaneous mg subcut 04/13/23 02/03/24 auto-injector (Gvoke HypoPen 2-Pack) insulin aspart U-100 100 unit/mL subcut 04/13/23 02/03/24 subcutaneous solution insulin pump cart,cont inf,BT #5 ea 04/13/23 02/03/24 (Omnipod Dash Pods (Gen 4) subcutaneous cartridge) pen needle, diabetic 31 gauge x #100 ea 04/13/23 02/03/24 1/ (Pentips Pen Needle) Previous Rx's ?Medication ?Instructions ?Recorded insulin aspart U-100 100 unit/mL 10 unit (0.1 mL) subcut TID #3 mL 10/05/22 (3 mL) subcutaneous pen metoprolol tartrate 50 mg tablet 50 mg PO BID #180 tabs 05/26/23 atorvastatin 20 mg tablet 20 mg PO QHS #90 tabs 06/22/23 lisinopril 2.5 mg tablet 2.5 mg PO QDAY #90 tabs 08/25/23 Allergies Allergy/AdvReac Type Severity Reaction Status Date / Time No Known Allergies Allergy Unknown Verified 02/03/24 15:36 Review of Systems Status of ROS: Reports: 10 or more systems reviewed and unremarkable except as noted in History and below [facility] Medical History Tendinopathy of right biceps tendon ?M67.921 - Unspecified disorder of synovium and tendon, right upper arm (ICD-10) Arthritis of right acromioclavicular joint ?M19.011 - Primary osteoarthritis, right shoulder (ICD-10) Surgical History History of coronary artery bypass graft ?Z95.1 - Presence of aortocoronary bypass graft (ICD-10) History of aortic valve replacement ?Z95.2 - Presence of prosthetic heart valve (ICD-10) Status post neck dissection ?Z98.890 - Other specified postprocedural states (ICD-10) Status post peripheral artery angioplasty ?Z98.62 - Peripheral vascular angioplasty status (ICD-10) Social History What is your current living situation?: I presently have a place to live Problems where you live: no known problems In the past 12 months, utilities in danger of being shut off: no In past 12 months, lack of transportation kept you from medical appts, meetings, work, or getting things needed for daily living: no In the past 12 mos, have been you worried that your food would run out before you had money to buy more?: never true In the past 12 mos, the food you bought just didn't last and you didn't have money to buy more?: never true Smoking Status: Current every day smoker Do you use any of these nicotine containing products: None Second hand tobacco smoke exposure: No How often do you have a drink containing alcohol: never How often do you have six or more drinks on one occasion: Never AUDIT-C Alcohol total score: 0 Non-prescribed substance use: denies use How often does anyone, including family, friends and others, physically hurt you: never How often does anyone, including family, friends and others, insult or talk down to you: never How often does anyone, including family, friends and others, threaten you with harm: never How often does anyone, including family, friends and others, scream or curse at you: never Little interest or pleasure in doing things: not at all Feeling down, depressed, or hopeless: not at all service: No Exam Narrative: Exam Narrative: Const: Well-nourished, Well-developed, in no distress Eyes: PERRL, no conjunctival injection, and symmetrical lids HENT: Atraumatic external nose and ears. Moist mucous membranes. Neck: Symmetric, trachea midline, No thyromegaly. CVS: RRR, No murmurs or gallops. Peripheral pulses 2+ and equal in all extremities RESP: Unlabored respiratory effort. Clear to auscultation bilaterally. GI: Nontender/Nondistended, No rebound or guarding. MSK:Extremities w/o deformity, Normal Active ROM Skin: Warm, Dry. No rashes or lesions. Neuro: Normal Muscle tone, No focal neurological deficits. Psych: Awake, Alert, & Oriented x3. Appropriate mood and affect. Const: Vital Signs, click to edit/add: Vital Signs - 24 hr 04/14/24 16:36 Temperature 98.0 F Pulse Rate [Right Pulse Oximeter] 77 Respiratory Rate 18 Blood Pressure [Ri ght Upper Arm] 123/70 Pulse Oximetry 97 Oxygen Delivery Me thod Room Air Course Vital Signs Vital signs: Initial Vital Signs Temperature 98.0 F 04/14/24 16:36 Temperature Source Temporal Artery Scan 04/14/24 16:36 Pulse Rate 77 04/14/24 16:36 Pulse Rhythm Regular 04/14/24 16:36 Pulse Strength 3+ Normal 04/14/24 16:36 Respiratory Rate 18 04/14/24 16:36 Blood Pressure 123/70 04/14/24 16:36 Blood Pressure Mean 87 04/14/24 16:36 Blood Pressure Position Sitting 04/14/24 16:36 Pulse Oximetry 97 04/14/24 16:36 Oxygen Delivery Method Room Air 04/14/24 16:36 Vital Signs Temperature 98.0 F 04/14/24 16:36 Pulse Rate 77 04/14/24 16:36 Respiratory Rate 18 04/14/24 16:36 Blood Pressure 123/70 04/14/24 16:36 Pulse Oximetry 97 04/14/24 16:36 Oxygen Delivery Method Room Air 04/14/24 16:36 Temperature 98.0 F 04/14/24 16:36 Pulse Rate 77 04/14/24 16:36 Respiratory Rate 18 04/14/24 16:36 Blood Pressure 123/70 04/14/24 16:36 Pulse Oximetry 97 04/14/24 16:36 Oxygen Delivery Method Room Air 04/14/24 16:36 Medical Decision Making [facility] Narrative Medical decision making narrative: Patient is a 68-year-old male with type 1 diabetes who accidentally overdosed on insulin. He may have given himself up to 200 units. Initially blood sugar was dropping but now has improved significantly his most recent 1 hours in the room was 98. Considering insulin can affect electrolytes at lower will order magnesium and BMP. Will monitor the patient make sure his blood sugars stay stable. They are agreeable to this plan. Based on the conversation with him and his this seems completely accidental and he was not intending to inject this months insulin. I do not believe he needs a formal mental health evaluation. Lab work shows no concerning abnormalities. His potassium was little bit lower than normal for him but still within normal limits. I monitored him for 3 hours since the initial incident his blood sugars continue to trend upward which is reassuring. He does have a continuous monitor at this time I am comfortable discharging him home. Told to keep a close sinus blood sugar over the next few hours and return if it starts dropping again. He states he understands. Lab Data Labs: Lab Results 04/14/24 Range/Units 17:13 Sodium 138 (135-149) mmol/L Potassium 3.7 (3.6-5.1) mmol/L Chloride 102 (96-114) mmol/L Carbon Dioxide 23 (20-32) mmol/L Anion Gap 13 (7-15) mEq/L BUN 20 (7-30) mg/dL Creatinine 0.8 (0.5-1.5) mg/dL Estimated Creat Clear 65.18 Estimated GFR 96 ml/min Glucose 79 (60-115) mg/dL Calcium 9.6 (8.4-10.6) mg/dL Magnesium 2.1 (1.5-2.6) mg/dL Discharge Plan Discharge Clinical Impression: Accidental overdose of insulin Instructions: What to Do if Your Blood Sugar is Low (ED) Additional Instructions: Keep a close eye on your blood sugar levels within next few hours. Return if they started dropping again. Try to eat and drink sugary substances if it starts to drop again. Prescriptions: No Action gabapentin 100 mg capsule 100 mg PO TID nitroglycerin 0.4 mg tablet, sublingual 0.4 mg sublingual Q5M PRN Rx Instructions: do not exceed 3 doses per episode aspirin 81 mg tablet,delayed release (DR/EC) 81 mg PO QDAY insulin aspart U-100 [Novolog FlexPen U-100 Insulin] 100 unit/mL (3 mL) insulin pen 76 unit subcut QDAY metformin 500 mg tablet 1,000 mg PO BIDWMEAL insulin aspart U-100 100 unit/mL (3 mL) insulin pen 10 unit subcut TID Qty: 3 1RF Gvoke HypoPen 2-Pack 1 mg/0.2 mL auto-injector subcut (DME) Omnipod Dash Pods (Gen 4) Cartridge See Rx Instructions subcut .MEDSUPPLY Qty: 5 Rx Instructions: As directed (DME) FreeStyle Nemesio 2 Sensor Kit See Rx Instructions .ROUTE .MEDSUPPLY Qty: 1 Patient Comments: [NO ORIGINAL SIG] Rx Instructions: As directed (DME) Dexcom G6 Transmitter Device See Rx Instructions .ROUTE .MEDSUPPLY Qty: 1 Patient Comments: [NO ORIGINAL SIG] Rx Instructions: As directed (DME) Dexcom G6 Petroleum Engineering Professor Misc See Rx Instructions .ROUTE .MEDSUPPLY Qty: 1 Patient Comments: [NO ORIGINAL SIG] Rx Instructions: As directed insulin aspart U-100 100 unit/mL solution subcut (DME) Dexcom G6 Sensor Device See Rx Instructions .ROUTE Q10D Qty: 1 Rx Instructions: As directed (DME) pen needle, diabetic [Pentips Pen Needle] 31 gauge x 1/4 needle See Rx Instructions .ROUTE .MEDSUPPLY Qty: 100 Patient Comments: [NO ORIGINAL SIG] Rx Instructions: As directed gabapentin 300 mg capsule 300 mg PO 3XD atorvastatin 20 mg tablet 20 mg PO QHS Qty: 90 3RF metoprolol tartrate 50 mg tablet 50 mg PO BID Qty: 180 3RF lisinopril 2.5 mg tablet 2.5 mg PO QDAY Qty: 90 2RF Follow Up/Referrals: Fatoumata Kamara MD [Primary Care Provider] - Stand Alone Forms: [facility] Info Instructions
[2024-04-14 17:40] LABS: Chloride* 102 mmol/L (96-114)
[2024-04-14 17:41] LABS: Potassium* 3.7 mmol/L (3.6-5.1); Sodium* 138 mmol/L (135-149)
[2024-04-14 17:43] LABS: Creatinine* 0.8 mg/dL (0.5-1.5); Est. Creatinine Clearance* 65.18; Estimated Glomerular Filt Rate 96 ml/min
[2024-04-14 17:44] LABS: Anion Gap 13 mEq/L (7-15); Blood Urea Nitrogen* 20 mg/dL (7-30); Calcium* 9.6 mg/dL (8.4-10.6); Carbon Dioxide* 23 mmol/L (20-32); Glucose* 79 mg/dL (60-115)
[2024-04-14 18:33] LABS: Magnesium* 2.1 mg/dL (1.5-2.6)
== END 2024-04-14 18:55 | disposition home or self-care (01) ==
PROVIDERS: Emergency Provider Student in an Organized Health Care Education/Training Program; PCP Internal Medicine
DX: T38.3X1A Poisoning by insulin and oral hypoglycemic [antidiabetic] drugs, accidental (unintentional), initial encounter (principal)
CPT/HCPCS: 36415; 80048; 83735; 99282; 99283

== ENCOUNTER 2024-04-28 10:18 | Outpatient (CLI) | payer MEDICAID, SELFPAY ==
--- OUTSIDE RECORDS SUMMARY | 2024-04-28 10:22 | XMS_ITS | Encounter Summary ---
Author Organization [facility] Address [address] [place] [address] Care Team Providers Care Electric Motor Assembler And Tester Name Role Phone Unavailable Primary Care Provider Unavailabl e Reason for Referral * Outpatient (Routine) - Closed Specialty Diagnoses / Procedures Referred By Moe mera Referred To Contact Sleep Medicine Diagnoses Obstructive Sleep Apnea Adult Marcus Ybarra M.D. [address] [place] [address] Phone: tel: fax: [facility] Referral ID Status Reason Start Date Expiration Date Visits Re quested Visits Authorized [id number] Closed 02/02/2024 08/03/2025 1 1 Encounter Details Date Type Department Care Team (Late st Contact Info) Description 02/02/2024 [facility] [address] [place] [address] Marcus Ybarra M.D. [address] [place] [phone] Obstructive Sleep Apnea Adult (Primary Dx) Social [...] st Contact Info) Description 05/16/2024 7:00 PM FIELD SERVICE TECH [facility]ointment [facility] [place], [place] [address] [place] [phone] Diego Dykes M.D. [address] [place] [phone] Discharge Disposition: Home or Self Care 05/17/2024 9:30 AM FIELD SERVICE TECH Office Visit [facility] [place], [place] [address] [place] [phone] Diego Dykes M.D. [address] [place] [phone] Scheduled Referrals Name Type Priority Associated Diagnoses [...]
--- OUTSIDE RECORDS SUMMARY | 2024-04-28 10:22 | XMS_ITS | Clinical Summary ---
Author Organization [facility] Address [address] [place] [address] Care Team Providers Care Automated Teller Manager Name Role Phone Elsewhere, Pcp Primary Care Provider Unavailabl e Source Comments Patient records contain information from all sites at [facility]. For routine questions regarding patient records, call [phone] during business hours, M-F 8:00 AM - 5:00 PM Central Time. Record requests for emergency care only can be directed to [phone] at any time.[facility] Allergies No known active allergies Medications [...] Dr. 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 Obstructive Sleep Apnea Adult Discharge Disposition: Home or Self Care 03/10/2024 10:00 AM CDT Comprehensive Visit [facility] [place], [place] [address] [place] [address] Diego Dykes M.D. Apnea Sleep Obstructive (Primary Dx); Obstructive Sleep Apnea Adult 03/03/2024 3:00 PM CDT Clinical Communication Virtual Review in [place], [place] [address] [place] [address] Pre-visit Intake 02/02/2024 [facility] [address] [place] [address] Marcus Ybarra M.D. Obstructive Sleep Apnea Adult [...] st Contact Info) Description 05/16/2024 7:00 PM WOOD HEEL BACK LINER Appointment [facility] [place], [place] [address] [place] [phone] Diego Dykes M.D. [address] [place] [phone] Discharge Disposition: Home or Self Care 05/17/2024 9:30 AM WOOD HEEL BACK LINER Office Visit [facility] [place], [place] [address] [place] [phone] Diego Dykes M.D. [address] [place] [address] Health Maintenance Due Date Last Done Comments [...] this topic Medical Devices Implanted Type Area Building Appraiser Device Identifier Shelf Expiration Date Model / Serial / Lot Cardiac Valve Prosthesis-09/05 Implanted:04/0 06/2017 (Quantity not on file) Cardiac Valve Prosthesis Heart Insurance ARE Care Teams Automated Teller Manager Relationship Specialty Start Date End Date Elsewhere, Pcp PCP - General Internal Medicine 03/03/24
--- OUTSIDE RECORDS SUMMARY | 2024-04-28 10:22 | XMS_ITS | Encounter Summary ---
Author Organization [facility] Address [address] [place] [address] Care Team Providers Care Application Support Administrator Name Role Phone Elsewhere, Pcp Primary Care Provider Unavailabl e Reason for Referral * Specialty Diagnoses / Procedures Referred By Moe mera Referred To Contact Diagnoses Obstructive Sleep Apnea Adult Diego Dykes M.D. [address] [place] [phone] Phone: tel: fax: [facility] Referral ID Status Reason Start Date Expiration Date Visits Re quested Visits Authorized Encounter Details Date Type Department Care Team (Latest Contact Info) Description 03/10/2024 11:29 AM CDT - 03/13/2024 11:59 PM CDT Hospital Encounter [facility] [place], [place] [address] [place] [address] Diego Dykes M.D. [address] [place] [phone] Obstructive Sleep Apnea Adult Discharge Disposition: Home [...] (OMNIPOD 5 G6 INTRO KIT, GEN 5, CO) See Admin Instructions. 10/21/2021 lisinopriL 2.5 mg [...] st Contact Info) Description 05/16/2024 7:00 PM DIGESTER Appointment [facility] [place], [place] [address] [place] [address] Diego Dykes M.D. [address] [place] [phone] Discharge Disposition: Home or Self Care 05/17/2024 9:30 AM DIGESTER Office Visit [facility] [place], [place] [address] [place] [address] Diego Dykes M.D. [address] [place] [phone] Scheduled Referrals Name Type Priority Associated Diagnoses [...] documented as of this encounter Care Teams Application Support Administrator Relationship Specialty Start Date End Date Elsewhere, Pcp PCP - General Internal Medicine 03/03/24 documented as of this encounter
--- OUTSIDE RECORDS SUMMARY | 2024-04-28 10:22 | XMS_ITS ---
Author Organization [facility] Address [address] [place] [address] Care Team Providers Care Part Time Receptionist Name Role Phone Unavailable Unavailable Unavailable Surgery Details Not on file Complications Check Surgery Details section. Procedure Estimated Blood Loss Check Surgery Details section. Procedure Findings Check Surgery Details section. Procedure Specimens Taken Check Surgery Details section.
--- OUTSIDE RECORDS SUMMARY | 2024-04-28 10:22 | XMS_ITS | Continuity of Care Document ---
Author Organization [facility] Address [address] [place] [address] Phone Care Team Providers Care Direct Sales Professional Name Role Phone Preeti Benito MD Unavailable [...] Available - Active Procedures Procedure Date Office/Outpatient Visit,[facility] 2023 Advance Directives Directive Yes / No Effective Date File Name No Information Encounters Encounter Description Practice Location Reason(s) For Visit Diagnoses Date Provider Providers Copied on Encounter Office/Outpat ient Visit,New, [facility] Emily/EMEKA C, [address], [place], [place], [id number], [place] tel:[phone] [facility] Spinal stenosis, lumbar region with neurogenic claudication [address] [facility], [address], [place], [place], [id number] , [place]. tel:[phone] Referring Provider: Mj Brooks, [facility] [address] [place] [address], [address]. tel:[phone] Family History Family Member Type Diagnosis Age At Onset Father Problem (finding) Cardiovascular disease Mother Problem (finding) Cancer, unknown type Payers Payer name Insurance type Covered constitution party ID Dixie ayala(s) Zach Diaz 2021 CI [id number] Social History Type Description Quantity Date Captured [...]
--- OUTSIDE RECORDS SUMMARY | 2024-04-28 10:22 | XMS_ITS | Referral Summary ---
Author Organization [facility] Address [address] [place] [address] Care Team Providers Care Angiography Nurse Name Role Phone Elsewhere, Pcp Primary Care Provider Unavailabl e Source Comments Patient records contain information from all sites at [facility]. For routine questions regarding patient records, call [phone] during business hours, M-F 8:00 AM - 5:00 PM Central Time. Record requests for emergency care only can be directed to [phone] at any time.[facility] Encounters Date Type Department Care Team Description 03/10/2024 11:29 AM CDT - 03/13/2024 11:59 PM CDT Hospital [facility] [place], [place] [address] [place] [phone] Diego Dykes M.D. Obstructive Sleep Apnea Adult Discharge Disposition: Home or Self Care 03/10/2024 10:00 AM CDT Comprehensive Visit [facility] [place], [place] [address] [place] [address] Diego Dykes M.D. Apnea Sleep Obstructive (Primary Dx); Obstructive Sleep Apnea Adult 03/03/2024 3:00 PM CDT Clinical Communication Virtual Review in [place], [place] 200 [place] [address] Pre-visit Intake 02/02/2024 [facility] [address] [place] [address] Marcus Ybarra M.D. Obstructive Sleep Apnea Adult [...] (OMNIPOD 5 G6 INTRO KIT, GEN 5, CA) See Admin Instructions . 10/21/2021 Active blood-glucose [...] Dr. Hameed Atherosclerotic Heart Diseas e Of [place] Coronary Artery Without Angina Pectoris 09/14/2017 Transient [...] st Contact Info) Description 05/16/2024 7:00 PM MARKETING FINANCE MANAGER Appointment [facility] [place], [place] [address] [place] [address] Diego Dykes M.D. [address] [place] [phone] Discharge Disposition: Home or Self Care 05/17/2024 9:30 AM MARKETING FINANCE MANAGER Office Visit [facility] [place], [place] [address] [place] [address] Diego Dykes M.D. [address] [place] [address] Medical Devices Implanted Type Area Medium Cycle Salesperson Device Identifier Shelf Expiration Date Model / Serial / Lot Cardiac Valve Prosthesis-09/05 Implanted:04/0 06/2017 (Quantity not on file) Cardiac Valve Prosthesis Heart Insurance [employer] Care Teams Angiography Nurse Relationship Specialty Start Date End Date Elsewhere, Pcp PCP - General Internal Medicine 03/03/24
--- OUTSIDE RECORDS SUMMARY | 2024-04-28 10:22 | XMS_ITS | Encounter Summary ---
Author Organization [facility] Address [address] [place] [address] Care Team Providers Care Service Delivery Analyst Name Role Phone Elsewhere, Pcp Primary Care Provider Unavailabl e Reason for Visit * Reason Onset Date Comments Pre-visit Intake 03/03/2024 Encounter Details Date Type Department Care Team (Latest Contact Info) Description 03/03/2024 3:00 PM CDT Clinical Communication Virtual Review in [place], [place] 200 [place] [address] Pre-visit Intake Social History Tobacco Use Types [...] st Contact Info) Description 05/16/2024 7:00 PM FREIGHT HUSTLER Appointment [facility] [place], [place] [address] [place] [phone] Diego Dykes M.D. [address] [place] [address] Discharge Disposition: Home or Self Care 05/17/2024 9:30 AM FREIGHT HUSTLER Office Visit [facility] [place], [place] [address] [place] [address] Diego Dykes M.D. [address] [place] [address] documented as of this encounter Visit Diagnoses Not on filedocumented in this encounter Additional Health Concerns Assessment Noted Time PHQ-9 Depression Total Score: 1 01/08/20 18 3:28 PM CDT documented as of this encounter Care Teams Service Delivery Analyst Relationship Specialty Start Date End Date Elsewhere, Pcp PCP - General Internal Medicine 03/03/24 documented as of this encounter
--- OUTSIDE RECORDS SUMMARY | 2024-04-28 10:22 | XMS_ITS | Encounter Summary ---
Author Organization [facility] Address [address] [place] [address] Care Team Providers Care Steward/Stewardess Lounge Name Role Phone Elsewhere, Pcp Primary Care [...] by CPAP-->ASV titration. Diego Dykes M.D. 200 [place] [address] Phone: tel: fax: [facility] Referral ID Status Reason Start Date Expiration Date V isits Requested Visits Authorized [id number] Authorized 03/10/2024 03/10/2025 1 1 * Specialty Diagnoses / Procedures Referred By Moe mera Referred To Contact Diagnoses Obstructive Sleep Apnea Adult Diego Dykes M.D. [address] [place] [phone] Phone: tel: fax: [facility] Referral ID Status Reason Start Date Expiration Date Visits Re quested Visits Authorized * Outpatient (Routine) - Authorized Specialty Diagnoses / Procedures Referred By Moe mera Referred To Contact Sleep Medicine Diego Dykes M.D. [address] [place] [address] Phone: tel: fax: [facility] Referral ID Status Reason Start Date Expiration Date V isits Requested Visits Authorized [id number] Authorized 03/10/2024 09/09/2025 1 1 Scheduling Instructions Post-study return visit Reason for Visit * Outpatient (Routine) - Closed Specialty Diagnoses / Procedures Referred By Moe t Referred To Contact Sleep Medicine Diagnoses Obstructive Sleep Apnea Adult Marcus Ybarra M.D. [address] [place] [phone] Phone: tel: fax: [facility] Referral ID Status Reason Start Date Expiration Date Visits Re quested Visits Authorized [id number] Closed 02/02/2024 08/03/2025 1 1 Encounter Details Date Type Department Care Team (Latest Contact Info) Description 03/10/2024 10:00 AM CDT Comprehensive Visit [facility] [place], [place] [address] [place] [address] Diego Dykes M.D. [address] [place] [address] Apnea Sleep Obstructive (Primary Dx); Obstructive Sleep [...] treatment options at the recommendation of his physician practice manager. The patient usually goes to bed at [...] Angina Pectoris 12/22/2019 Atherosclerotic Heart Disease Of [place] Coronary Artery Without Angina Pectoris 09/14/2017 Diabetes [...] history in the health record. Standardized Instruments Ilion Score (Scores of less than 10 are [...] st Contact Info) Description 05/16/2024 7:00 PM HYDRAULIC LIFT OPERATOR [facility]ointment [facility] [place], [place] [address] [place] [address] Diego Dykes M.D. [address] [place] [address] Discharge Disposition: Home or Self Care 05/17/2024 9:30 AM HYDRAULIC LIFT OPERATOR Office Visit [facility] [place], [place] [address] [place] [address] Diego Dykes M.D. [address] [place] [address] Scheduled Orders Name Type Priority Associated Diagnoses [...] documented as of this encounter Care Teams Steward/Stewardess Lounge Relationship Specialty Start Date End Date Elsewhere, Pcp PCP - General Internal Medicine 03/03/24 documented as of this encounter
--- OUTSIDE RECORDS SUMMARY | 2024-04-28 10:23 | XMS_ITS | Encounter Summary ---
Author Organization [facility] Address [address], [place] [address] Care Team Providers Care Stencil Sprayer Name Role Phone Mj Schaeffer MD Primary Care Provider Reason for Visit * Reason Comments Refill Continuous Glucose S ensor (DEXCOM G6 SENSOR) [Pharmacy Med Name: DEXCOM G6 SENSOR MISCELLANEOUS] Encounter Details Date Type Department Care Team (Late st Contact Info) Description 04/11/2024 Refill [facility] [address] Endocrinology [address] [facility] [address] Joe Shay, MERE [address] [place], [place] [phone] Refill (Continuous Glucose Sensor (DEXCOM G6 SENSOR) [...] User: DINORA JUAREZ Filled per RN protocol. A REPORTER * Korey, Gisel Xrwcomm - 04/11/2024 2:21 [...] once every 10 days (unchanged) Age: 68 [facility] Embedded Refills, Reference: [id number], 04/11/2024 2:21:10 PM MEDIA REPORTER, Pool: CUONG PNREFILL ([id number]) A REPORTER documented in this encounter Plan of Treatment Upcoming Encounters Date Type Department Care Team (Late st Contact Info) Description 05/09/2024 7:45 AM MEDIA REPORTER Appointment [facility] [address] [place] [address] Joe Shay MBBS [address] [place] [address] documented as of this encounter Visit Diagnoses Diagnosis Uncontrolled type 1 diabetes mellitus with hyperglycemia (HRC) documented in this encounter Care Teams Stencil Sprayer Relationship Specialty Start Date End Date Mj Schaeffer MD [facility] [address] [place] [address] PCP - General Family Practice 07/22/21 documented as of this encounter
--- OUTSIDE RECORDS SUMMARY | 2024-04-28 10:23 | XMS_ITS | Encounter Summary ---
Author Organization [facility] Address [address] [place] [address] Care Team Providers Care Retort Furnace Operator Name Role Phone Mj Schaeffer MD Primary Care Provider [phone] Reason for Visit * Reason Onset Date Comments Refill 04/18/2024 Encounter Details Date Type Department Care Team (Late st Contact Info) Description 04/18/2024 Refill [facility] [address] Endocrinology [address] [facility]. [place], [place] [id number] Joe Shay, MARNIEBS [address] [place] [address] Refill Social History Tobacco Use Types Packs/Day [...] Provider: JOE SHAY Ordering User: TAMARA STAHL ONAL CONSTRUCTION MANAGER documented in this encounter Plan of Treatment Upcoming Encounters Date Type Department Care Team (Late Contact Info) Description 05/09/2024 7:45 AM REGIONAL CONSTRUCTION MANAGER Appointment [facility] [address] [place] [address] Joe Shay, MERE [address] [place] [address] documented as of this encounter Visit Diagnoses Diagnosis Uncontrolled type 1 diabetes mellitus with hyperglycemia (HRC)- Primary documented in this encounter Care Teams Retort Furnace Operator Relationship Specialty Start Date End Date Mj Schaeffer MD [facility] [address] [place] [address] PCP - General Family Practice 07/22/21 documented as of this encounter
--- OUTSIDE RECORDS SUMMARY | 2024-04-28 10:23 | XMS_ITS | Encounter Summary ---
Author Organization [facility] Address [address], [place] [address] Care Team Providers Care Charger Tester Name Role Phone Mj Schaeffer MD Primary Care Provider [phone] Reason for Visit * Reason Comments Forms Rx and /cn - [place] Encounter Details Date Type Department Care Team (Late Contact Info) Description 04/24/[address] [facility] [place] [address] Jeanne Shay MBBS [address] [place] [address] Forms (Rx and /cn - [place] ) Social History Tobacco Use Types Packs/Day Years Used Date Smoking Tobacco: Every Day Smokeless Tobacco: Never Sex and Gender Information Value Date Recorded Sex Assigned at Not on file Gender Identity Not on file Sexual Orientation Not on file documented as of this encounter Nursing Notes * Carolina Prasad - 04/24/2024 4:30 PM CST Received [facility] form, [facility] Faxed chart notes to [place] [phone] from 02/29/24 appt H BOX TENDER documented in this encounter Plan of Treatment Upcoming Encounters Date Type Department Care Team (Late Contact Info) Description 05/09/2024 7:45 AM WEIGH BOX TENDER Appointment [facility] [address] [place] [address] Jeanne Shay MBBS [address] [place] [address] documented as of this encounter Visit Diagnoses Not on filedocumented in this encounter Care Teams Charger Tester Relationship Specialty Start Date End Date Mj Schaeffer MD [facility] [address] [place] [address] PCP - General Family Practice 07/22/21 documented as of this encounter
--- OUTSIDE RECORDS SUMMARY | 2024-04-28 10:23 | XMS_ITS | Referral Summary ---
Author Organization [place] Address [address] [place] [address] Care Team Providers Care Spinner Continuous Name Role Phone Mj Schaeffer MD Primary Care Provider [phone] Allergies Active Allergy Reactions Criticality Noted Date [...] 78 09/25/2013 7:45 AM CDT Temperature 36.5 C (97.7 F) 09/25/2013 7:45 AM CDT Respiratory Rate 16 09/25/2013 7:45 AM CDT Oxygen Saturation - - Inhaled Oxygen Concentration - - Weight 75.5 kg (166 lb 6.4 oz) 09/25/2013 7:45 A M CDT Height 168.9 cm (5' 6.5) 09/25/2013 7:45 AM CDT Body Mass Index 26.46 09/25/2013 7:45 AM CDT Plan of Treatment Not on file Care Teams Spinner Continuous Relationship Specialty Start Date End Date Mj Schaeffer MD PCP - General Family Practice 12/16/18
--- OUTSIDE RECORDS SUMMARY | 2024-04-28 10:23 | XMS_ITS | Encounter Summary ---
Author Organization [facility] Address [address] [place] [address] Care Team Providers Care Monument Carver Name Role Phone Mj Schaeffer MD Primary Care Provider [phone] Reason for Visit * Reason Comments Forms Chart notes - [place] Encounter Details Date Type Department Care Team (Late Contact Info) Description 03/23/[address] [place] [facility]. [place], [place] [phone] Jeanne Shay MBBS [address] [place] [phone] Forms (Chart notes - [facility] ) Social History Tobacco Use Types Packs/Day Years Used Date Smoking Tobacco: Every Day Smokeless Tobacco: Never Sex and Gender Information Value Date Recorded Sex Assigned at Not on file Gender Identity Not on file Sexual Orientation Not on file documented as of this encounter Nursing Notes * Carolina Prasad - 03/23/2024 9:56 AM CDT Faxed chart notes to [facility] [phone] from 02/29/24 appt documented in this encounter Plan of Treatment Upcoming Encounters Date Type Department Care Team (Late Contact Info) Description 05/09/2024 7:45 AM CLAM GROWER Appointment [facility] [address] [place] [phone] Jeanne Shay MBBS [address] [place], [place] [phone] documented as of this encounter Visit Diagnoses Not on filedocumented in this encounter Care Teams Monument Carver Relationship Specialty Start Date End Date Mj Schaeffer MD [facility] [address] [place] [address] PCP - General Family Practice 07/22/21 documented as of this encounter
--- OUTSIDE RECORDS SUMMARY | 2024-04-28 10:23 | XMS_ITS | Encounter Summary ---
Author Organization [facility] Address [address], [place] [address] Care Team Providers Care Salesperson Children'S Shoes Name Role Phone Mj Schaeffer MD Primary Care Provider [phone] Reason for Visit * Reason Comments Follow-up Encounter Details Date Type Department Care Team (Late st Contact Info) Description 02/23/2024 10:15 AM CDT Telemedicine [place] [address] [place] [address]. 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) Social History [...] st Contact Info) Description 05/09/2024 7:45 AM AGRICULTURE PROFESSOR Appointment [facility] [address] [place] [address] Joe Shay, MARNIE [address] [place] [address] documented as of this encounter Results * (ABNORMAL) Complete Blood Count-No Diff (02/24/2024 7:35 AM CDT) WBC 10.8(H) 3.5 - 10.5 x10(9)/L 02/24/2024 7:39 AM CDT [facility] RBC 4.52 4.32 - 5.72 x10(12)/L 02/24/2024 7:39 AM CDT [facility] Hemoglobin 13.6 13.5 - 17.5 g/dL 02/24/2024 7:39 AM CDT [facility] HCT 42.5 38.8 - 50.0 % 02/24/2024 7:39 AM CDT [facility] MCV 94.0 80.0 - 100.0 fL 02/24/2024 7:39 AM CDT [facility] MCH 30.1 27.6 - 33.3 pg 02/24/2024 7:39 AM CDT [facility] MCHC 32.0 31.5 - 35.2 g/dL 02/24/2024 7:39 AM CDT [facility] RDW 13.4 11.9 - 15.5 % 02/24/2024 7:39 AM CDT [facility] Platelets 272 150 - 450 x10(9)/L 02/24/2024 7:39 AM CDT [facility] Blood Venipuncture / Unknown 02/24/2024 7:35 AM CDT 02/24/2024 7:35 AM CDT Joe [facility]_1 Performing Organization Address [facility]/ZIP Co de Phone Number [facility] [address] [place] [address] * Lipid Panel and Direct LDL (if needed) (02/24/2024 7:35 AM CDT) [facility] Signature Cholesterol 134 0 - 199 mg/dL 02/24/2024 4:46 PM [facility] Triglyceride 126 <=149 mg/dL 02/24/2024 4:46 PM [facility] HDL Cholesterol 48 >=40 mg/dL 4:46 PM [facility] LDL, Calculated 61 <130 mg/dL 4:46 PM [facility] Non HDL Chol, Calculated 86 <=159 mg/dL 02/24/2024 4:46 PM [facility] Cholesterol/HDL Ratio 2.8 <=5.0 02/24/2024 4:46 PM [facility] Hours Fasting 0.0 8 - 12 Hours 02/24/2024 4:46 PM [facility] Blood Venipuncture / Unknown 02/24/2024 7:35 AM CDT 02/24/2024 7:35 AM CDT Joe SEVERINO [facility]_1 Performing Organization Address City/[facility]/ZIP Co de Phone Number [facility] [address] [place] [address] * Tissue Transglutaminase Ab IgA (02/24/2024 7:35 AM CDT) Pathologist [facility] Tissue Transglutaminase Antibody, IgA 0.7 0.0 - 6.9 U/mL 02/25/2024 12:51 PM CDT [facility] Tissue Transglutaminase Antibody, IgA Interpretation Negative Negative 02/25/2024 12:51 PM CDT [facility] Blood Venipuncture / Unknown 02/24/2024 7:35 AM CDT 02/24/2024 7:35 AM CDT Joe Cisse Jaspal [facility]_1 Performing Organization Address [facility]/ZIP Co de Phone Number [facility] [address] * Albumin/Creatinine Ratio,Random Urine (02/24/2024 7:35 AM CDT) [facility] Albumin/Creati nine Ratio, Urine, Random 23 <30 mg/g 02/24/2024 12:54 PM CDT [facility] Albumin, Urine, Random 16.2 mg/L 02/24/2024 12:54 PM CDT [facility] Creatinine, Urine, Random 72 >20 mg/dL mg/dL 02/24/2024 12:54 PM CDT [facility] Urine Non-blood Collection / Unknown 02/24/2024 7:35 AM CDT 02/24/2024 7:35 AM CDT Joe Cisse Jaspal [facility]_1 [facility] [address] [place] [address] * Free T4 (02/24/2024 7:35 AM CDT) Pathologist [facility] T4, Free 1.1 0.7 - 1.5 ng/dL 02/24/2024 12:24 PM CDT [facility] Blood Venipuncture / Unknown 02/24/2024 7:35 AM CDT 02/24/2024 7:35 AM CDT Joe Shay [facility]_1 Performing Organization Address [facility] Co de Phone Number [facility] [address] * TSH (02/24/2024 7:35 AM CDT) TSH, Sensitive 2.13 0.30 - 4.50 uIU/mL 02/24/2024 12:23 PM CDT [facility] Blood Venipuncture / Unknown 02/24/2024 7:35 AM CDT 02/24/2024 7:35 AM CDT Joe Shay [facility]_1 Performing Organization Address [facility] Phone Number [facility] * (ABNORMAL) Comp Metabolic Panel (02/24/2024 7:35 AM CDT) Sodium 140 136 - 145 mmol/L 02/24/2024 4:46 PM [facility] Potassium 5.0 3.5 - 5.1 mmol/L 02/24/2024 4:46 PM [facility] Chloride 107 98 - 109 mmol/L 02/24/2024 4:46 PM [facility] CO2 23 20 - 29 mmol/L 02/24/2024 4:46 PM [facility] Anion Gap 10 6 - 16 mmol/L 02/24/2024 4:46 PM [facility] Calcium 9.7 8.4 - 10.4 mg/dL 02/24/2024 4:46 PM [facility] BUN 16 7 - 26 mg/dL 02/24/2024 4:46 PM [facility] Creatinine 0.69(L) 0.73 - 1.18 mg/dL 02/24/2024 4:46 PM [facility] Alkaline Phosphatase 102 40 - 150 U/L 02/24/2024 4:46 PM [facility] AST (SGOT) 15 10 - 40 U/L 02/24/2024 4:46 PM [facility] ALT (SGPT) 14 <=55 U/L 02/24/2024 4:46 PM [facility] Bilirubin, Total 0.4 0.2 - 1.2 mg/dL 02/24/2024 4:46 PM [facility] Protein, Total 8.0 6.4 - 8.3 g/dL 02/24/2024 4:46 PM [facility] Albumin 4.0 3.5 - 5.0 g/dL 02/24/2024 4:46 PM [facility] Glucose 157(H) 70 - 100 mg/dL 02/24/2024 4:46 PM [facility] Comment:The given reference range is for the fasting state. Non-fasting reference range for glucose is 70 - 180 mg/dL. GFR, Estimated >60 >60 mL/min/1.7 3m2 02/24/2024 4:46 PM [facility] Hours Fasting 0.0 8 - 12 Hours 02/24/2024 4:46 PM [facility] Blood Venipuncture / Unknown 02/24/2024 7:35 AM CDT 02/24/2024 7:35 AM CDT Joe Cisse Jaspal [facility]1 [facility] [address] [place] [address] * (ABNORMAL) Hgb A1C (02/24/2024 7:35 AM CDT) Hemoglobin A1C 8.8(H) <=5.6 % 02/24/2024 1:51 PM [facility] Estimated Average Glucose (Calc) 206 < 117 mg/dL 02/24/2024 1:51 PM [facility] Comment:Estimated average gl ucose (eAG) converts A1c into glucose units (mg/dL) and estimates average glucose over the past approximately 3 months. The eAG reference interval (<117 mg/dL) corresponds to an A1c of <5.7%. Blood Venipuncture / Unknown 02/24/2024 7:35 AM CDT 02/24/2024 7:35 AM CDT Narrative [facility] - 02/24/2024 1:51 PM CDT For patients not previously diagnosed with diabetes: 5.7-6.4%: Increased risk for diabetes 6.5% and greater: Diagnostic for diabetes For patients diagnosed with diabetes: <8.0%: Goal of therapy for ages 18-75 Clinicians may recommend a higher or lower goal for specific individuals. Joe SEVERINO LAB_1 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
--- OUTSIDE RECORDS SUMMARY | 2024-04-28 10:23 | XMS_ITS | Encounter Summary ---
Author Organization [facility] Address [address] [place] [address] Care Team Providers Care Tower Equipment Repairer Name Role Phone Mj Schaeffer MD Primary Care Provider [phone] Reason for Visit * Reason Comments Diabetes Encounter Details Date Type Department Care Team (Late st Contact Info) Description 02/29/2024 10:45 AM CDT Office Visit [facility] [address] [place] [address] Jeanne Shay MBBS [address] [place], [place] [id number] Uncontrolled type 1 diabetes mellitus with hyperglycemia (HRC) (Primary Dx); Essential hypertension (HRC); Dyslipidemia (high LDL; low HDL) (HRC); 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 MERE Ruelas Bargain Table Clerk * Jaime Holley - 02/29/2024 10:45 AM CDT Images from the original note were not included. 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
--- OUTSIDE RECORDS SUMMARY | 2024-04-28 10:23 | XMS_ITS | Encounter Summary ---
Author Organization [facility] Address [address], [place] [address] Care Team Providers Care Monorail Car Operator Name Role Phone Mj Schaeffer MD Primary Care Provider [phone] Reason for Visit * Reason Comments Refill Continuous Glucose S ensor (DEXCOM G6 SENSOR) [Pharmacy Med Name: DEXCOM G6 SENSOR MISCELLANEOUS]; Continuous Glucose Transmitter (DEXCOM G6 TRANSMITTER) [Pharmacy Med Name: DEXCOM G6 TRANSMITTER MISCELLANEOUS] Encounter Details Date Type Department Care Team (Late st Contact Info) Description 02/12/2024 Refill [facility] [address] [place] [address]. [place], [place] [id number] Joe Shay MBBS [address] [place] [address] Refill (Continuous Glucose Sensor (DEXCOM G6 SENSOR) [...] Age: 68 [employer] Emb[employer]ded Refills, Reference: [id number], 02/12/2024 9:16:53 AM CDT, Pool: CUONG PNREFILL ([id number]) Continuous Glucose Transmitter (DEXCOM G6 TRANSMITTER) [Pharmacy Med Name: DEXCOM G6 TRANSMITTER MISCELLANEOUS] Diabetes Supplies -> Provider co-signature is required for DME on patients 65+ years old. -> Age is abnormal (69 is greater than 64.0) -> Refill x 9 months (until due for an office visit) Last qualifying visit: 10/26/2023 (in ENDOCRINOLOGY) Next scheduled visit: 02/23/2024 (in [facility] ENDOCRINOLOGY) Last ordered by JOE SHAY: 03/17/2023 (332 days ago) QTY: 1, Refills: 3, Sig: change once every 90 days (unchanged) Age: 68 [employer] Emb[employer]ded Refills, Reference: [id number], 02/12/2024 9:16:53 AM CDT, Pool: CUONG PNREFILL ([id number]) documented in this encounter Plan of Treatment Upcoming Encounters Date Type Department Care Team (Late st Contact Info) Description 05/09/2024 7:45 AM RN CVICU Appointment [facility] [address] [place] [address] Joe Shay MBBS [address] [place] [address] documented as of this encounter Visit Diagnoses Diagnosis Uncontrolled type 1 diabetes mellitus with hyperglycemia (HRC) documented in this encounter Care Teams Monorail Car Operator Relationship Specialty Start Date End Date Mj Schaeffer MD [facility] [address] [place] [address] PCP - General Family Practice 07/22/21 documented as of this encounter
--- OUTSIDE RECORDS SUMMARY | 2024-04-28 10:23 | XMS_ITS | Clinical Summary ---
Author Organization [facility] Address [address] [place] [address] Care Team Providers Care Furnace Builder Name Role Phone Mj Schaeffer MD Primary Care Provider [phone] Allergies Active Allergy Reactions Criticality Noted Date [...] of Treatment Not on file Care Teams Furnace Builder Relationship Specialty Start Date End Date Mj Schaeffer MD PCP - General Family Practice 12/16/18
--- OUTSIDE RECORDS SUMMARY | 2024-04-28 10:23 | XMS_ITS | Clinical Summary ---
Author Organization [employer] [facility] [place] [address] Care Team Providers Care Chuck Splitter Name Role Phone Jhoan Schaeffer MD Primary Care Provider [phone] Allergies No known active allergies Medications Medication [...] artery disease of b ypass graft of [place] heart with stable angina pectoris 12/22/2019 Snoring [...] branch of right--09/15/17 Dr. Hameed CAD in [place] artery 09/14/2017 TIA (transient ischemic attack) 09/08/2017 Overview (09/08/2017): In 2004, presented with slurred speech and weakness of right arm and severe fatigue. Chest pain 09/02/2017 Hypertension 09/02/2017 Hyperlipidemia 09/02/2017 Smoker 09/02/2017 PAD (peripheral artery disease) 09/02/2017 Diabetes type I 09/02/2017 Aortic stenosis 09/02/2017 Immunizations Name Administration Dates Next Due Influenza, IIV4 02/24/2017,04/01/2016 Family History Medical History Relation Name Comments Heart Disease Father [place] at age 65, at age 79 Leukemia [...] 81 12/14/2018 2:39 PM CDT Temperature 36.7 C (98 F) 09/20/2017 12:52 PM CDT Respiratory Rate 18 09/20/2017 12:5 [...] 09/02/2022 09/02/2017 COVID-19 vaccine series ( season) 2024 03/06/2022, 09/19/2021, 04/11/2021, Additional history exists Influenza for age 65+ 02/06/2024 02/24/2017, 016 Medical Devices Implanted Type Area Interior Design Consultant Device Identifier Shelf Expiration Date Model / Serial / Lot Anw Hh [id number] Implanted:Qty: 1 on 09/15/2017 by Gurpreet Hameed MD at [facility] Explanted:at [facility] (Quantity not on file) N/A: Aortic Valve [employer] 06/09/2021 [id number]# / [id number] / Procedures Procedure Name Priority Date/Time Associated Diagnosis Comments LIPID PANEL Add On 09/02/2017 8:41 AM CDT from Last 3 Months or Most Recently Relevant to Health Maintenance Results * Lipid Panel (09/02/2017 8:41 AM CDT) [facility] Signature CHOLESTEROL,TOTAL 155 100 - 199 mg/dL 09/02/2017 9:23 AM CDT [facility] [employer] [facility] TRIGLYCERIDES 82 <150 mg/dL 09/02/2017 9:23 AM CDT [facility] HDL CHOLESTEROL 49 >40 mg/dL 8 9:23 AM CDT [facility] NON-HDL CHOLESTEROL 106 <145 mg/dl 09/02/2017 9:23 AM CDT [facility] CHOL/HDL RATIO 3.16 <4.50 09/02/2017 9:23 AM CDT [facility] LDL CHOLESTEROL 90 <=130 mg/dL 09/02/2017 9:23 AM CDT [facility] PROVIDER ORDERED STATUS RANDOM 09/02/2017 9:23 AM CDT [facility] Blood BLOOD SPECIMEN / Unknown Venipuncture / Unknown 09/02/2017 8:41 AM CDT 09/02/2017 8:49 AM CDT Tessa Del Rosario SALES FLOOR TEAM LEADER CHEMISTRY [facility] [employer] LABORATORY-CEN[facility]AL LABORATORY [address] [place] [address], [place] from Last 3 Months or Most Recently Relevant to Health Maintenance Advance Directives * Full Code (Latest Code Status on File) Date Activated Date Inactivated Comments 09/15/2017 5:58 AM 09/20/2017 3:57 PM * Full Code Date Activated Date Inactivated Comments 09/02/2017 8:23 AM 09/02/2017 5:50 PM Care Teams Chuck Splitter Relationship Specialty Start Date End Date Jhoan Schaeffer MD PCP - General Family Practice 08/19/17
--- OUTSIDE RECORDS SUMMARY | 2024-04-28 10:23 | XMS_ITS | Encounter Summary ---
Author Organization [facility] Address [address], [place] [address] Care Team Providers Care Plant Control Aide Name Role Phone Mj Schaeffer MD Primary Care Provider [phone] Reason for Visit * Reason Comments Forms Encounter Details Date Type Department Care Team (Late st Contact Info) Description 02/29/2024 Telephone [facility] [address] [facility] [address] [facility] [place] [address] Jeanne Shay MBBS [address] [place] [address] Forms Social History Tobacco Use Types Packs/Day Years Used Date Smoking Tobacco: Every Day Smokeless Tobacco: Never Sex and Gender Information Value Date Recorded Sex Assigned at Not on file Gender Identity Not on file Sexual Orientation Not on file documented as of this encounter Nursing Notes * Carolina Prasad - 03/06/2024 10:02 AM CDT Completed Torrential faxed to #[phone] , hard copy filed in *Jaspal done [...] st Contact Info) Description 05/09/2024 7:45 AM CASE MANAGER Appointment [facility] [address] [place] [address] Jeanne Shay MBBS [address] [place] [address] documented as of this encounter Visit Diagnoses Not on filedocumented in this encounter Care Teams Plant Control Aide Relationship Specialty Start Date End Date Mj Schaeffer MD [facility] [address] [place] [address] PCP - General Family Practice 07/22/21 documented as of this encounter
--- OUTSIDE RECORDS SUMMARY | 2024-04-28 10:23 | XMS_ITS | Clinical Summary ---
Author Organization [facility] Address [address] [address] Care Team Providers Care Small Stock Facer Name Role Phone Mj Schaeffer MD Primary Care Provider [phone] Source Comments You are receiving this document as you are listed as the primary care provider,follow-up provider, or the patient has been referred to you for consultation.This is in compliance with the Medicare and[employer] EHR Incentive Program,which states Providers who transition their patient to another setting of careor provider of care or refers their patient to another provider of care shouldprovide summary care record for each transition of care or referral. [employer] Allergies No known active allergies Medications Medication [...] Each 4 3 Active Continuous Blood Gluc Donation Worker (DEXCOM G6 [employer] DYNAM[employer] CONSULTANT)Indicati ons:Uncontrolled type 1 diabetes mellitus with hyperglycemia [...] disease invo lving 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 pectoris 12/11/2020 Encounters Date Type Department Care Team Description 04/24/[address] [place] [address] Jeanne Shay MBBS Forms (Rx and /cn - Collin ) 04/18/[address] [place] [address] Jeanne Shay MBBS Refill 04/11/[address] [place] [address] Jeanne Shay MBBS Refill (Continuous Glucose Sensor (DEXCOM G6 SENSOR) [Pharmacy Med Name: DEXCOM G6 SENSOR MISCELLANEOUS]) 04/03/[address] [place] [address] Jeanne Shay MBBS Refill (metFORMIN XR (GLUCOPHAGE XR) 500 MG 24 hour release tablet [Pharmacy Med Name: METFORMIN HYDROCHLORIDE ER 500MG TABLET EXTENDED RELEASE 24 HOUR]) 03/23/[address] [place] [address] Jeanne Shay MBBS Forms (Chart notes - Lott ) 02/29/2024 10:45 AM CDT Office Visit [facility] [address] [place] [phone] Jeanne Shay MBBS Uncontrolled type 1 diabetes mellitus with hyperglycemia (HRC) (Primary Dx); Essential hypertension (HRC); Dyslipidemia (high LDL; low HDL) (HRC); 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 pectoris (HRC) 02/29/[address] 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 [address] Jeanne Shay MBBS Uncontrolled type 1 diabetes mellitus with hyperglycemia (HRC) (Primary Dx); Essential hypertension (HRC); Dyslipidemia (high LDL; low HDL) (HRC); 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 pectoris (HRC) 02/12/[address] [place] [address] Jeanne Shay MBBS Refill (Continuous Glucose Sensor [...] st Contact Info) Description 05/09/2024 7:45 AM HOSPITAL STAFF PHARMACIST Appointment [facility] [address] [place] [address] Jeanne Shay MBBS [address] [place] [address] Health Maintenance Due Date Last Done Comments Colon Cancer Screening Plan Due 1954 Diabetes: Eye Exam 1954 Diabetes: Foot Exam 1954 Hep C Screening (Preventive Services) 1955 Adult Preventive Visit 1972 Abdominal Aortic Aneurysm (AAA) Screening 11/12/2019 COVID-19 Vaccine ( season) 2024 03/06/2022, 09/19/2021, 04/11/2021, Additional history exists Influenza (#1) 2024 04/13/2023, 02/07, 03/26/2021, Additional history exists Diabetes: HGBA1C 05/25/2024 02/24/2024, , 06/22/2023, Additional history exists Diabetes: Creatinine 02/23/2025 02/24/2024, 09/15/2022, 01/14/2022, Additional history exists Diabetes: Urine Microalbumin 02/23/2025 02/24/2024, 09/15/2022, 01/14/2022 Diabetes: Lipid Panel 02/23/2029 02/24/2024 , 09/15/2022, 01/14/2022, Additional history exists RSV (1 - 1-dose 75+ series) 2029 DTaP/Tdap/Td (2 - Tdap) 10/24/2030 10/24/2020, 07/22 Zoster/Shingles Completed 06/26/2020, 04/03/2020 Pneumococcal 65+ Yrs Completed 04/13/2023, 06/25/20 20 Cholesterol Discontinued 02/24/2024, 04/06/2022, 01/14/2022, Additional history exists HepA Aged Out [...] artery disease involving 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 pectoris (HRC) ALBUMIN/CREAT RATIO Routine 02/24/2024 7 :35 AM CDT Uncontrolled type 1 diabetes mellitus with hyperglycemia (HRC) Essential hypertension (HRC) Dyslipidemia (high LDL; low HDL) (HRC) 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 pectoris (HRC) FREE T4 Routine 02/24/2024 7:35 AM CDT Uncontrolled type 1 diabetes mellitus with hyperglycemia (HRC) Essential hypertension (HRC) Dyslipidemia (high LDL; low HDL) (HRC) 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 pectoris (HRC) TSH, SENSITIVE Routine 02/24/2024 7:35 AM CDT Uncontrolled type 1 diabetes mellitus with hyperglycemia (HRC) Essential hypertension (HRC) Dyslipidemia (high LDL; low HDL) (HRC) 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 pectoris (HRC) COMPREHENSIVE METABOLIC PANEL Routine 02/24/2024 7:35 AM CDT Uncontrolled type 1 diabetes mellitus with hyperglycemia (HRC) Essential hypertension (HRC) Dyslipidemia (high LDL; low HDL) (HRC) 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 pectoris (HRC) HGB A1C Routine 02/24/2024 7:35 AM CDT Uncontrolled type 1 diabetes mellitus with hyperglycemia (HRC) Essential hypertension (HRC) Dyslipidemia (high LDL; low HDL) (HRC) 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 pectoris (HRC) from Last 3 Months Results * Tissue Transglutaminase Ab IgA (02/24/2024 7:35 AM CDT) [facility] Tissue Transglutaminase Antibody, IgA 0.7 0.0 - 6.9 U/mL 02/25/2024 12:51 PM CDT [facility] Tissue Transglutaminase Antibody, IgA Interpretation Negative Negative 02/25/2024 12:51 PM T [facility] Blood Venipuncture / Unknown 02/24/2024 7:35 AM CDT 02/24/2024 7:35 AM CDT Jeanne [facility]_1 [facility] [address] * Lipid Panel and Direct LDL (if needed) (02/24/2024 7:35 AM CDT) Cholesterol 134 0 - 199 mg/dL 02/24/2024 4:46 PM T [facility] Triglyceride 126 <=149 mg/dL 02/24/2024 4:46 PM T [facility] HDL Cholesterol 48 >=40 mg/dL 4:46 PM [facility] LDL, Calculated 61 <130 mg/dL 4:46 PM [facility] Non HDL Chol, Calculated 86 <=159 mg/dL 02/24/2024 4:46 PM [facility] Cholesterol/HDL Ratio 2.8 <=5.0 02/24/2024 4:46 PM [facility] Hours Fasting 0.0 8 - 12 Hours 02/24/2024 4:46 PM [facility] Blood Venipuncture / Unknown 02/24/2024 7:35 AM CDT 02/24/2024 7:35 AM CDT Jeanne Tanna Jaspal [facility] [address] [place] [address] * (ABNORMAL) Comp Metabolic Panel (02/24/2024 7:35 AM CDT) Sodium 140 136 - 145 mmol/L 02/24/2024 4:46 PM [facility] Potassium 5.0 3.5 - 5.1 mmol/L 02/24/2024 4:46 PM [facility] Chloride 107 98 - 109 mmol/L 02/24/2024 4:46 PM [facility] CO2 23 20 - 29 mmol/L 02/24/2024 4:46 PM [facility] Anion Gap 10 6 - 16 mmol/L 02/24/2024 4:46 PM [facility] Calcium 9.7 8.4 - 10.4 mg/dL 02/24/2024 4:46 PM [facility] BUN 16 7 - 26 mg/dL 02/24/2024 4:46 PM [facility] Creatinine 0.69(L) 0.73 - 1.18 mg/dL 02/24/2024 4:46 PM [facility] Alkaline Phosphatase 102 40 - 150 U/L 02/24/2024 4:46 PM [facility] AST (SGOT) 15 10 - 40 U/L 02/24/2024 4:46 PM [facility] ALT (SGPT) 14 <=55 U/L 02/24/2024 4:46 PM T [facility] Bilirubin, Total 0.4 0.2 - 1.2 mg/dL 02/24/2024 4:46 PM T [facility] Protein, Total 8.0 6.4 - 8.3 g/dL 02/24/2024 4:46 PM T [facility] Albumin 4.0 3.5 - 5.0 g/dL 02/24/2024 4:46 PM [facility] Glucose 157(H) 70 - 100 mg/dL 02/24/2024 4:46 PM [facility] Comment:The given reference range is for the fasting state. Non-fasting reference range for glucose is 70 - 180 mg/dL. GFR, Estimated >60 >60 mL/min/1.7 3m2 02/24/2024 4:46 PM [facility] Hours Fasting 0.0 8 - 12 Hours 02/24/2024 4:46 PM [facility] Blood Venipuncture / Unknown 02/24/2024 7:35 AM CDT 02/24/2024 7:35 AM CDT Jeanne Shay [facility] [address] [place] [address] * TSH (02/24/2024 7:35 AM CDT) TSH, Sensitive 2.13 0.30 - 4.50 uIU/mL 02/24/2024 12:23 PM CDT [facility] Blood Venipuncture / Unknown 02/24/2024 7:35 AM CDT 02/24/2024 7:35 AM CDT Jeanne Shay [facility] [address] * (ABNORMAL) Complete Blood Count-No Diff (02/24/2024 7:35 AM CDT) WBC 10.8(H) 3.5 - 10.5 x10(9)/L 02/24/2024 7:39 AM CDT [facility] RBC 4.52 4.32 - 5.72 x10(12)/L 02/24/2024 7:39 AM CDT [facility] Hemoglobin 13.6 13.5 - 17.5 g/dL 02/24/2024 7:39 AM CDT [facility] HCT 42.5 38.8 - 50.0 % 02/24/2024 7:39 AM CDT [facility] MCV 94.0 80.0 - 100.0 fL 02/24/2024 7:39 AM CDT [facility] MCH 30.1 27.6 - 33.3 pg 02/24/2024 7:39 AM CDT [facility] MCHC 32.0 31.5 - 35.2 g/dL 02/24/2024 7:39 AM CDT [facility] RDW 13.4 11.9 - 15.5 % 02/24/2024 7:39 AM CDT [facility] Platelets 272 150 - 450 x10(9)/L 02/24/2024 7:39 AM CDT [facility] Blood Venipuncture / Unknown 02/24/2024 7:35 AM CDT 02/24/2024 7:35 AM CDT Jeanne SEVER[facility]_1 Performing Organization Address City/[facility]/ZIP Co de Phone Number [facility] [address] [place] [address] * Free T4 (02/24/2024 7:35 AM CDT) T4, Free 1.1 0.7 - 1.5 ng/dL 02/24/2024 12:24 PM CDT [facility] Blood Venipuncture / Unknown 02/24/2024 7:35 AM CDT 02/24/2024 7:35 AM CDT Jeanne SEVERINO [facility]1 [facility] [address] * Albumin/Creatinine Ratio,Random Urine (02/24/2024 7:35 AM CDT) Albumin/Creati nine Ratio, Urine, Random 23 <30 mg/g 02/24/2024 12:54 PM CDT [facility] Albumin, Urine, Random 16.2 mg/L 02/24/2024 12:54 PM CDT [facility] Creatinine, Urine, Random 72 >20 mg/dL mg/dL 02/24/2024 12:54 PM CDT [facility] Urine Non-blood Collection / Unknown 02/24/2024 7:35 AM CDT 02/24/2024 7:35 AM CDT Jeanne Shay [facility] Performing Organization Address City/[facility]/ZIP Co de Phone Number [facility] [address] [place] [address] * (ABNORMAL) Hgb A1C (02/24/2024 7:35 AM CDT) Pathologist [facility] Hemoglobin A1C 8.8(H) <=5.6 % 02/24/2024 1:51 PM CDT [facility] Estimated Average Glucose (Calc) 206 < 117 mg/dL 02/24/2024 1:51 PM CDT [facility] Comment:Estimated average gl ucose (eAG) converts A1c into glucose units (mg/dL) and estimates average glucose over the past approximately 3 months. The eAG reference interval (<117 mg/dL) corresponds to an A1c of <5.7%. Blood Venipuncture / Unknown 02/24/2024 7:35 AM CDT 02/24/2024 7:35 AM CDT Narrative [facility] - 02/24/2024 1:51 PM CDT For patients not previously diagnosed with diabetes: 5.7-6.4%: Increased risk for diabetes 6.5% and greater: Diagnostic for diabetes For patients diagnosed with diabetes: <8.0%: Goal of therapy for ages 18-75 Clinicians may recommend a higher or lower goal for specific individuals. Jeanne SEVERINO [facility]_1 [facility] [address] [place] [id number], [facility] from Last 3 Months Care Teams Small Stock Facer Relationship Specialty Start Date End Date Mj Schaeffer MD [facility] [address] [place] [address] PCP - General Family Practice 07/22/21
--- OUTSIDE RECORDS SUMMARY | 2024-04-28 10:23 | XMS_ITS | Encounter Summary ---
Author Organization [facility] Address [address] [address] Care Team Providers Care Hand Stoner Name Role Phone Mj Schaeffer MD Primary Care Provider [phone] Reason for Visit * Reason Comments Refill metFORMIN XR (GLUCOP SHUBHAM XR) 500 MG 24 hour release tablet [Pharmacy Med Name: METFORMIN HYDROCHLORIDE ER 500MG TABLET EXTENDED RELEASE 24 HOUR] Encounter Details Date Type Department Care Team (Late st Contact Info) Description 04/03/2024 Refill [facility] [address] Endocrinology [address] [facility] [place] [address] Joe Shay MBBS [address] [place], [place] [address] Refill (metFORMIN XR (GLUCOPHAGE XR) 500 MG [...] on 02/24/2024 HBA1C: 8.8 % on 02/24/2024 [facility] Embedded Refills, Reference: [id number], 04/03/2024 6:17:06 AM CDT, Delroy: CUONG VEE ([id number]) documented in this encounter Plan of Treatment Upcoming Encounters Date Type Department Care Team (Late st Contact Info) Description 05/09/2024 7:45 AM AIRCRAFT ENGINE ASSEMBLER Appointment [facility] [address] [place] [address] Joe Shay MBBS [address] [place] [address] documented as of this encounter Visit Diagnoses Not on filedocumented in this encounter Care Teams Hand Stoner Relationship Specialty Start Date End Date Mj Schaeffer MD [facility] [address] [place] [address] PCP - General Family Practice 07/22/21 documented as of this encounter
--- OUTSIDE RECORDS SUMMARY | 2024-04-28 10:23 | XMS_ITS | Encounter Summary ---
[facility] Organization [facility] Address [address], [place] [address] Care Team Providers Care Digital Performance Analyst Name Role Phone Mj Schaeffer MD Primary Care Provider [phone] Encounter Details Date Type Department Care Team (Late Contact Info) Description 02/24/2024 7:00 AM CDT Lab Visit [facility] [address] [place] [address] Uncontrolled type 1 diabetes mellitus with hyperglycemia (HRC); Essential hypertension (HRC); Dyslipidemia (high LDL; low HDL) (HRC); Coronary artery disease involving coronary bypass 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 pectoris (HRC) Social History [...] (Late Contact Info) Description 05/09/2024 7:45 AM PROCEDURE RN Appointment [facility] [address] [place] [address] Jeanne Shay MBBS [address] [place] [address] documented as of this encounter Procedures Procedure Name Priority Date/Time Associated Diagnosis Comments TISSUE TRANSGLUTAMINASE AB IGA Routine 02/24/2024 7:35 AM CDT Uncontrolled type 1 diabetes mellitus with hyperglycemia (HRC) Essential hypertension (HRC) Dyslipidemia (high LDL; low HDL) (HRC) Coronary artery disease involving coronary bypass 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 pectoris (HRC) LIPID PANEL & DIRECT LDL (IF NEEDED) Routine 02/24/2024 7:35 AM CDT Uncontrolled type 1 diabetes mellitus with hyperglycemia (HRC) COMPREHENSIVE METABOLIC PANEL Routine 02/24/2024 7:35 AM CDT Uncontrolled type 1 diabetes mellitus with hyperglycemia (HRC) Essential hypertension (HRC) Dyslipidemia (high LDL; low HDL) (HRC) Coronary artery disease involving coronary bypass 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 pectoris (HRC) TSH, SENSITIVE Routine 02/24/2024 7:35 AM CDT Uncontrolled type 1 diabetes mellitus with hyperglycemia (HRC) Essential hypertension (HRC) Dyslipidemia (high LDL; low HDL) (HRC) Coronary artery disease involving coronary bypass 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 pectoris (HRC) COMPLETE BLOOD COUNT-NO DIFF Routine 02/24/2024 7:35 AM CDT Uncontrolled type 1 diabetes mellitus with hyperglycemia (HRC) FREE T4 Routine 02/24/2024 7:35 AM CDT Uncontrolled type 1 diabetes mellitus with hyperglycemia (HRC) Essential hypertension (HRC) Dyslipidemia (high LDL; low HDL) (HRC) Coronary artery disease involving coronary bypass 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 pectoris (HRC) ALBUMIN/CREAT RATIO Routine 02/24/2024 7 :35 AM CDT Uncontrolled type 1 diabetes mellitus with hyperglycemia (HRC) Essential hypertension (HRC) Dyslipidemia (high LDL; low HDL) (HRC) Coronary artery disease involving coronary bypass 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 pectoris (HRC) HGB A1C Routine 02/24/2024 7:35 AM CDT Uncontrolled type 1 diabetes mellitus with hyperglycemia (HRC) Essential hypertension (HRC) Dyslipidemia (high LDL; low HDL) (HRC) Coronary artery disease involving coronary bypass 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 pectoris (HRC) documented in this encounter Results * (ABNORMAL) Complete Blood Count-No Diff (02/24/2024 7:35 AM CDT) Pathologist [facility] WBC 10.8(H) 3.5 - 10.5 x10(9)/L 02/24/2024 7:39 AM CDT [facility] RBC 4.52 4.32 - 5.72 x10(12)/L 02/24/2024 7:39 AM T [facility] Hemoglobin 13.6 13.5 - 17.5 g/dL 02/24/2024 7:39 AM T [facility] HCT 42.5 38.8 - 50.0 % 02/24/2024 7:39 AM T [facility] MCV 94.0 80.0 - 100.0 fL 02/24/2024 7:39 AM T [facility] MCH 30.1 27.6 - 33.3 pg 02/24/2024 7:39 AM T [facility] MCHC 32.0 31.5 - 35.2 g/dL 02/24/2024 7:39 AM T [facility] RDW 13.4 11.9 - 15.5 % 02/24/2024 7:39 AM T [facility] Platelets 272 150 - 450 x10(9)/L 02/24/2024 7:39 AM [facility] Blood Venipuncture / Unknown 02/24/2024 7:35 AM CDT 02/24/2024 7:35 AM CDT Jeanne Tanna Jaspal [facility]_1 Performing Organization Address City/State/[facility] Co de Phone Number [facility] [address] [place] [address] * Lipid Panel and Direct LDL (if needed) (02/24/2024 7:35 AM CDT) Pathologist [facility] Cholesterol 134 0 - 199 mg/dL 02/24/2024 4:46 PM T [facility] Triglyceride 126 <=149 mg/dL 02/24/2024 4:46 PM T [facility] HDL Cholesterol 48 >=40 mg/dL 4 4:46 PM [facility] LDL, Calculated 61 <130 mg/dL 4 4:46 PM T [facility] Non HDL Chol, Calculated 86 <=159 mg/dL 02/24/2024 4:46 PM [facility] Cholesterol/HDL Ratio 2.8 <=5.0 02/24/2024 4:46 PM T [facility] Hours Fasting 0.0 8 - 12 Hours 02/24/2024 4:46 PM T [facility] Blood Venipuncture / Unknown 02/24/2024 7:35 AM CDT 02/24/2024 7:35 AM CDT Jeanne Shay [facility] [address] [place] [address] * Tissue Transglutaminase Ab IgA (02/24/2024 7:35 AM CDT) Tissue Transglutaminase Antibody, IgA 0.7 0.0 - 6.9 U/mL 02/25/2024 12:51 PM T [facility] Tissue Transglutaminase Antibody, IgA Interpretation Negative Negative 02/25/2024 12:51 PM [facility] Blood Venipuncture / Unknown 02/24/2024 7:35 AM CDT 02/24/2024 7:35 AM CDT Jeanne Guerrakeila [facility]_1 Performing Organization Address City/[facility]/ZIP Co de Phone Number [facility] [address] * Albumin/Creatinine Ratio,Random Urine (02/24/2024 7:35 AM CDT) Albumin/Creati nine Ratio, Urine, Random 23 <30 mg/g 02/24/2024 12:54 PM T [facility] Albumin, Urine, Random 16.2 mg/L 02/24/2024 12:54 PM T [facility] Creatinine, Urine, Random 72 >20 mg/dL mg/dL 02/24/2024 12:54 PM T [facility] Urine Non-blood Collection / Unknown 02/24/2024 7:35 AM CDT 02/24/2024 7:35 AM CDT Jeanne Shay [facility]1 Performing Organization Address [facility]/ZIP Co de Phone Number [facility] [address] [place] [address] * Free T4 (02/24/2024 7:35 AM CDT) T4, Free 1.1 0.7 - 1.5 ng/dL 02/24/2024 12:24 PM CDT [facility] Blood Venipuncture / Unknown 02/24/2024 7:35 AM CDT 02/24/2024 7:35 AM CDT Jeanne Shay [facility]1 Performing Organization Address [facility] de Phone Number [facility] [address] * TSH (02/24/2024 7:35 AM CDT) Pathologist [facility] TSH, Sensitive 2.13 0.30 - 4.50 uIU/mL 02/24/2024 12:23 PM CDT [facility] Blood Venipuncture / Unknown 02/24/2024 7:35 AM CDT 02/24/2024 7:35 AM CDT Jeanne Shay [facility]1 Performing Organization Address [facility] de Phone Number [facility] [address] * (ABNORMAL) Comp Metabolic Panel (02/24/2024 7:35 AM CDT) Pathologist [facility] Sodium 140 136 - 145 mmol/L 02/24/2024 4:46 PM CDT [facility] Potassium 5.0 3.5 - 5.1 mmol/L 02/24/2024 4:46 PM CDT [facility] Chloride 107 98 - 109 mmol/L 02/24/2024 4:46 PM [facility] CO2 23 20 - 29 mmol/L 02/24/2024 4:46 PM [facility] Anion Gap 10 6 - 16 mmol/L 02/24/2024 4:46 PM [facility] Calcium 9.7 8.4 - 10.4 mg/dL 02/24/2024 4:46 PM [facility] BUN 16 7 - 26 mg/dL 02/24/2024 4:46 PM [facility] Creatinine 0.69(L) 0.73 - 1.18 mg/dL 02/24/2024 4:46 PM [facility] Alkaline Phosphatase 102 40 - 150 U/L 02/24/2024 4:46 PM [facility] AST (SGOT) 15 10 - 40 U/L 02/24/2024 4:46 PM [facility] ALT (SGPT) 14 <=55 U/L 02/24/2024 4:46 PM [facility] Bilirubin, Total 0.4 0.2 - 1.2 mg/dL 02/24/2024 4:46 PM [facility] Protein, Total 8.0 6.4 - 8.3 g/dL 02/24/2024 4:46 PM [facility] Albumin 4.0 3.5 - 5.0 g/dL 02/24/2024 4:46 PM [facility] Glucose 157(H) 70 - 100 mg/dL 02/24/2024 4:46 PM [facility] Comment:The given reference range is for the fasting state. Non-fasting reference range for glucose is 70 - 180 mg/dL. GFR, Estimated >60 >60 mL/min/1.7 3m2 02/24/2024 4:46 PM [facility] Hours Fasting 0.0 8 - 12 Hours 02/24/2024 4:46 PM [facility] Blood Venipuncture / Unknown 02/24/2024 7:35 AM CDT 02/24/2024 7:35 AM T Jeanne Shay [facility]_1 [facility] [address] [place] [address] * (ABNORMAL) Hgb A1C (02/24/2024 7:35 AM CDT) Hemoglobin A1C 8.8(H) <=5.6 % 02/24/2024 1:51 PM CDT [email or web address] Estimated Average Glucose (Calc) 206 < 117 mg/dL 02/24/2024 1:51 PM CDT [facility] Comment:Estimated average gl ucose (eAG) converts A1c into glucose units (mg/dL) and estimates average glucose over the past approximately 3 months. The eAG reference interval (<117 mg/dL) corresponds to an A1c of <5.7%. Blood Venipuncture / Unknown 02/24/2024 7:35 AM CDT 02/24/2024 7:35 AM CDT Narrative [facility] - 02/24/2024 1:51 PM CDT For patients not previously diagnosed with diabetes: 5.7-6.4%: Increased risk for diabetes 6.5% and greater: Diagnostic for diabetes For patients diagnosed with diabetes: <8.0%: Goal of therapy for ages 18-75 Clinicians may recommend a higher or lower goal for specific individuals. Jeanne [facility] [address] [address], [facility] documented in this encounter Visit Diagnoses Diagnosis Uncontrolled type 1 diabetes mellitus with hyperglycemia (HRC) Essential hypertension (HRC) Unspecified essential hypertension Dyslipidemia (high LDL; low HDL) (HRC) Other and unspecified hyperlipidemia Coronary artery disease involving coronary bypass 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 pectoris (HRC) documented in this encounter Care Teams Digital Performance Analyst Relationship Specialty Start Date End Date Mj Schaeffer MD [facility] [address] [place] [address] PCP - General Family Practice 07/22/21 documented as of this encounter
--- NOTE | 2024-04-28 10:30 | CRLHL7_ITS ---
For Patients: As a result of the Century Cures Act, medical imaging exams and procedure reports are released immediately into your electronic medical record. You may view this report before your referring provider. If you have questions, please contact your health care provider. INDICATION: Lung cancer screening. History of smoking. High risk patient with greater than pack-year smoking history. TECHNIQUE: Low-dose lung cancer screening non-contrast CT chest. Dose reduction techniques were used. COMPARISON: None. FINDINGS: NODULES: Stable subpleural nodules anterior right lung. Stable subpleural nodule right lower lobe. Unchanged small calcified granuloma in the lingula. LUNGS AND PLEURA: Unchanged round atelectasis left lower lobe with adjacent pleural thickening. Emphysema. MEDIASTINUM: Similar subcentimeter lymph nodes. CORONARY ARTERY CALCIFICATION: Present. Postop changes CABG. LIMITED UPPER ABDOMEN: Stable incidental calcification at the briana hepatis. MUSCULOSKELETAL: Discogenic spurring throughout the thoracic spine. IMPRESSION: Negative for lung cancer screening purposes. LUNG-RADS CATEGORY: 2: Benign. RADIOLOGIST RECOMMENDATION: Continue annual screening with low-dose CT chest in 12 months. Please note that all CT scans at this facility use dose modulation, iterative reconstruction, and/or weight-based dosing when appropriate to reduce radiation dose to as low as reasonably achievable. Dictated by Manny Melchor MD @ 04/28/2024 12:02:52 PM (Electronically Signed)
== END 2024-04-28 10:19 | disposition home or self-care (01) ==
LOC: CT 10:19
PROVIDERS: PCP Internal Medicine; Visit Provider Internal Medicine
DX: Z12.2 Encounter for screening for malignant neoplasm of respiratory organs (principal); F17.210 Nicotine dependence, cigarettes, uncomplicated
CPT/HCPCS: 71271

== ENCOUNTER 2024-05-15 11:08 | Day surgery (SDC) | payer MEDICAID, SELFPAY ==
[2024-05-15] VITALS (10 sets, daily range): BP systolic 119–175; BP diastolic 72–81; PULSE 59–85; RESP 16–22; TEMP 35.7–36.8; O2SAT 96–98; BMI 25.1; BMI 25.3
--- NOTE | 2024-05-15 10:30 | ED.GENADULT ---
HPI - General Adult General Date Seen: 05/15/24 Chief complaint: Abdominal Pain Stated complaint: abdominal pain Time Seen by Provider: 05/15/24 10:30 History of Present Illness HPI narrative: 68-year-old male presenting to the ER today with abdominal pain. Since about 3:00 a.m. this morning he has been having pain affecting his right flank and right lower quadrant. Associated with nausea and vomiting. He is an insulin-dependent diabetic with an insulin pump. He also has a history of aortic valve replacement (Z no genic heart valve), coronary artery disease with CABG, peripheral vascular disease with previous angioplasty, COPD, tobacco use, arthritis, liver steatosis. He has been having pain mostly on the right side of his abdomen since last week. It probably started on or so. He saw his PCP last . He was diagnosed with muscular pain was treating it supportively it has been present off and on. No clear exacerbating or alleviating factors. It got worse overnight around 3:00 a.m. this morning and is no associated with nausea and vomiting and burping. Bowel movements have been normal. Urination has been normal. No fevers. He has had multiple episodes of nonbilious, nonbloody vomiting this morning. He still nauseous at presentation to the ER. No history of kidney stones. Preview past medical record.... Was in the ER of September 2022 with abdominal pain. Workup showed a white count of 10.1, hemoglobin 13.4, platelet count 303. Electrolytes normal. BUN 21, creatinine 1.0. LFTs normal. Urinalysis showed 2-[address] scan of his abdomen/pelvis in November 2023 Findings: Peripheral airspace densities left lung base. Mild scarring in the right lung base. Trace left pleural effusion noted with thickening of the pleura. Benign cyst within the left hepatic lobe. Focal fat deposition is present adjacent to the falciform ligament. Hepatic steatosis. Spleen is not enlarged. Similar appearance of the adrenal glands. The kidneys are within normal limits. Gallbladder incompletely distended. The pancreas is normal. No hiatal hernia. Atherosclerotic changes. Prostate calcifications are present. Stool is present throughout the colon. No bowel obstruction or free air. No free fluid. No adenopathy. Bladder normal. Stable benign sclerosis adjacent to the left sacroiliac joint. No fracture. Degenerative disc disease lumbar spine. Incidental calcified lymph node in the upper retroperitoneum. Impression: No bowel obstruction or inflammation. No pancreatic mass. Hepatic steatosis. Related Data Home Medications ?Medication ?Instructions ?Recorded ?Confirmed aspirin 81 mg tablet,delayed 81 mg PO DAILY 12/03/21 05/15/24 release nitroglycerin 0.4 mg sublingual 0.4 mg sublingual Q5M PRN 12/03/21 05/15/24 tablet blood-glucose meter,continuous #1 ea 04/13/23 05/08/24 (Dexcom G6 Rib Cloth Knitter) blood-glucose sensor (Dexcom G6 #1 ea 04/13/23 05/08/24 Sensor device) blood-glucose transmitter (Dexcom #1 ea 04/13/23 05/08/24 G6 Transmitter device) flash glucose sensor (FreeStyle #1 ea 04/13/23 05/08/24 Nemesio 2 Sensor kit) gabapentin 300 mg capsule 300 mg PO QAM 04/13/23 05/15/24 glucagon 1 mg/0.2 mL subcutaneous 1 mg subcut .PRN 04/13/23 05/15/24 auto-injector (GvAcrinta HypoPen 2-Pack) insulin aspart U-100 100 unit/mL 50 unit subcut Q24H 04/13/23 05/15/24 subcutaneous solution insulin pump cart,cont inf,BT #5 ea 04/13/23 05/08/24 (Omnipod Dash Pods (Gen 4) subcutaneous cartridge) pen needle, diabetic 31 gauge x #100 ea 04/13/23 05/08/24 1/4 (Pentips Pen Needle) metformin 500 mg tablet,extended 2,000 mg PO QPM 05/08/24 05/15/24 release 24 hr atorvastatin 20 mg tablet 20 mg PO HS 05/15/24 05/15/24 gabapentin 300 mg capsule 600 mg PO HS 05/15/24 05/15/24 Previous Rx's ?Medication ?Instructions ?Recorded lisinopril 2.5 mg tablet 2.5 mg PO QDAY #90 tabs 05/03/24 metoprolol tartrate 50 mg tablet 50 mg PO BID #180 tabs 05/03/24 Allergies Allergy/AdvReac Type Severity Reaction Status Date / Time No Known Allergies Allergy Unknown Verified 05/15/24 09:46 [facility] Medical History (Updated 05/15/24 @ 16:52 by Ban Parekh MD) Broad-based protrusion of intervertebral disc Hyperlipidemia ?E78.5 - Hyperlipidemia, unspecified (ICD-10) Coronary artery disease ?I25.10 - Atherosclerotic heart disease of [place] coronary artery without angina pectoris (ICD-10) Osteoarthritis of left shoulder ?M19.012 - Primary osteoarthritis, left shoulder (ICD-10) Steatosis of liver ?K76.0 - Fatty (change of) liver, not elsewhere classified (ICD-10) Seasonal allergies ?J30.2 - Other seasonal allergic rhinitis (ICD-10) Peripheral arterial disease ?I73.9 - Peripheral vascular disease, unspecified (ICD-10) Diabetic neuropathy ?E11.40 - Type 2 diabetes mellitus with diabetic neuropathy, unspecified (ICD-10) Mass of right side of neck ?R22.1 - Localized swelling, mass and lump, neck (ICD-10) Type 1 diabetes ?E10.9 - Type 1 diabetes mellitus without complications (ICD-10) Essential hypertension ?I10 - Essential (primary) hypertension (ICD-10) Obstructive sleep apnea ?G47.33 - Obstructive sleep apnea (adult) (pediatric) (ICD-10) Nicotine dependence ?F17.200 - Nicotine dependence, unspecified, uncomplicated (ICD-10) COVID-19 vaccination declined ?Z28.21 - Immunization not carried out because of patient refusal (ICD-10) COPD (chronic obstructive pulmonary disease) ?J44.9 - Chronic obstructive pulmonary disease, unspecified (ICD-10) Osteoarthritis of right shoulder ?M19.011 - Primary osteoarthritis, right shoulder (ICD-10) Osteoarthritis of metacarpophalangeal (MCP) joint of left middle finger ?M19.042 - Primary osteoarthritis, left hand (ICD-10) Trigger finger, left middle finger ?M65.332 - Trigger finger, left middle finger (ICD-10) Right lumbar radiculopathy ?M54.16 - Radiculopathy, lumbar region (ICD-10) Lumbar degenerative disc disease ?M51.36 - Other intervertebral disc degeneration, lumbar region (ICD-10) Tendinopathy of left rotator cuff ?M67.912 - Unspecified disorder of synovium and tendon, left shoulder (ICD-10) Gastroparesis ?K31.84 - Gastroparesis (ICD-10) Adenomatous colon polyp ?D12.6 - Benign neoplasm of colon, unspecified (ICD-10) Tendinopathy of right biceps tendon ?M67.921 - Unspecified disorder of synovium and tendon, right upper arm (ICD-10) Arthritis of right acromioclavicular joint ?M19.011 - Primary osteoarthritis, right shoulder (ICD-10) Surgical History History of coronary artery bypass graft ?Z95.1 - Presence of aortocoronary bypass graft (ICD-10) History of aortic valve replacement ?Z95.2 - Presence of prosthetic heart valve (ICD-10) Status post neck dissection ?Z98.890 - Other specified postprocedural states (ICD-10) Status post peripheral artery angioplasty ?Z98.62 - Peripheral vascular angioplasty status (ICD-10) Social History (Updated 05/15/24 @ 16:31 by Ban Parekh MD) Narrative: Semi retired in the [employer], originally from [place]. 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 Denies any alcohol use or recreational drug use. What is your current living situation?: I presently have a place to live Problems where you live: no known problems Problems where you live details: na In the past 12 months, utilities in danger of being shut off: no In the past 12 mos, have been you worried that your food would run out before you had money to buy more?: never true In the past 12 mos, the food you bought just didn't last and you didn't have money to buy more?: never true Highest level of school completed/degree received: high school graduate Smoking Status: Current every day smoker Do you use any of these nicotine containing products: None Second hand tobacco smoke exposure: No How often do you have a drink containing alcohol: never How often do you have six or more drinks on one occasion: Never AUDIT-C Alcohol total score: 0 Non-prescribed substance use: denies use Caffeine: Yes (5 cups a day) How often does anyone, including family, friends and others, physically hurt you: never How often does anyone, including family, friends and others, insult or talk down to you: never How often does anyone, including family, friends and others, threaten you with harm: never How often does anyone, including family, friends and others, scream or curse at you: never service: No Exam Narrative: Exam Narrative: Constitutional: Appears well-developed and well-nourished. Alert. Quite uncomfortable, having trouble sitting still due to pain. Nauseous and burping. Not vomiting but holding an emesis bag. Nausea and pain meds ordered. He does not want anything that makes him drowsy. HENT: Head: Atraumatic. Nose: Nose normal. Mouth/Throat: Oral mucosa is clear and moist. no trismus. Pharynx normal. Eyes: Conjunctivae normal. EOM normal. Pupils equal, round, and reactive to light. No scleral icterus. Neck: Normal range of motion. Neck supple. No tracheal deviation present. Cardiovascular: Normal rate, regular rhythm. No gallop. No friction rub. No murmur heard. Symmetric radial artery pulses Pulmonary/Chest: Effort normal. No stridor. No respiratory distress. No wheezes. No rales. No rhonchi . No tenderness. Abdominal: Soft. Bowel sounds normal. No distension. No mass. Right CVA as well as right lower quadrant and right upper quadrant tenderness. No rebound. No guarding. Musculoskeletal: RUE: Normal range of motion. No tenderness. No deformity LUE: Normal range of motion. No tenderness. No deformity RLE: Normal range of motion. No edema. No tenderness. No deformity LLE: Normal range of motion. No edema. No tenderness. No deformity Neurological: Alert and oriented to person, place, and time. Normal strength. CN II-VII intact. No sensory deficit. GCS eye subscore is 4. GCS verbal subscore is 5. GCS motor subscore is 6. Normal coordination Skin: Skin is warm and dry. No rash noted. No pallor. Normal capillary refill. Psychiatric: Normal mood. Normal affect. Const: Vital Signs, click to edit/add: Vital Signs - 24 hr 05/15/24 09:41 05/15/24 13:30 Temperature 96.3 F L Pulse Rate [Pulse Oximeter] 75 85 Respiratory Rate 22 16 Blood Pressure [Ri ght Upper Arm] 172/75 H 170/81 H Pulse Oximetry 98 96 Oxygen Delivery Me thod Room Air Room Air Course Course ED Course: Recheck-still quite uncomfortable after Toradol, Dilaudid ordered. Pain localizing to the right upper quadrant right flank. Negative Quintero sign. Will obtain gallbladder ultrasound. Reevaluation(s) Reevaluation #1: Recheck-sleeping but easily arouses to voice. Still quite tender in the right flank and right upper quadrant. Negative Quintero sign. Gallbladder ultrasound confirms stones but no evidence for cholecystitis, choledocholithiasis. Reevaluation #2: Recheck-discussed get with the patient. He is still quite uncomfortable. He will agree to be admitted for observation pain control. We discussed gallbladder pathology and finding so far the confirm gallstones but no other evidence for objective cholecystitis. I am concerned and suspicious that he does have some medical stones but at this point do not want to risk unnecessary surgery. He understands. He agrees to stay. He understands the sedation side effects of opiate pain killers. Vital Signs Vital signs: Initial Vital Signs Temperature 96.3 F L 05/15/24 09:41 Temperature Source Temporal Artery Scan 05/15/24 09:41 Pulse Rate 75 05/15/24 09:41 Respiratory Rate 22 05/15/24 09:41 Blood Pressure 172/75 H 05/15/24 09:41 Blood Pressure Mean 107 H 05/15/24 09:41 Blood Pressure Position Sitting 05/15/24 09:41 Pulse Oximetry 98 05/15/24 09:41 Oxygen Delivery Method Room Air 05/15/24 09:41 Vital Signs Temperature 96.3 F L 05/15/24 09:41 Pulse Rate 75 05/15/24 09:41 Respiratory Rate 22 05/15/24 09:41 Blood Pressure 172/75 H 05/15/24 09:41 Pulse Oximetry 98 05/15/24 09:41 Oxygen Delivery Method Room Air 05/15/24 09:41 Temperature 97.9 F 05/15/24 15:11 Pulse Rate 77 05/15/24 15:11 Respiratory Rate 16 05/15/24 16:08 Blood Pressure 175/77 H 05/15/24 15:11 Pulse Oximetry 96 05/15/24 16:08 Oxygen Delivery Method Room Air 05/15/24 16:08 Medications Administered Medications: Generic Name Dose Route Start Last Admin Trade Name Freq PRN Reason Stop Dose Admin Hydromorphone HCl 0.5 mg 05/15/24 12:00 05/15/24 13:56 Hydromorphone 0.5 Mg/0.5 Ml Inj IVP 0.5 mg Q1H PRN Administration Pain Discontinued Medications Generic Name Dose Route Start Last Admin Trade Name Sisi PRN Reason Stop Dose Admin Sodium Chloride 500 mls @ 500 mls/hr 05/15/24 13:42 05/15/24 13:56 0.9 % Sodium Chloride 500 Ml IV 05/15/24 14:41 500 mls/hr .Q1H ONE Administration Insulin Human Regular 10 unit 05/15/24 13:41 05/15/24 14:08 Insulin Regular, Human 100 Unit/Ml Vial SUBCUT 05/15/24 13:42 10 unit ONCE ONE Administration Ketorolac Tromethamine 15 mg 05/15/24 10:37 05/15/24 10:42 Ketorolac 15 Mg/Ml Inj IVP 05/15/24 10:38 15 mg ONCE ONE Administration Ondansetron HCl 4 mg 05/15/24 10:37 05/15/24 10:42 Ondansetron 2 Mg/Ml Inj IVP 05/15/24 10:38 4 mg ONCE ONE Administration Medical Decision Making [facility] Narrative Medical decision making narrative: Pleasant 68-year-old gentleman with a history of vascular disease,, aortic valve replacement, presenting to the ER today with right-sided abdominal pain ongoing since last week. He had already been seen in his PCP office and told it was likely musculoskeletal but he is have worsening pain with nausea overnight tonight into this morning prompting his visit to the ER. He was quite uncomfortable at presentation. Initial concern was for possible kidney stone. Differential would also include aortic aneurysm, right-sided colitis, appendicitis, cholecystitis, among others. Patient is sent for stat stone protocol CT scan which does not show any kidney stone or hydronephrosis. He has a moderate stool burden in the right side of his colon but no other inflammatory change in the intestines based on the CT. Laboratory workup shows a normal lipase, normal LFTs. Total bilirubin 0.5. Venous lactic acid is normal, arguing against bowel ischemia. Metabolic profile shows hyperglycemia with sugar of 394. Anion gap is normal. No evidence for DKA or other life-threatening complication of hyperglycemia. He wants to give himself a bolus from his own insulin pump. He did this while he is here in the ER. There are gallstones noted on the CT. No obvious evidence for cholecystitis. Gallbladder ultrasound is obtained and confirms stones but normal wall thickness, normal common bile duct diameter. No evidence for gallstone complications such as evolving cholecystitis, choledocholithiasis, ascending cholangitis. Nonetheless he has ongoing severe pain despite IV meds given here in the ER. Discussed with surgery, Dr. Jerry. We reviewed the patient's presenting symptoms, labs, imaging so far. She agrees that pain is concerning and gallstones are present and could be the culprit but we do not have any objective evidence confirming cholecystitis yet. Since he is a vasculopath, surgery could be potentially risky for him. Would like to avoid any unnecessary cholecystectomy. However, his pain and symptoms are concerning. We will admit him for pain control and observation overnight with the plan for serial labs and if pain is not improving, either OR or HIDA scan tomorrow. Discussed with hospitalist, Dr. Parekh had 1:50 p.m.. She accepts to the hospitalist service on behalf of Dr. Head Lab Data Labs: Lab Results 05/15/24 05/15/24 05/15/24 Range/Units 10:11 10:50 10:54 WBC 10.38 (4.50-11.00) K/uL RBC 4.55 (4.30-5.90) m/uL Hgb 13.6 (13.5-17.5) gm/dL Hct 42.0 (37.0-53.0) % MCV 92 (80-100) fL MCH 30 (26-34) pg MCHC 32 (32-36) gm/dL RDW Coeff of Jose 13.2 (11.5-15.5) % Plt Count 256 (140-440) K/uL Neut % (Auto) 84.0 H (42.0-72.0) % Lymph % (Auto) 11.1 L (20-44) % [place] % (Auto) 4.0 (0.0-11.0) % Eos % (Auto) 0.3 (0.0-7.0) % Baso % (Auto) 0.4 (0.0-3.0) % Neut # (Auto) 8.70 H (1.7-7.0) K/uL Lymph # (Auto) 1.20 (0.90-2.90) K/uL [place] # (Auto) 0.40 (0.00-0.90) K/UL Eos # (Auto) 0.03 (0.00-0.50) K/uL Baso # (Auto) 0.04 (0.00-0.30) K/uL Abs Immat Gran (auto) 0.02 (0.00-0.30) K/uL Imm/Tot Granulo (auto) 0.2 % D-Dimer Quant (PE/DVT) Cancelled Sodium 134 L (135-149) mmol/L Potassium 4.9 (3.6-5.1) mmol/L Chloride 102 (96-114) mmol/L Carbon Dioxide 20 (20-32) mmol/L Anion Gap 12 (7-15) mEq/L BUN 24 (7-30) mg/dL Creatinine 0.8 (0.5-1.5) mg/dL Estimated Creat Clear 65.18 Estimated GFR 96 ml/min Glucose 394 H* (60-115) mg/dL Lactate 1.7 (0.5-1.9) mmol/L Calcium 9.2 (8.4-10.6) mg/dL Total Bilirubin 0.5 (0.1-1.5) mg/dL AST 21 (12-35) U/L ALT 19 (4-50) U/L Alkaline Phosphatase 137 (40-150) U/L Total Protein 7.7 (6.0-8.3) g/dL Albumin 4.6 (3.3-5.0) g/dL Lipase 44 (23-300) U/L Urine Color (Yellow) Urine Appearance (Clear) Urine pH (5.0-8.5) Ur Specific [place] (1.000-1.030) Urine Protein (Negative) Urine Glucose (UA) (Negative) Urine Ketones (Negative) Urine Blood (Negative) Urine Nitrite (Negative) Urine Bilirubin (Negative) Urine Urobilinogen (0.2-1.0) Ur Leukocyte Esterase (Negative) Urine RBC (0-2) Urine WBC (0-5) Ur Squamous Epith Cells (None-Few) Urine Bacteria (None) 05/15/24 Range/Units 12:11 WBC (4.50-11.00) K/uL RBC (4.30-5.90) m/uL Hgb (13.5-17.5) gm/dL Hct (37.0-53.0) % MCV (80-100) fL MCH (26-34) pg MCHC (32-36) gm/dL RDW Coeff of Jose (11.5-15.5) % Plt Count (140-440) K/uL Neut % (Auto) (42.0-72.0) % Lymph % (Auto) (20-44) % [place] % (Auto) (0.0-11.0) % Eos % (Auto) (0.0-7.0) % Baso % (Auto) (0.0-3.0) % Neut # (Auto) (1.7-7.0) K/uL Lymph # (Auto) (0.90-2.90) K/uL [place] # (Auto) (0.00-0.90) K/UL Eos # (Auto) (0.00-0.50) K/uL Baso # (Auto) (0.00-0.30) K/uL Abs Immat Gran (auto) (0.00-0.30) K/uL Imm/Tot Granulo (auto) % D-Dimer Quant (PE/DVT) Sodium (135-149) mmol/L Potassium (3.6-5.1) mmol/L Chloride (96-114) mmol/L Carbon Dioxide (20-32) mmol/L Anion Gap (7-15) mEq/L BUN (7-30) mg/dL Creatinine (0.5-1.5) mg/dL Estimated Creat Clear Estimated GFR ml/min Glucose (60-115) mg/dL Lactate (0.5-1.9) mmol/L Calcium (8.4-10.6) mg/dL Total Bilirubin (0.1-1.5) mg/dL AST (12-35) U/L ALT (4-50) U/L Alkaline Phosphatase (40-150) U/L Total Protein (6.0-8.3) g/dL Albumin (3.3-5.0) g/dL Lipase (23-300) U/L Urine Color Yellow (Yellow) Urine Appearance Clear (Clear) Urine pH 5.5 (5.0-8.5) Ur Specific [place] 1.020 (1.000-1.030) Urine Protein Negative (Negative) Urine Glucose (UA) 2+ A (Negative) Urine Ketones 4+ A (Negative) Urine Blood Trace-lysed A (Negative) Urine Nitrite Negative (Negative) Urine Bilirubin Negative (Negative) Urine Urobilinogen 0.2 (0.2-1.0) Ur Leukocyte Esterase Negative (Negative) Urine RBC 0-2 (0-2) Urine WBC 0-2 (0-5) Ur Squamous Epith Cells Few (None-Few) Urine Bacteria Few A (None) Imaging Data CT scan - abdomen: Attestation: I have reviewed the pertinent imaging results. Radiologist's impression: Impression: 1. No evidence of hydronephrosis or obstructive radiopaque calculus. Minimal likely dependent calculi within the gallbladder. No obvious inflammatory change of the appendix. 2. Moderate to severe stool seen throughout the proximal colon which may represent moderate constipation changes. No overt pericolonic inflammation. 3. Incidental note made of rounded atelectasis and left basilar pleural thickening new from remote comparison exam. Correlate with history of clinical symptoms and prior history of infectious/inflammatory changes. US RUQ: Attestation: I have reviewed the pertinent imaging results. Radiologist's impression: FINDINGS: There is cholelithiasis. No gallbladder wall thickening. No pericholecystic fluid. Negative sonographic Quintero`s sign. Common bile duct measures to 4 millimeters in diameter. IMPRESSION: Cholelithiasis. Otherwise, unremarkable sonographic appearance of the gallbladder. Discharge Plan Discharge Clinical Impression: Abdominal pain, Acute flank pain, Gallstones, Acute constipation, Acute hyperglycemia Patient Disposition: Admitted As Observation
[2024-05-15] MEDS: ONDANSETRON 2 MG/ML inj 4 MG IVP (10:42)
[2024-05-15] MEDS: KETOROLAC 15 MG/ML inj IVP (10:42)
--- NOTE | 2024-05-15 10:43 | CRLHL7_ITS ---
For Patients: As a result of the Century Cures Act, medical imaging exams and procedure reports are released immediately into your electronic medical record. You may view this report before your referring provider. If you have questions, please contact your health care provider. Indication: Right flank pain, right upper quadrant and right lower quadrant abdominal pain with nausea and vomiting Technique: Volumetric multidetector CT images of the abdomen and pelvis were without the administration of intravenous contrast. Comparison: CT chest, abdomen and pelvis December 06, 2018 Findings: There is left basilar atelectasis with extensive pleural thickening and rounded atelectasis in the peripheral left lower lobe. The right lung base is clear with minimal basilar atelectasis. The liver is normal in attenuation without intrahepatic biliary ductal dilatation. There is minimal dependent calculi within the gallbladder. There is no gallbladder wall thickening or pericholecystic fluid. There is no significant common biliary ductal dilatation or abrupt cut off. The spleen is normal in attenuation and size. The stomach and duodenum are grossly unremarkable. The pancreas is normal in attenuation without significant atrophy. The adrenal glands are unremarkable. There is no evidence of radiopaque calculus or hydronephrosis. There is moderate to severe stool seen throughout the colon commensurate with constipation changes. There is minimal scattered colonic diverticulosis without obvious pericolonic inflammatory changes. The appendix is unremarkable. There is no significant mesenteric, retroperitoneal, or pelvic sidewall lymph nodes. The aorta is nonaneurysmal. There is no significant atherosclerotic disease appreciated. The solid pelvic viscera are grossly unremarkable. There is no free fluid or free air. The anterior abdominal wall is intact without significant hernias. The lumbar vertebral body heights are grossly maintained with minimal endplate Schmorl`s defects. There is no significant spondylolisthesis or displaced fracture. Impression: 1. No evidence of hydronephrosis or obstructive radiopaque calculus. Minimal likely dependent calculi within the gallbladder. No obvious inflammatory change of the appendix. 2. Moderate to severe stool seen throughout the proximal colon which may represent moderate constipation changes. No overt pericolonic inflammation. 3. Incidental note made of rounded atelectasis and left basilar pleural thickening new from remote comparison exam. Correlate with history of clinical symptoms and prior history of infectious/inflammatory changes. Please note that all CT scans at this facility use dose modulation, iterative reconstruction, and/or weight-based dosing when appropriate to reduce radiation dose to as low as reasonably achievable. Dictated by Jose Reyes MD @ 05/15/2024 11:24:31 AM (Electronically Signed)
[2024-05-15 10:51] LABS: Albumin* 4.6 g/dL (3.3-5.0); Chloride* 102 mmol/L (96-114); Potassium* 4.9 mmol/L (3.6-5.1); Sodium* 134 mmol/L (135-149)
[2024-05-15 10:53] LABS: Anion Gap 12 mEq/L (7-15); Aspartate Amino Transferase* 21 U/L (12-35); Basophils Absolute Auto 0.04 K/uL (0.00-0.30); Basophils Percent Auto 0.4 % (0.0-3.0); Bilirubin Total* 0.5 mg/dL (0.1-1.5); Carbon Dioxide* 20 mmol/L (20-32); Creatinine* 0.8 mg/dL (0.5-1.5); Eosinophils Absolute Auto 0.03 K/uL (0.00-0.50); Eosinophils Percent Auto 0.3 % (0.0-7.0); Est. Creatinine Clearance* 65.18; Estimated Glomerular Filt Rate 96 ml/min; Hemoglobin* 13.6 gm/dL (13.5-17.5); Immature Granulocytes Abs Auto 0.02 K/uL (0.00-0.30); Immature Granulocytes Pct Auto 0.2 %; Lymphocytes Percent Auto 11.1 % (20-44); Mean Corpuscular HGB Conc 32 gm/dL (32-36); Mean Corpuscular Hemoglobin 30 pg (26-34); Mean Corpuscular Volume 92 fL (80-100); Platelet Count* 256 K/uL (140-440); RDW Coefficient of Variation % 13.2 % (11.5-15.5); Red Blood Count 4.55 m/uL (4.30-5.90); White Blood Count* 10.38 K/uL (4.50-11.00)
[2024-05-15 10:54] LABS: Alanine Aminotransferase* 19 U/L (4-50); Alkaline Phosphatase* 137 U/L (40-150); Blood Urea Nitrogen* 24 mg/dL (7-30); Lipase* 44 U/L (23-300); Total Protein* 7.7 g/dL (6.0-8.3)
[2024-05-15 10:55] LABS: Calcium* 9.2 mg/dL (8.4-10.6); Slide Review Reflex No
[2024-05-15 10:57] LABS: Glucose* 394 mg/dL (60-115)
[2024-05-15 11:02] LABS: Lactate* 1.7 mmol/L (0.5-1.9)
--- OUTSIDE RECORDS SUMMARY | 2024-05-15 11:10 | XMS_ITS | Encounter Summary ---
Author Organization [facility] Address [address] [place] [address] Care Team Providers Care Warehouse Team Member Name Role Phone Elsewhere, Pcp Primary Care [...] by CPAP-->ASV titration. Diego Dykes M.D. [address] [place] [address] Phone: tel: fax: [facility] Referral ID Status Reason Start Date Expiration Date V isits Requested Visits Authorized [id number] Authorized 03/10/2024 03/10/2025 1 1 * Specialty Diagnoses / Procedures Referred By Moe mera Referred To Contact Diagnoses Obstructive Sleep Apnea Adult Diego Dykes M.D. [address] [place] [phone] Phone: tel: fax: [facility] Referral ID Status Reason Start Date Expiration Date Visits Re quested Visits Authorized * Outpatient (Routine) - Authorized Specialty Diagnoses / Procedures Referred By Moe mera Referred To Contact Sleep Medicine Diego Dykes M.D. [address] [place] [address] Phone: tel: fax: [facility] Referral ID Status Reason Start Date Expiration Date V isits Requested Visits Authorized [id number] Authorized 03/10/2024 09/09/2025 1 1 Scheduling Instructions Post-study return visit Reason for Visit * Outpatient (Routine) - Closed Specialty Diagnoses / Procedures Referred By Moe t Referred To Contact Sleep Medicine Diagnoses Obstructive Sleep Apnea Adult Marcus Ybarra M.D. [address] [place] [phone] Phone: tel: fax: [facility] Referral ID Status Reason Start Date Expiration Date Visits Re quested Visits Authorized [id number] Closed 02/02/2024 08/03/2025 1 1 Encounter Details Date Type Department Care Team (Latest Contact Info) Description 03/10/2024 10:00 AM CDT [facility] [place], [place] [address] [place] [address] Diego Dykes M.D. [address] [place] [address] Apnea Sleep Obstructive (Primary Dx); Obstructive Sleep [...] treatment options at the recommendation of his memorial counselor. 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 Standardized Instruments [place] Score (Scores of less than 10 are [...] documented in this encounter Plan of Treatment Scheduled Orders Name Type Priority Associated Diagnoses [...] documented as of this encounter Care Teams Warehouse Team Member Relationship Specialty Start Date End Date Elsewhere, Pcp PCP - General Internal Medicine 03/03/24 documented as of this encounter
--- OUTSIDE RECORDS SUMMARY | 2024-05-15 11:10 | XMS_ITS | Encounter Summary ---
Author Organization [facility] Address [address] [place] [address] Care Team Providers Care Receptionist/Telephone Operator Name Role Phone Unavailable Primary Care Provider Unavailabl e Reason for Referral * Outpatient (Routine) - Closed Specialty Diagnoses / Procedures Referred By Moe mera Referred To Contact Sleep Medicine Diagnoses Obstructive Sleep Apnea Adult Marcus Ybarra M.D. [address] [place] [address] Phone: tel: fax: [facility] Referral ID Status Reason Start Date Expiration Date Visits Re quested Visits Authorized [id number] Closed 02/02/2024 08/03/2025 1 1 Encounter Details Date Type Department Care Team (Late st Contact Info) Description 02/02/2024 [facility] [address] [place] [address] Marcus Ybarra M.D. [address] [place] [phone] Obstructive Sleep Apnea Adult (Primary Dx) Social [...] as of this encounter Plan of Treatment Scheduled Referrals Name Type Priority Associated Diagnoses [...]
--- OUTSIDE RECORDS SUMMARY | 2024-05-15 11:10 | XMS_ITS | Encounter Summary ---
Author Organization [facility] Address [address] [place] [id number] Care Team Providers Care Rn Lactation Consultant Name Role Phone Elsewhere, Pcp Primary Care Provider Unavailabl e Reason for Visit * Reason Onset Date Comments Pre-visit Intake 03/03/2024 Encounter Details Date Type Department Care Team (Latest Contact Info) Description 03/03/2024 3:00 PM CDT Clinical Communication Virtual Review in [place], [place] [address] [place] [address] Pre-visit Intake Social History Tobacco Use Types [...] this encounter Plan of Treatment Not on file documented as of this encounter Visit Diagnoses Not on filedocumented in this encounter Additional Health Concerns Assessment Noted Time PHQ-9 Depression Total Score: 1 01/08/20 18 3:28 PM CDT documented as of this encounter Care Teams Rn Lactation Consultant Relationship Specialty Start Date End Date Elsewhere, Pcp PCP - General Internal Medicine 03/03/24 documented as of this encounter
--- OUTSIDE RECORDS SUMMARY | 2024-05-15 11:10 | XMS_ITS ---
Author Organization [facility] Address [address] [place] [address] Care Team Providers Care Small Arms Repairer Name Role Phone Unavailable Unavailable Unavailable Surgery Details Not on file Complications Check Surgery Details section. Procedure Estimated Blood Loss Check Surgery Details section. Procedure Findings Check Surgery Details section. Procedure Specimens Taken Check Surgery Details section.
--- OUTSIDE RECORDS SUMMARY | 2024-05-15 11:10 | XMS_ITS | Referral Summary ---
Author Organization [facility] Address [address] [place] [address] Care Team Providers Care Benefits Advisor Name Role Phone Elsewhere, Pcp Primary Care Provider Unavailabl e Source Comments Patient records contain information from all sites at [facility]. For routine questions regarding patient records, call [phone] during business hours, M-F 8:00 AM - 5:00 PM Central Time. Record requests for emergency care only can be directed to [phone] at any time.[facility] Encounters Date Type Department Care Team Description 03/10/2024 11:29 AM CDT - 03/13/2024 11:59 PM CDT Hospital Encounter [facility] [place], [place] [address] [place] [phone] Diego Dykes M.D. Obstructive Sleep Apnea Adult Discharge Disposition: Home or Self Care 03/10/2024 10:00 AM CDT Comprehensive Visit [facility] [place], [place] [address] [place] [phone] Diego Dykes M.D. Apnea Sleep Obstructive (Primary Dx); Obstructive Sleep Apnea Adult 03/03/2024 3:00 PM CDT Clinical Communication Virtual Review in [place], [place] 200 [place] [address] Pre-visit Intake from Last 3 Months Allergies No known [...] Dr. Hameed Atherosclerotic Heart Diseas e Of [place] Coronary Artery Without Angina Pectoris 09/14/2017 Transient [...] 03/10/2024 9:56 AM CDT Plan of Treatment Not on file Medical Devices Implanted Type Area Job Analysis Manager Device Identifier Shelf Expiration Date Model / Serial / Lot Cardiac Valve Prosthesis-09/05 Implanted:06/2017 (Quantity not on file) Cardiac Valve Prosthesis Heart Insurance [facility] Care Teams Benefits Advisor Relationship Specialty Start Date End Date Elsewhere, Pcp PCP - General Internal Medicine 03/03/24
--- OUTSIDE RECORDS SUMMARY | 2024-05-15 11:10 | XMS_ITS | Clinical Summary ---
Author Organization [facility] Address [address] [place] [address] Care Team Providers Care Security Operations Center Operator Name Role Phone Elsewhere, Pcp Primary Care Provider Unavailabl e Source Comments Patient records contain information from all sites at [facility]. For routine questions regarding patient records, call [phone] during business hours, M-F 8:00 AM - 5:00 PM Central Time. Record requests for emergency care only can be directed to [phone] at any time.[facility] Allergies No known active allergies Medications clopidogrel [...] Hospital Encounter [facility] [place], [place] [address] [place] [address] Diego Dykes M.D. Obstructive Sleep Apnea Adult Discharge Disposition: Home or Self Care 03/10/2024 10:00 AM CDT Comprehensive Visit [facility] [place], [place] [address] [place] [address] Diego Dykes M.D. Apnea Sleep Obstructive (Primary Dx); Obstructive Sleep Apnea Adult 03/03/2024 3:00 PM CDT Clinical Communication Virtual Review in [place], [place] [address] [place] [address] Pre-visit Intake from Last 3 Months Social History Tobacco [...] 03/10/2024 9:56 AM CDT Plan of Treatment Health Maintenance [...] Fall Risk Screen (Annual) 06/07/2023 COVID-19 Vaccine ( - 2023- season) 2024 03/06/2022, 09/19/2021, 04/11/2021, Additional history [...] this topic Medical Devices Implanted Type Area Industrial Relations Officer Device Identifier Shelf Expiration Date Model / Serial / Lot Cardiac Valve Prosthesis-09/05 Implanted:06/2017 (Quantity not on file) Cardiac Valve Prosthesis Heart Insurance [employer] Care Teams Security Operations Center Operator Relationship Specialty Start Date End Date Elsewhere, Pcp PCP - General Internal Medicine 03/03/24
--- OUTSIDE RECORDS SUMMARY | 2024-05-15 11:10 | XMS_ITS | Encounter Summary ---
Author Organization [facility] Address [address] [place] [address] Care Team Providers Care Tool Grinder Set Up Operator Gear Name Role Phone Elsewhere, Pcp Primary Care Provider Unavailabl e Reason for Referral * Specialty Diagnoses / Procedures Referred By Moe mera Referred To Contact Diagnoses Obstructive Sleep Apnea Adult Diego Dykes M.D. [address] [place] [phone] Phone: tel: fax: [facility] Referral ID Status Reason Start Date Expiration Date Visits Re quested Visits Authorized Encounter Details Date Type Department Care Team (Latest Contact Info) Description 03/10/2024 11:29 AM CDT - 03/13/2024 11:59 PM CDT Hospital Encounter [facility] in [place], [place] [address] [place] [address] Diego Dykes M.D. [address] [place] [phone] Obstructive Sleep Apnea Adult Discharge Disposition: Home [...] (OMNIPOD 5 G6 INTRO KIT, GEN 5, DC) See Admin Instructions. 10/21/2021 lisinopriL 2.5 mg [...] in this encounter Plan of Treatment Scheduled Referrals [...] documented as of this encounter Care Teams Tool Grinder Set Up Operator Gear Relationship Specialty Start Date End Date Elsewhere, Pcp PCP - General Internal Medicine 03/03/24 documented as of this encounter
--- OUTSIDE RECORDS SUMMARY | 2024-05-15 11:11 | XMS_ITS | Continuity of Care Document ---
Author Organization [facility] Address [address] [place] [address] Phone Care Team Providers Care Technical Assistance Consultant Name Role Phone Preeti Benito MD Unavailable [...] Available - Active Procedures Procedure Date Office/Outpatient Visit,[facility] [place] [place] Advance Directives Directive Yes / No Effective Date File Name No Information Encounters Encounter Description Practice Location Reason(s) For Visit Diagnoses Date Provider Providers Copied on Encounter Office/Outpat ient Visit,[place] [facility] Emily/EMEKA C, [address], [place], [place], [id number], [place] tel:[phone] [facility] Spinal stenosis, lumbar region with neurogenic claudication 4 Thong Smith [facility], [address], [place], [place], [id number] , [place]. tel:[phone] Referring Provider: Mj Brooks, [facility] [address], [address]. tel:[phone] Family History Family Member Type Diagnosis Age At Onset Father Problem (finding) Cardiovascular disease Mother Problem (finding) Cancer, unknown type Payers Payer name Insurance type Covered constitution party ID Dixie ayala(s) Zach Diaz 2021 CI [id number] Social History Type Description Quantity Date Captured [...]
--- OUTSIDE RECORDS SUMMARY | 2024-05-15 11:11 | XMS_ITS | Encounter Summary ---
Author Organization [facility] Address [address] [place] [address] Care Team Providers Care Palliative Care Physician Name Role Phone Mj Schaeffer MD Primary Care Provider [phone] Reason for Visit * Reason Comments Diabetes Encounter Details Date Type Department Care Team (Late st Contact Info) Description 05/09/2024 7:45 AM SECURITIES LENDING TRADER Office Visit [facility] [address] [place] [address] Jeanne Shay MBBS [address] [place] [address] Uncontrolled type 1 diabetes mellitus with hyperglycemia (HRC) (Primary Dx); Essential hypertension (HRC); Dyslipidemia (high LDL; low HDL) (HRC); Coronary artery disease involving coronary bypass graft of [place] heart without angina pectoris (HRC) Social History Tobacco Use Types Packs/Day Years Used Date Smoking Tobacco: Every Day Smokeless Tobacco: Never Sex and Gender Information Value Date Recorded Sex Assigned at Not on file Gender Identity Not on file Sexual Orientation Not on file documented as of this encounter Last Filed Vital Signs Vital Sign Reading Time Taken Comments Blood Pressure 134/70 05/09/2024 8:06 AM SECURITIES LENDING TRADER Pulse 60 05/09/2024 8:06 AM SECURITIES LENDING TRADER Temperature - - Respiratory Rate - - Oxygen Saturation - - Inhaled Oxygen Concentration - - Weight 75.6 kg (166 lb 9.6 oz) 05/09/2024 8:06 A M SECURITIES LENDING TRADER Height 170.2 cm (5' 7) 05/09/2024 8:06 AM SECURITIES LENDING TRADER Body Mass Index 26.09 05/09/2024 8:06 AM SECURITIES LENDING TRADER documented in this encounter Progress Notes * Jaime Holley - 05/09/2024 7:45 AM CST Images from the original note were not included. RITIES LENDING TRADER * Jeanne Shay MBBS - 05/09/2024 7:45 AM CST [facility] Department of Endocrinology, Diabetes and Metabolism Clinic Note Name: David Figueroa Cc: Follow up for T1DM. He came with his who is my patient as well. HPI: David Figueroa is a 68 y.o. male #1 T1DM: Diagnosed in 2014, had positive antibodies per his report. This is complicated by neuropathy and CAD. He is currently Ilet pump, he has been using it for several weeks. He had issues with hypoglycemia the first week, that has resolved. He is using metformin XR 2 gm daily. CGM data for 2 weeks were reviewed, average glucose was 162, GMI 7.2. 8.7% >250, 25%181-250, 64% in range (70-180), 1 %<70 and 0%<54. Glucose tracing indicates a trend of post meal hyperglycemia. He was diagnosed with gastroparesis, lost 10 [...] not using CPAP. Physical Examination: Vitals: BP 134/70 (BP Location: Left Arm, BP Cuff Size: Regular - Long) Pulse 60 Ht 5' 7 (1.702 m) Wt 166 lb 9.6 oz (75.6 kg) BMI 26.09 kg/m?? General: The patient is alert and oriented, no acute distress. Labs/imaging: Reviewed and summarized in the HPI. Assessment and Plan: David Figueroa is a 68 y.o. male: #1 T1DM: fairly controlled, complicated by neuropathy and CAD. Counseled him about the importance of DM control. Counseled him about diet and exercise. Continue metformin XR, 2 gm daily. Continue Ilet pump with same settings. ok to bolus after eating due to Gastroparesis. RTC 3 months. #2 HTN: controlled. #3 Dyslipidemia on a statin. #4 CAD s/p CABG. #5 RUDI advised him on using CPAP. MERE Ruelas [employer] Defense Officer RITIES LENDING TRADER documented in this encounter Plan of Treatment Upcoming Encounters Date Type Department Care Team (Late st Contact Info) Description 08/08/2024 2:00 PM SECURITIES LENDING TRADER Appointment [facility] [address] [place] [address] Jeanne Shay MBBS [address] [place] [address] Scheduled Orders Name Type Priority Associated Diagnoses Orde r Schedule Hgb A1C Lab Routine Uncontrolled type 1 diabetes mellitus with hyperglycemia (HRC) Expected: 05/03/2024, Expires: 08/01/2024 documented as of this encounter Visit Diagnoses Diagnosis Uncontrolled type 1 diabetes mellitus with hyperglycemia (HRC)- Primary Essential hypertension (HRC) Unspecified essential hypertension Dyslipidemia (high LDL; low HDL) (HRC) Other and unspecified hyperlipidemia Coronary artery disease involving coronary bypass graft of [place] heart without angina pectoris (HRC) documented in this encounter Care Teams Palliative Care Physician Relationship Specialty Start Date End Date Mj Schaeffer MD [facility] [address] [place] [address] PCP - General Family Practice 07/22/21 documented as of this encounter
--- OUTSIDE RECORDS SUMMARY | 2024-05-15 11:11 | XMS_ITS | Clinical Summary ---
Author Organization [facility] Address [address], [place] [address] Care Team Providers Care Breast Trimmer Name Role Phone Mj Schaeffer MD Primary Care Provider [phone] Source Comments You are receiving this document as you are listed as the primary care provider,follow-up provider, or the patient has been referred to you for consultation.This is in compliance with the Medicare and[facility] EHR Incentive Program,which states Providers who transition their patient to another setting of careor provider of care or refers their patient to another provider of care shouldprovide summary care record for each transition of care or referral. [facility] Allergies No known active allergies Medications Medication [...] Each 4 3 Active Continuous Blood Gluc Fuel Assembler (DEXCOM G6 MANAGING EDITOR)Indicati ons:Uncontrolled type 1 diabetes mellitus with hyperglycemia (HRC) Use once 1 Each 3 Active insulin aspart (NOVOLOG) 100 UNIT/ML injection (vial) Inject 80-90 Units subcutaneously daily. 90 mL 3 4 Active gabapentin (NEURONTIN) 300 MG capsule Use 1 cap in the AM and 2 in the PM. 270 Capsule 3 4 Active Continuous Glucose Transmitter (DEXCOM G6 TRANSMITTER)Indic ations:Uncontroll ed type 1 diabetes mellitus with hyperglycemia (HRC) CHANGE ONCE EVERY 90 DAYS 1 Each 3 4 Active metFORMIN XR (GLUCOPHAGE XR) 500 MG 24 hour release tablet Take 4 Tablets (2,000 mg) by mouth every evening with a meal. 360 Tablet 3 4 025 Active Additional Information Patient taking differently: 1,000 mgOralBID WITH MEALS, Reported on 05/09/2024 acetone urine (KETOSTIX) test stripIndications: Uncontrolled type 1 diabetes mellitus with hyperglycemia (HRC) Use 1 Each to test as needed. 50 Each 11 4 025 Active Dexcom G7 Sensor continuous blood glucose deviceIndications :Uncontrolled type 1 diabetes mellitus with hyperglycemia (HRC) Use for continuous glucose monitoring. Change sensor every 10 days. 9 Each 3 4 Active Insulin Disposable Pump (OMNIPOD 5 G6 POD, GEN 5,) MISCIndications:U ncontrolled type 1 diabetes mellitus with hyperglycemia (HRC) Use 1 pod every 2-3 days 15 Each 3 2 024 Discontinued Insulin Disposable Pump (OMNIPOD DASH PODS, GEN 4,) MISCIndications:U ncontrolled type 1 diabetes mellitus with hyperglycemia (HRC) USE 1 POD EVERY 1-2 DAYS. 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 [address] Jeanne Shay MBBS Forms (Rx and /cn - [facility] ) 04/18/[address] [place] [address] Jeanne Shay MBBS Refill 04/11/[address] [place] [address] Jeanne Shay MBBS Refill (Continuous Glucose Sensor (DEXCOM G6 SENSOR) [Pharmacy Med Name: DEXCOM G6 SENSOR MISCELLANEOUS]) 04/03/[address] [place] [address] Jeanne Shay MBBS Refill (metFORMIN XR (GLUCOPHAGE XR) 500 MG 24 hour release tablet [Pharmacy Med Name: METFORMIN HYDROCHLORIDE ER 500MG TABLET EXTENDED RELEASE 24 HOUR]) 03/23/[address] 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) from Last [...] Comments Blood Pressure 134/70 05/09/2024 8:06 AM MANAGER PROVIDER RELATIONS Pulse 60 05/09/2024 8:06 AM MANAGER PROVIDER RELATIONS Temperature - - Respiratory Rate - - Oxygen Saturation - - Inhaled Oxygen Concentration - - Weight 75.6 kg (166 lb 9.6 oz) 05/09/2024 8:06 A M MANAGER PROVIDER RELATIONS Height 170.2 cm (5' 7) 05/09/2024 8:06 AM MANAGER PROVIDER RELATIONS Body Mass Index 26.09 05/09/2024 8:06 AM MANAGER PROVIDER RELATIONS Plan of Treatment Upcoming Encounters Date Type Department Care Team (Late st Contact Info) Description 08/08/2024 2:00 PM MANAGER PROVIDER RELATIONS Appointment [facility] [address] [place] [address] Jeanne Shay MBBS [address] [place] [address] Health Maintenance Due Date Last Done Comments [...] artery disease involving coronary bypass graft of [place] heart without angina pectoris (HRC) ALBUMIN/CREAT RATIO Routine 02/24/2024 7 :35 AM CDT Uncontrolled type 1 diabetes mellitus with hyperglycemia (HRC) Essential hypertension (HRC) Dyslipidemia (high LDL; low HDL) (HRC) 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) FREE T4 Routine 02/24/2024 7:35 AM CDT Uncontrolled type 1 diabetes mellitus with hyperglycemia (HRC) Essential hypertension (HRC) Dyslipidemia (high LDL; low HDL) (HRC) 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) TSH, SENSITIVE Routine 02/24/2024 7:35 AM CDT Uncontrolled type 1 diabetes mellitus with hyperglycemia (HRC) Essential hypertension (HRC) Dyslipidemia (high LDL; low HDL) (HRC) 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) COMPREHENSIVE METABOLIC PANEL Routine 02/24/2024 7:35 AM CDT Uncontrolled type 1 diabetes mellitus with hyperglycemia (HRC) Essential hypertension (HRC) Dyslipidemia (high LDL; low HDL) (HRC) 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) HGB A1C Routine 02/24/2024 7:35 AM CDT Uncontrolled type 1 diabetes mellitus with hyperglycemia (HRC) Essential hypertension (HRC) Dyslipidemia (high LDL; low HDL) (HRC) 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) from Last 3 Months Results * Tissue Transglutaminase Ab IgA (02/24/2024 7:35 AM CDT) Pathologist [facility] Tissue Transglutaminase Antibody, IgA 0.7 0.0 - 6.9 U/mL 02/25/2024 12:51 PM CDT [facility] Tissue Transglutaminase Antibody, IgA Interpretation Negative Negative 02/25/2024 12:51 PM CDT [facility] Blood Venipuncture / Unknown 02/24/2024 7:35 AM CDT 02/24/2024 7:35 AM CDT Jeanne [facility] [address] * Lipid Panel and Direct LDL (if needed) (02/24/2024 7:35 AM CDT) Pathologist [facility] Cholesterol 134 0 - 199 mg/dL 02/24/2024 4:46 PM T [facility] Triglyceride 126 <=149 mg/dL 02/24/2024 4:46 PM [facility] HDL Cholesterol 48 >=40 mg/dL 4 4:46 PM [facility] LDL, Calculated 61 <130 mg/dL 4 4:46 PM [facility] Non HDL Chol, Calculated 86 <=159 mg/dL 02/24/2024 4:46 PM [facility] Cholesterol/HDL Ratio 2.8 <=5.0 02/24/2024 4:46 PM [facility] Hours Fasting 0.0 8 - 12 Hours 02/24/2024 4:46 PM [facility] Blood Venipuncture / Unknown 02/24/2024 7:35 AM CDT 02/24/2024 7:35 AM CDT Jeanne Cisse Jaspal [facility] [address] [place] [address] * (ABNORMAL) Comp Metabolic Panel (02/24/2024 7:35 AM CDT) Sodium 140 136 - 145 mmol/L 02/24/2024 4:46 PM [facility] Potassium 5.0 3.5 - 5.1 mmol/L 02/24/2024 4:46 PM [facility] Chloride 107 98 - 109 mmol/L 02/24/2024 4:46 PM [facility] CO2 23 20 - 29 mmol/L 02/24/2024 4:46 PM [facility] Anion Gap 10 6 - 16 mmol/L 02/24/2024 4:46 PM [facility] Calcium 9.7 8.4 - 10.4 mg/dL 02/24/2024 4:46 PM [facility] BUN 16 7 - 26 mg/dL 02/24/2024 4:46 PM [facility] Creatinine 0.69(L) 0.73 - 1.18 mg/dL 02/24/2024 4:46 PM [facility] Alkaline Phosphatase 102 40 - 150 U/L 02/24/2024 4:46 PM [facility] AST (SGOT) 15 10 - 40 U/L 02/24/2024 4:46 PM [facility] ALT (SGPT) 14 <=55 U/L 02/24/2024 4:46 PM [facility] Bilirubin, Total 0.4 0.2 - 1.2 mg/dL 02/24/2024 4:46 PM [facility] Protein, Total 8.0 6.4 - 8.3 g/dL 02/24/2024 4:46 PM [facility] Albumin 4.0 3.5 - 5.0 g/dL 02/24/2024 4:46 PM [facility] Glucose 157(H) 70 - 100 mg/dL 02/24/2024 4:46 PM [facility] Comment:The given reference range is for the fasting state. Non-fasting reference range for glucose is 70 - 180 mg/dL. GFR, Estimated >60 >60 mL/min/1.7 3m2 02/24/2024 4:46 PM [facility] Hours Fasting 0.0 8 - 12 Hours 02/24/2024 4:46 PM [facility] Blood Venipuncture / Unknown 02/24/2024 7:35 AM CDT 02/24/2024 7:35 AM CDT Jeanne Cisse Jaspal [facility] Performing Organization Address City/[facility]/ZIP Co de Phone Number [facility] [address] [place] [address], [facility] * TSH (02/24/2024 7:35 AM CDT) TSH, Sensitive 2.13 0.30 - 4.50 uIU/mL 02/24/2024 12:23 PM CDT [facility] Blood Venipuncture / Unknown 02/24/2024 7:35 AM CDT 02/24/2024 7:35 AM CDT Jeanne Tanna Jaspal [facility] [address] [place], [place] [id number] [place] [address] * (ABNORMAL) Complete Blood Count-No Diff (02/24/2024 7:35 AM CDT) WBC 10.8(H) 3.5 - 10.5 x10(9)/L 02/24/2024 7:39 AM CDT [facility] RBC 4.52 4.32 - 5.72 x10(12)/L 02/24/2024 7:39 AM CDT [facility] Hemoglobin 13.6 13.5 - 17.5 g/dL 02/24/2024 7:39 AM CDT [facility] HCT 42.5 38.8 - 50.0 % 02/24/2024 7:39 AM CDT [facility] MCV 94.0 80.0 - 100.0 fL 02/24/2024 7:39 AM CDT [facility] MCH 30.1 27.6 - 33.3 pg 02/24/2024 7:39 AM CDT [facility] MCHC 32.0 31.5 - 35.2 g/dL 02/24/2024 7:39 AM CDT [facility] RDW 13.4 11.9 - 15.5 % 02/24/2024 7:39 AM CDT [facility] Platelets 272 150 - 450 x10(9)/L 02/24/2024 7:39 AM CDT [facility] Blood Venipuncture / Unknown 02/24/2024 7:35 AM CDT 02/24/2024 7:35 AM CDT Jeanne [facility] [address] [place] [address] * Free T4 (02/24/2024 7:35 AM CDT) T4, Free 1.1 0.7 - 1.5 ng/dL 02/24/2024 12:24 PM CDT [facility] Blood Venipuncture / Unknown 02/24/2024 7:35 AM CDT 02/24/2024 7:35 AM CDT Jeanne Shay [facility] [address] [place], [place] [address] * Albumin/Creatinine Ratio,Random Urine (02/24/2024 7:35 AM CDT) Albumin/Creati nine Ratio, Urine, Random 23 <30 mg/g 02/24/2024 12:54 PM CDT [facility] Albumin, Urine, Random 16.2 mg/L 02/24/2024 12:54 PM CDT [facility] Creatinine, Urine, Random 72 >20 mg/dL mg/dL 02/24/2024 12:54 PM CDT [facility] Urine Non-blood Collection / Unknown 02/24/2024 7:35 AM CDT 02/24/2024 7:35 AM CDT Jeanne Shay [facility]1 Performing Organization Address City/[facility]/ZIP Co de Phone Number [facility] [address] [place] [address] * (ABNORMAL) Hgb A1C (02/24/2024 7:35 AM CDT) Pathologist [facility] Hemoglobin A1C 8.8(H) <=5.6 % 02/24/2024 1:51 PM CDT [facility] Estimated Average Glucose (Calc) 206 < 117 mg/dL 02/24/2024 1:51 PM CDT [facility] Comment:Estimated average gl ucose (eAG) converts A1c into glucose units (mg/dL) and estimates average glucose over the past approximately 3 months. The eAG reference interval (<117 mg/dL) corresponds to an A1c of <5.7%. Blood Venipuncture / Unknown 02/24/2024 7:35 AM CDT 02/24/2024 7:35 AM CDT Brenda [facility] - 02/24/2024 1:51 PM CDT For patients not previously diagnosed with diabetes: 5.7-6.4%: Increased risk for diabetes 6.5% and greater: Diagnostic for diabetes For patients diagnosed with diabetes: <8.0%: Goal of therapy for ages 18-75 Clinicians may recommend a higher or lower goal for specific individuals. Jeanne [facility] [address] [place] [address], [facility] from Last 3 Months Care Teams Breast Trimmer Relationship Specialty Start Date End Date Mj Schaeffer MD [facility] [address] [place] [address] PCP - General Family Practice 07/22/21
--- OUTSIDE RECORDS SUMMARY | 2024-05-15 11:11 | XMS_ITS | Clinical Summary ---
Author Organization [facility] Address [place], [place] [address] Care Team Providers Care Mechanical Research Engineer Name Role Phone Jhoan Schaeffer MD Primary Care Provider [phone] Allergies No known active allergies Medications gabapentin (NEURONTIN) 100 mg capsule Take 100 mg by mouth once daily. Active nitroglycerin (NITROSTAT) 0.[address] 0.4 mg under the tongue every 5 minutes if needed for Chest Pain. 08/20/19 18 Active aspirin chewable 81 mg chewable tablet Take 81 mg by mouth once daily with a meal. Active acetaminophen (TYLENOL) 325 mg tabletIndication s:S/P AVR (aortic valve replacement),S/P CABG x 3 Take 1-2 tablets by mouth every 4 hours if needed. Max acetaminophen dose: 4000mg in 24 hrs. 0 09/21/19 18 Active insulin aspart U-100 (NOVOLOG) 100 unit/mL solution for injectionIndicat ions:Type 1 diabetes mellitus with complication (HC) Inject 5 units with meals. Follow sliding scale. Blood glucose less than 150, no insulin; 151-199 give 2 units; 200-249=4 units; 250-299=6 units; 300-349=8 units; greater than 350=10 units 15 mL 09/21/19 18 Active insulin detemir U-100 (LEVEMIR) 100 unit/mL (3 mL) penIndications:T ype 1 diabetes mellitus with complication (HC) Inject 25 Units subcutaneous once daily in the evening. 15 mL 09/22/19 18 Active metFORMIN (GLUCOPHAGE) 500 mg tabletIndication s:Type 1 diabetes mellitus with complication (HC) Take 2 tablets by mouth once daily with a meal. Hold until speaking to Dr Cortés- we will not resume this until she review your sugars 0 09/21/19 18 Active cefdinir (OMNICEF) 300 mg capsule TK 2 CS PO D 0 12/06/19 19 Active metoprolol tartrate (LOPRESSOR) 50 mg tablet Take 50 mg by mouth 2 times daily. 11 11/30/19 19 Active V-GO 40 yovana U UTD 3 11/30/19 19 Active atorvastatin (LIPITOR) 80 mg tablet TK 1 T PO HS 11 11/30/19 19 Active Active Problems Problem Noted Date Diagnosed Date RUDI (obstructive sleep apnea) 12/27/2020 Type 1 diabetes mellitus with unspecified compli cations 12/22/2019 Coronary artery disease of b ypass graft of [place] heart with stable angina pectoris 12/22/2019 Snoring [...] branch of right--09/15/17 Dr. Hameed CAD in [place] artery 09/14/2017 TIA (transient ischemic attack) 09/08/2017 Overview (09/08/2017): In 2004, presented with slurred speech and weakness of right arm and severe fatigue. Chest pain 09/02/2017 Hypertension 09/02/2017 Hyperlipidemia 09/02/2017 Smoker 09/02/2017 PAD (peripheral artery disease) 09/02/2017 Diabetes type I 09/02/2017 Aortic stenosis 09/02/2017 Immunizations Name Administration Dates Next Due Influenza, IIV4 02/24/2017,04/01/2016 Family History Medical History Relation Name Comments Heart Disease Father [facility] at age 65, at age 79 Leukemia [...] at Not on file Legal Sex Male 8:50 AM CDT Gender Identity Not on file [...] for age 50+ (1 of 2) 2004 RSV vaccine for adults or (1 - Risk 60-74 years 1-dose series) 2014 Lipids for age 45-75 09/02/2022 09/02/2017 COVID-19 vaccine series ( season) 2024 03/06/2022, 09/19/2021, 04/11/2021, Additional history exists Influenza for age 65+ 02/06/2024 02/24/2017, 016 Medical Devices Implanted Type Area Beauty Artist Device Identifier Shelf Expiration Date Model / Serial / Lot Anw Hh [id number] Implanted:Qty: 1 on 09/15/2017 by Gurpreet Hameed MD at [facility] Explanted:at [facility] (Quantity not on file) N/A: Aortic Valve [employer] [place] 06/09/2021 [id number] M# / [id number] / Procedures Procedure Name Priority Date/Time Associated Diagnosis Comments LIPID PANEL Add On 09/02/2017 8:41 AM CDT from Last 3 Months or Most Recently Relevant to Health Maintenance Results * Lipid Panel (09/02/2017 8:41 AM CDT) CHOLESTEROL,TOTAL 155 100 - 199 mg/dL 09/02/2017 9:23 AM CDT [facility] TRIGLYCERIDES 82 <150 mg/dL 09/02/2017 9:23 AM CDT [facility] HDL CHOLESTEROL 49 >40 mg/dL 8 9:23 AM CDT [facility] NON-HDL CHOLESTEROL 106 <145 mg/dl 09/02/2017 9:23 AM CDT [facility] CHOL/HDL RATIO 3.16 <4.50 09/02/2017 9:23 AM CDT [facility] LDL CHOLESTEROL 90 <=130 mg/dL 09/02/2017 9:23 AM CDT [facility] PROVIDER ORDERED STATUS RANDOM 09/02/2017 9:23 AM CDT [facility] [employer] [facility] Blood BLOOD SPECIMEN / Unknown Venipuncture / Unknown 09/02/2017 8:41 AM CDT 09/02/2017 8:49 AM CDT Tessa Del Rosario ETL LEAD CHEMISTRY Final Res ult [facility] [address] [place] [address], from Last 3 Months or Most Recently Relevant to Health Maintenance Insurance [facility] ID Advance Directives * Full Code (Latest Code Status on File) Date Activated Date Inactivated Comments 09/15/2017 5:58 AM 09/20/2017 3:57 PM * Full Code Date Activated Date Inactivated Comments 09/02/2017 8:23 AM 09/02/2017 5:50 PM Care Teams Mechanical Research Engineer Relationship Specialty Start Date End Date Jhoan Schaeffer MD PCP - General Family Practice 08/19/17
--- OUTSIDE RECORDS SUMMARY | 2024-05-15 11:12 | XMS_ITS | Encounter Summary ---
Author Organization [facility] Address [address], [place] [address] Care Team Providers Care Organizational Development Manager Name Role Phone Mj Schaeffer MD Primary Care Provider [phone] Reason for Visit * Reason Comments Forms Rx and /cn - [facility] Encounter Details Date Type Department Care Team (Late st Contact Info) Description 04/24/2024 Telephone [facility] [address] Endocrinology [address] [place] [address] Jeanne Shay MBBS [address] [place] [address] Forms (Rx and /cn - [facility] ) Social History Tobacco Use Types Packs/Day Years Used Date Smoking Tobacco: Every Day Smokeless Tobacco: Never Sex and Gender Information Value Date Recorded Sex Assigned at Not on file Gender Identity Not on file Sexual Orientation Not on file documented as of this encounter Nursing Notes * Carolina Prasad - 05/01/2024 1:01 PM CST Completed [facility] form faxed to #[phone] electronic copy sent to him T INSPECTOR * Carolina Prasad - 04/24/2024 4:30 PM CST Received [facility] form, Sent to Jaspal to complete Faxed chart notes to [facility] [phone] from 02/29/24 appt T INSPECTOR documented in this encounter Plan of Treatment Upcoming Encounters Date Type Department Care Team (Late st Contact Info) Description 08/08/2024 2:00 PM PRINT INSPECTOR Appointment [facility] [address] [place] [phone] Jeanne Shay MBBS [address] [place] [address] documented as of this encounter Visit Diagnoses Not on filedocumented in this encounter Care Teams Organizational Development Manager Relationship Specialty Start Date End Date Mj Schaeffer MD [facility] [address] [place] [address] PCP - General Family Practice 07/22/21 documented as of this encounter
--- OUTSIDE RECORDS SUMMARY | 2024-05-15 11:12 | XMS_ITS | Encounter Summary ---
Author Organization [facility] Address [address], [place] [address] Care Team Providers Care Staining Machine Operator Name Role Phone Mj Schaeffer MD Primary Care Provider Reason for Visit * Reason Onset Date Comments Refill 04/18/2024 Encounter Details Date Type Department Care Team (Late st Contact Info) Description 04/18/2024 Refill [facility] [address] [facility] [place] [address] Joe Shay, MBBS [address] [place], [place] [address] Refill Social History Tobacco Use Types Packs/Day [...] Provider: JOE SHAY Ordering User: TAMARA STAHL T MANAGER documented in this encounter Plan of Treatment Upcoming Encounters Date Type Department Care Team (Late Contact Info) Description 08/08/2024 2:00 PM GRANT MANAGER Appointment [facility] [address] [place] [address] Joe Shay MBBS [address] [place] [address] documented as of this encounter Visit Diagnoses Diagnosis Uncontrolled type 1 diabetes mellitus with hyperglycemia (HRC)- Primary documented in this encounter Care Teams Staining Machine Operator Relationship Specialty Start Date End Date Mj Schaeffer MD [facility] [address] [place] [address] PCP - General Family Practice 07/22/21 documented as of this encounter
--- OUTSIDE RECORDS SUMMARY | 2024-05-15 11:12 | XMS_ITS | Encounter Summary ---
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) Social History [...] (Late Contact Info) Description 08/08/2024 2:00 PM SMEARER Appointment [facility] [address] [place] [address] Jeanne Shay MBBS [address] [place] [address] documented as of this encounter Procedures Procedure Name Priority Date/Time Associated Diagnosis Comments TISSUE TRANSGLUTAMINASE AB IGA Routine 02/24/2024 7:35 AM CDT Uncontrolled type 1 diabetes mellitus with hyperglycemia (HRC) Essential hypertension (HRC) Dyslipidemia (high LDL; low HDL) (HRC) 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) LIPID PANEL & DIRECT LDL (IF NEEDED) Routine 02/24/2024 7:35 AM CDT Uncontrolled type 1 diabetes mellitus with hyperglycemia (HRC) COMPREHENSIVE METABOLIC PANEL Routine 02/24/2024 7:35 AM CDT Uncontrolled type 1 diabetes mellitus with hyperglycemia (HRC) Essential hypertension (HRC) Dyslipidemia (high LDL; low HDL) (HRC) 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) TSH, SENSITIVE Routine 02/24/2024 7:35 AM CDT Uncontrolled type 1 diabetes mellitus with hyperglycemia (HRC) Essential hypertension (HRC) Dyslipidemia (high LDL; low HDL) (HRC) 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) COMPLETE BLOOD COUNT-NO DIFF Routine 02/24/2024 7:35 AM CDT Uncontrolled type 1 diabetes mellitus with hyperglycemia (HRC) FREE T4 Routine 02/24/2024 7:35 AM CDT Uncontrolled type 1 diabetes mellitus with hyperglycemia (HRC) Essential hypertension (HRC) Dyslipidemia (high LDL; low HDL) (HRC) 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) ALBUMIN/CREAT RATIO Routine 02/24/2024 7 :35 AM CDT Uncontrolled type 1 diabetes mellitus with hyperglycemia (HRC) Essential hypertension (HRC) Dyslipidemia (high LDL; low HDL) (HRC) 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) HGB A1C Routine 02/24/2024 7:35 AM CDT Uncontrolled type 1 diabetes mellitus with hyperglycemia (HRC) Essential hypertension (HRC) Dyslipidemia (high LDL; low HDL) (HRC) 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) documented in this encounter Results * (ABNORMAL) Complete Blood Count-No Diff (02/24/2024 7:35 AM CDT) Pathologist [facility] WBC 10.8(H) 3.5 - 10.5 x10(9)/L 02/24/2024 7:39 AM CDT [facility] RBC 4.52 4.32 - 5.72 x10(12)/L 02/24/2024 7:39 AM CDT [facility] Hemoglobin 13.6 13.5 - 17.5 g/dL 02/24/2024 7:39 AM CDT [facility] HCT 42.5 38.8 - 50.0 % 02/24/2024 7:39 AM CDT [facility] MCV 94.0 80.0 - 100.0 fL 02/24/2024 7:39 AM CDT [facility] MCH 30.1 27.6 - 33.3 pg 02/24/2024 7:39 AM T [facility] MCHC 32.0 31.5 - 35.2 g/dL 02/24/2024 7:39 AM T [facility] RDW 13.4 11.9 - 15.5 % 02/24/2024 7:39 AM T [facility] Platelets 272 150 - 450 x10(9)/L 02/24/2024 7:39 AM T [facility] Blood Venipuncture / Unknown 02/24/2024 7:35 AM CDT 02/24/2024 7:35 AM CDT Jeanne Shay [facility] Performing Organization Address City/State/[facility] Co de Phone Number [facility] [address] [place] [address] * Lipid Panel and Direct LDL (if needed) (02/24/2024 7:35 AM CDT) Pathologist [facility] Cholesterol 134 0 - 199 mg/dL 02/24/2024 4:46 PM T [facility] Triglyceride 126 <=149 mg/dL 02/24/2024 4:46 PM CDT [facility] HDL Cholesterol 48 >=40 mg/dL 4:46 PM T [facility] LDL, Calculated 61 <130 mg/dL 4:46 PM CDT [facility] Non HDL Chol, Calculated 86 <=159 mg/dL 02/24/2024 4:46 PM T [facility] Cholesterol/HDL Ratio 2.8 <=5.0 02/24/2024 4:46 PM T [facility] Hours Fasting 0.0 8 - 12 Hours 02/24/2024 4:46 PM CDT [facility] Blood Venipuncture / Unknown 02/24/2024 7:35 AM CDT 02/24/2024 7:35 AM CDT Jeanne Guerrakeila [facility] Performing Organization Address City/[facility]/ZIP Co de Phone Number [facility] [address] [place] [address] * Tissue Transglutaminase Ab IgA (02/24/2024 7:35 AM CDT) Pathologist [facility] Tissue Transglutaminase Antibody, IgA 0.7 0.0 - 6.9 U/mL 02/25/2024 12:51 PM CDT [facility] Tissue Transglutaminase Antibody, IgA Interpretation Negative Negative 02/25/2024 12:51 PM CDT [facility] Blood Venipuncture / Unknown 02/24/2024 7:35 AM CDT 02/24/2024 7:35 AM CDT Jeanne Edwardskem [facility] Performing Organization Address City/[facility]/ZIP Co de Phone Number [facility] [address] * Albumin/Creatinine Ratio,Random Urine (02/24/2024 7:35 AM CDT) Albumin/Creati nine Ratio, Urine, Random 23 <30 mg/g 02/24/2024 12:54 PM CDT [facility] Albumin, Urine, Random 16.2 mg/L 02/24/2024 12:54 PM CDT [facility] Creatinine, Urine, Random 72 >20 mg/dL mg/dL 02/24/2024 12:54 PM CDT [facility] Urine Non-blood Collection / Unknown 02/24/2024 7:35 AM CDT 02/24/2024 7:35 AM CDT Jeanne Shay [facility] Performing Organization Address [facility] Co de Phone Number [facility] [address] [place] [address] * Free T4 (02/24/2024 7:35 AM CDT) T4, Free 1.1 0.7 - 1.5 ng/dL 02/24/2024 12:24 PM CDT [facility] Blood Venipuncture / Unknown 02/24/2024 7:35 AM CDT 02/24/2024 7:35 AM CDT Jeanne Shay [facility] Performing Organization Address [facility] de Phone Number [facility] [address] * TSH (02/24/2024 7:35 AM CDT) Pathologist [facility] TSH, Sensitive 2.13 0.30 - 4.50 uIU/mL 02/24/2024 12:23 PM CDT [facility] Blood Venipuncture / Unknown 02/24/2024 7:35 AM CDT 02/24/2024 7:35 AM CDT Jeanne Shay [facility] Performing Organization Address [facility] Co de Phone Number [facility] [address] * (ABNORMAL) Comp Metabolic Panel (02/24/2024 7:35 AM CDT) Pathologist [facility] Sodium 140 136 - 145 mmol/L 02/24/2024 4:46 PM CDT [facility] Potassium 5.0 3.5 - 5.1 mmol/L 02/24/2024 4:46 PM [facility] Chloride 107 98 - 109 mmol/L 02/24/2024 4:46 PM [facility] CO2 23 20 - 29 mmol/L 02/24/2024 4:46 PM [facility] Anion Gap 10 6 - 16 mmol/L 02/24/2024 4:46 PM [facility] Calcium 9.7 8.4 - 10.4 mg/dL 02/24/2024 4:46 PM [facility] BUN 16 7 - 26 mg/dL 02/24/2024 4:46 PM [facility] Creatinine 0.69(L) 0.73 - 1.18 mg/dL 02/24/2024 4:46 PM [facility] Alkaline Phosphatase 102 40 - 150 U/L 02/24/2024 4:46 PM [facility] AST (SGOT) 15 10 - 40 U/L 02/24/2024 4:46 PM [facility] ALT (SGPT) 14 <=55 U/L 02/24/2024 4:46 PM [facility] Bilirubin, Total 0.4 0.2 - 1.2 mg/dL 02/24/2024 4:46 PM [facility] Protein, Total 8.0 6.4 - 8.3 g/dL 02/24/2024 4:46 PM [facility] Albumin 4.0 3.5 - 5.0 g/dL 02/24/2024 4:46 PM [facility] Glucose 157(H) 70 - 100 mg/dL 02/24/2024 4:46 PM [facility] Comment:The given reference range is for the fasting state. Non-fasting reference range for glucose is 70 - 180 mg/dL. GFR, Estimated >60 >60 mL/min/1.7 3m2 02/24/2024 4:46 PM [facility] Hours Fasting 0.0 8 - 12 Hours 02/24/2024 4:46 PM [facility] Blood Venipuncture / Unknown 02/24/2024 7:35 AM CDT 02/24/2024 7:35 AM T [facility] Performing Organization Address [facility]/ZIP Co de Phone Number [facility] [address] [place] [address], [facility] * (ABNORMAL) Hgb A1C (02/24/2024 7:35 AM CDT) Hemoglobin A1C 8.8(H) <=5.6 % 02/24/2024 1:51 PM CDT [facility] Estimated Average Glucose (Calc) 206 < 117 mg/dL 02/24/2024 1:51 PM CDT [facility] Comment:Estimated average gl ucose (eAG) converts A1c into glucose units (mg/dL) and estimates average glucose over the past approximately 3 months. The eAG reference interval (<117 mg/dL) corresponds to an A1c of <5.7%. Blood Venipuncture / Unknown 02/24/2024 7:35 AM CDT 02/24/2024 7:35 AM CDT Narrative [facility] - 02/24/2024 1:51 PM CDT For patients not previously diagnosed with diabetes: 5.7-6.4%: Increased risk for diabetes 6.5% and greater: Diagnostic for diabetes For patients diagnosed with diabetes: <8.0%: Goal of therapy for ages 18-75 Clinicians may recommend a higher or lower goal for specific individuals. 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
--- OUTSIDE RECORDS SUMMARY | 2024-05-15 11:12 | XMS_ITS | Encounter Summary ---
Author Organization [facility] Address [address], [place] [address] Care Team Providers Care Cardiac Technician Name Role Phone Mj Schaeffer MD Primary Care Provider Reason for Visit * Reason Comments Refill Continuous Glucose S ensor (DEXCOM G6 SENSOR) [Pharmacy Med Name: DEXCOM G6 SENSOR MISCELLANEOUS] Encounter Details Date Type Department Care Team (Late st Contact Info) Description 04/11/2024 Refill [facility] [address] Endocrinology [address] [facility] [place] [address] Joe Shay MBBS [address] [place] [address] Refill (Continuous Glucose Sensor (DEXCOM G6 SENSOR) [Pharmacy Med Name: DEXCOM G6 SENSOR MISCELLANEOUS]) Social History Tobacco Use Types Packs/Day Years Used Date Smoking Tobacco: Every Day Smokeless Tobacco: Never Sex and Gender Information Value Date Recorded Sex Assigned at Not on file Gender Identity Not on file Sexual Orientation Not on file documented as of this encounter Nursing Notes * Dinora Juarez RN - 04/11/2024 3:33 PM CST Requested Prescriptions Signed Prescriptions Disp Refills Continuous Glucose Sensor (DEXCOM G6 SENSOR) 9 Each 3 Sig: USE ONCE EVERY 10 DAYS Authorizing Provider: JOE SHAY Ordering User: DINORA JUAREZ Filled per RN protocol. ER CHIP * [employer], [employer] - 04/11/2024 2:21 PM CST Continuous [...] ENDOCRINOLOGY) Last ordered by JOE SHAY M: 02/14/2024 (57 days ago) QTY: 9, Refills: 3, Sig: use once every 10 days (unchanged) Age: 68 [employer] Embedded Refills, Reference: [id number], 04/11/2024 2:21:10 PM COOKER CHIP, Pool: CUONG PNREFILL ([id number]) ER CHIP documented in this encounter Plan of Treatment Upcoming Encounters Date Type Department Care Team (Late st Contact Info) Description 08/08/2024 2:00 PM COOKER CHIP Appointment [facility] [address] [place] [address] Joe Shay, MARNIEBS [address] [place] [address] documented as of this encounter Visit Diagnoses Diagnosis Uncontrolled type 1 diabetes mellitus with hyperglycemia (HRC) documented in this encounter Care Teams Cardiac Technician Relationship Specialty Start Date End Date Mj Schaeffer MD [facility] [address] [place] [address] PCP - General Family Practice 07/22/21 documented as of this encounter
--- OUTSIDE RECORDS SUMMARY | 2024-05-15 11:12 | XMS_ITS | Clinical Summary ---
Author Organization [facility] Address [address] [place] [address] Care Team Providers Care Oil Well Service Operator Helper Name Role Phone Mj Schaeffer MD Primary Care Provider [phone] Allergies Active Allergy Reactions Criticality Noted Date [...] of Treatment Not on file Care Teams Oil Well Service Operator Helper Relationship Specialty Start Date End Date Mj Schaeffer MD PCP - General Family Practice 12/16/18
--- OUTSIDE RECORDS SUMMARY | 2024-05-15 11:12 | XMS_ITS | Encounter Summary ---
Author Organization [facility] Address [address], [place] [address] Care Team Providers Care Dairy Scientist Name Role Phone Mj Schaeffer MD Primary Care Provider [phone] Reason for Visit * Reason Comments Forms Chart notes - [place] Encounter Details Date Type Department Care Team (Late Contact Info) Description 03/23/2024 Telephone [facility] [address] Endocrinology [address] [place] [address] Jeanne Shay MBBS [address] [place] [address] Forms (Chart notes - [place] ) Social History Tobacco Use Types Packs/Day Years Used Date Smoking Tobacco: Every Day Smokeless Tobacco: Never Sex and Gender Information Value Date Recorded Sex Assigned at Not on file Gender Identity Not on file Sexual Orientation Not on file documented as of this encounter Nursing Notes * Carolina Prasad - 03/23/2024 9:56 AM CDT Faxed chart notes to [facility] [phone] from 02/29/24 appt documented in this encounter Plan of Treatment Upcoming Encounters Date Type Department Care Team (Late Contact Info) Description 08/08/2024 2:00 PM XRAY TECH Appointment [facility] [address] [place] [address] Jeanne Shay MBBS [address] [place] [address] documented as of this encounter Visit Diagnoses Not on filedocumented in this encounter Care Teams Dairy Scientist Relationship Specialty Start Date End Date Mj Schaeffer MD [facility] [address] [facility] [place] [address] PCP - General Family Practice 07/22/21 documented as of this encounter
--- OUTSIDE RECORDS SUMMARY | 2024-05-15 11:12 | XMS_ITS | Encounter Summary ---
Author Organization [facility] Address [address] [address] Care Team Providers Care Dental Practitioner Name Role Phone Mj Schaeffer MD Primary Care Provider [phone] Reason for Visit * Reason Comments Follow-up Encounter Details Date Type Department Care Team (Late st Contact Info) Description 02/23/2024 10:15 AM CDT Telemedicine [place] [address] Endocrinology [address] [facility] [place] [address] Joe Shay MBBS [address] [place] [address] Uncontrolled type 1 diabetes mellitus with hyperglycemia (HRC) (Primary Dx); Essential hypertension (HRC); Dyslipidemia (high LDL; low HDL) (HRC); Coronary artery disease involving coronary bypass graft of [place] ir[place] heart without angina pectoris (HRC) Social History [...] st Contact Info) Description 08/08/2024 2:00 PM AIRFREIGHT LOADING SUPERVISOR Appointment [facility] [address] [place] [address] Joe Shay MBBS [address] [place] [address] documented as of this encounter Results * (ABNORMAL) Complete Blood Count-No Diff (02/24/2024 7:35 AM CDT) WBC 10.8(H) 3.5 - 10.5 x10(9)/L 02/24/2024 7:39 AM CDT [facility] RBC 4.52 4.32 - 5.72 x10(12)/L 02/24/2024 7:39 AM CDT [facility] Hemoglobin 13.6 13.5 - 17.5 g/dL 02/24/2024 7:39 AM CDT [facility] HCT 42.5 38.8 - 50.0 % 02/24/2024 7:39 AM CDT [facility] MCV 94.0 80.0 - 100.0 fL 02/24/2024 7:39 AM CDT [facility] MCH 30.1 27.6 - 33.3 pg 02/24/2024 7:39 AM CDT [facility] MCHC 32.0 31.5 - 35.2 g/dL 02/24/2024 7:39 AM T [facility] RDW 13.4 11.9 - 15.5 % 02/24/2024 7:39 AM CDT [facility] Platelets 272 150 - 450 x10(9)/L 02/24/2024 7:39 AM CDT [facility] Blood Venipuncture / Unknown 02/24/2024 7:35 AM CDT 02/24/2024 7:35 AM CDT [facility]_1 Performing Organization Address [facility]/ZIP Co de Phone Number [facility] [address] [place] [address] * Lipid Panel and Direct LDL (if needed) (02/24/2024 7:35 AM CDT) [facility] Cholesterol 134 0 - 199 mg/dL 02/24/2024 4:46 PM [facility] Triglyceride 126 <=149 mg/dL 02/24/2024 4:46 PM [facility] HDL Cholesterol 48 >=40 mg/dL 4:46 PM [facility] LDL, Calculated 61 <130 mg/dL 4:46 PM [facility] Non HDL Chol, Calculated 86 <=159 mg/dL 02/24/2024 4:46 PM [facility] Cholesterol/HDL Ratio 2.8 <=5.0 02/24/2024 4:46 PM [facility] Hours Fasting 0.0 8 - 12 Hours 02/24/2024 4:46 PM [facility] Blood Venipuncture / Unknown 02/24/2024 7:35 AM CDT 02/24/2024 7:35 AM CDT Joe DYE [facility]_1 [facility] [address] [place] [address] * Tissue Transglutaminase Ab IgA (02/24/2024 7:35 AM CDT) [facility] Tissue Transglutaminase Antibody, IgA 0.7 0.0 - 6.9 U/mL 02/25/2024 12:51 PM CDT [facility] Tissue Transglutaminase Antibody, IgA Interpretation Negative Negative 02/25/2024 12:51 PM CDT [facility] Blood Venipuncture / Unknown 02/24/2024 7:35 AM CDT 02/24/2024 7:35 AM CDT Joe Cisse Jaspal [facility]_1 Performing Organization Address [facility] Co de Phone Number [facility] [address] * Albumin/Creatinine Ratio,Random Urine (02/24/2024 7:35 AM CDT) [facility] Albumin/Creati nine Ratio, Urine, Random 23 <30 mg/g 02/24/2024 12:54 PM CDT [facility] Albumin, Urine, Random 16.2 mg/L 02/24/2024 12:54 PM CDT [facility] Creatinine, Urine, Random 72 >20 mg/dL mg/dL 02/24/2024 12:54 PM CDT [facility] Urine Non-blood Collection / Unknown 02/24/2024 7:35 AM CDT 02/24/2024 7:35 AM CDT Joe Cisse Jaspal [facility]_1 Performing Organization Address [facility]/ZIP Co de Phone Number [facility] [address] [place] [address] * Free T4 (02/24/2024 7:35 AM CDT) [facility] T4, Free 1.1 0.7 - 1.5 ng/dL 02/24/2024 12:24 PM CDT [facility] Blood Venipuncture / Unknown 02/24/2024 7:35 AM CDT 02/24/2024 7:35 AM CDT Joe Shay [facility]_1 Performing Organization Address [facility] Co de Phone Number [facility] [address] [place] [address] * TSH (02/24/2024 7:35 AM CDT) Pathologist [facility] TSH, Sensitive 2.13 0.30 - 4.50 uIU/mL 02/24/2024 12:23 PM CDT [facility] Blood Venipuncture / Unknown 02/24/2024 7:35 AM CDT 02/24/2024 7:35 AM CDT Joe Shay [facility]_1 Performing Organization Address [facility] Phone Number [facility] [address] [place] [address] * (ABNORMAL) Comp Metabolic Panel (02/24/2024 7:35 AM CDT) Pathologist [facility] Sodium 140 136 - 145 mmol/L 02/24/2024 4:46 PM [facility] Potassium 5.0 3.5 - 5.1 mmol/L 02/24/2024 4:46 PM [facility] Chloride 107 98 - 109 mmol/L 02/24/2024 4:46 PM [facility] CO2 23 20 - 29 mmol/L 02/24/2024 4:46 PM [facility] Anion Gap 10 6 - 16 mmol/L 02/24/2024 4:46 PM [facility] Calcium 9.7 8.4 - 10.4 mg/dL 02/24/2024 4:46 PM [facility] BUN 16 7 - 26 mg/dL 02/24/2024 4:46 PM [facility] Creatinine 0.69(L) 0.73 - 1.18 mg/dL 02/24/2024 4:46 PM [facility] Alkaline Phosphatase 102 40 - 150 U/L 02/24/2024 4:46 PM [facility] AST (SGOT) 15 10 - 40 U/L 02/24/2024 4:46 PM [facility] ALT (SGPT) 14 <=55 U/L 02/24/2024 4:46 PM [facility] Bilirubin, Total 0.4 0.2 - 1.2 mg/dL 02/24/2024 4:46 PM [facility] Protein, Total 8.0 6.4 - 8.3 g/dL 02/24/2024 4:46 PM [facility] Albumin 4.0 3.5 - 5.0 g/dL 02/24/2024 4:46 PM [facility] Glucose 157(H) 70 - 100 mg/dL 02/24/2024 4:46 PM [facility] Comment:The given reference range is for the fasting state. Non-fasting reference range for glucose is 70 - 180 mg/dL. GFR, Estimated >60 >60 mL/min/1.7 3m2 02/24/2024 4:46 PM [facility] Hours Fasting 0.0 8 - 12 Hours 02/24/2024 4:46 PM [facility] Blood Venipuncture / Unknown 02/24/2024 7:35 AM CDT 02/24/2024 7:35 AM CDT Joe Cisse Jaspal [facility]_1 Performing Organization Address City/State/[facility] Co de Phone Number [facility] [address] [place] [address] * (ABNORMAL) Hgb A1C (02/24/2024 7:35 AM CDT) Hemoglobin A1C 8.8(H) <=5.6 % 02/24/2024 1:51 PM [facility] Estimated Average Glucose (Calc) 206 < 117 mg/dL 02/24/2024 1:51 PM [facility] Comment:Estimated average gl ucose (eAG) converts A1c into glucose units (mg/dL) and estimates average glucose over the past approximately 3 months. The eAG reference interval (<117 mg/dL) corresponds to an A1c of <5.7%. Blood Venipuncture / Unknown 02/24/2024 7:35 AM CDT 02/24/2024 7:35 AM CDT Narrative [facility] - 02/24/2024 1:51 PM CDT For patients not previously diagnosed with diabetes: 5.7-6.4%: Increased risk for diabetes 6.5% and greater: Diagnostic for diabetes For patients diagnosed with diabetes: <8.0%: Goal of therapy for ages 18-75 Clinicians may recommend a higher or lower goal for specific individuals. [facility]_1 [facility] [address] documented in this encounter Visit Diagnoses Diagnosis Uncontrolled type 1 diabetes mellitus with hyperglycemia (HRC)- Primary Essential hypertension (HRC) Unspecified essential hypertension Dyslipidemia (high LDL; low HDL) (HRC) Other and unspecified hyperlipidemia Coronary artery disease involving coronary bypass graft of [place] ir[place] heart without angina pectoris (HRC) documented in this encounter Care Teams Dental Practitioner Relationship Specialty Start Date End Date Mj Schaeffer MD [facility] [address] [place] [address] PCP - General Family Practice 07/22/21 documented as of this encounter
--- OUTSIDE RECORDS SUMMARY | 2024-05-15 11:12 | XMS_ITS | Encounter Summary ---
Author Organization [facility] Address [address] [address] Care Team Providers Care Tilesetter Name Role Phone Mj Schaeffer MD Primary Care Provider Reason for Visit * Reason Comments Refill Continuous Glucose S ensor (DEXCOM G6 SENSOR) [Pharmacy Med Name: DEXCOM G6 SENSOR MISCELLANEOUS]; Continuous Glucose Transmitter (DEXCOM G6 TRANSMITTER) [Pharmacy Med Name: DEXCOM G6 TRANSMITTER MISCELLANEOUS] Encounter Details Date Type Department Care Team (Late st Contact Info) Description 02/12/2024 Refill [facility] [address] [place] [address] Joe Shay MBBS [address] [place], [place] [id number] Refill (Continuous Glucose Sensor (DEXCOM G6 SENSOR) [...] JOE SHAY Ordering User: EVANGELISTA CONNELLY * Lottiecallum [employer] - 02/12/2024 9:16 AM CDT Continuous [...] Age: 68 [employer] Embedded Refills, Reference: [id number], 02/12/2024 9:16:53 AM CDT, Pool: CUONG PNREFILL ([id number]) Continuous Glucose Transmitter (DEXCOM G6 TRANSMITTER) [Pharmacy Med Name: DEXCOM G6 TRANSMITTER MISCELLANEOUS] Diabetes Supplies -> Provider co-signature is required for DME on patients 65+ years old. -> Age is abnormal (69 is greater than 64.0) -> Refill x 9 months (until due for an office visit) Last qualifying visit: 10/26/2023 (in ENDOCRINOLOGY) Next scheduled visit: 02/23/2024 (in P38 ENDOCRINOLOGY) Last ordered by JOE SHAY: 03/17/2023 (332 days ago) QTY: 1, Refills: 3, Sig: change once every 90 days (unchanged) Age: 68 [employer] Embedded Refills, Reference: [id number], 02/12/2024 9:16:53 AM CDT, Pool: CUONG PNNAZARIO ([id number]) documented in this encounter Plan of Treatment Upcoming Encounters Date Type Department Care Team (Late st Contact Info) Description 08/08/2024 2:00 PM ACADEMIC SUPPORT CENTER DIRECTOR Appointment [facility] [address] [place] [address] Joe Shay MBBS [address] [place] [address] documented as of this encounter Visit Diagnoses Diagnosis Uncontrolled type 1 diabetes mellitus with hyperglycemia (HRC) documented in this encounter Care Teams Tilesetter Relationship Specialty Start Date End Date Mj Schaeffer MD [facility] [address] [place] [address] PCP - General Family Practice 07/22/21 documented as of this encounter
--- OUTSIDE RECORDS SUMMARY | 2024-05-15 11:12 | XMS_ITS | Referral Summary ---
Author Organization [facility] Address [address] [place] [address] Care Team Providers Care Broommaker Name Role Phone Mj Schaeffer MD Primary Care Provider [phone] Allergies Active Allergy Reactions Criticality Noted Date [...] of Treatment Not on file Care Teams Broommaker Relationship Specialty Start Date End Date Mj Schaeffer MD PCP - General Family Practice 12/16/18
--- OUTSIDE RECORDS SUMMARY | 2024-05-15 11:12 | XMS_ITS | Encounter Summary ---
Author Organization [facility] Address [address], [place] [address] Care Team Providers Care Financial Systems Administrator Name Role Phone Mj Schaeffer MD Primary Care Provider [phone] Reason for Visit * Reason Comments Forms Encounter Details Date Type Department Care Team (Late st Contact Info) Description 02/29/2024 Telephone [facility] [address] Endocrinology [address] [facility] [place] [address] Jeanne Shay MBBS [address] [place] [address] Forms Social History Tobacco Use Types Packs/Day Years Used Date Smoking Tobacco: Every Day Smokeless Tobacco: Never Sex and Gender Information Value Date Recorded Sex Assigned at Not on file Gender Identity Not on file Sexual Orientation Not on file documented as of this encounter Nursing Notes * Carolina Prasad - 03/06/2024 10:02 AM CDT Completed [employer] faxed to #[phone] , hard copy filed in *Jaspal done [...] st Contact Info) Description 08/08/2024 2:00 PM UPKEEP MECHANIC Appointment [facility] [address] [place] [address] Jeanne Shay MBBS [address] [place] [address] documented as of this encounter Visit Diagnoses Not on filedocumented in this encounter Care Teams Financial Systems Administrator Relationship Specialty Start Date End Date Mj Schaeffer MD [facility] [address] [place] [address] PCP - General Family Practice 07/22/21 documented as of this encounter
--- OUTSIDE RECORDS SUMMARY | 2024-05-15 11:12 | XMS_ITS | Encounter Summary ---
Author Organization [facility] Address [address] [address] Care Team Providers Care Pulverizer Operator Name Role Phone Mj Schaeffer MD Primary Care Provider [phone] Reason for Visit * Reason Comments Refill metFORMIN XR (GLUCOP SHUBHAM XR) 500 MG 24 hour release tablet [Pharmacy Med Name: METFORMIN HYDROCHLORIDE ER 500MG TABLET EXTENDED RELEASE 24 HOUR] Encounter Details Date Type Department Care Team (Late st Contact Info) Description 04/03/2024 Refill [place] [address] [place] [address]. [place] [address] Joe Shay MBBS [address] [place], [place] [id number] Refill (metFORMIN XR (GLUCOPHAGE XR) 500 MG [...] on 02/24/2024 HBA1C: 8.8 % on 02/24/2024 [facility] Embedded Refills, Reference: [id number], 04/03/2024 6:17:06 AM CDT, [place]: CUONG VEE ([id number]) documented in this encounter Plan of Treatment Upcoming Encounters Date Type Department Care Team (Late st Contact Info) Description 08/08/2024 2:00 PM MECHANIC HELPER Appointment [facility] [address] [place] [address] Joe Shay MBBS [address] [place] [address] documented as of this encounter Visit Diagnoses Not on filedocumented in this encounter Care Teams Pulverizer Operator Relationship Specialty Start Date End Date Mj Schaeffer MD [facility] [address] [place] [address] PCP - General Family Practice 07/22/21 documented as of this encounter
--- OUTSIDE RECORDS SUMMARY | 2024-05-15 11:12 | XMS_ITS | Encounter Summary ---
Author Organization [employer] Address [address] [place] [address] Care Team Providers Care Dining Room Attendant Cafeteria Name Role Phone Mj Schaeffer MD Primary Care Provider [phone] Reason for Visit * Reason Comments Diabetes Encounter Details Date Type Department Care Team (Late st Contact Info) Description 02/29/2024 10:45 AM CDT Office Visit [facility] [address] [place] [address] Jeanne Shay MBBS [address] [place] [address] Uncontrolled type 1 diabetes mellitus with hyperglycemia (HRC) (Primary Dx); Essential hypertension (HRC); Dyslipidemia (high LDL; low HDL) (HRC); 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 Department of Endocrinology, Diabetes [...] a statin. #4 CAD s/p CABG. #5 URDI advised him on using CPAP. MERE Ruelas Finish Mixer * Jaime Holley - 02/29/2024 10:45 AM CDT Images from the original note were not included. 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
--- NOTE | 2024-05-15 11:50 | CRLHL7_ITS ---
For Patients: As a result of the Century Cures Act, medical imaging exams and procedure reports are released immediately into your electronic medical record. You may view this report before your referring provider. If you have questions, please contact your health care provider. INDICATION: Right flank and abdominal pain COMPARISON: Same day CT of the abdomen TECHNIQUE: Sonographic evaluation of the gallbladder was performed utilizing gibbons-scale and color Doppler imaging techniques. FINDINGS: There is cholelithiasis. No gallbladder wall thickening. No pericholecystic fluid. Negative sonographic Quintero`s sign. Common bile duct measures to 4 millimeters in diameter. IMPRESSION: Cholelithiasis. Otherwise, unremarkable sonographic appearance of the gallbladder. Dictated by Rasheed Merino MD @ 05/15/2024 12:46:49 PM (Electronically Signed)
[2024-05-15 12:21] LABS: Appearance Urine Clear (Clear); Bilirubin Urine Negative (Negative); Blood Urine Trace-lysed (Negative); Color Urine Yellow (Yellow); Glucose Urine 2+ (Negative); Ketones Urine 4+ (Negative); Leukocyte Esterase Urine Negative (Negative); Nitrite Urine Negative (Negative); Protein Urine Negative (Negative); Urobilinogen Urine 0.2 (0.2-1.0); pH Urine 5.5 (5.0-8.5)
[2024-05-15 13:10] LABS: Bacteria Urine Few; RBC Urine 0-2 (0-2); Squamous Epithelial Cell Urine Few (None-Few); WBC Urine 0-2 (0-5)
[2024-05-15] MEDS: HYDROmorphone 0.5 mg/0.5 ml inj IVP ×2 (13:56→21:04)
[2024-05-15] MEDS: 0.9 % SODIUM CHLORIDE 500 ML 500 ML IV ×2 (13:56→17:42)
--- NOTE | 2024-05-15 14:00 | P.GSCN_ITS ---
History of Present Illness Consult details Date Seen: 05/15/24 Consult date: 05/15/24 Narrative: Patient presented to the emergency department with severe right sided flank/back pain. The pain woke him up from sleep around 3:00 a.m. It A came out of no where and felt like a sharp stabbing sensation in his side. He does report some associated nausea, no emesis. He has had pain similar to this from about a week earlier. At that time it was more of a dull throbbing sensation. He saw his primary care provider who thought that it might be musculoskeletal. Denies any diarrhea or fevers. He has never had abdominal surgery before. He denies any association with foods. He is a diabetic and uses an insulin pump. He is very concerned because his blood sugars have been ?off the charts this morning? and he has used a significant amount of insulin with no improvement. Review of Systems Status of ROS: Reports: 6 or more systems reviewed and unremarkable except as noted in History and below [facility] Medical History Tendinopathy of right biceps tendon ?M67.921 - Unspecified disorder of synovium and tendon, right upper arm (ICD- 10) Arthritis of right acromioclavicular joint ?M19.011 - Primary osteoarthritis, right shoulder (ICD-10) Surgical History History of coronary artery bypass graft ?Z95.1 - Presence of aortocoronary bypass graft (ICD-10) History of aortic valve replacement ?Z95.2 - Presence of prosthetic heart valve (ICD-10) Status post neck dissection ?Z98.890 - Other specified postprocedural states (ICD-10) Status post peripheral artery angioplasty ?Z98.62 - Peripheral vascular angioplasty status (ICD-10) Social History What is your current living situation?: I presently have a place to live Problems where you live: no known problems In the past 12 months, utilities in danger of being shut off: no In the past 12 mos, have been you worried that your food would run out before you had money to buy more?: never true In the past 12 mos, the food you bought just didn't last and you didn't have money to buy more?: never true Smoking Status: Current every day smoker Do you use any of these nicotine containing products: None Second hand tobacco smoke exposure: No How often do you have a drink containing alcohol: never How often do you have six or more drinks on one occasion: Never AUDIT-C Alcohol total score: 0 Non-prescribed substance use: denies use How often does anyone, including family, friends and others, physically hurt you : never How often does anyone, including family, friends and others, insult or talk down to you: never How often does anyone, including family, friends and others, threaten you with harm: never How often does anyone, including family, friends and others, scream or curse at you: never service: No Meds Home Medications and Allergies Home Medications ?Medication ?Instructions ?Recorded ?Confirmed ?Type aspirin 81 mg tablet,delayed 81 mg PO QDAY 12/03/21 05/15/24 History release gabapentin 100 mg capsule 100 mg PO TID 12/03/21 05/15/24 History insulin aspart U-100 100 unit/mL 76 unit subcut QDAY 12/03/21 05/15/24 History (3 mL) subcutaneous pen (Novolog FlexPen U-100 Insulin aspart) nitroglycerin 0.4 mg sublingual 0.4 mg sublingual Q5M PRN 12/03/21 05/15/24 History tablet blood-glucose meter,continuous #1 ea 04/13/23 05/08/24 History (Dexcom G6 Embedded Firmware Developer) blood-glucose sensor (Dexcom G6 #1 ea 04/13/23 05/08/24 History Sensor device) blood-glucose transmitter (Dexcom #1 ea 04/13/23 05/08/24 History G6 Transmitter device) flash glucose sensor (FreeStyle #1 ea 04/13/23 05/08/24 History Nemesio 2 Sensor kit) gabapentin 300 mg capsule 300 mg PO 3XD 04/13/23 05/15/24 History glucagon 1 mg/0.2 mL subcutaneous 1 mg subcut 04/13/23 05/08/24 History auto-injector (Gvoke HypoPen 2-Pack) insulin aspart U-100 100 unit/mL subcut 04/13/23 05/08/24 History subcutaneous solution insulin pump cart,cont inf,BT #5 ea 04/13/23 05/08/24 History (Omnipod Dash Pods (Gen 4) subcutaneous cartridge) pen needle, diabetic 31 gauge x #100 ea 04/13/23 05/08/24 History 1/4 (Pentips Pen Needle) metformin 500 mg tablet,extended 2,000 mg PO QPM 05/08/24 05/15/24 History release 24 hr Allergies Allergy/AdvReac Type Severity Reaction Status Date / Time No Known Allergies Allergy Unknown Verified 05/15/24 09:46 Exam Narrative: Exam Narrative: General: Alert and oriented, no acute distress Respiratory: Equal breath rise bilaterally, maintained on room air CV: Well perfused Abdomen: Soft, nondistended. Some reported fullness and pain on the right side. Significant right flank pain with palpation. Const: Vital Signs, click to edit/add: Vital Signs - 24 hr 05/15/24 09:41 05/15/24 13:30 Temperature 96.3 F L Pulse Rate [Pulse Oximeter] 75 85 Respiratory Rate 22 16 Blood Pressure [Ri ght Upper Arm] 172/75 H 170/81 H Pulse Oximetry 98 96 Oxygen Delivery Me thod Room Air Room Air Results Labs Labs: Abnormal lab results 05/15/24 05/15/24 Range/Units 10:11 12:11 Neut % (Auto) 84.0 H (42.0-72.0) % Lymph % (Auto) 11.1 L (20-44) % Neut # (Auto) 8.70 H (1.7-7.0) K/uL Sodium 134 L (135-149) mmol/L Glucose 394 H* (60-115) mg/dL Urine Glucose (UA) 2+ A (Negative) Urine Ketones 4+ A (Negative) Urine Blood Trace-lysed A (Negative) Urine Bacteria Few A (None) Diabetes panel 05/15/24 Range/Units 10:11 Sodium 134 L (135-149) mmol/L Potassium 4.9 (3.6-5.1) mmol/L Chloride 102 (96-114) mmol/L Carbon Dioxide 20 (20-32) mmol/L BUN 24 (7-30) mg/dL Creatinine 0.8 (0.5-1.5) mg/dL Glucose 394 H* (60-115) mg/dL Calcium 9.2 (8.4-10.6) mg/dL AST 21 (12-35) U/L ALT 19 (4-50) U/L Alkaline Phosphatase 137 (40-150) U/L Total Protein 7.7 (6.0-8.3) g/dL Albumin 4.6 (3.3-5.0) g/dL Calcium panel 05/15/24 Range/Units 10:11 Calcium 9.2 (8.4-10.6) mg/dL Albumin 4.6 (3.3-5.0) g/dL Pituitary panel 05/15/24 Range/Units 10:11 Sodium 134 L (135-149) mmol/L Potassium 4.9 (3.6-5.1) mmol/L Chloride 102 (96-114) mmol/L Carbon Dioxide 20 (20-32) mmol/L BUN 24 (7-30) mg/dL Creatinine 0.8 (0.5-1.5) mg/dL Glucose 394 H* (60-115) mg/dL Calcium 9.2 (8.4-10.6) mg/dL Adrenal panel 05/15/24 Range/Units 10:11 Sodium 134 L (135-149) mmol/L Potassium 4.9 (3.6-5.1) mmol/L Chloride 102 (96-114) mmol/L Carbon Dioxide 20 (20-32) mmol/L BUN 24 (7-30) mg/dL Creatinine 0.8 (0.5-1.5) mg/dL Glucose 394 H* (60-115) mg/dL Calcium 9.2 (8.4-10.6) mg/dL Total Bilirubin 0.5 (0.1-1.5) mg/dL AST 21 (12-35) U/L ALT 19 (4-50) U/L Alkaline Phosphatase 137 (40-150) U/L Total Protein 7.7 (6.0-8.3) g/dL Albumin 4.6 (3.3-5.0) g/dL All other labs normal. Progress Note:A&P Assessment and plan (1) Abdominal pain: Status: Acute Assessment and Plan: Patient presents with severe right-sided abdominal pain. Workup has included labs, which demonstrate no leukocytosis and normal LFTs. Hyperglycemia (300s). A CT scan ruled out any kidney stones but does show some dependent gallstones within the gallbladder. An abdominal ultrasound was performed which shows the presence of gallstones, no pericholecystic fluid or gallbladder wall thickening. Pain could be related to gallstones, with differential also including musculoskeletal. His medical history is significant for an aortic valve replacement and CABG in 2018. 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 Recommendations were to follow up in 2 years. Patient is not currently on any anticoagulation. With the patient's cardiac history and hyperglycemia recommend admission to the hospitalist service. No need for antibiotics at this time. Okay for clear liquid diet, NPO at midnight. Will plan for re-evaluation of symptoms and examination tomorrow morning. Please call with any acute clinical changes, questions or concerns.
[2024-05-15] MEDS: INSULIN REGULAR, HUMAN 100 UNIT/ML VIAL 10 UNIT SUBCUT (14:08)
[2024-05-15 16:12] LABS: HCO3 VBG 22 mmol/L (21-28); PCO2 VBG 41 mmHG (40-50); PO2 VBG 34.7 mmHG (25-47); pH VBG 7.343 (7.32-7.43)
--- NOTE | 2024-05-15 16:25 | PM.IMHP1 ---
Hospitalist- H&P: HPI History of Present Illness Time Seen by Provider: 15:30 Date Seen: 05/15/24 Chief complaint: abdominal pain Narrative: David Figueroa is a 68 year old male with known coronary artery disease, history of CABG, type 1 diabetes mellitus for which he uses an insulin pump, peripheral arterial disease, obstructive sleep apnea, hypertension, hyperlipidemia, COPD, gastroparesis, and broad-based right disc protrusion T12 through L3 that is encroaching on the right L2 nerve for severe right abdominal and back pain. Last week he started having right upper back pain that he thought it was a kidney stone. For the last couple months he has had lower urinary tract symptoms including nocturia and having to return to the bathroom to urinate after having just done so. He denies any dysuria or hematuria. About a week and a half ago he started having constipation with a very hard bowel movement every other day where is he usually goes every day. He denies any blood in the stool or black tarry stools. He had a colonoscopy in 2021 and is due again in 5 years. He saw his primary care provider Dr. Kamara, on 05/08/2024 in part for concern of this back pain. Pain at that time had been fairly constant for 3 days and worse at night. It was thought that it was possibly musculoskeletal and he was treating it with supportive cares. Around 3:00 a.m. this morning he woke with a sudden worsening and now felt pain in his right upper quadrant that he described as a 20/10 and it was associated with multiple episodes of vomiting nonbilious and nonbloody. He has no personal or family history of kidney stones or gallbladder issues. He typically uses an insulin pump, but ran out of the insulin cartridge today and does not have any with him. Review of Systems Status of ROS: Reports: 10 or more systems reviewed and unremarkable except as noted in History and below [facility] Medical History (Updated 05/15/24 @ 16:59 by Ban Parekh MD) Broad-based protrusion of intervertebral disc Hyperlipidemia ?E78.5 - Hyperlipidemia, unspecified (ICD-10) Coronary artery disease ?I25.10 - Atherosclerotic heart disease of [place] coronary artery without angina pectoris (ICD-10) Osteoarthritis of left shoulder ?M19.012 - Primary osteoarthritis, left shoulder (ICD-10) Steatosis of liver ?K76.0 - Fatty (change of) liver, not elsewhere classified (ICD-10) Seasonal allergies ?J30.2 - Other seasonal allergic rhinitis (ICD-10) Peripheral arterial disease ?I73.9 - Peripheral vascular disease, unspecified (ICD-10) Diabetic neuropathy ?E11.40 - Type 2 diabetes mellitus with diabetic neuropathy, unspecified (ICD-10) Mass of right side of neck ?R22.1 - Localized swelling, mass and lump, neck (ICD-10) Type 1 diabetes ?E10.9 - Type 1 diabetes mellitus without complications (ICD-10) Essential hypertension ?I10 - Essential (primary) hypertension (ICD-10) Obstructive sleep apnea ?G47.33 - Obstructive sleep apnea (adult) (pediatric) (ICD-10) Nicotine dependence ?F17.200 - Nicotine dependence, unspecified, uncomplicated (ICD-10) COVID-19 vaccination declined ?Z28.21 - Immunization not carried out because of patient refusal (ICD-10) COPD (chronic obstructive pulmonary disease) ?J44.9 - Chronic obstructive pulmonary disease, unspecified (ICD-10) Osteoarthritis of right shoulder ?M19.011 - Primary osteoarthritis, right shoulder (ICD-10) Osteoarthritis of metacarpophalangeal (MCP) joint of left middle finger ?M19.042 - Primary osteoarthritis, left hand (ICD-10) Trigger finger, left middle finger ?M65.332 - Trigger finger, left middle finger (ICD-10) Right lumbar radiculopathy ?M54.16 - Radiculopathy, lumbar region (ICD-10) Lumbar degenerative disc disease ?M51.36 - Other intervertebral disc degeneration, lumbar region (ICD-10) Tendinopathy of left rotator cuff ?M67.912 - Unspecified disorder of synovium and tendon, left shoulder (ICD-10) Gastroparesis ?K31.84 - Gastroparesis (ICD-10) Adenomatous colon polyp ?D12.6 - Benign neoplasm of colon, unspecified (ICD-10) Tendinopathy of right biceps tendon ?M67.921 - Unspecified disorder of synovium and tendon, right upper arm (ICD-10) Arthritis of right acromioclavicular joint ?M19.011 - Primary osteoarthritis, right shoulder (ICD-10) Surgical History History of coronary artery bypass graft ?Z95.1 - Presence of aortocoronary bypass graft (ICD-10) History of aortic valve replacement ?Z95.2 - Presence of prosthetic heart valve (ICD-10) Status post neck dissection ?Z98.890 - Other specified postprocedural states (ICD-10) Status post peripheral artery angioplasty ?Z98.62 - Peripheral vascular angioplasty status (ICD-10) Social History (Updated 05/15/24 @ 16:31 by Ban Parekh MD) Narrative: Semi retired in the [employer], originally from [employer] 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 Denies any alcohol use or recreational drug use. What is your current living situation?: I presently have a place to live Problems where you live: no known problems Problems where you live details: na In the past 12 months, utilities in danger of being shut off: no In the past 12 mos, have been you worried that your food would run out before you had money to buy more?: never true In the past 12 mos, the food you bought just didn't last and you didn't have money to buy more?: never true Highest level of school completed/degree received: high school graduate Smoking Status: Current every day smoker Do you use any of these nicotine containing products: None Second hand tobacco smoke exposure: No How often do you have a drink containing alcohol: never How often do you have six or more drinks on one occasion: Never AUDIT-C Alcohol total score: 0 Non-prescribed substance use: denies use Caffeine: Yes (5 cups a day) How often does anyone, including family, friends and others, physically hurt you: never How often does anyone, including family, friends and others, insult or talk down to you: never How often does anyone, including family, friends and others, threaten you with harm: never How often does anyone, including family, friends and others, scream or curse at you: never service: No Meds Home Medications and Allergies Home Medications ?Medication ?Instructions ?Recorded ?Confirmed ?Type aspirin 81 mg tablet,delayed 81 mg PO DAILY 12/03/21 05/15/24 History release nitroglycerin 0.4 mg sublingual 0.4 mg sublingual Q5M PRN 12/03/21 05/15/24 History tablet blood-glucose meter,continuous #1 ea 04/13/23 05/08/24 History (Dexcom G6 Lithographic Proofer Apprentice) blood-glucose sensor (Dexcom G6 #1 ea 04/13/23 05/08/24 History Sensor device) blood-glucose transmitter (Dexcom #1 ea 04/13/23 05/08/24 History G6 Transmitter device) flash glucose sensor (FreeStyle #1 ea 04/13/23 05/08/24 History Nemesio 2 Sensor kit) gabapentin 300 mg capsule 300 mg PO QAM 04/13/23 05/15/24 History glucagon 1 mg/0.2 mL subcutaneous 1 mg subcut .PRN 04/13/23 05/15/24 History auto-injector (Gvoke HypoPen 2-Pack) insulin aspart U-100 100 unit/mL 50 unit subcut Q24H 04/13/23 05/15/24 History subcutaneous solution insulin pump cart,cont inf,BT #5 ea 04/13/23 05/08/24 History (Omnipod Dash Pods (Gen 4) subcutaneous cartridge) pen needle, diabetic 31 gauge x #100 ea 04/13/23 05/08/24 History 1/4 (Pentips Pen Needle) metformin 500 mg tablet,extended 2,000 mg PO QPM 05/08/24 05/15/24 History release 24 hr atorvastatin 20 mg tablet 20 mg PO HS 05/15/24 05/15/24 History gabapentin 300 mg capsule 600 mg PO HS 05/15/24 05/15/24 History Allergies Allergy/AdvReac Type Severity Reaction Status Date / Time No Known Allergies Allergy Unknown Verified 05/15/24 09:46 Exam Narrative: Exam Narrative: General: No acute distress. Awake alert oriented x3. HEENT: Normocephalic atraumatic, pupils equally round and reactive to light and accommodation. Oropharynx clear. Mucous membranes are very dry. No cervical lymphadenopathy, thyromegaly or carotid bruits. No JVD. Cardiovascular: Regular rate and rhythm. Grade 3/6 systolic murmur loudest at the right upper sternal border. Chest: No increased work of breathing. Clear to auscultation bilaterally. No crackles or wheezes. Back: Point tender just off to the right of T11 or 12 which reproduces the pain that he has been having in his back. No deformities, rash, swelling. Abdomen: Bowel sounds present. Insulin pump needles in tubing in place on left upper abdomen. Soft, nondistended, tender in the right upper quadrant, positive Quintero sign, no rebound tenderness or guarding. No hepatosplenomegaly or masses. Extremities: No edema, no cyanosis or clubbing. Skin: No jaundice, no pallor, no rashes. Neuro: Grossly intact. No focal deficits. Const: Vital Signs, click to edit/add: Vital Signs - 24 hr 05/15/24 09:41 05/15/24 13:30 05/15/24 15:11 Temperature 96.3 F L 97.9 F Pulse Rate [Left R adial] 77 Pulse Rate [Pulse Oximeter] 75 85 Respiratory Rate 22 16 16 Blood Pressure [Le ft Arm] 175/77 H Blood Pressure [Ri ght Upper Arm] 172/75 H 170/81 H Pulse Oximetry 98 96 96 Oxygen Delivery Me thod Room Air Room Air Room Air 05/15/24 16:08 Temperature Pulse Rate [Left R adial] Pulse Rate [Pulse Oximeter] Respiratory Rate 16 Blood Pressure [Le ft Arm] Blood Pressure [Ri ght Upper Arm] Pulse Oximetry 96 Oxygen Delivery Me thod Room Air Hospitalist - H&P: Result Labs Labs: Short CBC 05/15/24 Range/Units 10:11 WBC 10.38 (4.50-11.00) K/uL Hgb 13.6 (13.5-17.5) gm/dL Hct 42.0 (37.0-53.0) % Plt Count 256 (140-440) K/uL BMP 05/15/24 10:11 Sodium 134 L Potassium 4.9 Chloride 102 Carbon Dioxide 20 BUN 24 Creatinine 0.8 Glucose 394 H* Calcium 9.2 Liver Function 05/15/24 Range/Units 10:11 Total Bilirubin 0.5 (0.1-1.5) mg/dL AST 21 (12-35) U/L ALT 19 (4-50) U/L Alkaline Phosphatase 137 (40-150) U/L Albumin 4.6 (3.3-5.0) g/dL Urine 05/15/24 Range/Units 12:11 Urine Color Yellow (Yellow) Urine Appearance Clear (Clear) Urine pH 5.5 (5.0-8.5) Ur Specific [place] 1.020 (1.000-1.030) Urine Protein Negative (Negative) Urine Glucose (UA) 2+ A (Negative) Ordering Physician: Fareed Lin M.D. Date of Service: 05/15/24 Procedure(s): CT abdomen pelvis wo con Accession Number(s): [id number] cc: Fatoumata Kamara M.D.; Fareed Lin M.D.~ For Patients: As a result of the Cures Act, medical imaging exams and procedure reports are released immediately into your electronic medical record. You may view this report before your referring provider. If you have questions, please contact your health care provider. Indication: Right flank pain, right upper quadrant and right lower quadrant abdominal pain with nausea and vomiting Technique: Volumetric multidetector CT images of the abdomen and pelvis were without the administration of intravenous contrast. Comparison: CT chest, abdomen and pelvis December 06, 2018 Findings: There is left basilar atelectasis with extensive pleural thickening and rounded atelectasis in the peripheral left lower lobe. The right lung base is clear with minimal basilar atelectasis. The liver is normal in attenuation without intrahepatic biliary ductal dilatation. There is minimal dependent calculi within the gallbladder. There is no gallbladder wall thickening or pericholecystic fluid. There is no significant common biliary ductal dilatation or abrupt cut off. The spleen is normal in attenuation and size. The stomach and duodenum are grossly unremarkable. The pancreas is normal in attenuation without significant atrophy. The adrenal glands are unremarkable. There is no evidence of radiopaque calculus or hydronephrosis. There is moderate to severe stool seen throughout the colon commensurate with constipation changes. There is minimal scattered colonic diverticulosis without obvious pericolonic inflammatory changes. The appendix is unremarkable. There is no significant mesenteric, retroperitoneal, or pelvic sidewall lymph nodes. The aorta is nonaneurysmal. There is no significant atherosclerotic disease appreciated. The solid pelvic viscera are grossly unremarkable. There is no free fluid or free air. The anterior abdominal wall is intact without significant hernias. The lumbar vertebral body heights are grossly maintained with minimal endplate Schmorl`s defects. There is no significant spondylolisthesis or displaced fracture. Impression: 1. No evidence of hydronephrosis or obstructive radiopaque calculus. Minimal likely dependent calculi within the gallbladder. No obvious inflammatory change of the appendix. 2. Moderate to severe stool seen throughout the proximal colon which may represent moderate constipation changes. No overt pericolonic inflammation. 3. Incidental note made of rounded atelectasis and left basilar pleural thickening new from remote comparison exam. Correlate with history of clinical symptoms and prior history of infectious/inflammatory changes. Please note that all CT scans at this facility use dose modulation, iterative reconstruction, and/or weight-based dosing when appropriate to reduce radiation dose to as low as reasonably achievable. Dictated by Jose Reyes MD @ 05/15/2024 11:24:31 AM (Electronically Signed) Ordering Physician: Fareed Lin M.D. Date of Service: 05/15/24 Procedure(s): US gallbladder Accession Number(s): [id number] cc: Fatoumata Kamara M.D.; Fareed Lin M.D.~ For Patients: As a result of the Cures Act, medical imaging exams and procedure reports are released immediately into your electronic medical record. You may view this report before your referring provider. If you have questions, please contact your health care provider. INDICATION: Right flank and abdominal pain COMPARISON: Same day CT of the abdomen TECHNIQUE: Sonographic evaluation of the gallbladder was performed utilizing gibbons-scale and color Doppler imaging techniques. FINDINGS: There is cholelithiasis. No gallbladder wall thickening. No pericholecystic fluid. Negative sonographic Quintero`s sign. Common bile duct measures to 4 millimeters in diameter. IMPRESSION: Cholelithiasis. Otherwise, unremarkable sonographic appearance of the gallbladder. Dictated by Rasheed Merino MD @ 05/15/2024 12:46:49 PM (Electronically Signed) Assessment and Plan Assessment and plan (1) Acute flank pain: Problem comment: - unclear if this is related to right abdominal pain. He is point tender on the back which reproduces his back pain, which would be unlikely to be associated with gallbladder pain, although he does also have a positive Quintero sign. I suspect back pain is related to his known history of right disc protrusions that were previously encroaching on the L2 nerve. Will admit for observation and pain control overnight and if he is still having pain in the morning, consideration could be given to MRI of his back. Status: Acute (2) Broad-based protrusion of intervertebral disc: Problem comment: -- broad-based right far lateral disc protrusion/osteophyte at L2-3 encroaching on the right L2 nerve -- broad-based right posterolateral disc protrusion at T12-L1 without neural impingement Status: Chronic (3) Abdominal pain: Problem comment: - right upper quadrant, positive Quintero sign, gallstone seen on imaging, without evidence for cholecystitis - see discussion above under acute flank pain; I appreciate Dr. Jerry is a recommendations. Will give clear liquid diet, NPO after midnight, admit for observation and pain control. - differential diagnosis includes symptomatic gallstones, radicular pain from nerve impingement, constipation, musculoskeletal pain, early shingles pre rash. Status: Acute (4) Gallstones: Problem comment: - seen on imaging, possibly symptomatic as above. Status: Acute (5) Acute hyperglycemia: Problem comment: - Patient is not acidotic, there is no evidence of diabetic ketoacidosis. - I do not think this is contributing to his abdominal pain. - he was given 10 units of regular insulin IV in the emergency department and his blood sugar has come down from 400 to just under 300. - treat with insulin as below. Monitor for symptoms of DKA and repeat labs in the morning, sooner if needed. Status: Acute (6) Type 1 diabetes: Problem comment: - Dxed age 59, followed by Nataly Baires electrical assembly supervisor, Dr. Shay, on insulin pump - patient does not have cartridges with him, so we will transition over to long-acting insulin combined with the an insulin sliding scale, he will be NPO overnight so will need to check Accu-Cheks every 6 hours. He is hyperglycemic but not in DKA at present. Monitor. Status: Chronic (7) Acute constipation: Problem comment: - this appears to be acute on chronic. Patient also has a history of diabetic gastroparesis. I have added senna S as patient is now on narcotic medications for pain control. He may also need MiraLax. Will reassess tomorrow. Status: Acute (8) Gastroparesis: Problem comment: Gastroparesis and slow small bowel intestine transit seen on nuclear imaging, 01/28 Status: Chronic (9) Right lumbar radiculopathy: Status: Chronic (10) COPD (chronic obstructive pulmonary disease): Problem comment: mild COPD, Records at Dr. Acosta, scanned in, 12/15/18, showed mild restriction and minimal obstruction, on no treatment Status: Chronic (11) Obstructive sleep apnea: Problem comment: not on CPAP, severe RUDI by PSG 11/24/2018 and 12/30/18 (AHI severe, 70.9) Status: Chronic (12) Nicotine dependence: Problem comment: - nicotine patch as needed - I counseled patient to quit smoking, he is in the pre contemplation phase Status: Chronic (13) Essential hypertension: Problem comment: - continue home antihypertensives Status: Chronic (14) Coronary artery disease: Problem comment: s/p CABG x3 09/22, atorvastatin started 06/30 - asymptomatic, monitor for symptoms Status: Chronic (15) Hyperlipidemia: Problem comment: atorvastatin started 06/30 - hold atorvastatin tonight Status: Chronic (16) Volume depletion: Status: Acute
[2024-05-15] MEDS: 0.9 % SODIUM CHLORIDE 1000 ml 1,000 ML 100 ML IV (17:43)
--- NOTE | 2024-05-15 19:17 | PC.NURSE ---
Up independent in room. Fluids running per MAR. Denies nausea or pain. Orders for NPO @ midnight, pt is aware and understands.
[2024-05-15] MEDS: INSULIN ASPART 100 UNIT/ML SUBCUT ×2 (20:58→23:12)
[2024-05-15] MEDS: INSULIN GLARGINE,HUM.REC.ANLOG 100 UNIT/ML INSULN.PEN 20 UNIT SUBCUT (20:59)
[2024-05-15] MEDS: ACETAMINOPHEN 325 MG TABLET 650 MG PO (21:04)
[2024-05-15] MEDS: SODIUM CHLORIDE 0.9 % (FLUSH) 10 ML SYRINGE 5 ML IVF (21:06)
[2024-05-15] MEDS: METOPROLOL TARTRATE 50 MG TABLET PO (21:07)
[2024-05-15] MEDS: SENNOSIDES/DOCUSATE TABLET 2 TAB PO (21:07)
[2024-05-15] MEDS: GABAPENTIN 300 MG CAPSULE 600 MG PO (21:07)
[2024-05-16] VITALS (21 sets, daily range): BP systolic 105–195; BP diastolic 64–88; PULSE 53–80; RESP 16–22; TEMP 35.9–36.6; O2SAT 85–97
[2024-05-16] MEDS: 0.9 % SODIUM CHLORIDE 1000 ml 1,000 ML 100 ML IV ×2 (02:32→12:11)
--- NOTE | 2024-05-16 05:22 | PC.NURSE ---
Pt NPO since 0000. Pain controlled. No N/V. Afbrile. Up IND.
[2024-05-16] MEDS: HYDROmorphone 0.5 mg/0.5 ml inj IVP ×2 (05:32→13:35)
[2024-05-16 06:21] LABS: Albumin* 3.9 g/dL (3.3-5.0); Basophils Absolute Auto 0.04 K/uL (0.00-0.30); Basophils Percent Auto 0.4 % (0.0-3.0); Chloride* 108 mmol/L (96-114); Eosinophils Absolute Auto 0.25 K/uL (0.00-0.50); Eosinophils Percent Auto 2.5 % (0.0-7.0); Hemoglobin* 11.9 gm/dL (13.5-17.5); Immature Granulocytes Abs Auto 0.01 K/uL (0.00-0.30); Immature Granulocytes Pct Auto 0.1 %; Lymphocytes Absolute Auto 2.29 K/uL (0.90-2.90); Lymphocytes Percent Auto 23.2 % (20-44); Mean Corpuscular HGB Conc 32 gm/dL (32-36); Mean Corpuscular Hemoglobin 30 pg (26-34); Mean Corpuscular Volume 94 fL (80-100); Monocytes Percent Auto 7.8 % (0.0-11.0); Neutrophils Absolute Auto 6.51 K/uL (1.7-7.0); Platelet Count* 223 K/uL (140-440); RDW Coefficient of Variation % 13.5 % (11.5-15.5); Red Blood Count 3.94 m/uL (4.30-5.90); White Blood Count* 9.87 K/uL (4.50-11.00)
[2024-05-16 06:22] LABS: Potassium* 4.9 mmol/L (3.6-5.1); Sodium* 139 mmol/L (135-149)
[2024-05-16 06:24] LABS: Anion Gap 6 mEq/L (7-15); Aspartate Amino Transferase* 18 U/L (12-35); Bilirubin Total* 0.3 mg/dL (0.1-1.5); Carbon Dioxide* 25 mmol/L (20-32); Creatinine* 0.7 mg/dL (0.5-1.5); Est. Creatinine Clearance* 65.18; Estimated Glomerular Filt Rate 100 ml/min; Slide Review Reflex No; Total Protein* 6.6 g/dL (6.0-8.3)
[2024-05-16 06:25] LABS: Alanine Aminotransferase* 15 U/L (4-50); Alkaline Phosphatase* 74 U/L (40-150); Blood Urea Nitrogen* 24 mg/dL (7-30); Calcium* 8.7 mg/dL (8.4-10.6); Glucose* 129 mg/dL (60-115)
[2024-05-16] MEDS: METOPROLOL TARTRATE 50 MG TABLET PO ×2 (08:59→21:04)
[2024-05-16] MEDS: SENNOSIDES/DOCUSATE TABLET 2 TAB PO ×2 (08:59→21:03)
[2024-05-16] MEDS: GABAPENTIN 300 MG CAPSULE PO (09:00)
--- OUTSIDE RECORDS SUMMARY | 2024-05-16 09:28 | XMS_ITS | Encounter Summary ---
Author Organization [facility] Address [address] [place] [id number] Care Team Providers Care Hall Director Name Role Phone Mj Schaeffer MD Primary Care Provider [phone] Reason for Visit * Reason Comments Diabetes Encounter Details Date Type Department Care Team (Late st Contact Info) Description 05/09/2024 7:45 AM SILVER SPRAY WORKER Office Visit [facility] [address] [place] [address] Jeanne Shay MBBS [address] [place] [address] Uncontrolled type 1 diabetes mellitus with hyperglycemia (HRC) (Primary Dx); Essential hypertension (HRC); Dyslipidemia (high LDL; low HDL) (HRC); Coronary artery disease involving coronary bypass graft of grindstone heart without angina pectoris (HRC) Social History [...] Comments Blood Pressure 134/70 05/09/2024 8:06 AM SILVER SPRAY WORKER Pulse 60 05/09/2024 8:06 AM SILVER SPRAY WORKER Temperature - - Respiratory Rate - - Oxygen Saturation - - Inhaled Oxygen Concentration - - Weight 75.6 kg (166 lb 9.6 oz) 05/09/2024 8:06 A M SILVER SPRAY WORKER Height 170.2 cm (5' 7) 05/09/2024 8:06 AM SILVER SPRAY WORKER Body Mass Index 26.09 05/09/2024 8:06 AM SILVER SPRAY WORKER documented in this encounter Progress Notes * Jaime Holley - 05/09/2024 7:45 AM CST Images from the original note were not included. ER SPRAY WORKER * Jeanne Shay MBBS - 05/09/2024 7:45 AM CST [facility] Department of Endocrinology, Diabetes [...] advised him on using CPAP. MERE [employer] ER SPRAY WORKER documented in this encounter Plan of Treatment Upcoming Encounters Date Type Department Care Team (Late st Contact Info) Description 08/08/2024 2:00 PM SILVER SPRAY WORKER Appointment [facility] [address] [place] [address] Jeanne Shay MBBS [address] [place] [address] Scheduled Orders Name Type Priority Associated Diagnoses [...] artery disease involving coronary bypass graft of grindstone heart without angina pectoris (HRC) documented in this encounter Care Teams Hall Director Relationship Specialty Start Date End Date Mj Schaeffer MD [facility] [address] [place] [address] PCP - General Family Practice 07/22/21 documented as of this encounter
--- OUTSIDE RECORDS SUMMARY | 2024-05-16 09:28 | XMS_ITS | Continuity of Care Document ---
Author Organization [facility] Address [address] [place] [address] Phone Care Team Providers Care Projection Camera Operator Name Role Phone Preeti Benito MD [...] Available - Active Procedures Procedure Date Office/Outpatient Visit,[facility] 2023 Advance Directives Directive Yes / No Effective Date File Name No Information Encounters Encounter Description Practice Location Reason(s) For Visit Diagnoses Date Provider Providers Copied on Encounter Office/Outpat ient Visit,[place], [facility] Emily/EMEKA C, [address], [place], [place], [id number], [place] tel:[phone] [facility] Spinal stenosis, lumbar region with neurogenic claudication 4 Thong Smith [facility], [address], [place], [place], [id number] , [place]. tel:[phone] Referring Provider: Mj Brooks, [facility] [address], [address]. tel:[phone] Family History Family Member Type Diagnosis Age At Onset Father Problem (finding) Cardiovascular disease Mother Problem (finding) Cancer, unknown type Payers Payer name Insurance type Covered republican ID Dixie ayala(s) Zach Diaz 2021 CI [id number] Social History Type Description Quantity Date Captured [...]
--- OUTSIDE RECORDS SUMMARY | 2024-05-16 09:28 | XMS_ITS | Clinical Summary ---
Author Organization [facility] Address [address] [place] [address] Care Team Providers Care Director Hospice Operations Name Role Phone Elsewhere, Pcp Primary Care Provider Unavailabl e Source Comments Patient records contain information from all sites at [facility]. For routine questions regarding patient records, call [phone] during business hours, M-F 8:00 AM - 5:00 PM Central Time. Record requests for emergency care only can be directed to [phone] at any time.[facility] Allergies No known active allergies Medications [...] Dr. Hameed Atherosclerotic Heart Diseas e Of [place] Coronary Artery Without Angina Pectoris 09/14/2017 Transient [...] Hospital Encounter [facility] [place], [place] [address] [place] [address] Diego Dykes M.D. Obstructive Sleep Apnea Adult Discharge Disposition: Home or Self Care 03/10/2024 10:00 AM CDT Comprehensive Visit [facility] [place], [place] [address] [place] [address] Diego Dykes M.D. Apnea Sleep Obstructive (Primary Dx); Obstructive Sleep Apnea Adult 03/03/2024 3:00 PM CDT Clinical Communication Virtual Review in [place], [place] [address] [place] [address] Pre-visit Intake from Last 3 Months Social [...] this topic Medical Devices Implanted Type Area Resident Services Supervisor Device Identifier Shelf Expiration Date Model / Serial / Lot Cardiac Valve Prosthesis-09/05 Implanted:06/2017 (Quantity not on file) Cardiac Valve Prosthesis Heart Insurance [employer] Care Teams Director Hospice Operations Relationship Specialty Start Date End Date Elsewhere, Pcp PCP - General Internal Medicine 03/03/24
--- OUTSIDE RECORDS SUMMARY | 2024-05-16 09:28 | XMS_ITS | Encounter Summary ---
Author Organization [facility] Address [address] [place] [address] Care Team Providers Care Director Of Channel Marketing Name Role Phone Elsewhere, Pcp Primary Care Provider Unavailabl e Reason for Referral * Specialty Diagnoses / Procedures Referred By Moe mera Referred To Contact Diagnoses Obstructive Sleep Apnea Adult Diego Dykes M.D. [address] [place] [phone] Phone: tel: fax: [facility] Referral ID Status Reason Start Date Expiration Date Visits Re quested Visits Authorized Encounter Details Date Type Department Care Team (Latest Contact Info) Description 03/10/2024 11:29 AM CDT - 03/13/2024 11:59 PM CDT Hospital [facility] [place], [place] [address] [place] [address] Diego Dykes M.D. [address] [place] [phone] Obstructive Sleep Apnea Adult Discharge Disposition: Home [...] (OMNIPOD 5 G6 INTRO KIT, GEN 5, [place]) See Admin Instructions. 10/21/2021 lisinopriL 2.5 mg [...] documented as of this encounter Care Teams Director Of Channel Marketing Relationship Specialty Start Date End Date Elsewhere, Pcp PCP - General Internal Medicine 03/03/24 documented as of this encounter
--- OUTSIDE RECORDS SUMMARY | 2024-05-16 09:28 | XMS_ITS | Encounter Summary ---
Author Organization [facility] Address [address] [place] [address] Care Team Providers Care Student Officer Name Role Phone Unavailable Primary Care Provider Unavailabl e Reason for Referral * Outpatient (Routine) - Closed Specialty Diagnoses / Procedures Referred By Moe mera Referred To Contact Sleep Medicine Diagnoses Obstructive Sleep Apnea Adult Marcus Ybarra M.D. [address] [place] [address] Phone: tel: fax: [facility] Referral ID Status Reason Start Date Expiration Date Visits Re quested Visits Authorized [id number] Closed 02/02/2024 08/03/2025 1 1 Encounter Details Date Type Department Care Team (Late st Contact Info) Description 02/02/2024 [facility] [address] [place] [address] Marcus Ybarra M.D. [address] [place] [phone] Obstructive Sleep Apnea Adult (Primary Dx) Social [...]
--- OUTSIDE RECORDS SUMMARY | 2024-05-16 09:28 | XMS_ITS | Encounter Summary ---
Author Organization [facility] Address [address], [place] [address] Care Team Providers Care Flooring Machine Feeder Name Role Phone Mj Schaeffer MD Primary Care Provider [phone] Reason for Visit * Reason Onset Date Comments Refill 04/18/2024 Encounter Details Date Type Department Care Team (Late st Contact Info) Description 04/18/2024 Refill [facility] [address] Endocrinology [address] [place] [address] Joe Shay, MBBS [address] [place], [place] [phone] Refill Social History Tobacco Use Types Packs/Day [...] Provider: JOE SHAY Ordering User: TAMARA STAHL IGN AGENT documented in this encounter Plan of Treatment Upcoming Encounters Date Type Department Care Team (Late Contact Info) Description 08/08/2024 2:00 PM FOREIGN AGENT Appointment [facility] [address] [place] [phone] Joe Shay MBBS [address] [place] [address] documented as of this encounter Visit Diagnoses Diagnosis Uncontrolled type 1 diabetes mellitus with hyperglycemia (HRC)- Primary documented in this encounter Care Teams Flooring Machine Feeder Relationship Specialty Start Date End Date Mj Schaeffer MD [facility] [address] [place] [address] PCP - General Family Practice 07/22/21 documented as of this encounter
--- OUTSIDE RECORDS SUMMARY | 2024-05-16 09:28 | XMS_ITS | Referral Summary ---
Author Organization [facility] Address [address] [place] [address] Care Team Providers Care Metal Expediter Name Role Phone Elsewhere, Pcp Primary Care Provider Unavailabl e Source Comments Patient records contain information from all sites at [facility]. For routine questions regarding patient records, call [phone] during business hours, M-F 8:00 AM - 5:00 PM Central Time. Record requests for emergency care only can be directed to [phone] at any time.[facility] Encounters Date Type Department Care Team Description 03/10/2024 11:29 AM CDT - 03/13/2024 11:59 PM CDT Hospital Encounter [facility] in [place], [place] [address] [place] [phone] Diego Dykes M.D. Obstructive Sleep Apnea Adult Discharge Disposition: Home or Self Care 03/10/2024 10:00 AM CDT Comprehensive Visit [facility] in [place], [place] [address] [place] [phone] Diego Dykes M.D. Apnea Sleep Obstructive (Primary Dx); Obstructive Sleep Apnea Adult 03/03/2024 3:00 PM CDT Clinical Communication Virtual Review in [place], [place] 200 [place] [address] Pre-visit Intake from Last 3 Months Allergies [...] (OMNIPOD 5 G6 INTRO KIT, GEN 5, [place]) See Admin Instructions . 10/21/2021 Active blood-glucose [...] Dr. Hameed Atherosclerotic Heart Diseas e Of [place] Coronary Artery Without Angina Pectoris 09/14/2017 Transient [...] on file Medical Devices Implanted Type Area Horse And Wagon Driver Device Identifier Shelf Expiration Date Model / Serial / Lot Cardiac Valve Prosthesis-09/05 Implanted:06/2017 (Quantity not on file) Cardiac Valve Prosthesis Heart Insurance [facility] Care Teams Metal Expediter Relationship Specialty Start Date End Date Elsewhere, Pcp PCP - General Internal Medicine 03/03/24
--- OUTSIDE RECORDS SUMMARY | 2024-05-16 09:28 | XMS_ITS | Encounter Summary ---
Author Organization [facility] Address [address] [place] [address] Care Team Providers Care Optical Dispenser Name Role Phone Elsewhere, Pcp Primary Care Provider Unavailabl e Reason for Referral * Outpatient (Routine) - Authorized Specialty Diagnoses / Procedures Referred By Moe emra Referred To Contact Diagnoses Obstructive Sleep Apnea Adult Procedures Polysomnography (PSG): Split Night; Early PAP Initiation, Non-Positional RUDI, Positional RUDI; CPAP, ASV; if sleep apnea criteri met, try CPAP. If CSA not controlled by CPAP-->ASV titration. Diego Dykes M.D. [address] [place] [address] Phone: tel: fax: [facility] Referral ID Status Reason Start Date Expiration Date V isits Requested Visits Authorized [id number] Authorized 03/10/2024 03/10/2025 1 1 * Specialty Diagnoses / Procedures Referred By Moe mera Referred To Contact Diagnoses Obstructive Sleep Apnea Adult Diego Dykes M.D. [address] [place] [phone] Phone: tel: fax: [facility] Referral ID Status Reason Start Date Expiration Date Visits Re quested Visits Authorized * Outpatient (Routine) - Authorized Specialty Diagnoses / Procedures Referred By Moe mera Referred To Contact Sleep Medicine Diego Dykes M.D. [address] [place] [address] Phone: tel: fax: [facility] Referral ID Status Reason Start Date Expiration Date V isits Requested Visits Authorized [id number] Authorized 03/10/2024 09/09/2025 1 1 Scheduling Instructions Post-study return visit Reason for Visit * Outpatient (Routine) - Closed Specialty Diagnoses / Procedures Referred By Moe t Referred To Contact Sleep Medicine Diagnoses Obstructive Sleep Apnea Adult Marcus Ybarra M.D. [address] [place] [phone] Phone: tel: fax: [facility] Referral ID Status Reason Start Date Expiration Date Visits Re quested Visits Authorized [id number] Closed 02/02/2024 08/03/2025 1 1 Encounter Details Date Type Department Care Team (Latest Contact Info) Description 03/10/2024 10:00 AM CDT Comprehensive Visit [facility] in [place], [place] [address] [place] [address] Diego Dykes M.D. [address] [place] [address] Apnea Sleep Obstructive (Primary Dx); Obstructive Sleep [...] treatment options at the recommendation of his sales assistants and salespersons. The patient usually goes to bed at [...] Angina Pectoris 12/22/2019 Atherosclerotic Heart Disease Of [place] Coronary Artery Without Angina Pectoris 09/14/2017 Diabetes [...] history in the health record. Standardized Instruments [place] Score (Scores of less than 10 are [...] documented as of this encounter Care Teams Optical Dispenser Relationship Specialty Start Date End Date Elsewhere, Pcp PCP - General Internal Medicine 03/03/24 documented as of this encounter
--- OUTSIDE RECORDS SUMMARY | 2024-05-16 09:28 | XMS_ITS | Clinical Summary ---
Author Organization [facility] Address [address] [address] Care Team Providers Care Television Production Assistant Name Role Phone Mj Schaeffer MD Primary Care Provider [phone] Source Comments You are receiving this document as you are listed as the primary care provider,follow-up provider, or the patient has been referred to you for consultation.This is in compliance with the Medicare and[facility] EHR Incentive Program,which states Providers who transition their patient to another setting of careor provider of care or refers their patient to another provider of care shouldprovide summary care record for each transition of care or referral. [facility] Allergies No known active allergies Medications Medication [...] Each 4 3 Active Continuous Blood Gluc Tag Maker (DEXCOM G6 DOORPERSON)Indicati ons:Uncontrolled type 1 diabetes mellitus with hyperglycemia [...] disease invo lving coronary bypass graft of [place] heart without angina pectoris 12/11/2020 Encounters Date Type Department Care Team Description 05/09/2024 7:45 AM TRAFFIC LINE PAINTER Office Visit [facility] [address] [place] [address] Jeanne Shay MBBS Uncontrolled type 1 diabetes mellitus with hyperglycemia (HRC) (Primary Dx); Essential hypertension (HRC); Dyslipidemia (high LDL; low HDL) (HRC); 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) 04/24/[address] [place] [address] Jeanne Shay MBBS Forms (Rx and /cn - Josephine ) 04/18/[address] [place] [address] Jeanne Shay MBBS Refill 04/11/[address] [place] [address] Jeanne Shay MBBS Refill (Continuous Glucose Sensor (DEXCOM G6 SENSOR) [Pharmacy Med Name: DEXCOM G6 SENSOR MISCELLANEOUS]) 04/03/[address] [place] [address] Jeanne Shay MBBS Refill (metFORMIN XR (GLUCOPHAGE XR) 500 MG 24 hour release tablet [Pharmacy Med Name: METFORMIN HYDROCHLORIDE ER 500MG TABLET EXTENDED RELEASE 24 HOUR]) 03/23/[address] 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) from Last [...] Comments Blood Pressure 134/70 05/09/2024 8:06 AM TRAFFIC LINE PAINTER Pulse 60 05/09/2024 8:06 AM TRAFFIC LINE PAINTER Temperature - - Respiratory Rate - - Oxygen Saturation - - Inhaled Oxygen Concentration - - Weight 75.6 kg (166 lb 9.6 oz) 05/09/2024 8:06 A M TRAFFIC LINE PAINTER Height 170.2 cm (5' 7) 05/09/2024 8:06 AM TRAFFIC LINE PAINTER Body Mass Index 26.09 05/09/2024 8:06 AM TRAFFIC LINE PAINTER Plan of Treatment Upcoming Encounters Date Type Department Care Team (Late st Contact Info) Description 08/08/2024 2:00 PM TRAFFIC LINE PAINTER Appointment [facility] [address] [place] [address] Jeanne Shay MBBS [address] [place] [address] Health Maintenance Due Date Last Done Comments [...] artery disease involving coronary bypass graft of [place] heart without angina pectoris (HRC) ALBUMIN/CREAT RATIO Routine 02/24/2024 7 :35 AM CDT Uncontrolled type 1 diabetes mellitus with hyperglycemia (HRC) Essential hypertension (HRC) Dyslipidemia (high LDL; low HDL) (HRC) 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) FREE T4 Routine 02/24/2024 7:35 AM CDT Uncontrolled type 1 diabetes mellitus with hyperglycemia (HRC) Essential hypertension (HRC) Dyslipidemia (high LDL; low HDL) (HRC) 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) TSH, SENSITIVE Routine 02/24/2024 7:35 AM CDT Uncontrolled type 1 diabetes mellitus with hyperglycemia (HRC) Essential hypertension (HRC) Dyslipidemia (high LDL; low HDL) (HRC) 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) COMPREHENSIVE METABOLIC PANEL Routine 02/24/2024 7:35 AM CDT Uncontrolled type 1 diabetes mellitus with hyperglycemia (HRC) Essential hypertension (HRC) Dyslipidemia (high LDL; low HDL) (HRC) 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) HGB A1C Routine 02/24/2024 7:35 AM CDT Uncontrolled type 1 diabetes mellitus with hyperglycemia (HRC) Essential hypertension (HRC) Dyslipidemia (high LDL; low HDL) (HRC) 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) from Last 3 Months Results * Tissue Transglutaminase Ab IgA (02/24/2024 7:35 AM CDT) Pathologist [facility] Tissue Transglutaminase Antibody, IgA 0.7 0.0 - 6.9 U/mL 02/25/2024 12:51 PM CDT [facility] Tissue Transglutaminase Antibody, IgA Interpretation Negative Negative 02/25/2024 12:51 PM CDT [facility] Blood Venipuncture / Unknown 02/24/2024 7:35 AM CDT 02/24/2024 7:35 AM CDT [facility] [address] * Lipid Panel and Direct LDL (if needed) (02/24/2024 7:35 AM CDT) Pathologist [facility] Cholesterol 134 0 - 199 mg/dL 02/24/2024 4:46 PM T [facility] Triglyceride 126 <=149 mg/dL 02/24/2024 4:[address] [facility] HDL Cholesterol 48 >=40 mg/dL 4 4:[address] [facility] LDL, Calculated 61 <130 mg/dL 4 4:[address] [facility] Non HDL Chol, Calculated 86 <=159 mg/dL 02/24/2024 4:[address] [facility] Cholesterol/HDL Ratio 2.8 <=5.0 02/24/2024 4:[address] [facility] Hours Fasting 0.0 8 - 12 Hours 02/24/2024 4:[address] [facility] Blood Venipuncture / Unknown 02/24/2024 7:35 AM CDT 02/24/2024 7:35 AM CDT Jeanne Cisse Jaspal [facility] [address] [place] [address] * (ABNORMAL) Comp Metabolic Panel (02/24/2024 7:35 AM CDT) Sodium 140 136 - 145 mmol/L 02/24/2024 4:[address] [facility] Potassium 5.0 3.5 - 5.1 mmol/L 02/24/2024 4:[address] [facility] Chloride 107 98 - 109 mmol/L 02/24/2024 4:[address] [facility] CO2 23 20 - 29 mmol/L 02/24/2024 4:[address] [facility] Anion Gap 10 6 - 16 mmol/L 02/24/2024 4:[address] [facility] Calcium 9.7 8.4 - 10.4 mg/dL 02/24/2024 4:[address] [facility] BUN 16 7 - 26 mg/dL 02/24/2024 4:[address] [facility] Creatinine 0.69(L) 0.73 - 1.18 mg/dL 02/24/2024 4:[address] [facility] Alkaline Phosphatase 102 40 - 150 U/L 02/24/2024 4:[address] [facility] AST (SGOT) 15 10 - 40 U/L 02/24/2024 4:[address] [facility] ALT (SGPT) 14 <=55 U/L 02/24/2024 4:[address] [facility] Bilirubin, Total 0.4 0.2 - 1.2 mg/dL 02/24/2024 4:[address] [facility] Protein, Total 8.0 6.4 - 8.3 g/dL 02/24/2024 4:[address] [facility] Albumin 4.0 3.5 - 5.0 g/dL 02/24/2024 4:[address] [facility] Glucose 157(H) 70 - 100 mg/dL 02/24/2024 4:[address] [facility] Comment:The given reference range is for the fasting state. Non-fasting reference range for glucose is 70 - 180 mg/dL. GFR, Estimated >60 >60 mL/min/1.7 3m2 02/24/2024 4:[address] [facility] Hours Fasting 0.0 8 - 12 Hours 02/24/2024 4:[address] [facility] Blood Venipuncture / Unknown 02/24/2024 7:35 AM CDT 02/24/2024 7:35 AM CDT Jeanne Cisse Jaspal [facility] Performing Organization Address City/[facility]/ZIP Co de Phone Number [facility] [address] [place] [address], [facility] * TSH (02/24/2024 7:35 AM CDT) TSH, Sensitive 2.13 0.30 - 4.50 uIU/mL 02/24/2024 12:23 PM CDT [facility] Blood Venipuncture / Unknown 02/24/2024 7:35 AM CDT 02/24/2024 7:35 AM CDT Jeanne Tanna Jaspal [facility] [address] [place], [place] [phone] [place] [address] * (ABNORMAL) Complete Blood Count-No Diff (02/24/2024 7:35 AM CDT) WBC 10.8(H) 3.5 - 10.5 x10(9)/L 02/24/2024 7:39 AM CDT [facility] RBC 4.52 4.32 - 5.72 x10(12)/L 02/24/2024 7:39 AM CDT [facility] Hemoglobin 13.6 13.5 - 17.5 g/dL 02/24/2024 7:39 AM CDT [facility] HCT 42.5 38.8 - 50.0 % 02/24/2024 7:39 AM CDT [facility] MCV 94.0 80.0 - 100.0 fL 02/24/2024 7:39 AM CDT [facility] MCH 30.1 27.6 - 33.3 pg 02/24/2024 7:39 AM CDT [facility] MCHC 32.0 31.5 - 35.2 g/dL 02/24/2024 7:39 AM CDT [facility] RDW 13.4 11.9 - 15.5 % 02/24/2024 7:39 AM CDT [facility] Platelets 272 150 - 450 x10(9)/L 02/24/2024 7:39 AM CDT [facility] Blood Venipuncture / Unknown 02/24/2024 7:35 AM CDT 02/24/2024 7:35 AM CDT Jeanne [facility] [address] [place] [address] * Free T4 (02/24/2024 7:35 AM CDT) T4, Free 1.1 0.7 - 1.5 ng/dL 02/24/2024 12:24 PM CDT [facility] Blood Venipuncture / Unknown 02/24/2024 7:35 AM CDT 02/24/2024 7:35 AM CDT Jeanne Shay [facility] [address] [place], [place] [address] * Albumin/Creatinine Ratio,Random Urine (02/24/2024 7:35 AM CDT) Albumin/Creati nine Ratio, Urine, Random 23 <30 mg/g 02/24/2024 12:54 PM CDT [facility] Albumin, Urine, Random 16.2 mg/L 02/24/2024 12:54 PM CDT [facility] Creatinine, Urine, Random 72 >20 mg/dL mg/dL 02/24/2024 12:54 PM CDT [facility] Urine Non-blood Collection / Unknown 02/24/2024 7:35 AM CDT 02/24/2024 7:35 AM CDT Jeanne Shay [facility] Performing Organization Address City/[facility]/ZIP Co de Phone Number [facility] [address] [place] [address] * (ABNORMAL) Hgb A1C (02/24/2024 7:35 AM CDT) Pathologist [facility] Hemoglobin A1C 8.8(H) <=5.6 % 02/24/2024 1:51 PM CDT [facility] Estimated Average Glucose (Calc) 206 < 117 mg/dL 02/24/2024 1:51 PM CDT [facility] Comment:Estimated average gl ucose (eAG) converts A1c into glucose units (mg/dL) and estimates average glucose over the past approximately 3 months. The eAG reference interval (<117 mg/dL) corresponds to an A1c of <5.7%. Blood Venipuncture / Unknown 02/24/2024 7:35 AM CDT 02/24/2024 7:35 AM CDT Brenda [facility] - 02/24/2024 1:51 PM CDT For patients not previously diagnosed with diabetes: 5.7-6.4%: Increased risk for diabetes 6.5% and greater: Diagnostic for diabetes For patients diagnosed with diabetes: <8.0%: Goal of therapy for ages 18-75 Clinicians may recommend a higher or lower goal for specific individuals. Jeanne [facility] [address] [place] [address], [facility] from Last 3 Months Care Teams Television Production Assistant Relationship Specialty Start Date End Date Mj Schaeffer MD [facility] [address] [place] [address] PCP - General Family Practice 07/22/21
--- OUTSIDE RECORDS SUMMARY | 2024-05-16 09:28 | XMS_ITS | Encounter Summary ---
Author Organization [facility] Address [address] [place] [address] Care Team Providers Care Information Technology Instructor Name Role Phone Elsewhere, Pcp Primary Care Provider Unavailabl e Reason for Visit * Reason Onset Date Comments Pre-visit Intake 03/03/2024 Encounter Details Date Type Department Care Team (Latest Contact Info) Description 03/03/2024 3:00 PM CDT Clinical Communication Virtual Review in [place], [place] [address] [place] [address] Pre-visit Intake Social History Tobacco Use Types [...] documented as of this encounter Care Teams Information Technology Instructor Relationship Specialty Start Date End Date Elsewhere, Pcp PCP - General Internal Medicine 03/03/24 documented as of this encounter
--- OUTSIDE RECORDS SUMMARY | 2024-05-16 09:28 | XMS_ITS ---
Author Organization [facility] Address [address] [place] [address] Care Team Providers Care Rehabilitation Construction Specialist Name Role Phone Unavailable Unavailable Unavailable Surgery Details Not on file Complications Check Surgery Details section. Procedure Estimated Blood Loss Check Surgery Details section. Procedure Findings Check Surgery Details section. Procedure Specimens Taken Check Surgery Details section.
--- OUTSIDE RECORDS SUMMARY | 2024-05-16 09:28 | XMS_ITS | Clinical Summary ---
Author Organization [employer] [facility] Address [place], [place] [address] Care Team Providers Care Blending Machine Operator Name Role Phone Jhoan Schaeffer MD Primary Care Provider Allergies No known active allergies Medications gabapentin [...] artery disease of b ypass graft of koi heart with stable angina pectoris 12/22/2019 Snoring [...] branch of right--09/15/17 Dr. Hameed CAD in koi artery 09/14/2017 TIA (transient ischemic attack) 09/08/2017 [...] 02/24/2017, 016 Medical Devices Implanted Type Area Radio Operator Ground Device Identifier Shelf Expiration Date Model / Serial / Lot Anw Hh [id number] Implanted:Qty: 1 on 09/15/2017 by Gurpreet Hameed MD at [facility] Explanted:at [facility] (Quantity not on file) N/A: Aortic Valve [employer] Devon 06/09/2021 [id number] M# / [id number] / Procedures Procedure Name Priority Date/Time Associated Diagnosis Comments LIPID PANEL Add On 09/02/2017 8:41 AM CDT from Last 3 Months or Most Recently Relevant to Health Maintenance Results * Lipid Panel (09/02/2017 8:41 AM CDT) CHOLESTEROL,TOTAL 155 100 - 199 mg/dL 09/02/2017 9:23 AM CDT [facility] TRIGLYCERIDES 82 <150 mg/dL 09/02/2017 9:23 AM CDT [facility] HDL CHOLESTEROL 49 >40 mg/dL 8 9:23 AM CDT [facility] NON-HDL CHOLESTEROL 106 <145 mg/dl 09/02/2017 9:23 AM CDT [facility] CHOL/HDL RATIO 3.16 <4.50 09/02/2017 9:23 AM CDT [facility] LDL CHOLESTEROL 90 <=130 mg/dL 09/02/2017 9:23 AM CDT [facility] PROVIDER ORDERED STATUS RANDOM 09/02/2017 9:23 AM CDT [facility] [employer] [facility] Blood BLOOD SPECIMEN / Unknown Venipuncture / Unknown 09/02/2017 8:41 AM CDT 09/02/2017 8:49 AM CDT Tessa Del Rosario ZIPPER LINING FOLDER CHEMISTRY Final Res ult [facility] [address] [place] [address], from Last 3 Months or Most Recently Relevant to Health Maintenance Insurance [facility] Advance Directives * Full Code (Latest Code Status on File) Date Activated Date Inactivated Comments 09/15/2017 5:58 AM 09/20/2017 3:57 PM * Full Code Date Activated Date Inactivated Comments 09/02/2017 8:23 AM 09/02/2017 5:50 PM Care Teams Blending Machine Operator Relationship Specialty Start Date End Date Jhoan Schaeffer MD PCP - General Family Practice 08/19/17
--- OUTSIDE RECORDS SUMMARY | 2024-05-16 09:28 | XMS_ITS | Encounter Summary ---
Author Organization [facility] Address [address], [place] [address] Care Team Providers Care Absorption Plant Operator Helper Name Role Phone Mj Schaeffer MD Primary Care Provider [phone] Reason for Visit * Reason Comments Refill Continuous Glucose S ensor (DEXCOM G6 SENSOR) [Pharmacy Med Name: DEXCOM G6 SENSOR MISCELLANEOUS] Encounter Details Date Type Department Care Team (Late st Contact Info) Description 04/11/2024 Refill [facility] [address] Endocrinology [address] [facility] [place], [place] [id number] Joe Shay MBBS [address] [place] [address] Refill (Continuous Glucose Sensor (DEXCOM [...] Authorizing Provider: JOE SHAY Ordering User: DINORA JAUREZ Filled per RN protocol. ERN CHART WRITER * Webservice, Refillwizard Xrwcomm - 04/11/2024 2:21 [...] Age: 68 [employer] Embedded Refills, Reference: [id number], 04/11/2024 2:21:10 PM PATTERN CHART WRITER, Pool: CUONG PNREFILL ([id number]) ERN CHART WRITER documented in this encounter Plan of Treatment Upcoming Encounters Date Type Department Care Team (Late st Contact Info) Description 08/08/2024 2:00 PM PATTERN CHART WRITER Appointment [facility] [address] [place] [address] Joe Shay, MARNIEBS [address] [place] [address] documented as of this encounter Visit Diagnoses Diagnosis Uncontrolled type 1 diabetes mellitus with hyperglycemia (HRC) documented in this encounter Care Teams Absorption Plant Operator Helper Relationship Specialty Start Date End Date Mj Schaeffer MD [facility] [address] [place] [address] PCP - General Family Practice 07/22/21 documented as of this encounter
--- OUTSIDE RECORDS SUMMARY | 2024-05-16 09:28 | XMS_ITS | Encounter Summary ---
Author Organization [facility] Address [address], [place] [address] Care Team Providers Care Railroad Commissioner Name Role Phone Mj Schaeffer MD Primary Care Provider [phone] Reason for Visit * Reason Comments Forms Rx and /cn - [place] Encounter Details Date Type Department Care Team (Late st Contact Info) Description 04/24/2024 Telephone [facility] [address] Endocrinology [address] [place] [address] Jeanne Shay MBBS [address] [place] [address] Forms (Rx and /cn - [place] ) Social History Tobacco Use Types Packs/Day Years Used Date Smoking Tobacco: Every Day Smokeless Tobacco: Never Sex and Gender Information Value Date Recorded Sex Assigned at Not on file Gender Identity Not on file Sexual Orientation Not on file documented as of this encounter Nursing Notes * Carolina Prasad - 05/01/2024 1:01 PM CST Completed [place] form faxed to #[phone] electronic copy sent to him H WORKER APPRENTICE * Carolina Prasad - 04/24/2024 4:30 PM CST Received [facility] form, Sent to Jaspal to complete Faxed chart notes to [place] [phone] from 02/29/24 appt H WORKER APPRENTICE documented in this encounter Plan of Treatment Upcoming Encounters Date Type Department Care Team (Late st Contact Info) Description 08/08/2024 2:00 PM BENCH WORKER APPRENTICE Appointment [facility] [address] [place] [phone] Jeanne Shay MBBS [address] [place] [address] documented as of this encounter Visit Diagnoses Not on filedocumented in this encounter Care Teams Railroad Commissioner Relationship Specialty Start Date End Date Mj Schaeffer MD [facility] [address] [place] [address] PCP - General Family Practice 07/22/21 documented as of this encounter
--- OUTSIDE RECORDS SUMMARY | 2024-05-16 09:29 | XMS_ITS | Encounter Summary ---
Author Organization [employer] Address [address], [place] [address] Care Team Providers Care Dietist Name Role Phone Mj Schaeffer MD Primary Care Provider [phone] Reason for Visit * Reason Comments Forms Encounter Details Date Type Department Care Team (Late st Contact Info) Description 02/29/2024 Telephone [facility] 38[address] Endocrinology [address] [place] [address] Jeanne Shay MBBS [address] [place] [address] Forms Social History Tobacco Use Types Packs/Day Years Used Date Smoking Tobacco: Every Day Smokeless Tobacco: Never Sex and Gender Information Value Date Recorded Sex Assigned at Not on file Gender Identity Not on file Sexual Orientation Not on file documented as of this encounter Nursing Notes * Carolina Prasad - 03/06/2024 10:02 AM CDT Completed [employer] faxed to #[phone] , hard copy filed in *Jaspal done [...] st Contact Info) Description 08/08/2024 2:00 PM GRANTS SPECIALIST Appointment [facility] [address] [place] [address] Jeanne Shay MBBS [address] [place] [address] documented as of this encounter Visit Diagnoses Not on filedocumented in this encounter Care Teams Dietist Relationship Specialty Start Date End Date Mj Schaeffer MD [facility] [address] [place] [address] PCP - General Family Practice 07/22/21 documented as of this encounter
--- OUTSIDE RECORDS SUMMARY | 2024-05-16 09:29 | XMS_ITS | Clinical Summary ---
Author Organization [employer] Address [address] [place] [address] Care Team Providers Care Bar Host Name Role Phone Mj Schaeffer MD Primary Care Provider [phone] Allergies Active Allergy Reactions Criticality Noted Date [...] of Treatment Not on file Care Teams Bar Host Relationship Specialty Start Date End Date Mj Schaeffer MD PCP - General Family Practice 12/16/18
--- OUTSIDE RECORDS SUMMARY | 2024-05-16 09:29 | XMS_ITS | Encounter Summary ---
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) Social History [...] (Late Contact Info) Description 08/08/2024 2:00 PM COLOR MAKER Appointment [facility] [address] [place] [address] Jeanne Shay MBBS [address] [place] [address] documented as of this encounter Procedures Procedure Name Priority Date/Time Associated Diagnosis Comments TISSUE TRANSGLUTAMINASE AB IGA Routine 02/24/2024 7:35 AM CDT Uncontrolled type 1 diabetes mellitus with hyperglycemia (HRC) Essential hypertension (HRC) Dyslipidemia (high LDL; low HDL) (HRC) 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) LIPID PANEL & DIRECT LDL (IF NEEDED) Routine 02/24/2024 7:35 AM CDT Uncontrolled type 1 diabetes mellitus with hyperglycemia (HRC) COMPREHENSIVE METABOLIC PANEL Routine 02/24/2024 7:35 AM CDT Uncontrolled type 1 diabetes mellitus with hyperglycemia (HRC) Essential hypertension (HRC) Dyslipidemia (high LDL; low HDL) (HRC) 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) TSH, SENSITIVE Routine 02/24/2024 7:35 AM CDT Uncontrolled type 1 diabetes mellitus with hyperglycemia (HRC) Essential hypertension (HRC) Dyslipidemia (high LDL; low HDL) (HRC) 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) COMPLETE BLOOD COUNT-NO DIFF Routine 02/24/2024 7:35 AM CDT Uncontrolled type 1 diabetes mellitus with hyperglycemia (HRC) FREE T4 Routine 02/24/2024 7:35 AM CDT Uncontrolled type 1 diabetes mellitus with hyperglycemia (HRC) Essential hypertension (HRC) Dyslipidemia (high LDL; low HDL) (HRC) 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) ALBUMIN/CREAT RATIO Routine 02/24/2024 7 :35 AM CDT Uncontrolled type 1 diabetes mellitus with hyperglycemia (HRC) Essential hypertension (HRC) Dyslipidemia (high LDL; low HDL) (HRC) 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) HGB A1C Routine 02/24/2024 7:35 AM CDT Uncontrolled type 1 diabetes mellitus with hyperglycemia (HRC) Essential hypertension (HRC) Dyslipidemia (high LDL; low HDL) (HRC) 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) documented in this encounter Results * (ABNORMAL) Complete Blood Count-No Diff (02/24/2024 7:35 AM CDT) Pathologist [facility] WBC 10.8(H) 3.5 - 10.5 x10(9)/L 02/24/2024 7:39 AM CDT [facility] RBC 4.52 4.32 - 5.72 x10(12)/L 02/24/2024 7:39 AM CDT [facility] Hemoglobin 13.6 13.5 - 17.5 g/dL 02/24/2024 7:39 AM CDT [facility] HCT 42.5 38.8 - 50.0 % 02/24/2024 7:39 AM CDT [facility] MCV 94.0 80.0 - 100.0 fL 02/24/2024 7:39 AM CDT [facility] MCH 30.1 27.6 - 33.3 pg 02/24/2024 7:39 AM T [facility] MCHC 32.0 31.5 - 35.2 g/dL 02/24/2024 7:39 AM T [facility] RDW 13.4 11.9 - 15.5 % 02/24/2024 7:39 AM T [facility] Platelets 272 150 - 450 x10(9)/L 02/24/2024 7:39 AM T [facility] Blood Venipuncture / Unknown 02/24/2024 7:35 AM CDT 02/24/2024 7:35 AM CDT Jeanne Shay [facility] Performing Organization Address City/State/[facility] Co de Phone Number [facility] [address] [place] [address] * Lipid Panel and Direct LDL (if needed) (02/24/2024 7:35 AM CDT) Pathologist [facility] Cholesterol 134 0 - 199 mg/dL 02/24/2024 4:46 PM T [facility] Triglyceride 126 <=149 mg/dL 02/24/2024 4:46 PM CDT [facility] HDL Cholesterol 48 >=40 mg/dL 4:46 PM T [facility] LDL, Calculated 61 <130 mg/dL 4:46 PM CDT [facility] Non HDL Chol, Calculated 86 <=159 mg/dL 02/24/2024 4:46 PM T [facility] Cholesterol/HDL Ratio 2.8 <=5.0 02/24/2024 4:46 PM T [facility] Hours Fasting 0.0 8 - 12 Hours 02/24/2024 4:46 PM CDT [facility] Blood Venipuncture / Unknown 02/24/2024 7:35 AM CDT 02/24/2024 7:35 AM CDT Jeanne Guerrakeila [facility] Performing Organization Address City/[facility]/ZIP Co de Phone Number [facility] [address] [place] [address] * Tissue Transglutaminase Ab IgA (02/24/2024 7:35 AM CDT) Pathologist [facility] Tissue Transglutaminase Antibody, IgA 0.7 0.0 - 6.9 U/mL 02/25/2024 12:51 PM CDT [facility] Tissue Transglutaminase Antibody, IgA Interpretation Negative Negative 02/25/2024 12:51 PM CDT [facility] Blood Venipuncture / Unknown 02/24/2024 7:35 AM CDT 02/24/2024 7:35 AM CDT Jeanne Edwardskem [facility] Performing Organization Address City/[facility]/ZIP Co de Phone Number [facility] [address] * Albumin/Creatinine Ratio,Random Urine (02/24/2024 7:35 AM CDT) Albumin/Creati nine Ratio, Urine, Random 23 <30 mg/g 02/24/2024 12:54 PM CDT [facility] Albumin, Urine, Random 16.2 mg/L 02/24/2024 12:54 PM CDT [facility] Creatinine, Urine, Random 72 >20 mg/dL mg/dL 02/24/2024 12:54 PM CDT [facility] Urine Non-blood Collection / Unknown 02/24/2024 7:35 AM CDT 02/24/2024 7:35 AM CDT Jeanne Shay [facility] Performing Organization Address [facility] Co de Phone Number [facility] [address] [place] [address] * Free T4 (02/24/2024 7:35 AM CDT) T4, Free 1.1 0.7 - 1.5 ng/dL 02/24/2024 12:24 PM CDT [facility] Blood Venipuncture / Unknown 02/24/2024 7:35 AM CDT 02/24/2024 7:35 AM CDT Jeanne Shay [facility] Performing Organization Address [facility] de Phone Number [facility] [address] * TSH (02/24/2024 7:35 AM CDT) Pathologist [facility] TSH, Sensitive 2.13 0.30 - 4.50 uIU/mL 02/24/2024 12:23 PM CDT [facility] Blood Venipuncture / Unknown 02/24/2024 7:35 AM CDT 02/24/2024 7:35 AM CDT Jeanne Shay [facility] Performing Organization Address [facility] Co de Phone Number [facility] [address] * (ABNORMAL) Comp Metabolic Panel (02/24/2024 7:35 AM CDT) Pathologist [facility] Sodium 140 136 - 145 mmol/L 02/24/2024 4:46 PM CDT [facility] Potassium 5.0 3.5 - 5.1 mmol/L 02/24/2024 4:46 PM [facility] Chloride 107 98 - 109 mmol/L 02/24/2024 4:46 PM [facility] CO2 23 20 - 29 mmol/L 02/24/2024 4:46 PM [facility] Anion Gap 10 6 - 16 mmol/L 02/24/2024 4:46 PM [facility] Calcium 9.7 8.4 - 10.4 mg/dL 02/24/2024 4:46 PM [facility] BUN 16 7 - 26 mg/dL 02/24/2024 4:46 PM [facility] Creatinine 0.69(L) 0.73 - 1.18 mg/dL 02/24/2024 4:46 PM [facility] Alkaline Phosphatase 102 40 - 150 U/L 02/24/2024 4:46 PM [facility] AST (SGOT) 15 10 - 40 U/L 02/24/2024 4:46 PM [facility] ALT (SGPT) 14 <=55 U/L 02/24/2024 4:46 PM [facility] Bilirubin, Total 0.4 0.2 - 1.2 mg/dL 02/24/2024 4:46 PM [facility] Protein, Total 8.0 6.4 - 8.3 g/dL 02/24/2024 4:46 PM [facility] Albumin 4.0 3.5 - 5.0 g/dL 02/24/2024 4:46 PM [facility] Glucose 157(H) 70 - 100 mg/dL 02/24/2024 4:46 PM [facility] Comment:The given reference range is for the fasting state. Non-fasting reference range for glucose is 70 - 180 mg/dL. GFR, Estimated >60 >60 mL/min/1.7 3m2 02/24/2024 4:46 PM [facility] Hours Fasting 0.0 8 - 12 Hours 02/24/2024 4:46 PM [facility] Blood Venipuncture / Unknown 02/24/2024 7:35 AM CDT 02/24/2024 7:35 AM T [facility] Performing Organization Address [facility]/ZIP Co de Phone Number [facility] [address] [place] [address], [facility] * (ABNORMAL) Hgb A1C (02/24/2024 7:35 AM CDT) Hemoglobin A1C 8.8(H) <=5.6 % 02/24/2024 1:51 PM CDT [facility] Estimated Average Glucose (Calc) 206 < 117 mg/dL 02/24/2024 1:51 PM CDT [facility] Comment:Estimated average gl ucose (eAG) converts A1c into glucose units (mg/dL) and estimates average glucose over the past approximately 3 months. The eAG reference interval (<117 mg/dL) corresponds to an A1c of <5.7%. Blood Venipuncture / Unknown 02/24/2024 7:35 AM CDT 02/24/2024 7:35 AM CDT Narrative [facility] - 02/24/2024 1:51 PM CDT For patients not previously diagnosed with diabetes: 5.7-6.4%: Increased risk for diabetes 6.5% and greater: Diagnostic for diabetes For patients diagnosed with diabetes: <8.0%: Goal of therapy for ages 18-75 Clinicians may recommend a higher or lower goal for specific individuals. 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
--- OUTSIDE RECORDS SUMMARY | 2024-05-16 09:29 | XMS_ITS | Encounter Summary ---
Author Organization [facility] Address [address], [place] [address] Care Team Providers Care Community Life Director Name Role Phone Mj Schaeffer MD Primary Care Provider [phone] Reason for Visit * Reason Comments Forms Chart notes - [place] Encounter Details Date Type Department Care Team (Late Contact Info) Description 03/23/2024 Telephone [facility] [address] Endocrinology [address] [place] [address] Jeanne Shay MBBS [address] [place] [address] Forms (Chart notes - [place] ) Social History Tobacco Use Types Packs/Day Years Used Date Smoking Tobacco: Every Day Smokeless Tobacco: Never Sex and Gender Information Value Date Recorded Sex Assigned at Not on file Gender Identity Not on file Sexual Orientation Not on file documented as of this encounter Nursing Notes * Carolina Prasad - 03/23/2024 9:56 AM CDT Faxed chart notes to [facility] [phone] from 02/29/24 appt documented in this encounter Plan of Treatment Upcoming Encounters Date Type Department Care Team (Late Contact Info) Description 08/08/2024 2:00 PM FOAM RUBBER MIXER Appointment [facility] [address] [place] [address] Jeanne Shay MBBS [address] [place] [address] documented as of this encounter Visit Diagnoses Not on filedocumented in this encounter Care Teams Community Life Director Relationship Specialty Start Date End Date Mj Schaeffer MD [facility] [address] [facility] [place] [address] PCP - General Family Practice 07/22/21 documented as of this encounter
--- OUTSIDE RECORDS SUMMARY | 2024-05-16 09:29 | XMS_ITS | Encounter Summary ---
Author Organization [facility] Address [address], [place] [address] Care Team Providers Care Marketing Administrator Name Role Phone Mj Schaeffer MD Primary Care Provider [phone] Reason for Visit * Reason Comments Refill Continuous Glucose S ensor (DEXCOM G6 SENSOR) [Pharmacy Med Name: DEXCOM G6 SENSOR MISCELLANEOUS]; Continuous Glucose Transmitter (DEXCOM G6 TRANSMITTER) [Pharmacy Med Name: DEXCOM G6 TRANSMITTER MISCELLANEOUS] Encounter Details Date Type Department Care Team (Late st Contact Info) Description 02/12/2024 Refill [facility] [address] Endocrinology [address] [facility] [place] [address] Joe Shay MBBS [address] [place], [place] [phone] Refill (Continuous Glucose Sensor (DEXCOM G6 SENSOR) [...] Age: 68 [employer] Embedded Refills, Reference: [id number], 02/12/2024 9:16:53 AM CDT, Pool: CUONG PNREFILL ([id number]) Continuous Glucose Transmitter (DEXCOM G6 TRANSMITTER) [Pharmacy [...] Age: 68 [employer] Embedded Refills, Reference: [id number], 02/12/2024 9:16:53 AM CDT, Pool: CUONG PNNAZARIO ([id number]) documented in this encounter Plan of Treatment Upcoming Encounters Date Type Department Care Team (Late st Contact Info) Description 08/08/2024 2:00 PM SHOW DOG TRAINER Appointment [facility] [address] [place] [address] Joe Shay MBBS [address] [place] [address] documented as of this encounter Visit Diagnoses Diagnosis Uncontrolled type 1 diabetes mellitus with hyperglycemia (HRC) documented in this encounter Care Teams Marketing Administrator Relationship Specialty Start Date End Date Mj Schaeffer MD [facility] [address] [place] [address] PCP - General Family Practice 07/22/21 documented as of this encounter
--- OUTSIDE RECORDS SUMMARY | 2024-05-16 09:29 | XMS_ITS | Encounter Summary ---
Author Organization [facility] Address [address] [address] Care Team Providers Care Master In Chancery Name Role Phone Mj Schaeffer MD Primary Care Provider [phone] Reason for Visit * Reason Comments Refill metFORMIN XR (GLUCOP SHUBHAM XR) 500 MG 24 hour release tablet [Pharmacy Med Name: METFORMIN HYDROCHLORIDE ER 500MG TABLET EXTENDED RELEASE 24 HOUR] Encounter Details Date Type Department Care Team (Late st Contact Info) Description 04/03/2024 Refill [place] [address] [place] [address]. [place] [address] Joe Shay MBBS [address] [place], [place] [id number] Refill (metFORMIN XR (GLUCOPHAGE XR) 500 MG [...] 02/24/2024 HBA1C: 8.8 % on 02/24/2024 [facility] Embedded Refills, Reference: [id number], 04/03/2024 6:17:06 AM CDT, Delroy: CUONG VEE ([id number]) documented in this encounter Plan of Treatment Upcoming Encounters Date Type Department Care Team (Late st Contact Info) Description 08/08/2024 2:00 PM SALVAGE REPAIRER Appointment [facility] [address] [place] [phone] Joe Shay MBBS [address] [place] [address] documented as of this encounter Visit Diagnoses Not on filedocumented in this encounter Care Teams Master In Chancery Relationship Specialty Start Date End Date Mj Schaeffer MD [facility] [address] [place] [address] PCP - General Family Practice 07/22/21 documented as of this encounter
--- OUTSIDE RECORDS SUMMARY | 2024-05-16 09:29 | XMS_ITS | Encounter Summary ---
Author Organization [facility] Address [address] [address] Care Team Providers Care Oracle Application Architect Name Role Phone Mj Schaeffer MD Primary Care Provider [phone] Reason for Visit * Reason Comments Follow-up Encounter Details Date Type Department Care Team (Late st Contact Info) Description 02/23/2024 10:15 AM CDT Telemedicine [place] [address] Endocrinology [address] [facility] [place] [address] Joe Shay MBBS [address] [place] [address] Uncontrolled type 1 diabetes mellitus with hyperglycemia (HRC) (Primary Dx); Essential hypertension (HRC); Dyslipidemia (high LDL; low HDL) (HRC); Coronary artery disease involving coronary bypass graft of koi heart without angina pectoris (HRC) Social History [...] st Contact Info) Description 08/08/2024 2:00 PM FILLER WIPER Appointment [facility] [address] [place] [address] Joe Shay MBBS [address] [place] [address] documented as of this encounter Results * (ABNORMAL) Complete Blood Count-No Diff (02/24/2024 7:35 AM CDT) WBC 10.8(H) 3.5 - 10.5 x10(9)/L 02/24/2024 7:39 AM CDT [facility] RBC 4.52 4.32 - 5.72 x10(12)/L 02/24/2024 7:39 AM CDT [facility] Hemoglobin 13.6 13.5 - 17.5 g/dL 02/24/2024 7:39 AM CDT [facility] HCT 42.5 38.8 - 50.0 % 02/24/2024 7:39 AM CDT [facility] MCV 94.0 80.0 - 100.0 fL 02/24/2024 7:39 AM CDT [facility] MCH 30.1 27.6 - 33.3 pg 02/24/2024 7:39 AM CDT [facility] MCHC 32.0 31.5 - 35.2 g/dL 02/24/2024 7:39 AM T [facility] RDW 13.4 11.9 - 15.5 % 02/24/2024 7:39 AM CDT [facility] Platelets 272 150 - 450 x10(9)/L 02/24/2024 7:39 AM CDT [facility] Blood Venipuncture / Unknown 02/24/2024 7:35 AM CDT 02/24/2024 7:35 AM CDT [facility] Performing Organization Address [facility]/ZIP Co de Phone Number [facility] [address] [place] [address] * Lipid Panel and Direct LDL (if needed) (02/24/2024 7:35 AM CDT) [facility] Cholesterol 134 0 - 199 mg/dL 02/24/2024 4:46 PM [facility] Triglyceride 126 <=149 mg/dL 02/24/2024 4:46 PM [facility] HDL Cholesterol 48 >=40 mg/dL 4:46 PM [facility] LDL, Calculated 61 <130 mg/dL 4:46 PM [facility] Non HDL Chol, Calculated 86 <=159 mg/dL 02/24/2024 4:46 PM [facility] Cholesterol/HDL Ratio 2.8 <=5.0 02/24/2024 4:46 PM [facility] Hours Fasting 0.0 8 - 12 Hours 02/24/2024 4:46 PM [facility] Blood Venipuncture / Unknown 02/24/2024 7:35 AM CDT 02/24/2024 7:35 AM CDT [facility] [address] [place] [address] * Tissue Transglutaminase Ab IgA (02/24/2024 7:35 AM CDT) [facility] Tissue Transglutaminase Antibody, IgA 0.7 0.0 - 6.9 U/mL 02/25/2024 12:51 PM CDT [facility] Tissue Transglutaminase Antibody, IgA Interpretation Negative Negative 02/25/2024 12:51 PM CDT [facility] Blood Venipuncture / Unknown 02/24/2024 7:35 AM CDT 02/24/2024 7:35 AM CDT Joe Cisse Jaspal [facility]1 Performing Organization Address [facility] Co de Phone Number [facility] [address] * Albumin/Creatinine Ratio,Random Urine (02/24/2024 7:35 AM CDT) [facility] Albumin/Creati nine Ratio, Urine, Random 23 <30 mg/g 02/24/2024 12:54 PM CDT [facility] Albumin, Urine, Random 16.2 mg/L 02/24/2024 12:54 PM CDT [facility] Creatinine, Urine, Random 72 >20 mg/dL mg/dL 02/24/2024 12:54 PM CDT [facility] Urine Non-blood Collection / Unknown 02/24/2024 7:35 AM CDT 02/24/2024 7:35 AM CDT Joe Cisse Jaspal [facility] Performing Organization Address [facility]/ZIP Co de Phone Number [facility] [address] [place] [address] * Free T4 (02/24/2024 7:35 AM CDT) [facility] T4, Free 1.1 0.7 - 1.5 ng/dL 02/24/2024 12:24 PM CDT [facility] Blood Venipuncture / Unknown 02/24/2024 7:35 AM CDT 02/24/2024 7:35 AM CDT Joe Shay [facility] Performing Organization Address [facility] Co de Phone Number [facility] [address] [place] [address] * TSH (02/24/2024 7:35 AM CDT) Pathologist [facility] TSH, Sensitive 2.13 0.30 - 4.50 uIU/mL 02/24/2024 12:23 PM CDT [facility] Blood Venipuncture / Unknown 02/24/2024 7:35 AM CDT 02/24/2024 7:35 AM CDT Joe Shay [facility] Performing Organization Address [facility] Phone Number [facility] [address] [place] [address] * (ABNORMAL) Comp Metabolic Panel (02/24/2024 7:35 AM CDT) Pathologist [facility] Sodium 140 136 - 145 mmol/L 02/24/2024 4:46 PM [facility] Potassium 5.0 3.5 - 5.1 mmol/L 02/24/2024 4:46 PM [facility] Chloride 107 98 - 109 mmol/L 02/24/2024 4:46 PM [facility] CO2 23 20 - 29 mmol/L 02/24/2024 4:46 PM [facility] Anion Gap 10 6 - 16 mmol/L 02/24/2024 4:46 PM [facility] Calcium 9.7 8.4 - 10.4 mg/dL 02/24/2024 4:46 PM [facility] BUN 16 7 - 26 mg/dL 02/24/2024 4:46 PM [facility] Creatinine 0.69(L) 0.73 - 1.18 mg/dL 02/24/2024 4:46 PM [facility] Alkaline Phosphatase 102 40 - 150 U/L 02/24/2024 4:46 PM [facility] AST (SGOT) 15 10 - 40 U/L 02/24/2024 4:46 PM [facility] ALT (SGPT) 14 <=55 U/L 02/24/2024 4:46 PM [facility] Bilirubin, Total 0.4 0.2 - 1.2 mg/dL 02/24/2024 4:46 PM [facility] Protein, Total 8.0 6.4 - 8.3 g/dL 02/24/2024 4:46 PM [facility] Albumin 4.0 3.5 - 5.0 g/dL 02/24/2024 4:46 PM [facility] Glucose 157(H) 70 - 100 mg/dL 02/24/2024 4:46 PM [facility] Comment:The given reference range is for the fasting state. Non-fasting reference range for glucose is 70 - 180 mg/dL. GFR, Estimated >60 >60 mL/min/1.7 3m2 02/24/2024 4:46 PM [facility] Hours Fasting 0.0 8 - 12 Hours 02/24/2024 4:46 PM [facility] Blood Venipuncture / Unknown 02/24/2024 7:35 AM CDT 02/24/2024 7:35 AM CDT Joe Cisse Jaspal [facility]1 Performing Organization Address City/State/[facility] Co de Phone Number [facility] [address] [place] [address] * (ABNORMAL) Hgb A1C (02/24/2024 7:35 AM CDT) Hemoglobin A1C 8.8(H) <=5.6 % 02/24/2024 1:51 PM [facility] Estimated Average Glucose (Calc) 206 < 117 mg/dL 02/24/2024 1:51 PM [facility] Comment:Estimated average gl ucose (eAG) converts A1c into glucose units (mg/dL) and estimates average glucose over the past approximately 3 months. The eAG reference interval (<117 mg/dL) corresponds to an A1c of <5.7%. Blood Venipuncture / Unknown 02/24/2024 7:35 AM CDT 02/24/2024 7:35 AM CDT Narrative [facility] - 02/24/2024 1:51 PM CDT For patients not previously diagnosed with diabetes: 5.7-6.4%: Increased risk for diabetes 6.5% and greater: Diagnostic for diabetes For patients diagnosed with diabetes: <8.0%: Goal of therapy for ages 18-75 Clinicians may recommend a higher or lower goal for specific individuals. [facility] [address] documented in this encounter Visit Diagnoses Diagnosis Uncontrolled type 1 diabetes mellitus with hyperglycemia (HRC)- Primary Essential hypertension (HRC) Unspecified essential hypertension Dyslipidemia (high LDL; low HDL) (HRC) Other and unspecified hyperlipidemia Coronary artery disease involving coronary bypass graft of koi heart without angina pectoris (HRC) documented in this encounter Care Teams Oracle Application Architect Relationship Specialty Start Date End Date Mj Schaeffer MD [facility] [address] [place] [address] PCP - General Family Practice 07/22/21 documented as of this encounter
--- OUTSIDE RECORDS SUMMARY | 2024-05-16 09:29 | XMS_ITS | Referral Summary ---
Author Organization [facility] Address [address] [place] [address] Care Team Providers Care Restrike Hammer Operator Name Role Phone Mj Schaeffer MD Primary Care Provider [phone] Allergies Active Allergy Reactions Criticality Noted Date [...] of Treatment Not on file Care Teams Restrike Hammer Operator Relationship Specialty Start Date End Date Mj Schaeffer MD PCP - General Family Practice 12/16/18
--- OUTSIDE RECORDS SUMMARY | 2024-05-16 09:29 | XMS_ITS | Encounter Summary ---
Author Organization [facility] Address [address] [place] [address] Care Team Providers Care Uniform Patrol Police Officer Name Role Phone Mj Schaeffer MD Primary Care Provider [phone] Reason for Visit * Reason Comments Diabetes Encounter Details Date Type Department Care Team (Late st Contact Info) Description 02/29/2024 10:45 AM CDT Office Visit [facility] [address] [place] [address] Jeanne Shay MBBS [address] [place] [address] Uncontrolled type 1 diabetes mellitus with hyperglycemia (HRC) (Primary Dx); Essential hypertension (HRC); Dyslipidemia (high LDL; low HDL) (HRC); Coronary artery disease involving coronary bypass graft of [place] heart without angina pectoris (HRC) Social History [...] Shay MBBS - 02/29/2024 10:45 AM CDT [place] [facility] Department of Endocrinology, Diabetes and [...] advised him on using CPAP. MERE Ruelas Rail Car Driver * Jaime Holley - 02/29/2024 10:45 AM CDT Images from the original note were not included. documented in this encounter Plan of Treatment Upcoming Encounters Date Type Department Care Team (Late st Contact Info) Description 08/08/2024 2:00 PM TOOLMAKER GRADE THREE Appointment [facility] [address] [place] [address] Jeanne Shay MBBS [facility] [place] [address] documented as of this encounter Visit Diagnoses Diagnosis Uncontrolled type 1 diabetes mellitus with hyperglycemia (HRC)- Primary Essential hypertension (HRC) Unspecified essential hypertension Dyslipidemia (high LDL; low HDL) (HRC) Other and unspecified hyperlipidemia Coronary artery disease involving coronary bypass graft of [place] heart without angina pectoris (HRC) documented in this encounter Care Teams Uniform Patrol Police Officer Relationship Specialty Start Date End Date Mj Schaeffer MD [facility] [address] [place] [address] PCP - General Family Practice 07/22/21 documented as of this encounter
--- NOTE | 2024-05-16 09:35 | P.GSPN_ITS ---
Subjective Subjective Date Seen: 05/16/24 Interval history: Patient still has ?abdominal discomfort and nausea?, pointing to his right side. He also has some severe back pain. This does feel different than back pain he has had in the past. Exam Narrative: Exam Narrative: General: Alert and oriented, no acute distress Abdomen: Soft, tender to palpation right side, positive Quintero's. No guarding or rebound. Back: Right flank tenderness to palpation Const: Vital Signs, click to edit/add: Vital Signs - 24 hr 05/15/24 09:41 05/15/24 13:30 05/15/24 15:11 Temperature 96.3 F L 97.9 F Pulse Rate [Left R adial] 77 Pulse Rate [Pulse Oximeter] 75 85 Respiratory Rate 22 16 16 Blood Pressure [Le ft Arm] 175/77 H Blood Pressure [Ri ght Upper Arm] 172/75 H 170/81 H Pulse Oximetry 98 96 96 Oxygen Delivery Me thod Room Air Room Air Room Air 05/15/24 16:08 05/15/24 19:42 05/15/24 19:42 Temperature 98.1 F Pulse Rate [Left R adial] 74 Pulse Rate [Pulse Oximeter] Respiratory Rate 16 16 Blood Pressure [Le ft Arm] 126/72 Blood Pressure [Ri ght Upper Arm] Pulse Oximetry 96 98 98 Oxygen Delivery Me thod Room Air Room Air 05/15/24 21:04 05/15/24 22:46 05/15/24 22:47 Temperature 98.1 F Pulse Rate [Left R adial] 74 Pulse Rate [Pulse Oximeter] Respiratory Rate 16 16 Blood Pressure [Le ft Arm] Blood Pressure [Ri ght Upper Arm] Pulse Oximetry 98 Oxygen Delivery Me thod Room Air 05/15/24 23:08 05/15/24 23:10 05/16/24 02:23 Temperature 98.2 F 98.2 F 97.9 F Pulse Rate [Left R adial] 59 L 59 L Pulse Rate [Pulse Oximeter] Respiratory Rate 16 16 Blood Pressure [Le ft Arm] 119/77 105/67 Blood Pressure [Ri ght Upper Arm] Pulse Oximetry 98 95 Oxygen Delivery Me thod Room Air 05/16/24 08:07 05/16/24 08:09 Temperature 97.9 F Pulse Rate [Left R adial] 63 Pulse Rate [Pulse Oximeter] Respiratory Rate 16 16 Blood Pressure [Le ft Arm] 115/73 Blood Pressure [Ri ght Upper Arm] Pulse Oximetry 95 95 Oxygen Delivery Me thod Room Air Room Air Labs/Imaging Labs Labs: Glucose 129. WBC within normal limits. LFTs within normal limits. Imaging Imaging: No new imaging Progress Note:A&P Assessment and plan (1) Abdominal pain: Status: Acute Assessment and Plan: Patient with persistent right-sided abdominal pain this morning. Less likely to be musculoskeletal with patient reporting the pain feels different than previous back pain. Symptoms could be consistent with an acute cholecystitis, given the presence of stones on imaging. I had a detailed conversation with the patient regarding the diagnosis of acute cholecystitis. We discussed the treatment options including observation with diet modification and laparoscopic cholecystectomy. We discussed the risks of surgery (including but not limited to) the risks of bleeding, infection, injury to other structures in the abdomen including bile duct injury, bile leak and conversion to an open operation. We discussed the possibility that the patient's pain not improve with surgery. We discussed the possibility of permanent post-operative diarrhea that may require medical management. Additionally, the conceivably of complications requiring additional surgery or further hospitalization were also discussed including the risks of OH, re spiratory failure, stroke and blood clots. The patient voiced an understanding of our conversation, had the opportunity to ask questions, agreed to accept the risks of surgery and asked that we proceed with surgery.
--- NOTE | 2024-05-16 14:21 | PC.NURSE ---
Shift Summary: patient pleasant and cooperative. Up independently. Vitals stable and WNL. BG 129 and 154 when checked, non-administered sliding scale insulin due to NPO for surgery. Continues to have fluids running. Pain managed with PRN medication and bowel rest. Denies nausea or SOB. Awaiting surgery this afternoon.
--- NOTE | 2024-05-16 15:19 | P.IMPN_ITS ---
Progress Note: A&P Assessment and plan (1) Volume depletion: Status: Resolved (2) Acute flank pain: Problem details: - 05/15 unclear if this is related to right abdominal pain. He is point tender on the back which reproduces his back pain, which would be unlikely to be associated with gallbladder pain, although he does also have a positive Quintero sign. I suspect back pain is related to his known history of right disc protrusions that were previously encroaching on the L2 nerve. Will admit for observation and pain control overnight and if he is still having pain in the morning, consideration could be given to MRI of his back. - 05/16 Dr. Jerry saw patient this morning and is planning for OR this afternoon for lap dale. Status: Acute (3) Abdominal pain: Problem details: - right upper quadrant, positive Quintero sign, gallstone seen on imaging, without evidence for cholecystitis - see discussion above under acute flank pain; I appreciate Dr. Jerry is a recommendations. Will give clear liquid diet, NPO after midnight, admit for observation and pain control. - differential diagnosis includes symptomatic gallstones, radicular pain from nerve impingement, constipation, musculoskeletal pain, early shingles pre rash. - as above Status: Acute (4) Gallstones: Problem details: - seen on imaging, possibly symptomatic - as above Status: Acute (5) Gastroparesis: Problem details: Gastroparesis and slow small bowel intestine transit seen on nuclear imaging, 01/28 Status: Chronic (6) Broad-based protrusion of intervertebral disc: Problem details: -- broad-based right far lateral disc protrusion/osteophyte at L2-3 encroaching on the right L2 nerve -- broad-based right posterolateral disc protrusion at T12-L1 without neural impingement Status: Chronic (7) COPD (chronic obstructive pulmonary disease): Problem details: mild COPD, Records at Dr. Acosta, scanned in, 12/15/18, showed mild restriction and minimal obstruction, on no treatment Status: Chronic (8) Nicotine dependence: Problem details: - nicotine patch as needed - I counseled patient to quit smoking, he is in the pre contemplation phase Status: Chronic (9) Obstructive sleep apnea: Problem details: not on CPAP, severe RUDI by PSG 11/24/2018 and 12/30/18 (AHI severe, 70.9) Status: Chronic (10) Essential hypertension: Problem details: - continue home antihypertensives Status: Chronic (11) Type 1 diabetes: Problem details: - Dxed age 59, followed by Nataly Baires drop forger, Dr. Shay, on insulin pump - patient does not have cartridges with him - gluc 150's today, continue lantus with q6h accuchecks and ISS Status: Chronic (12) Acute constipation: Problem details: - this appears to be acute on chronic. Patient also has a history of diabetic gastroparesis. I have added senna S as patient is now on narcotic medications for pain control. He may also need MiraLax. - surgery today. Reassess if he remains in hospital overnight. Status: Acute (13) Acute hyperglycemia: Problem details: - Patient is not acidotic, there is no evidence of diabetic ketoacidosis. - I do not think this is contributing to his abdominal pain. - he was given 10 units of regular insulin IV in the emergency department and his blood sugar has come down from 400 to just under 300. - treat with insulin as below. Monitor for symptoms of DKA and repeat labs in the morning, sooner if needed. Status: Resolved (14) Coronary artery disease: Problem details: s/p CABG x3 09/22, atorvastatin started 06/30 - asymptomatic, monitor for symptoms Status: Chronic (15) Hyperlipidemia: Problem details: atorvastatin started 06/30 - hold atorvastatin tonight Status: Chronic Subjective Time Seen by Provider: 09:10 Date Seen: 05/16/24 Interval history: Lance tells me that the although the pain medicine is helping, he does still have pain in both his right back and right upper quadrant. He notes that he also feels nauseous when somebody palpates the area that is tender in the right upper quadrant. Exam Narrative: Exam Narrative: General: No acute distress. Awake alert oriented. No jaundice. No pallor. Cardiovascular: Regular rate and rhythm. Grade 3/6 systolic murmur loudest at the right upper sternal border, unchanged Chest: No increased work of breathing. Clear to auscultation bilaterally. No crackles or wheezes. Back: Point tender just off to the right of T11 or 12 which reproduces the pain that he has been having in his back, unchanged. No deformities, rash, swelling. Abdomen: Bowel sounds present. Soft, nondistended, tender in the right upper quadrant, positive Quintero sign, no rebound tenderness or guarding. No hepatosplenomegaly or masses. Extremities: No edema, no cyanosis or clubbing. Const: Vital Signs, click to edit/add: Vital Signs - 24 hr 05/15/24 16:08 05/15/24 19:42 05/15/24 19:42 Temperature 98.1 F Pulse Rate [Left R adial] 74 Respiratory Rate 16 16 Blood Pressure [Le ft Arm] 126/72 Pulse Oximetry 96 98 98 Oxygen Delivery Me thod Room Air Room Air 05/15/24 21:04 05/15/24 22:46 05/15/24 22:47 Temperature 98.1 F Pulse Rate [Left R adial] 74 Respiratory Rate 16 16 Blood Pressure [Le ft Arm] Pulse Oximetry 98 Oxygen Delivery Me thod Room Air 05/15/24 23:08 05/15/24 23:10 05/16/24 02:23 Temperature 98.2 F 98.2 F 97.9 F Pulse Rate [Left R adial] 59 L 59 L Respiratory Rate 16 16 Blood Pressure [Le ft Arm] 119/77 105/67 Pulse Oximetry 98 95 Oxygen Delivery Ut thod Room Air 05/16/24 08:07 05/16/24 08:09 05/16/24 11:29 Temperature 97.9 F Pulse Rate [Left R adial] 63 Respiratory Rate 16 16 Blood Pressure [Le ft Arm] 115/73 Pulse Oximetry 95 95 95 [facility] 05/16/24 11:33 Temperature 97.9 F Pulse Rate [Left R adial] 53 L Respiratory Rate 16 Blood Pressure [Le ft Arm] 119/71 Pulse Oximetry 97 Oxygen Delivery Ut thod Room Air Labs Labs: Laboratory Results - last 24 hr 05/15/24 05/15/24 05/16/24 15:31 16:25 06:00 WBC 9.87 RBC 3.94 L Hgb 11.9 L Hct 37.0 MCV 94 MCH 30 MCHC 32 RDW Coeff of Jose 13.5 Plt Count 223 Neut % (Auto) 66.0 Lymph % (Auto) 23.2 Bill[place] % (Auto) 7.8 Eos % (Auto) 2.5 Baso % (Auto) 0.4 Neut # (Auto) 6.51 Lymph # (Auto) 2.29 Bill[place] # (Auto) 0.80 Eos # (Auto) 0.25 Baso # (Auto) 0.04 Abs Immat Gran (auto) 0.01 Imm/Tot Granulo (auto) 0.1 VBG pH 7.343 VBG pCO2 41 VBG pO2 34.7 VBG HCO3 22 Sodium 139 Potassium 4.9 Chloride 108 Carbon Dioxide 25 Anion Gap 6 L BUN 24 Creatinine 0.7 Estimated Creat Clear 65.18 Estimated GFR 100 Glucose 129 H Calcium 8.7 Total Bilirubin 0.3 AST 18 ALT 15 Alkaline Phosphatase 74 Total Protein 6.6 Albumin 3.9 Lab Acknowledgement Test Added
[2024-05-16] MEDS: PIPERACILLIN/TAZOBACTAM 3.375 GM in 0.9 % SODIUM CHLORIDE Mini-bag 100 ML IVPB (16:43)
[2024-05-16] MEDS: BUPIVACAINE 0.5% 30 ML INJECTION (17:20)
--- NOTE | 2024-05-16 17:43 | PM.GSPRC ---
Operative Note Date of procedure: 05/16/24 Pre-op diagnosis: Acute cholecystitis Post-op diagnosis: Same Type of Procedure: Laparoscopic Cholecystectomy Indications: Patient presented to the ED with RUQ abdominal pain. Workup and clinical history was consistent with acute cholecystitis. Risks and benefits of operative intervention were discussed at length with the patient. Risks included but was not limited to: Bleeding, infection, risk of damage to surrounding structures, possible need for additional procedures, possible need to convert to an open operation and postoperative complications such as pneumonia, pulmonary emboli or CT. All questions and concerns were addressed with the patient agreeing to proceed. Procedure Description: After discussing the risks and benefits of the procedure, the patient signed informed consent.? The operative site was marked and the patient was brought to the operating room and placed on the operating table in supine position.? Care was taken to pad the patient's pressure points.?? The patient was then intubated by anesthesia.?? The operative site was then prepped and draped in the usual sterile fashion.? A time-out was then performed. Entrance to the abdomen was gained via a 5 mm Visiport in the left upper quadrant. The abdomen was insufflated and briefly surveyed for signs of injury. There was none. 11 mm umbilical port was placed as well as 2 working ports along the right costal margin. Patient was then placed in reverse Trendelenburg position with the right side up. The gallbladder was distended with bile. I was able to grasp the fundus and retracted cephalad. The tissue near the cystic duct and artery was very edematous. The infundibulum was grasped. A combination of hook cautery and blunt dissection was used to carefully dissect out the cystic duct and artery until they could clearly be seen entering the gallbladder without any intervening structures. During this portion of the procedure a small tear was made in the body of the gallbladder with spillage of bile. The gallbladder was dissected off the cystic plate to achieve the critical view. Once this was achieved the cystic duct and artery were each clipped with 2 clips proximally and 1 clip distally and transected with the scissors. The gallbladder was then taken off of the liver bed and removed from the abdomen using an Endo-Catch bag. The gallbladder bed was surveyed for hemostasis, which was excellent. A small amount of bile which had spilled was suctioned from the abdomen. The ports were then removed under direct vision. The umbilical port fascia was closed with 0 Vicryl. The skin was closed with absorbable subcuticular suture. Instrument sponge and needle counts were correct at the end of the case. The patient was then woken and transferred to the PACU in stable condition. Findings: Distended gallbladder, edematous appearing tissues consistent with cholecystitis Anesthesia: GETA Surgeon: Christina Jerry MD Estimated blood loss (mL): 2 Specimen: Gallbladder Condition: stable Disposition: PACU
--- NOTE | 2024-05-16 18:10 | W.ANESCHARGE ---
Anesthesia Charges Start Date/Time Anesthesia Start Date: 05/16/24 Anesthesia Start Time: 16:23 Stop Date/Time Anesthesia Stop Date: 05/16/24 Anesthesia Stop Time: 17:53
[2024-05-16] MEDS: 0.9 % SODIUM CHLORIDE 1000 ml 1,000 ML 30 ML IV (19:30)
[2024-05-16 20:15] LABS: Hemoglobin A1C* 8.8 % (0-5.6)
[2024-05-16] MEDS: GABAPENTIN 300 MG CAPSULE 600 MG PO (21:04)
[2024-05-16] MEDS: INSULIN ASPART 100 UNIT/ML SUBCUT (21:04)
--- NOTE | 2024-05-17 00:20 | PC.NURSE ---
Shift summary: Pt was off unit for surgery from [id number]. He has been A&O, afebrile and VSS post-operatively. Required some supplemental O2 in the immediate recovery period d/t anesthesia and h/o RUDI no CPAP. Lap sites x2 intact with right lower having scant amount of bloody drainage. Patient reports soreness but declines pain medication, active ice in place. PIV in right AC infusing NaCl @ 100 mL/hr. Pt denies any nausea. Adequate urine output post-op. Tolerating PO intake with no nausea. Up ad iwona in his room with a steady gait; denies dizziness. Blood sugar @ HS 214; received 4 units SS but declined long-acting. Plan to discharge home with tomorrow, 05/17.
[2024-05-17 00:24] VITALS: RESP 16; O2SAT 92
[2024-05-17 04:10] VITALS: BP 164/86; PULSE 76; RESP 16; TEMP 37.1; O2SAT 95
[2024-05-17 07:00] VITALS: BP 180/72; PULSE 74; RESP 16; TEMP 37.4; O2SAT 97
--- NOTE | 2024-05-17 07:34 | PC.NURSE ---
Pt alert and oriented x3. Afebrile. Pt reports 0-1/10 pain in abdomen, pain medications offered pt refused. Pt?s Lap sites are CDI, the RLQ lap site has scant dried blood on the steri strip but is intact. Pt is up Ind in room, voiding, tolerating a regular diet and passing gas.
[2024-05-17] MEDS: INSULIN ASPART 100 UNIT/ML SUBCUT (07:46)
[2024-05-17] MEDS: SENNOSIDES/DOCUSATE TABLET 2 TAB PO (08:44)
[2024-05-17] MEDS: GABAPENTIN 300 MG CAPSULE PO (08:44)
[2024-05-17] MEDS: lisinopriL 5 MG TABLET 2.5 MG PO (08:45)
[2024-05-17] MEDS: METOPROLOL TARTRATE 50 MG TABLET PO (08:45)
--- NOTE | 2024-05-17 10:10 | PM.DS1 ---
DS: Providers Provider Date Seen: 05/17/24 Primary care physician: Fatoumata Kamara MD Consults: 05/15/24 17:01 Consult to Physician [CONS] Routine Comment: Consulting Provider: Christina Jerry Has provider been notified: Yes Attending Physician on discharge: Fareed Lin MD DS: Summary Hospital Course Hospital Course: Patient was admitted to the hospital with work up concerning for acute cholecystitis. He was taken to the OR for a laparoscopic cholecystectomy. Post operatively he did well. Please see Hospitalist discharge summary for full course. At the time of discharge he was tolerating a regular diet, pain was well controlled and he was ambulating independently. Time Spent with Patient Time attestation: Total time spent providing and/or coordinating discharge services: Exam Narrative: Exam Narrative: Gen: alert and oriented, NAD Abd: soft, non tender and non distended. Incisions with steri strips in palce c/d/i. Const: Vital Signs, click to edit/add: Vital Signs - 24 hr 05/16/24 11:29 05/16/24 11:33 05/16/24 15:00 Temperature 97.9 F Pulse Rate Pulse Rate [Left R adial] 53 L 63 Pulse Rate [Pulse Oximeter] Respiratory Rate 16 16 Blood Pressure Blood Pressure [Le ft Arm] 119/71 Pulse Oximetry 95 97 Oxygen Delivery Me thod Room Air Oxygen Flow Rate 05/16/24 15:00 05/16/24 15:00 05/16/24 17:50 Temperature 97.9 F 97.4 F L Pulse Rate 66 Pulse Rate [Left R adial] 63 Pulse Rate [Pulse Oximeter] Respiratory Rate 16 16 21 Blood Pressure 188/87 H Blood Pressure [Le ft Arm] 139/69 Pulse Oximetry 95 95 95 Oxygen Delivery Me thod Room Air Room Air OxyMask Oxygen Flow Rate 6 05/16/24 17:55 05/16/24 18:00 05/16/24 18:05 Temperature Pulse Rate 68 76 77 Pulse Rate [Left R adial] Pulse Rate [Pulse Oximeter] Respiratory Rate 18 20 21 Blood Pressure 195/88 H 180/79 H 178/84 H Blood Pressure [Le ft Arm] Pulse Oximetry 96 93 92 Oxygen Delivery Me thod Room Air Oxygen Flow Rate 05/16/24 18:10 05/16/24 18:16 05/16/24 18:30 Temperature 97.6 F 96.9 F L Pulse Rate 77 80 80 Pulse Rate [Left R adial] Pulse Rate [Pulse Oximeter] Respiratory Rate 20 22 18 Blood Pressure 163/79 H 182/81 H 163/75 H Blood Pressure [Le ft Arm] Pulse Oximetry 93 92 93 Oxygen Delivery Me thod Room Air Oxygen Flow Rate 05/16/24 18:45 05/16/24 19:00 05/16/24 19:15 Temperature 96.7 F L 96.6 F L 97.2 F L Pulse Rate 76 78 77 Pulse Rate [Left R adial] Pulse Rate [Pulse Oximeter] Respiratory Rate 18 18 18 Blood Pressure 158/71 H 143/70 H 130/64 Blood Pressure [Le ft Arm] Pulse Oximetry 85 L 95 97 Oxygen Delivery Me thod Room Air Nasal Cannula Nasal Cannula Oxygen Flow Rate 2 2 05/16/24 19:30 05/16/24 20:00 05/16/24 20:30 Temperature 97.2 F L 97.2 F L 97.6 F Pulse Rate 75 74 79 Pulse Rate [Left R adial] Pulse Rate [Pulse Oximeter] Respiratory Rate 18 18 18 Blood Pressure 130/64 144/73 H 147/71 H Blood Pressure [Le ft Arm] Pulse Oximetry 97 96 92 Oxygen Delivery Me thod Nasal Cannula Nasal Cannula Room Air Oxygen Flow Rate 2 2 05/16/24 21:30 05/16/24 22:30 05/17/24 00:24 Temperature 97.4 F L 97.6 F Pulse Rate 80 69 Pulse Rate [Left R adial] Pulse Rate [Pulse Oximeter] Respiratory Rate 18 18 16 Blood Pressure 167/83 H 152/78 H Blood Pressure [Le ft Arm] Pulse Oximetry 91 92 92 Oxygen Delivery Me thod Room Air Room Air Room Air Oxygen Flow Rate 05/17/24 04:10 Temperature 98.7 F Pulse Rate Pulse Rate [Left R adial] Pulse Rate [Pulse Oximeter] 76 Respiratory Rate 16 Blood Pressure Blood Pressure [Le ft Arm] 164/86 H Pulse Oximetry 95 Oxygen Delivery Me thod Room Air Oxygen Flow Rate DS: Data Data Completed and Pending Labs on day of discharge: Labs from last 24 hours 05/16/24 05/16/24 15:24 06:00 Hemoglobin A1c 8.8 H Lab Acknowledgement Test Added Discharge Plan Discharge Disposition: Home w/ Parent or Adult Discharging Surgeon: Christina Jerry Follow-Up Appointment: 2 week follow up, [facility] Prescriptions: New hydrocodone-acetaminophen 5-325 mg tablet 1 tab PO Q6H PRN (Reason: pain) Qty: 15 0RF senna 8.6 mg capsule 8.6 mg PO DAILY PRN (Reason: constipation) Qty: 90 0RF Continued nitroglycerin 0.4 mg tablet, sublingual 0.4 mg sublingual Q5M PRN Rx Instructions: do not exceed 3 doses per episode Gvoke HypoPen 2-Pack 1 mg/0.2 mL auto-injector 1 mg subcut .PRN (DME) Omnipod Dash Pods (Gen 4) Cartridge See Rx Instructions subcut .MEDSUPPLY Qty: 5 Rx Instructions: As directed (DME) FreeStyle Nemesio 2 Sensor Kit See Rx Instructions .ROUTE .MEDSUPPLY Qty: 1 Patient Comments: [NO ORIGINAL SIG] Rx Instructions: As directed (DME) Dexcom G6 Transmitter Device See Rx Instructions .ROUTE .MEDSUPPLY Qty: 1 Patient Comments: [NO ORIGINAL SIG] Rx Instructions: As directed (DME) Dexcom G6 Property Condition Assessor Misc See Rx Instructions .ROUTE .MEDSUPPLY Qty: 1 Patient Comments: [NO ORIGINAL SIG] Rx Instructions: As directed (DME) Dexcom G6 Sensor Device See Rx Instructions .ROUTE Q10D Qty: 1 Rx Instructions: As directed (DME) pen needle, diabetic [Pentips Pen Needle] 31 gauge x 1/4 needle See Rx Instructions .ROUTE .MEDSUPPLY Qty: 100 Patient Comments: [NO ORIGINAL SIG] Rx Instructions: As directed gabapentin 300 mg capsule 300 mg PO QAM metformin 500 mg tablet extended release 24 hr 2,000 mg PO QPM gabapentin 300 mg capsule 600 mg PO HS atorvastatin 20 mg tablet 20 mg PO HS lisinopril 2.5 mg tablet 2.5 mg PO QDAY Qty: 90 0RF metoprolol tartrate 50 mg tablet 50 mg PO BID Qty: 180 0RF Held aspirin 81 mg tablet,delayed release (DR/EC) 81 mg PO DAILY Hold Instructions: Resume on 05/31/24. insulin aspart U-100 100 unit/mL solution 50 unit subcut Q24H Hold Instructions: Resume on 05/18/24. Rx Instructions: INSULIN PUMP Activity Level: No strenuous activity Activity Detail: Activity as tolerated. Avoid strenuous activity. No lifting greater than 20 lb for 2 weeks. Discharge Diet: Low Fat/Low Cholesterol Patient Instructions: Hydrocodone/Acetaminophen (By mouth), Senna (By mouth), General Anesthesia (DC), Laparoscopic Cholecystectomy (DC), Post-Operative Instructions: Laparoscopic Cholecystectomy Additional Instructions: You were prescribed a narcotic pain medication. In addition you may supplement with Tylenol and/or ibuprofen. Be sure to not exceed greater than 4 g of Tylenol in a 24 hour period. While on narcotic pain medicine please take stool softeners. A prescription of stool softeners has been sent to the pharmacy. Stop if having greater than 2 stools per day. You have Steri-Strips dressings in place, allow these to fall off on their own. Okay to shower starting tomorrow. Do not soak in a bath or swim for 2 weeks. Follow-up with Dr. Jerry in 2-3 weeks. Please call if you are experiencing severe pain, nausea, vomiting, difficulty urinating, fever or not had a bowel movement in 4 days after surgery. Follow-up: Christina Jerry MD [Staff Physician] - 06/01/24 1:00 pm ([facility] for follow-up.) Fatoumata Kamara MD [Primary Care Provider] - 06/01/24 2:00 pm ([facility] for follow-up.) Discharge Orders: Discharge Order (Routine); Ordered 05/17/24 Ordered By: Christina Jerry Consulting provider completed their portion of the discharge: Yes
--- NOTE | 2024-05-17 11:37 | PC.NURSE ---
Pt discharged @ 1058 via ambulation. Accompanied by son, going back to home. AxOx4, pain controlled. Discharge forms signed. IV removed. Final room check complete.
--- NOTE | 2024-05-17 16:29 | PM.DS1 ---
DS: Providers Provider Date Seen: 05/17/24 Primary care physician: Fatoumata Kamara MD Consults: 05/15/24 17:01 Consult to Physician [CONS] Routine Comment: Consulting Provider: Christina Jerry Has provider been notified: Yes Attending Physician on discharge: Ric Toure MD Date of Discharge: 05/17/24 DS: Diagnosis Discharge Diagnosis (1) Acute flank pain: Status: Acute Problem details: - 05/15 unclear if this is related to right abdominal pain. He is point tender on the back which reproduces his back pain, which would be unlikely to be associated with gallbladder pain, although he does also have a positive Quintero sign. I suspect back pain is related to his known history of right disc protrusions that were previously encroaching on the L2 nerve. Will admit for observation and pain control overnight and if he is still having pain in the morning, consideration could be given to MRI of his back. - 05/16 Dr. Jerry saw patient this morning and is planning for OR this afternoon for lap dale. (2) Abdominal pain: Status: Acute Problem details: - right upper quadrant, positive Quintero sign, gallstone seen on imaging, without evidence for cholecystitis - see discussion above under acute flank pain; I appreciate Dr. Jerry is a recommendations. Will give clear liquid diet, NPO after midnight, admit for observation and pain control. - differential diagnosis includes symptomatic gallstones, radicular pain from nerve impingement, constipation, musculoskeletal pain, early shingles pre rash. 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 Acosta, scanned in, 12/15/18, showed mild restriction and minimal obstruction, on no treatment (7) Nicotine dependence: Status: Chronic Problem details: - nicotine patch as needed - I counseled patient to quit smoking, he is in the pre contemplation phase (8) Obstructive sleep apnea: Status: Chronic Problem details: not on CPAP, severe RUDI by [facility] 11/24/2018 and 12/30/18 (AHI severe, 70.9) (9) Essential hypertension: Status: Chronic Problem details: - continue home antihypertensives (10) Type 1 diabetes: Status: Chronic Problem details: - Dxed age 59, followed by Nataly Baires wool presser, Dr. Shay, on insulin pump - patient does not have cartridges with him - gluc 150's today, continue lantus with q6h accuchecks and ISS (11) Chronic pain: Status: Acute (12) Acute hyperglycemia: Status: Resolved Problem details: - Patient is not acidotic, there is no evidence of diabetic ketoacidosis. - I do not think this is contributing to his abdominal pain. - he was given 10 units of regular insulin IV in the emergency department and his blood sugar has come down from 400 to just under 300. - treat with insulin as below. Monitor for symptoms of DKA and repeat labs in the morning, sooner if needed. (13) Coronary artery disease: Status: Chronic Problem details: s/p CABG x3 09/22, atorvastatin started 06/30 - asymptomatic, monitor for symptoms (14) Hyperlipidemia: Status: Chronic Problem details: atorvastatin started 06/30 - hold atorvastatin tonight (15) Volume depletion: Status: Resolved DS: Summary Hospital Course Hospital Course: Patient was admitted to the hospital with work up concerning for acute cholecystitis. He was taken to the OR for a laparoscopic cholecystectomy. Post operatively he did well. Please see Hospitalist discharge summary for full course. At the time of discharge he was tolerating a regular diet, pain was well controlled and he was ambulating independently. Status at Discharge Overall status at discharge: patient is progressing back to baseline Time Spent with Patient Time attestation: Total time spent providing and/or coordinating discharge services: Exam Narrative: Exam Narrative: Examined patient in his hospital room and in the hospital hallway where he was walking ad iwona. Friendly, articulate, cooperative. Appears comfortable no acute distress. Alert and oriented x4. Lungs clear to auscultation. Heart tones with regular rhythm. Abdomen with active bowel sounds, soft, nontender. Independent in transfer, station, and gait. Const: Vital Signs, click to edit/add: Vital Signs - 24 hr 05/16/24 17:50 05/16/24 17:55 05/16/24 18:00 Temperature 97.4 F L Pulse Rate 66 68 76 Pulse Rate [Pulse Oximeter] Respiratory Rate 21 18 20 Blood Pressure 188/87 H 195/88 H 180/79 H Blood Pressure [Le ft Arm] Pulse Oximetry 95 96 93 Oxygen Delivery Me thod OxyMask Room Air Oxygen Flow Rate 6 05/16/24 18:05 05/16/24 18:10 05/16/24 18:16 Temperature 97.6 F Pulse Rate 77 77 80 Pulse Rate [Pulse Oximeter] Respiratory Rate 21 20 22 Blood Pressure 178/84 H 163/79 H 182/81 H Blood Pressure [Le ft Arm] Pulse Oximetry 92 93 92 Oxygen Delivery Me thod Oxygen Flow Rate 05/16/24 18:30 05/16/24 18:45 05/16/24 19:00 Temperature 96.9 F L 96.7 F L 96.6 F L Pulse Rate 80 76 78 Pulse Rate [Pulse Oximeter] Respiratory Rate 18 18 18 Blood Pressure 163/75 H 158/71 H 143/70 H Blood Pressure [Le ft Arm] Pulse Oximetry 93 85 L 95 Oxygen Delivery Me thod Room Air Room Air Nasal Cannula Oxygen Flow Rate 2 05/16/24 19:15 05/16/24 19:30 05/16/24 20:00 Temperature 97.2 F L 97.2 F L 97.2 F L Pulse Rate 77 75 74 Pulse Rate [Pulse Oximeter] Respiratory Rate 18 18 18 Blood Pressure 130/64 130/64 144/73 H Blood Pressure [Le ft Arm] Pulse Oximetry 97 97 96 Oxygen Delivery Me thod Nasal Cannula Nasal Cannula Nasal Cannula Oxygen Flow Rate 2 2 2 05/16/24 20:30 05/16/24 21:30 05/16/24 22:30 Temperature 97.6 F 97.4 F L 97.6 F Pulse Rate 79 80 69 Pulse Rate [Pulse Oximeter] Respiratory Rate 18 18 18 Blood Pressure 147/71 H 167/83 H 152/78 H Blood Pressure [Le ft Arm] Pulse Oximetry 92 91 92 Oxygen Delivery Me thod Room Air Room Air Room Air Oxygen Flow Rate 05/17/24 00:24 05/17/24 04:10 05/17/24 07:00 Temperature 98.7 F Pulse Rate Pulse Rate [Pulse Oximeter] 76 Respiratory Rate 16 16 16 Blood Pressure Blood Pressure [Le ft Arm] 164/86 H Pulse Oximetry 92 95 97 Oxygen Delivery Me thod Room Air Room Air Room Air Oxygen Flow Rate 05/17/24 07:00 Temperature 99.3 F Pulse Rate Pulse Rate [Pulse Oximeter] 74 Respiratory Rate 16 Blood Pressure Blood Pressure [Le ft Arm] 180/72 H Pulse Oximetry 97 Oxygen Delivery Me thod Room Air Oxygen Flow Rate DS: Data Data Completed and Pending Labs on day of discharge: Labs from last 24 hours 05/16/24 06:00 Hemoglobin A1c 8.[address] scan of abdomen and pelvis: Attestation: I have reviewed the pertinent imaging results. Radiologist's impression: 1. No evidence of hydronephrosis or obstructive radiopaque calculus. Minimal likely dependent calculi within the gallbladder. No obvious inflammatory change of the appendix. 2. Moderate to severe stool seen throughout the proximal colon which may represent moderate constipation changes. No overt pericolonic inflammation. 3. Incidental note made of rounded atelectasis and left basilar pleural thickening new from remote comparison exam. Correlate with history of clinical symptoms and prior history of infectious/inflammatory changes. US - abdomen: Radiologist's impression: Cholelithiasis. Otherwise, unremarkable sonographic appearance of the gallbladder. Discharge Plan Discharge Disposition: Home w/ Parent or Adult Discharging Surgeon: Christina Jerry Follow-Up Appointment: 2 week follow up, [facility] Prescriptions: New hydrocodone-acetaminophen 5-325 mg tablet 1 tab PO Q6H PRN (Reason: pain) Qty: 15 0RF senna 8.6 mg capsule 8.6 mg PO DAILY PRN (Reason: constipation) Qty: 90 0RF Continued nitroglycerin 0.4 mg tablet, sublingual 0.4 mg sublingual Q5M PRN Rx Instructions: do not exceed 3 doses per episode Gvoke HypoPen 2-Pack 1 mg/0.2 mL auto-injector 1 mg subcut .PRN (DME) Omnipod Dash Pods (Gen 4) Cartridge See Rx Instructions subcut .MEDSUPPLY Qty: 5 Rx Instructions: As directed (DME) FreeStyle Nemesio 2 Sensor Kit See Rx Instructions .ROUTE .MEDSUPPLY Qty: 1 Patient Comments: [NO ORIGINAL SIG] Rx Instructions: As directed (DME) Dexcom G6 Transmitter Device See Rx Instructions .ROUTE .MEDSUPPLY Qty: 1 Patient Comments: [NO ORIGINAL SIG] Rx Instructions: As directed (DME) Dexcom G6 Manager Erp Misc See Rx Instructions .ROUTE .MEDSUPPLY Qty: 1 Patient Comments: [NO ORIGINAL SIG] Rx Instructions: As directed (DME) Dexcom G6 Sensor Device See Rx Instructions .ROUTE Q10D Qty: 1 Rx Instructions: As directed (DME) pen needle, diabetic [Pentips Pen Needle] 31 gauge x 1/4 needle See Rx Instructions .ROUTE .MEDSUPPLY Qty: 100 Patient Comments: [NO ORIGINAL SIG] Rx Instructions: As directed gabapentin 300 mg capsule 300 mg PO QAM metformin 500 mg tablet extended release 24 hr 2,000 mg PO QPM gabapentin 300 mg capsule 600 mg PO HS atorvastatin 20 mg tablet 20 mg PO HS lisinopril 2.5 mg tablet 2.5 mg PO QDAY Qty: 90 0RF metoprolol tartrate 50 mg tablet 50 mg PO BID Qty: 180 0RF Held aspirin 81 mg tablet,delayed release (DR/EC) 81 mg PO DAILY Hold Instructions: Resume on 05/31/24. insulin aspart U-100 100 unit/mL solution 50 unit subcut Q24H Hold Instructions: Resume on 05/18/24. Rx Instructions: INSULIN PUMP Activity Level: No strenuous activity Activity Detail: Activity as tolerated. Avoid strenuous activity. No lifting greater than 20 lb for 2 weeks. Discharge Diet: Low Fat/Low Cholesterol Patient Instructions: Hydrocodone/Acetaminophen (By mouth), Senna (By mouth), General Anesthesia (DC), Laparoscopic Cholecystectomy (DC), Post-Operative Instructions: Laparoscopic Cholecystectomy Additional Instructions: You were prescribed a narcotic pain medication. In addition you may supplement with Tylenol and/or ibuprofen. Be sure to not exceed greater than 4 g of Tylenol in a 24 hour period. While on narcotic pain medicine please take stool softeners. A prescription of stool softeners has been sent to the pharmacy. Stop if having greater than 2 stools per day. You have Steri-Strips dressings in place, allow these to fall off on their own. Okay to shower starting tomorrow. Do not soak in a bath or swim for 2 weeks. Follow-up with Dr. Jerry in 2-3 weeks. Please call if you are experiencing severe pain, nausea, vomiting, difficulty urinating, fever or not had a bowel movement in 4 days after surgery. Follow-up: Christina Jerry MD [Staff Physician] - 06/01/24 1:00 pm ([facility] for follow-up.) Fatoumata Kamara MD [Primary Care Provider] - 06/01/24 2:00 pm ([facility] for follow-up.) Discharge Orders: Discharge Order (Routine); Ordered 05/17/24 Ordered By: Christina Jerry Consulting provider completed their portion of the discharge: Yes
== END 2024-05-17 10:58 | disposition home or self-care (01) ==
LOC: ED 13:55 → MEDSURG 05-16 08:17 → SS 05-16 09:27 → MEDSURG 05-16 09:33
PROVIDERS: Emergency Medicine; Family Medicine; PCP Internal Medicine; Visit Provider Surgery
PROC: 0FT44ZZ Resection of Gallbladder, Percutaneous Endoscopic Approach (ICD-10-PCS; CPT 47562; principal; 2024-05-16 13:45)
DX: K80.00 Calculus of gallbladder with acute cholecystitis without obstruction (principal); R10.11 Right upper quadrant pain; K76.0 Fatty (change of) liver, not elsewhere classified; E10.43 Type 1 diabetes mellitus with diabetic autonomic (poly)neuropathy; E10.65 Type 1 diabetes mellitus with hyperglycemia; E10.40 Type 1 diabetes mellitus with diabetic neuropathy, unspecified; K31.84 Gastroparesis; Z96.41 Presence of insulin pump (external) (internal); G47.33 Obstructive sleep apnea (adult) (pediatric); E86.9 Volume depletion, unspecified; K59.09 Other constipation; J44.9 Chronic obstructive pulmonary disease, unspecified; Z79.4 Long term (current) use of insulin; Z79.85 Long-term (current) use of injectable non-insulin antidiabetic drugs; I10 Essential (primary) hypertension; I25.10 Atherosclerotic heart disease of native coronary artery without angina pectoris; F17.210 Nicotine dependence, cigarettes, uncomplicated; Z95.2 Presence of prosthetic heart valve; Z98.62 Peripheral vascular angioplasty status; Z95.1 Presence of aortocoronary bypass graft; M51.16 Intervertebral disc disorders with radiculopathy, lumbar region
CPT/HCPCS: 47562; 00790; 36415; 74176; 76705; 80053; 81001; 82803; 82962; 83036; 83605; 83690; 85025; 85379; 87086; 88304; 99284; A9270; G0378; J0330; J0665; J1100; J1171; J1815; J1885; J2250; J2405; J2543; J2704; J3010; J3490; J7030

== ENCOUNTER 2024-07-25 08:22 | Outpatient (CLI) | payer MEDICAID, SELFPAY | END 2024-07-25 08:23 | disposition home or self-care (01) | PROVIDERS: PCP Internal Medicine; Visit Provider Internal Medicine | DX: J44.1 Chronic obstructive pulmonary disease with (acute) exacerbation (principal); E10.59 Type 1 diabetes mellitus with other circulatory complications | CPT/HCPCS: 84165; 86334 ==

== ENCOUNTER 2024-08-25 09:10 | Outpatient (CLI) | payer MEDICAID, SELFPAY | END 2024-08-25 09:11 | disposition home or self-care (01) | LOC: NFLDREF 08-27 00:15 | PROVIDERS: PCP Internal Medicine; Referring Provider Internal Medicine; Visit Provider Internal Medicine | DX: E78.5 Hyperlipidemia, unspecified (principal) | CPT/HCPCS: 80061 ==

== ENCOUNTER 2024-11-07 16:52 | Outpatient (CLI) | payer MEDICAID, SELFPAY | END 2024-11-07 16:53 | disposition home or self-care (01) | PROVIDERS: PCP Internal Medicine; Visit Provider Internal Medicine | DX: M79.10 Myalgia, unspecified site (principal) | CPT/HCPCS: 82550; 86140 ==

== ENCOUNTER 2025-04-30 07:47 | Outpatient (CLI) | payer MEDICAID, SELFPAY ==
--- NOTE | 2025-04-30 08:00 | CRLHL7_ITS ---
For Patients: As a result of the Century Cures Act, medical imaging exams and procedure reports are released immediately into your electronic medical record. You may view this report before your referring provider. If you have questions, please contact your health care provider. INDICATION: Lung cancer screening. Smoking history. TECHNIQUE: CT chest low dose without contrast. COMPARISON: Chest CT 04/28/2024 and 03/17/2019 FINDINGS: Pulmonary nodules: Stable right upper lobe anterior subpleural solid nodule measuring 9 mm (3/66), stable dating back to 2019. Stable posterior right lower lobe 6 mm solid nodule (3/61). Stable left lower lobe calcified granuloma Lungs and pleural spaces: Layering debris within the upper trachea. Unchanged round atelectasis in the left lower lobe with adjacent pleural thickening. Heart and vasculature: Heart size is normal. Thoracic aorta and pulmonary artery are normal in caliber. Atherosclerotic calcifications and coronary artery calcifications. Postsurgical changes of the aortic valve Lymph nodes and mediastinum: No mediastinal, hilar, or axillary adenopathy. Chest wall: Unremarkable. Upper abdomen: Normal. Bones: Sternotomy wires. Degenerative change of the imaged spine. Sclerotic focus in the right humeral head is likely present on CT from 2022, favored benign IMPRESSION: 1. Stable right lobe subpleural nodules dating back to 2019, these are likely benign Lung-RADS Category 2: Benign. Continue annual screening, if eligible, with LDCT in 12 months. 2. Layering debris within the upper trachea places the patient at risk for aspiration. Please note that all CT scans at this facility use dose modulation, iterative reconstruction, and/or weight-based dosing when appropriate to reduce radiation dose to as low as reasonably achievable. Dictated by Hailee Sutton MD @ 04/30/2025 10:29:13 AM (Electronically Signed)
== END 2025-04-30 07:48 | disposition home or self-care (01) ==
LOC: CT 07:49
PROVIDERS: PCP Internal Medicine; Visit Provider Internal Medicine
DX: Z12.2 Encounter for screening for malignant neoplasm of respiratory organs (principal); Z87.891 Personal history of nicotine dependence; R91.8 Other nonspecific abnormal finding of lung field; I25.10 Atherosclerotic heart disease of native coronary artery without angina pectoris; Z95.2 Presence of prosthetic heart valve
CPT/HCPCS: 71271